=== PATIENT | male | born 1955 | race Caucasian/White ===

== ENCOUNTER 2019-11-11 20:34 | Observation (INO) | payer MEDICARE, SELFPAY ==
[2019-11-11 19:57] VITALS: BMI 24.0
[2019-11-11 20:00] VITALS: PULSE 75
--- NOTE | 2019-11-11 20:07 | HP.PCM_ITS ---
Problem List (1) Syncope and collapse Status: Acute History of Present Illness Date of Admission: 11/11/19 Chief Complaint: syncope The patient is a 64 year old M with history of multiple syncopal episode; depression; chronic back pain and hyperlipidemia presenting with syncope. His recent syncopal episodes started a day before coming to our hospital. He initially presented to [facility] on 11/10/2019. His sodium was 128 at that time. On 11/10/2019 he had about 6 episodes of syncope. His syncope was ruled out any warning. After he came back to himself he felt lightheaded. On 11/11/2019 patient's went to the [place] emergency department again his sodium was 128. Patient reports that at [place] emergency department he was hypotensive. Also patient had elevated d-dimer. CT of the chest was unremarkable. Reportedly patient was sent to our hospital because [facility] did not have a timber hewer and patient wanted to see a timber hewer. Past Medical History Medical History: Medical History (Last Updated 11/11/19 @ 20:[address] Ethan Richards MD) Hyperlipidemia E78.5 Allergies erythromycin base Allergy (Verified 11/11/19 19:54) Itching ether Adverse Reaction (Verified 11/11/19 19:54) Shortness of breath Home Medications: Ambulatory Orders Medication Instructions Recorded Atorvastatin Calcium 20 mg PO QHS 11/11/19 Venlafaxine XR [Effexor Xr] 75 mg PO DAILY 11/11/19 Venlafaxine XR [Effexor Xr] 150 mg PO QHS 11/11/19 traMADol [Ultram (G)] 50 - 100 mg PO Q6H PRN PRN 11/11/19 Surgical History: - - Right hip abscess drainage Smoking Status: Former smoker Alcohol: None - *Family History Maternal History Items: - - Multiple sclerosis Paternal History Items: Stroke Review of Systems Constitutional: Denies: Chills, Fever, Weight Change HEENT: Denies: Head Aches, Sinus Congestion, Sinus Drainage Cardiovascular: Reports: Light Headedness, Syncope. Denies: Chest Pain, Palpitations Respiratory: Denies: Cough, Shortness of breath at rest, Sputum production Gastrointestinal: Denies: Abdominal Pain, Nausea, Vomiting Genitourinary: Denies: Dysuria Musculoskeletal: Denies: Joint Pain, Joint Tenderness Skin: Denies: Rash, Wounds Neurological: Denies: Numbness, Tingling, Focal weakness Psychiatric: Reports: Depression. Denies: Anxiety, Homicidal Ideations, Suicidal Ideations Hematologic/ Lymphatic: Denies: Easy Bruising, Easy Bleeding VTE Information - Inpt Only VTE Present on Admission: No VTE Mechan Device Prophylaxis: None VTE Pharm Prophylaxis ordered?: Yes Patient Problems: Active and Suspected Problems (Last Updated 11/11/19 @ 20:[address] Ethan Richards MD) Syncope and collapse (Acute) - Physical Exam Vitals/I&O's: Weight: 78 kg Body Mass Index (BMI) 24.0 General: Alert, Oriented x3, Cooperative HEENT: Atraumatic, PERRLA, EOMI, Normocephalic Neck: Supple, Trachea Midline Lungs: Clear to auscultation, Normal air movement Cardiovascular: Regular rate, Normal S1, Normal S2, No murmurs Abdomen: Bowel Sounds Present, Soft, Non Tender Extremities: No edema, Capillary Refill Less than 3 Seconds Skin: No rashes, No breakdown Musculoskeletal: No Tenderness to Palpation of Joints or Extremities Neurological: Cranial nerves II-XII grossly intact Psych/Mental Status: Normal Affect, Appropriate Current Medications Sodium Chloride () 250 mls @ 15 mls/hr IV .[id number] PRN PRN Reason: Saline Flush Sodium Chloride () 250 mls @ 15 mls/hr IV .[id number] PRN PRN Reason: Additional IVPB Infusion Sodium Chloride () 10 - 40 ml IV UD PRN PRN Reason: SALINE FLUSH Assessment/Plan All Active Problems (Last Updated 11/11/19 @ 20:[address] Ethan Richards MD) Syncope and collapse (Acute) The patient is a 64 year old M with history of multiple syncopal episode; depression; chronic back pain and hyperlipidemia presenting with syncope. Syncope and collapse Get orthostatic now and every a.m.. EKG from [place] did not show ST or T wave abnormalities. Placed on telemetry. Get echocardiogram. Patient reported that in the past [facility] ordered outpatient Holter monitor for about 3 to 4 days. Consider long-term heart monitoring. If long-term heart monitoring is negative patient may be a candidate for tilt table test. Cardiology consult. Hyponatremia Patient appears euvolemic. Get BMP with osmolality. Check urine electrolytes to calculate FENA. Check urine osmolarity. Check a TSH and uric acid level. A.m. cortisol. Will continue home Effexor. Patient states that he was taking off Effexor for many months and he had so much depression and anxiety such that he could not get off his bed. Depression Effexor continued Chronic back pain Ultram continued DVT prophylaxis Subcutaneous Lovenox Inpatient E&M: [id number] Init Hosp L3
[2019-11-11 20:12] VITALS: BP 123/65; PULSE 73; RESP 18; TEMP 37.1; O2SAT 100
--- NOTE | 2019-11-11 20:57 | ECHOD_ITS ---
Reason For Study: SYNCOPE/NEAR SYNCOPE Procedure This was a 2D Doppler, Color Flow transthoracic echocardiogram. Exam performed portable in patient room. Left Ventricle Normal LV size. Left ventricular systolic function is normal. The estimated ejection fraction is 60 %. No regional wall motion abnormalities noted. Right Ventricle Normal RV size. Normal systolic function. Atria Normal left atrium. Normal right atrium. Mitral Valve Normal mitral valve. Tricuspid Valve Normal tricuspid valve. Aortic Valve Normal aortic valve. Pulmonic Valve Normal pulmonic valve. Great Vessels Normal aortic root. The pulmonary artery is normal size. Normal inferior vena cava. Pericardium/Pleural No pericardial effusion. MMode/2D Measurements & Calculations LVIDd: 4.0 cm IVSd: 0.98 cm LAV(MOD-sp4): 39.4 ml LVIDs: 2.7 cm LVPWd: 0.96 cm RVDd: 3.1 cm FS: 32.4 % LA A4 area: 15.4 cm2 LA dimension(2D): 2.7 cm RA A4 area: 12.5 cm2 Time Measurements MV dec time: 0.18 sec Doppler Measurements & Calculations MV E max niels: 76.9 cm/sec Lat Peak E' Niels: 10.6 cm/sec Med Peak E' Niels: 9.6 cm/sec MV A max niels: 65.4 cm/sec E/E' lat: 7.2 E/E' med: 8.0 MV E/A: 1.2 Ao V2 max: 115.1 cm/sec LV V1 max: 90.3 cm/sec PA V2 max: 89.1 cm/sec Ao max P.3 mmHg LV V1 max P.3 mmHg Interpretation Summary Normal LV size. Left ventricular systolic function is normal. The estimated ejection fraction is 60 %. Structurally normal valves. Ordering Physician: Ethan Richards Referring Physician: OTD Performed By: Naima Barnes, GRETA, RVT
[2019-11-11 21:58] LABS: Osmolality, Serum 270 mOsm/KG (280-301)
[2019-11-11 22:00] VITALS: BP 106/72; BP 124/71; PULSE 78; PULSE 81; PULSE 83
[2019-11-11 22:12] LABS: Anion Gap 6 (5-15); BUN 8 mg/dL (7-18); Calcium,Total 8.2 mg/dL (8.5-10.1); Chloride 98 mmol/L (98-107); EST Glomerular Filtration Rate 102 mL/min (>60); Est Glom Filt Rate - Afr Amer 124 mL/min (>60); Estimated Creatinine Clearance 96.74 ml/min; Glucose 95 mg/dL (74-106); Potassium 3.6 mmol/L (3.5-5.1); Sodium Level 132 mmol/L (136-145); Thyroid Stim Hormone (TSH) 4.13 uIU/mL (0.358-3.74); Uric Acid 3.2 mg/dL (3.5-7.2)
[2019-11-11 22:15] LABS: Urine Sodium 22 mmol/L (Not Establ.)
[2019-11-11 22:24] LABS: Osmolality, Urine 196 mOsm/KG
[2019-11-11] MEDS: 0.9% Normal Saline 1,000 ML 100 ML IV (22:29)
[2019-11-11] MEDS: Venlafaxine XR 150 MG Capsule PO (22:29)
[2019-11-11] MEDS: Atorvastatin Calcium 20 MG Tablet PO (22:30)
[2019-11-11] MEDS: 0.9% Saline Lock 10 ML Syringe IV (22:30)
[2019-11-11 22:35] VITALS: BP 118/68; PULSE 75; RESP 16; TEMP 37.1; O2SAT 95
[2019-11-11] MEDS: traMADol 50 MG Tablet PO (22:39)
[2019-11-11 22:40] VITALS: O2SAT 95
[2019-11-12] VITALS (7 sets, daily range): BP systolic 56–123; BP diastolic 37–75; PULSE 79–102; RESP 14–16; TEMP 36.7–37.1; O2SAT 93–98
--- NOTE | 2019-11-12 03:41 | PCM.PN.BLA ---
Progress Note Nurse reports repeat orthostatic blood pressure in the a.m. of lying 120/62, heart rate 97; sitting 97/65, heart rate of 88; standing 56/37 heart rate 102. Patient felt little dizzy. Patient complaining of back pain from fall. His sodium on presentation at [facility] was 128. Sodium at our hospital is 132. While being careful about replacing sodium too quickly because of extensive orthostatic hypotension will give 500 mL's bolus of normal saline and then continue at maintenance infusion rate of 100 mL's per hour. Check BMP at noon. His symptoms is from orthostatic hypotension. Will discontinue cardiology consult at this time. If patient continues to be orthostatic positive consider ordering PREM hose. PT to teach patient on how to gradually get up from a sitting or lying position. Continue Ultram as needed for back pain. Will add K pad as needed. STROKE Vital Signs/Narrative: Vital Signs Pulse 11/12/19 02:47 91
[2019-11-12 05:47] LABS: Absolute Lymphocyte Count 0.87 X10^3/uL (0.83-4.51); Absolute Neutrophil Count 5.9 X10^3/uL (2.0-7.7); Basophil# 0.03 X10^3/uL; Basophil% 0.4 % (0-1); Eosinophil# 0.18 X10^3/uL; Eosinophils% 2.3 % (0-5); Hematocrit 32.8 % (40-54); Hemoglobin 11.1 g/dL (13.0-16.5); Lymphocyte # 0.87 X10^3/ul (4.0); Mean Corp Hgb Conc 33.8 g/dL (32-36); Mean Corpuscular Hgb 29.4 pg (27.0-32.0); Mean Platelet Vol. 9.6 fl (6.2-12.0); Monocyte# 0.93 X10^3/uL; Monocyte% 11.7 % (0-10); NRBC Flagged by Analyzer 0 % (0-5); Neutrophil # 5.89 X10^3/uL (2.7-7.7); Neutrophil % 74.2 % (47-70); Platelet Count 190 K/mm3 (150-450); RBC Distribution Width CV 13.3 % (11.6-14.6); RBC Distribution Width SD 42.4 fl (35.1-43.9); Red Blood Count 3.77 M/mm3 (4.6-6.2); White Blood Count 7.9 K/mm3 (4.4-11.0)
[2019-11-12 06:20] LABS: Anion Gap 6 (5-15); BUN 6 mg/dL (7-18); BUN/Creat Ratio 9.2 RATIO (10-20); Chloride 100 mmol/L (98-107); Creatinine, Serum 0.65 mg/dL (0.70-1.30); EST Glomerular Filtration Rate 129 mL/min (>60); Est Glom Filt Rate - Afr Amer 157 mL/min (>60); Estimated Creatinine Clearance 77.39 ml/min; Glucose 93 mg/dL (74-106); Potassium 3.8 mmol/L (3.5-5.1); Sodium Level 133 mmol/L (136-145)
[2019-11-12] MEDS: Venlafaxine XR 75 MG Capsule PO (09:32)
[2019-11-12 09:52] LABS: T4 Free Direct 1.12 ng/dL (0.76-1.46)
--- NOTE | 2019-11-12 10:36 | DCINST_ITS ---
- Discharge Diagnoses Current Active Problems: Current Active and Chronic Problems (Last Updated 11/11/19 @ 20:[address] Ethan Richards MD) Orthostatic hypertension (Acute) Syncope and collapse (Acute) You will use the following diet at home:: No restrictions Your food should be the consistency of: Regular Your liquids should be the consistency of: Regular/Thin Discharge Activity: Return to Normal Activity Additional Instructions: use extra care changing positions particularly from lying to sitting, sitting to standing. Prior to ambulating give yourself time to make sure you are stable, and not dizzy or lightheaded. Sit back down if concerned. Use compression socks on your legs daily. Allergies/Adverse Reactions: Allergies erythromycin base Allergy (Verified 11/11/19 19:54) Itching ether Adverse Reaction (Verified 11/11/19 19:54) Shortness of breath Medications to take at Discharge Atorvastatin Calcium 20 mg PO QHS 11/11/19 Venlafaxine XR [Effexor Xr] 75 mg PO DAILY 11/11/19 Venlafaxine XR [Effexor Xr] 150 mg PO QHS 11/11/19 traMADol [Ultram (G)] 50 - 100 mg PO Q6H PRN PRN 11/11/19 Primary Care Physician: ALEKSANDRA MCCONNELL [Other] Please follow up with your Primary Care Physician in: 1 week Test Results: Test results from this visit will be discussed in further detail at your follow- up appointment, if applicable. Proposed Discharge Date: 11/12/19
[2019-11-12] MEDS: 0.9% Normal Saline 1,000 ML 100 ML IV (10:44)
[2019-11-12] MEDS: Enoxaparin 40 MG/0.4 ML Syringe SC (10:45)
--- NOTE | 2019-11-12 10:46 | PHA.DC.MR ---
Pharmacy Service has performed discharge medication reconciliation for this patient. The patient's discharge medication list was reviewed for discrepancies and discrepancies were resolved. Home Medications Atorvastatin Calcium 20 mg PO QHS 11/11/19 Venlafaxine XR [Effexor Xr] 75 mg PO DAILY 11/11/19 Venlafaxine XR [Effexor Xr] 150 mg PO QHS 11/11/19 traMADol [Ultram (G)] 50 - 100 mg PO Q6H PRN PRN 11/11/19
[2019-11-12 12:36] LABS: Anion Gap 3 (5-15); BUN 7 mg/dL (7-18); BUN/Creat Ratio 9.4 RATIO (10-20); Calcium,Total 8.1 mg/dL (8.5-10.1); Chloride 104 mmol/L (98-107); Creatinine, Serum 0.74 mg/dL (0.70-1.30); EST Glomerular Filtration Rate 111 mL/min (>60); Est Glom Filt Rate - Afr Amer 135 mL/min (>60); Estimated Creatinine Clearance 77.39 ml/min; Glucose 98 mg/dL (74-106); Potassium 3.9 mmol/L (3.5-5.1); Sodium Level 136 mmol/L (136-145)
--- NOTE | 2019-11-12 12:57 | DS.PCM_ITS ---
<Nito Priest - Last Filed: 11/12/19 12:57> Discharge Date and Diagnosis - Problem List Patient Problems: Active and Suspected Problems (Last Updated 11/11/19 @ 20:[address] Ethan Richards MD) Orthostatic hypertension (Acute) Syncope and collapse (Acute) Date of Admission: 11/11/19 Date of Discharge: 11/12/19 - Primary Discharge Diagnosis Active and Suspected Problems (Last Updated 11/11/19 @ 20:[address] Ethan Richards MD) Syncope 2/2 Orthostatic hypertension Hyponatremia Depression Chronic back pain Hospital Course and Treatment Imaging Results: Echo pending. Operations: None Procedures: 2-D Echocardiogram Summary of Care Provided: Hospital course: The patient is a 64 year old M with pmhx of depression, hyponatremia, HLD, chronic back pain, who presented to the ER with c/o syncope. He had multiple episodes and prior presentations to the hospital with the same. He would have sudden episodes of passing out while up on his feet. He would sometimes get lightheaded but sometimes it would happen with no warning. He was found to have some hyponatremia at 132, elevated tsh, normal t4, normal cortisol. EKG without cute changes. He was placed in the PCU on tele. He had some sinus tachy on monitor. He was found to have significant orthostatic hypotension. He was administered IV fluids. Hyponatremia resolved. Echocardiogram is pending at this time. He was advised to make sure he is getting enough salt in his diet, to use compression socks daily, and to use care changing positions. He will likely need tilt table testing as an outpatient. I advised him to use caution with ultram as it may affect his blood pressure. He may also have some hyponatremia due to effexor which may need to be considered as an outpatient. He was discharged home in stable condition and should follow up with his PCP in 1 week. This patient was seen by Nito Priest PA-C under the supervision of Doctor Alejandro. [] Patient Problems: Active and Suspected Problems (Last Updated 11/11/19 @ 20:[address] Ethan Richards MD) Orthostatic hypertension (Acute) Syncope and collapse (Acute) - Physical Exam Vitals/I&O's: Vital Signs Temp Pulse Resp BP Pulse Ox 98.0 F 84 14 116/63 97 11/12/19 09:21 11/12/19 09:21 11/12/19 09:21 11/12/19 09:21 11/12/19 09:21 Oxygen Delivery Method Room Air Weight: 171 lb 15.369 oz Body Mass Index (BMI) 24.0 Orthostatic Vital Signs Start: 11/11/19 22:07 Freq: q24h Status: Active Protocol: Activity Type Activity Date Activity User E-Sign Co-Sign Detail Recorded Client Recorded Date Recorded By Document 11/12/19 03:10 AML [id number] 11/12/19 03:41 AML 11/12/19 03:10 Orthostatic Vitals Standing -Blood Pressure (90/60-120/80) 56/37 L -Extremity Use Left Arm -Pulse Rate (60-100) 102 H Sitting -Blood Pressure (90/60-120/80) 97/65 -Extremity Use Left Arm -Pulse Rate (60-100) 97 Lying -Blood Pressure (90/60-120/80) 120/65 -Extremity Use Left Arm -Pulse Rate (60-100) 88 Intake and Output for Last 24 Hours 11/10/19 11/11/19 11/12/19 23:59 23:59 23:59 Intake Total 48.33 / 268.33 1975.67 / 1975.67 Output Total 800 / 800 Balance 48.33 / 268.33 1175.67 / 1175.67 General: Alert, Oriented x3, Cooperative HEENT: Atraumatic, PERRLA, EOMI, Normocephalic Neck: Supple, No JVD, Negative Carotid Bruits Lungs: Clear to auscultation, Normal air movement Cardiovascular: Regular rate, No murmurs Abdomen: Bowel Sounds Present, Soft, Non Tender Extremities: No edema, Capillary Refill Less than 3 Seconds Skin: No rashes, No breakdown Musculoskeletal: No Tenderness to Palpation of Joints or Extremities Neurological: Cranial nerves II-XII grossly intact Psych/Mental Status: Normal Affect, Appropriate Laboratory Results 11/11/19 21:30: Sodium 132 L, Potassium 3.6, Chloride 98, Carbon Dioxide 28.0, Anion Gap 6, BUN 8, Creatinine 0.80, Estim Creat Clear Calc 96.74, Est GFR (MDRD) Af Amer 124, Est GFR (MDRD) Non-Af 102, BUN/Creatinine Ratio 10.0, Glucose 95, Uric Acid 3.2 L, Calcium 8.2 L, TSH 4.13 H 11/11/19 21:30: Serum Osmolality 270 L 11/11/19 21:55: Ur Random Sodium 22 11/11/19 21:55: Urine Osmolality 196 11/11/19 21:55: Urine Creatinine 34.80 11/12/19 05:08: WBC 7.9, RBC 3.77 L, Hgb 11.1 L, Hct 32.8 L, MCV 87.0, MCH 29.4, MCHC 33.8, RDW Std Deviation 42.4, RDW Coeff of Ambrosio 13.3, Plt Count 190, MPV 9.6, Immature Gran % (Auto) 0.400, Neut % (Auto) 74.2 H, Lymph % (Auto) 11.0 L, [place] % (Auto) 11.7 H, Eos % (Auto) 2.3, Baso % (Auto) 0.4, Absolute Neuts (auto) 5.9, Absolute Lymphs (auto) 0.87, Nucleated RBC % 0 11/12/19 05:08: Cortisol 17.70 11/12/19 05:08: Sodium 133 L, Potassium 3.8, Chloride 100, Carbon Dioxide 27.0, Anion Gap 6, BUN 6 L, Creatinine 0.65 L, Estim Creat Clear Calc 77.39, Est GFR (MDRD) Af Amer 157, Est GFR (MDRD) Non-Af 129, BUN/Creatinine Ratio 9.2 L, Glucose 93, Calcium 8.0 L 11/12/19 05:08: Free T4 1.12 11/12/19 12:10: Sodium 136, Potassium 3.9, Chloride 104, Carbon Dioxide 29.0, Anion Gap 3 L, BUN 7, Creatinine 0.74, Estim Creat Clear Calc 77.39, Est GFR (MDRD) Af Amer 135, Est GFR (MDRD) Non-Af 111, BUN/Creatinine Ratio 9.4 L, Glucose 98, Calcium 8.1 L Current Medications Atorvastatin Calcium (Lipitor) 20 mg PO QHS [facility] Last Admin: 11/11/19 22:30 Dose: 20 mg Documented by: Enoxaparin Sodium (Lovenox) 40 mg SC DAILY [facility] Last Admin: 11/12/19 10:45 Dose: 40 mg Documented by: Glucagon () 1 mg IM .X1 PRN PRN Reason: Hypoglycemia Sodium Chloride () 250 mls @ 15 mls/hr IV .[id number] PRN PRN Reason: Saline Flush Sodium Chloride () 250 mls @ 15 mls/hr IV .[id number] PRN PRN Reason: Additional IVPB Infusion Dextrose (Dextrose 10%-Water) 250 mls @ 999 mls/hr IV .Q16M PRN; Protocol PRN Reason: HYPOGLYCEMIA Sodium Chloride () 1,000 mls @ 100 mls/hr IV .Q10H [facility] Stop: 11/12/19 18:09 Last Admin: 11/12/19 10:44 Dose: 100 mls/hr Documented by: Ondansetron HCl (Zofran) 4 mg IV Q8H PRN PRN PRN Reason: NAUSEA/VOMITING Sodium Chloride () 10 - 40 ml IV UD PRN PRN Reason: SALINE FLUSH Last Admin: 11/11/19 22:30 Dose: 10 ml Documented by: Tramadol HCl (Ultram) 50 - 100 mg PO Q6H PRN PRN PRN Reason: Pain 5-10/10 Last Admin: 11/11/19 22:39 Dose: 100 mg Documented by: Venlafaxine HCl (Effexor Xr) 75 mg PO DAILY [facility] Last Admin: 11/12/19 09:32 Dose: 75 mg Documented by: Venlafaxine HCl (Effexor Xr) 150 mg PO QHS [facility] Last Admin: 11/11/19 22:29 Dose: 150 mg Documented by: Discharge Diet: No Restrictions Discharge Activity: Return to Normal Activity Home Medications: Medications to take at Discharge Atorvastatin Calcium 20 mg PO QHS 11/11/19 Venlafaxine XR [Effexor Xr] 75 mg PO DAILY 11/11/19 Venlafaxine XR [Effexor Xr] 150 mg PO QHS 11/11/19 traMADol [Ultram (G)] 50 - 100 mg PO Q6H PRN PRN 11/11/19 Primary Care Physician: ALEKSANDRA MCCONNELL [Other] Please follow up with your Primary Care Physician in: 1 week Disposition: Home Minutes spent on discharge:: 35 Patient Condition:: Stable Medical Necessity - Tobacco Use Smoking Status: Former smoker Meaningful Use Info Meaningful Use Diagnoses (Choose all that apply): None applicable <Kittoe,Dick - Last Filed: 11/12/19 13:34> Discharge Date and Diagnosis - Primary Discharge Diagnosis Active and Suspected Problems (Last Updated 11/11/19 @ 20:[address] Ethan Richards MD) Orthostatic hypertension (Acute) Syncope and collapse (Acute) Hospital Course and Treatment Summary of Care Provided: This patient was seen in conjunction with Nito Priest PA-C . I have independently interviewed and examined the patient and reviewed pertinent historical, laboratory, and other data. Please refer to Nito Priest PA-C note for details of this patient's presentation, findings, and recommendations. I have reviewed Nito Priest PA-C note and concur with documented findings. In brief, patient is a 64-year-old gentleman who presented with recurrent syncopal episode. Patient was found to to be orthostatic with hyponatremia. Admitted to a monitored bed where patient is a current evaluation and management Hospital course: As documented above by Nito Priest PA-C - Physical Exam Vitals/I&O's: Vital Signs Temp Pulse Resp BP Pulse Ox 98.0 F 84 14 116/63 97 11/12/19 09:21 11/12/19 09:21 11/12/19 09:21 11/12/19 09:21 11/12/19 09:21 Oxygen Delivery Method Room Air Weight: 78 kg Body Mass Index (BMI) 24.0 Orthostatic Vital Signs Start: 11/11/19 22:07 Freq: q24h Status: Active Protocol: Activity Type Activity Date Activity User E-Sign Co-Sign Detail Recorded Client Recorded Date Recorded By Document 11/12/19 03:10 AML [id number] 11/12/19 03:41 AML 11/12/19 03:10 Orthostatic Vitals Standing -Blood Pressure (90/60-120/80) 56/37 L -Extremity Use Left Arm -Pulse Rate (60-100) 102 H Sitting -Blood Pressure (90/60-120/80) 97/65 -Extremity Use Left Arm -Pulse Rate (60-100) 97 Lying -Blood Pressure (90/60-120/80) 120/65 -Extremity Use Left Arm -Pulse Rate (60-100) 88 Intake and Output for Last 24 Hours 11/10/19 11/11/19 11/12/19 23:59 23:59 23:59 Intake Total 48.33 / 268.33 1974. / Output Total 800 / 800 Balance 48.33 / 268.33 1175.67 / 1175.67 Laboratory Results 11/11/19 21:30: Sodium 132 L, Potassium 3.6, Chloride 98, Carbon Dioxide 28.0, Anion Gap 6, BUN 8, Creatinine 0.80, Estim Creat Clear Calc 96.74, Est GFR (MDRD) Af Amer 124, Est GFR (MDRD) Non-Af 102, BUN/Creatinine Ratio 10.0, Glucose 95, Uric Acid 3.2 L, Calcium 8.2 L, TSH 4.13 H 11/11/19 21:30: Serum Osmolality 270 L 11/11/19 21:55: Ur Random Sodium 22 11/11/19 21:55: Urine Osmolality 196 11/11/19 21:55: Urine Creatinine 34.80 11/12/19 05:08: WBC 7.9, RBC 3.77 L, Hgb 11.1 L, Hct 32.8 L, MCV 87.0, MCH 29.4, MCHC 33.8, RDW Std Deviation 42.4, RDW Coeff of Ambrosio 13.3, Plt Count 190, MPV 9.6, Immature Gran % (Auto) 0.400, Neut % (Auto) 74.2 H, Lymph % (Auto) 11.0 L, [place] % (Auto) 11.7 H, Eos % (Auto) 2.3, Baso % (Auto) 0.4, Absolute Neuts (auto) 5.9, Absolute Lymphs (auto) 0.87, Nucleated RBC % 0 11/12/19 05:08: Cortisol 17.70 11/12/19 05:08: Sodium 133 L, Potassium 3.8, Chloride 100, Carbon Dioxide 27.0, Anion Gap 6, BUN 6 L, Creatinine 0.65 L, Estim Creat Clear Calc 77.39, Est GFR (MDRD) Af Amer 157, Est GFR (MDRD) Non-Af 129, BUN/Creatinine Ratio 9.2 L, Glucose 93, Calcium 8.0 L 11/12/19 05:08: Free T4 1.12 11/12/19 12:10: Sodium 136, Potassium 3.9, Chloride 104, Carbon Dioxide 29.0, Anion Gap 3 L, BUN 7, Creatinine 0.74, Estim Creat Clear Calc 77.39, Est GFR (MDRD) Af Amer 135, Est GFR (MDRD) Non-Af 111, BUN/Creatinine Ratio 9.4 L, Glucose 98, Calcium 8.1 L Current Medications Atorvastatin Calcium (Lipitor) 20 mg PO QHS [facility] Last Admin: 11/11/19 22:30 Dose: 20 mg Documented by: Enoxaparin Sodium (Lovenox) 40 mg SC DAILY [facility] Last Admin: 11/12/19 10:45 Dose: 40 mg Documented by: Glucagon () 1 mg IM .X1 PRN PRN Reason: Hypoglycemia Sodium Chloride () 250 mls @ 15 mls/hr IV .[id number] PRN PRN Reason: Saline Flush Sodium Chloride () 250 mls @ 15 mls/hr IV .[id number] PRN PRN Reason: Additional IVPB Infusion Dextrose (Dextrose 10%-Water) 250 mls @ 999 mls/hr IV .Q16M PRN; Protocol PRN Reason: HYPOGLYCEMIA Sodium Chloride () 1,000 mls @ 100 mls/hr IV .Q10H [facility] Stop: 11/12/19 18:09 Last Admin: 11/12/19 10:44 Dose: 100 mls/hr Documented by: Ondansetron HCl (Zofran) 4 mg IV Q8H PRN PRN PRN Reason: NAUSEA/VOMITING Sodium Chloride () 10 - 40 ml IV UD PRN PRN Reason: SALINE FLUSH Last Admin: 11/11/19 22:30 Dose: 10 ml Documented by: Tramadol HCl (Ultram) 50 - 100 mg PO Q6H PRN PRN PRN Reason: Pain 5-10/10 Last Admin: 11/11/19 22:39 Dose: 100 mg Documented by: Venlafaxine HCl (Effexor Xr) 75 mg PO DAILY [facility] Last Admin: 11/12/19 09:32 Dose: 75 mg Documented by: Venlafaxine HCl (Effexor Xr) 150 mg PO QHS [facility] Last Admin: 11/11/19 22:29 Dose: 150 mg Documented by: OBSV E&M: [id number] Observation care discharge
[2019-11-12] MEDS: traMADol 50 MG Tablet PO (15:24)
== END 2019-11-12 10:37 | disposition home or self-care (01) ==
PROVIDERS: Hospitalist; Physician Assistant; Admitting Provider Internal Medicine; Visit Provider Internal Medicine
DX: I95.1 Orthostatic hypotension (principal); E87.1 Hypo-osmolality and hyponatremia; E78.5 Hyperlipidemia, unspecified; Z79.899 Other long term (current) drug therapy; G89.29 Other chronic pain; Z87.891 Personal history of nicotine dependence; F32.9 Major depressive disorder, single episode, unspecified
CPT/HCPCS: 36415; 80048; 82533; 82570; 83930; 83935; 84300; 84439; 84443; 84550; 85025; 93306; 96360; 96361; 97161; 97166; 99218; J7030; J7040; A4216; G0378; G0379

== ENCOUNTER → 2019-11-19 12:46 | Outpatient (CLI) | payer MEDICARE, SELFPAY ==
[2019-11-11 19:57] VITALS: BMI 24.0
--- NOTE | 2019-11-19 12:54 | MRI_ITS ---
STUDY: MRI THORACIC SPINE WITHOUT CONTRAST REASON FOR EXAM: Male, 64 years old. fracture after falling into cabinet, pain in mid/lower back TECHNIQUE: Standardized fat and water weighted pulse sequences were obtained in the sagittal and axial planes. COMPARISON: None. FINDINGS: Normal kyphosis of the thoracic spine. There is no substantial scoliosis. T1-2, T2-3, T3-4, T4-5, T5-6, T6-7, T7-8, T8-9, T9-10, T10-11, T11-12: At T8/T9 there is a small central disc protrusion which produces mild spinal stenosis but no cord compression. Acute moderate wedge compression fracture of T12 with 5 mm retropulsion into the spinal canal producing moderate spinal stenosis but no cord compression. Normal visualized thoracic cord. Normal conus medullaris that terminates at the L1.. The soft tissue structures are unremarkable. MRI/Spine Thoracic (Routine) IMPRESSION: Acute moderate wedge compression fracture of T12 with 5 mm retropulsion into the spinal canal producing moderate spinal stenosis but no cord compression. Electronically Signed: Fabrizio Mahan MD at 17:22 EDT Tel , Service support ,
--- NOTE | 2019-11-19 12:54 | MRI_ITS ---
STUDY: MRI CERVICAL SPINE WITHOUT CONTRAST REASON FOR EXAM: Male, 64 years old. stenosis,, syncopal episodes TECHNIQUE: Standardized fat and water weighted pulse sequences were obtained in the sagittal and axial planes. COMPARISON: None FINDINGS: Normal foramen magnum and brainstem-cervical cord junction. Normal craniovertebral junction. There are degenerative changes of the anterior atlantoaxial articulation. Normal odontoid process. Normal cervical lordosis. Normal vertebral bodies and posterior osseous elements. C2-3: Mild broad disc osteophyte complex produces mild spinal stenosis and no neural foraminal stenosis. C3-4: Mild bilateral facet hypertrophy. 2 mm of anterolisthesis of C3 on C4 with a moderate broad disc osteophyte complex produces moderate spinal stenosis with abutment of the central spinal cord and mild bilateral neural foraminal stenosis. C4-5: Mild bilateral facet hypertrophy. 2 mm of anterolisthesis of C4 on C5 with a moderate broad disc osteophyte complex produces moderate spinal stenosis with abutment of the central spinal cord and mild bilateral neural foraminal stenosis. C5-6: Moderate broad disc osteophyte complex asymmetric left produces moderate spinal stenosis with abutment of the central spinal cord and mild left neural foraminal stenosis. C6-7: Moderate broad disc osteophyte complex produces moderate spinal stenosis with abutment of the central spinal cord and mild bilateral neural foraminal stenosis. Associated Modic type I endplate changes. C7-T1: 2 mm of anterolisthesis of C7 on T1 with a mild broad disc osteophyte complex produces mild spinal stenosis and mild bilateral neural foraminal stenosis. Normal cervical cord. Normal visualized soft tissue structures. MRI/Spine Cervical (Routine) IMPRESSION: Moderate degenerative disc disease as described above. Electronically Signed: Fabrizio Mahan MD at 17:17 EDT Tel , Service support ,
--- NOTE | 2019-11-19 14:19 | CT_ITS ---
STUDY: CT CHEST WITH CONTRAST REASON FOR EXAM: Male, 64 years old. NODULE FOLLOW UP RADIATION DOSAGE (If Supplied By Facility): CTDIvol = ( 13.87 ) mGy, DLP = ( 430.61 ) mGycm TECHNIQUE: Transaxial imaging was performed following intravenous administration of IV 100mL Isovue-300. Multiplanar coronal and sagittal images were reformatted. Individualized dose optimization techniques were used for this CT. COMPARISON: None. FINDINGS: There is slight decrease in the inspiratory effort. There is mild bilateral upper lobes scarring with minimal bronchiectasis. There is mild subpleural posterior lower lobe dependent atelectasis with interstitial prominence. Minimal bullous changes noted within the left lower lobe. There is no demonstrated pleural abnormality. Normal heart and pericardium. Normal mediastinum. Normal hilar regions. Normal enhanced pulmonary arteries with no pulmonary embolus. There is atherosclerotic calcification of the aortic arch with tortuosity and elongation of the aortic arch and descending thoracic aorta. No aortic dissection. Diffuse osteopenia with compression fracture of T12. There is associated soft tissue swelling anteriorly therefore suggested to be acute . There is no demonstrated abnormality of the visualized upper abdomen. CT/Chest WITH Contrast IMPRESSION: Bilateral upper lobe scarring with mild interstitial lung disease and mild apical bronchiectasis. No focal infiltrate or pleural effusion. No distinct nodule or mass. Acute fracture of T12. Electronically Signed: Sindy Floyd MD at 2:16 EDT , Service support ,
== END ==
DX: R91.1 Solitary pulmonary nodule (principal); M48.02 Spinal stenosis, cervical region; S22.008A Other fracture of unspecified thoracic vertebra, initial encounter for closed fracture
CPT/HCPCS: 71260; 72141; 72146; Q9967

== ENCOUNTER → 2019-11-21 | Outpatient (CLI) | payer MEDICARE, SELFPAY ==
[2019-11-11 19:57] VITALS: BMI 24.0
--- NOTE | 2019-11-21 10:02 | CDU_ITS ---
Reason For Study: Syncope and collapse Rt. Velocities/BP Lt. Velocities/BP Prox CCA 113.9/20 cm/sec. Prox CCA 99.2/19 cm/sec. Mid CCA 79.4/16.8 cm/sec. Mid CCA 87.1/21.2 cm/sec. Dist CCA 70.6/19 cm/sec. Dist CCA 83.8/14.6 cm/sec. Prox ICA 60.7/16.3 cm/sec. Prox ICA 87.6/18.8 cm/sec. Mid ICA 74/24.8 cm/sec. Mid ICA 53.1/15.7 cm/sec. Dist ICA 92.9/29.6 cm/sec. Dist ICA 80.5/25.6 cm/sec. Rt. ICA/CCA = 1.2. Lt. ICA/CCA = 1.0. Prox ECA 122.9/11.5 cm/sec. Prox ECA 171.8/18.2 cm/sec. Rt. Vert. 62.6/13.5 cm/sec. Lt. Vert. 80.2/24.5 cm/sec. Right Extracranial There is intimal thickening but no significant atherosclerotic plaque noted in the right common carotid artery. There is heterogeneous, irregular atherosclerotic plaque noted in the right internal carotid artery. There is heterogeneous, smooth atherosclerotic plaque noted in the right external carotid artery. Antegrade flow is noted in the right vertebral artery. Left Extracranial There is intimal thickening but no significant atherosclerotic plaque noted in the left common carotid artery. There is heterogeneous, irregular atherosclerotic plaque noted in the left internal carotid artery. There is heterogeneous, irregular atherosclerotic plaque noted in the left external carotid artery. Antegrade flow is noted in the left vertebral artery. Procedure Carotid Duplex [id number]. Exam performed in department. Interpretation Summary Mild (<50%) stenosis right extracranial internal carotid. Mild (<50%) stenosis left extracranial internal carotid. Flow within the vertebral arteries is antegrade bilaterally. Ordering Physician: ALEKSANDRA MCCONNELL Performed By: Winifred Arias RVT
== END | disposition home or self-care (01) ==
LOC: CVS 10:00
DX: R55 Syncope and collapse (principal)
CPT/HCPCS: 93880

== ENCOUNTER → 2019-12-19 | Outpatient (CLI) | payer MEDICARE, SELFPAY ==
[2019-11-11 19:57] VITALS: BMI 24.0
--- NOTE | 2019-12-19 09:18 | BD_ITS ---
STUDY: DUAL ENERGY X-RAY ABSORPTIOMETRY / DXA REASON FOR EXAM: Male, 64 years old. LIZZ OF 2 INCHES -- RECENT T12 COMPRESSION FX -- HX OF SMOKING- QUIT 12 YRS AGO -- CURRENTLY ON GABAPENTIN -- TAKES CALCIUM AND MULTIVITAMIN -- DOES MODERATE AMOUNT OF EXERCISE -- FAMILY HX OF OSTEO- BROTHER -- COMPRESSION FX, AND HX OF RIB FX''S TECHNIQUE: Bone Mineral Density (BMD) measurements of lumbar spine and bilateral hips were obtained. COMPARISON: None. FINDINGS: Lumbar Spine (L1-L4): g/cm2 (0.754) / T-score (-3.7) / Z-score (-3.2) Findings are suggestive of osteoporosis with a high fracture risk. Left Femur Total: g/cm2 (0.72) / T-score (-2.2) / Z-score (-1.6) Left Femoral Neck: g/cm2 (0.766) / T-score (-2.3) / Z-score (-1.2) Right Femur Total: g/cm2 (0.774) / T-score (-2.3) / Z-score (-1.7) Right Femoral Neck: g/cm2 (0.768) / T-score (-2.3) / Z-score (-1.2) BD/Dexa Bone Density Study IMPRESSION: The patient is considered osteoporotic as outlined below according to World Santh[employer] Organization (WHO) criteria with a high fracture risk. Reference Information: The T-score is the number of standard deviations above or below the standard which is normal for young adults at their peak bone mineral density. The World Health Organization (WHO) interprets the T-scores as follows: Above -1 Normal bone density Between -1 and -2.5 Osteopenia Equal to / or below -2.5 Osteoporosis As a practical clinical guideline, osteopenia may be graded as follows: Mild -1 through -1.5 Moderate -1.6 through -2.0 Severe -2.1 through -2.4 The Z-score is the number of standard deviations above or below age-matched controls. A Z-score of less than -1.5 would be considered abnormal. References: 1. NIH Osteoporosis and Related Bone Diseases http://www.osteo.org 2. International Society for Clinical Densitometry http://www.iscd.org 3. National Osteoporosis Foundation http://www.nof.org Electronically Signed: Damian Mitchell, at 10:07 EDT , Service support ,
== END | disposition home or self-care (01) ==
LOC: OPBD 09:10
DX: S22.008A Other fracture of unspecified thoracic vertebra, initial encounter for closed fracture (principal)
CPT/HCPCS: 77080

== ENCOUNTER → 2024-12-14 | Outpatient (CLI) | payer MEDICARE, SELFPAY ==
--- NOTE | 2024-12-14 10:19 | STRESSREP ---
Stress Test Report Date: 12/14/2024 Procedure: Exercise tolerance test/imaging study Indications: Syncope Consent: Per the patient Procedure: The patient exercised on a Rajesh protocol for 9 minutes achieving a peak heart rate of 123 bpm (82% predicted maximal heart rate) with a peak blood pressure 160/74 mmHg and a peak MET capacity of 10.1 METs. The baseline ECG demonstrated sinus rhythm. The peak exercise ECG showed sinus tachycardia with no ischemic changes. There were no cardiac dysrhythmias pretest, during exercise, or recovery. The functional capacity was considered very good for age. There was no complaint of chest discomfort during exercise or recovery. The examination was discontinued secondary to target heart rate being achieved and fatigue. The patient was injected with 13.3 mCi of technetium 99m Cardiolite and subsequently rest SPECT Cardiolite nuclear imaging was obtained in the horizontal long, vertical long, and short axis views. Post-exercise, the patient was injected with 41.4 mCi of technetium 99m Cardiolite and subsequently stress SPECT Cardiolite nuclear imaging was obtained in the horizontal long, vertical long, and short axis views. A gated Cardiolite study at peak stress was obtained. Rest and stress SPECT Cardiolite nuclear imaging status post realignment, normalization, and attenuation correction, demonstrates the appearance of relative uniform tracer uptake and myocardial perfusion appearing within normal limits. There is end systolic thickening and brightening. The gated Cardiolite study demonstrates myocardial thickening and inward wall motion. The reported LVEF is 68%. Impression: 1. Technically adequate exercise tolerance test 2. Peak exercise ECG with no ischemic changes. Excellent exercise tolerance for age. 3. No significant cardiac dysrhythmias noted pretest, during exercise or in recovery. 4. Rest and stress SPECT Cardiolite nuclear imaging demonstrate relative uniform tracer uptake and myocardial perfusion appearing within normal limits. 5. The gated Cardiolite study reports an LVEF of 68%. This note was generated with StudioEXation software. It may contain incorrect words, spelling, and punctuation that were not noted in checking the note before signing.
== END | disposition home or self-care (01) ==
PROVIDERS: PCP Family Medicine; Referring Provider Internal Medicine Cardiovascular Disease; Visit Provider Internal Medicine Cardiovascular Disease
DX: R55 Syncope and collapse (principal); E78.2 Mixed hyperlipidemia; I77.1 Stricture of artery; R06.09 Other forms of dyspnea
CPT/HCPCS: 78452; 93017; A9500; A4216

== ENCOUNTER → 2025-02-05 | Outpatient (CLI) | payer MEDICARE, SELFPAY ==
[2025-02-05 10:22] LABS: Absolute Lymphocyte Count 1.61 X10^3/uL (0.83-4.51); Absolute Neutrophil Count 2.6 X10^3/uL (2.0-7.7); Basophil# 0.07 X10^3/uL; Basophil% 1.2 % (0-1); Eosinophil# 0.74 X10^3/uL; Eosinophils% 12.8 % (0-5); Hemoglobin 12.7 g/dL (13.0-16.5); Lymphocyte # 1.61 X10^3/ul (0.83-4.51); Mean Corp Hgb Conc 34.3 g/dL (32-36); Mean Corpuscular Hgb 30.4 pg (27.0-32.0); Mean Corpuscular Volume 88.5 fL (80-94); Mean Platelet Vol. 9.5 fl (6.2-12.0); Monocyte% 12.2 % (0-10); NRBC Flagged by Analyzer 0 % (0-5); Neutrophil # 2.62 X10^3/uL (2.7-7.7); Neutrophil % 45.5 % (47-70); Platelet Count 218 K/mm3 (150-450); RBC Distribution Width CV 13.6 % (11.6-14.6); RBC Distribution Width SD 44.3 fl (35.1-43.9); Red Blood Count 4.18 M/mm3 (4.6-6.2); White Blood Count 5.8 K/mm3 (4.4-11.0)
[2025-02-05 11:02] LABS: Anion Gap 9 (5-15); BUN 9 mg/dL (4-19); BUN/Creat Ratio 9.9 RATIO (10-20); Calcium,Total 9.1 mg/dL (7.6-11.0); Carbon Dioxide 26.3 mmol/L (21.0-32.0); Chloride 97 mmol/L (98-108); EST Glomerular Filtration Rate 91 (>60); Glucose 95 mg/dL (70-99); Potassium 3.9 mmol/L (3.3-5.1); Sodium Level 133 mmol/L (133-145)
--- NOTE | 2025-02-05 16:59 | TILTTABLE_ITS ---
Staff Staff: Odalis Cobos and Teagan Macias Summary Pre Test Resting HR: 73 Pre Test Resting BP: 119/76 Minimum Test HR: 70 Maximum Test HR: 105 Minimum Test BP: 83/64 Maximum Test BP: 118/83 Reason for Test Termination: Syncope Physician Tilt Table Report Patient's Physicians Primary Care Physician: Bola Mims Indications/Diagnosis: Syncope Procedure Comments: The patient was brought to the noninvasive lab in the postabsorptive nonsedated state. Informed consent was obtained. Initial heart rate was noted to be 73 bpm with a blood pressure 119/76 mmHg. The patient was then placed in the 70 degree head upright tilt position and monitored for a total duration of approximately 20 minutes. Continuous EKG monitoring was performed patient maintained sinus rhythm. The patient was then placed back in the 70 degree head upright tilt position after he had been administered 0.4 mg of nitroglycerin. Initial heart rate was 87 bpm with a blood pressure 106/82 mmHg. The heart rate went up 205 and the blood pressure dropped to 83/64 and then was unable to measure he was pale and was put back in the recumbent position. Summary: Abnormal head upright tilt table test with likely orthostatic hypotens ion noted symptomatic.
[2025-02-05 17:03] VITALS: BP 118/83; BP 119/76; BP 83/64
== END | disposition home or self-care (01) ==
PROVIDERS: PCP Family Medicine; Referring Provider Internal Medicine Cardiovascular Disease; Visit Provider Internal Medicine Cardiovascular Disease
DX: R55 Syncope and collapse (principal); I95.9 Hypotension, unspecified; I10 Essential (primary) hypertension
CPT/HCPCS: 36415; 80048; 85025; 93660; A4216

== ENCOUNTER 2025-03-10 15:52 | Emergency (ER) | payer MEDICARE, SELFPAY ==
[2025-03-10 15:53] VITALS: BP 145/89; PULSE 79; RESP 16; TEMP 35.8; O2SAT 99
--- NOTE | 2025-03-10 16:06 | EX.ED.VIS.UR ---
HPI HPI - URI History of Present Illness Chief Complaint: Cough Informant: patient Onset/Context/Timing Onset: Today Current Severity: Mild Maximum Severity: Mild Associated Symptoms Associated Symptoms: Positive for Hemoptysis Narrative Narrative: 69-year-old male history of asthma and suspected COPD. Says he has had a cough recently. Today had postnasal drip and he coughed up some blood. Denies any chest pain. No shortness of breath. No history of cancer. No history of DVT or PE. No recent travel, surgery or immobilization. Denies any leg pain or swelling. No calf pain. Was seen in urgent care. Came over the emergency department for further evaluation. Prior similar symptoms: No Recent Illness/Hospitalization: No ROS ROS ED ROS Narrative Cough. Hemoptysis Constitutional Constitutional ED: Denies chills or fever(s) Eyes Eyes: Denies blurry vision ENT ENT ED: Denies ear pain Cardiovascular Cardiovascular: Denies chest pain Respiratory/Chest Respiratory/Chest: Reports cough; Denies dyspnea Gastrointestinal Gastrointestinal: Denies abdominal pain, constipation, diarrhea, melena, nausea or vomiting Genitourinary Genitourinary ED: Denies dysuria or hematuria Musculoskeletal Musculoskeletal: Denies arthralgias or back pain Integumentary Denies abscess or Abrasions Neurologic Neurologic: Denies headache(s) Psychiatric Psychiatric: Denies anxiety Endocrine Endocrinology: Denies cold intolerance, heat intolerance, polydipsia, polyphagia or polyuria Hematologic/Lymphatic Hematologic/Lymphatic: Denies easy bleeding, easy bruising or lymphadenopathy Allergic/Immunologic Allergic/Immunologic ED: Denies mouth swelling, tongue swelling or urticaria [facility] Medical History Back fracture Hypotension Asthma Chronic midline low back 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 Hyponatremia Erectile dysfunction Elevated blood sugar Marijuana use Anemia of chronic disease Prostate disorder Chronic pain syndrome Sensorineural hearing loss (SNHL) of left ear Ex-smoker SMOOTH (generalized anxiety disorder) Major depressive disorder with single episode, in remission Mixed hyperlipidemia Arthritis Hyperlipidemia Home Medications ?Medication ?Instructions ?Recorded ?Last Taken ?Type atorvastatin 20 mg tablet 20 mg PO QHS 11/11/19 Unknown History venlafaxine 75 mg capsule,extended 75 mg PO TID 11/13/24 Unknown History release 24 hr baclofen 5 mg tablet 5 mg PO QDAY PRN 11/20/24 Unknown History inhalational spacing device #1 ea 11/20/24 Unknown History (BreatheRite MDI Spacer) loratadine 10 mg capsule (Allergy 10 mg PO QDAY PRN 11/20/24 Unknown History Relief (loratadine)) budesonide-formoterol HFA 160 2 puff inhalation BID 03/01/25 Unknown History mcg-4.5 mcg/actuation aerosol inhaler albuterol sulfate 90 mcg/actuation 2 puff inhalation Q4H PRN PRN 03/10/25 Unknown History aerosol inhaler wheezing doxycycline hyclate 100 mg tablet 100 mg PO BID 03/10/25 Unknown History tadalafil 20 mg tablet 20 mg PO DAILY PRN sexual activity 03/10/25 Unknown History Allergy/AdvReac Type Severity Reaction Status Date / Time amoxicillin (From Augmentin) Allergy Unknown NEEDS Verified 03/10/25 15:56 FOLLOW-UP clavulanic acid (From Allergy Unknown NEEDS Verified 03/10/25 15:56 Augmentin) FOLLOW-UP erythromycin base Allergy Itching Verified 03/10/25 15:56 ether AdvReac Shortness Verified 03/10/25 15:56 of breath Family History Father Hypertension Cancer Brother Cancer Grandmother Cancer Dementia Grandfather CVA (cerebral vascular accident) Mother CVA (cerebral vascular accident) Multiple sclerosis Surgical History S/P tonsillectomy and adenoidectomy History of colonoscopy Social History Smoking Status: Former smoker EXAM Physical Exam Narrative Exam Narrative: 69-year-old male sitting upright in bed. Vital signs are stable afebrile. No distress. Clinically looks well. at bedside. H EENT exam appears normal. Pupils round and reactive to light. Extraocular motions intact. Moist mucous membranes. Neck nontender no JVD no lymphadenopathy. Back nontender. Lungs clear to auscultation bilaterally. No rales rhonchi or wheezing. Equal symmetrical. No distress. Heart regular rhythm rate about 80 no murmur. No murmurs. Chest wall ribs nontender. Abdomen soft and nontender. No peritoneal signs. Moving all 4 extremities. Calves are nontender without edema or cords. Normal range of motion and strength of all extremities. Back nontender. Neurologically is awake alert. No focal motor deficits. Answer questions following commands. Const Vital Signs: 03/10/25 15:53 03/10/25 16:14 Temperature 96.5 F L Temperature Source Temporal Pulse Rate 79 Respiratory Rate 16 Respiratory Effort Normal Non-Labored Respiratory Depth Normal Respiratory Pattern Normal Blood Pressure 145/89 H Blood Pressure Mean 107 Pulse Ox 99 Oxygen Delivery Method Room Air Positive well nourished and well developed; Negative for obese, cachectic or contractures General Appearance ED: well developed and NAD; Negative for cachectic, contractures, cyanotic, diaphoretic or pallor Nutritional Appearance: Negative for cachectic or obese HEENT Reports moist mucous membranes normocephalic Throat: posterior oropharynx normal Eyes PERRL and EOMs intact bilaterally Neck no lymphadenopathy, supple, no meningeal signs and no JVD Resp normal respiratory effort and clear to auscultation bilaterally Effort and Inspection: Negative for retractions Auscultation: Negative for rales, rhonchi, wheezes or diminished lung sounds Cardio S1 normal heart sound, S2 normal heart sound and no murmurs Rate: regular rate Rhythm: regular rhythm GI non-tender, non-distended and no masses Auscultation: normoactive bowel sounds Palpation: soft; Negative for tender, guarding or mass Back/Spine no CVA tenderness and normal ROM General Back: Negative for CVA tenderness Cervical Spine: Negative for cervical spine tenderness Thoracic Spine / Upper Back: Negative for thoracic spinal tenderness Lumbar Spine / Lower Back: Negative for lumbar spinal tenderness Extremity normal to inspection General Extremety ED: Negative for cyanosis or tenderness General Extremity: Negative for cyanosis Neuro oriented x3 and CN's II-XII intact bilaterally Sensorium / Orientation: alert, oriented to person, oriented to place and oriented to time; Negative for orientation impaired Motor Exam: strength 5/5 throughout Psych mental status grossly normal Skin General Skin Exam: Negative for jaundice or pallor Lesions: no lesions Rashes: no rashes MDM MDM MDM Narrative Medical decision making narrative: 69-year-old male cough with hemoptysis. Chest x-ray being obtained. Pneumonia versus other etiologies. He has no risk factors nor history of DVT or PE is got no calf pain or swelling. He is got a very benign normal exam. Repeat exam patient is doing well at 4:35 PM. I went over his chest x-ray with him which shows chronic scarring and COPD but no mass. No pneumonia. No effusion. He has no PE or DVT risk factors. I reexamined his lungs are clear. His naris bilaterally he has dried blood in both naris. I suspect this is drainage down his posterior pharynx and coughed up the blood. There is currently no active bleeding. His posterior pharynx has no bleeding. Or blood. Patient be discharged to home. Ty-Synephrine or Afrin nasal spray for the nosebleed. Follow-up for further evaluation if he continues to have hemoptysis. At this time he does not need an emergent CTA or CT of his chest. He had 1 5 years ago showed chronic changes. History & Record Review Discussion w/independent historian: Patient and Family Additional record(s) reviewed:: Prior inpatient record, Prior outpatient record, Prior ED visit and Prior labs Radiography Chest X-Ray - ED: 2 View, Read by ED Physician, Normal, Heart, Lungs, Mediastinum, Bony Structures, No Acute Disease and Chronic Changes Diagnostic Testing: Chest x-ray, 2 views, AP and lateral, normal cardiac silhouette. Lung martinez showed chronic scarring. He had a prior pneumothorax and chest tube on the left which would account for some of the scarring. But there is no acute process. There is no pneumonia or mass. Discharge Plan Triage Chief Complaint: Cough Other Complaint: Shortness of Breath ED Provider: Brennen Bower Dx/Rx/DC Orders Clinical Impression: URI, acute, Anterior epistaxis, Hemoptysis Instructions: Nosebleed, ED Hemoptysis, ED URI, Viral, No Abx (Adult) Prescriptions: No Action Allergy Relief (loratadine) 10 mg capsule 10 mg PO QDAY PRN baclofen 5 mg tablet 5 mg PO QDAY PRN (DME) BreatheRite MDI Spacer Spacer See Rx Instructions .ROUTE ONCE Qty: 1 Rx Instructions: As directed budesonide-formoterol 160-4.5 mcg/actuation HFA aerosol inhaler 2 puff inhalation BID atorvastatin 20 MG tablet 20 mg PO QHS venlafaxine 75 mg capsule,extended release 24hr 75 mg PO TID albuterol sulfate 90 mcg/actuation HFA aerosol inhaler 2 puff INHALATION Q4H PRN PRN (Reason: wheezing) doxycycline hyclate 100 mg tablet 100 mg PO BID tadalafil 20 mg tablet 20 mg PO DAILY PRN (Reason: sexual activity) Primary Care Provider: Bola Mims Referrals: Bola Mims MD [Primary Care Provider] - As Needed Activity Restrictions/Additional Instructions: You have a mild anterior nosebleed. To stop that use Afrin nasal spray soaked cotton balls on both sides your nose. Leave it in 15 to 20 minutes. Will stop the bleeding. No pneumonia. Chest x-ray shows chronic scarring but nothing else that is new. Follow-up with your doctor if you continue to have further problems. Print Language: Jamaican Disposition Disposition: Home, Self Care
[2025-03-10 16:07] VITALS: BMI 23.8
--- NOTE | 2025-03-10 16:11 | RAD_ITS ---
PROCEDURE: CHEST PA AND LATERAL 03/10/2025 REASON FOR EXAM: COUGH TECHNIQUE: CHEST PA AND LATERAL COMPARISON: CT from 11/19/2019 FINDINGS: Biapical scarring. Bibasilar subsegmental atelectasis. No focal consolidations. No pleural effusion or pneumothorax. Cardiac silhouette is within normal limits. Calcified aortic arch. No acute fractures. Stable T12 vertebral body compression fracture. RAD/Chest PA and Lateral IMPRESSION: No focal consolidations. Stable T12 vertebral body compression fracture. Reading Location: [id number]
--- OUTSIDE RECORDS SUMMARY | 2025-03-10 16:23 | XMS RPT_ITS | CCD ---
Author Organization [facility] Care Team Providers Care Face Cleaner Name Role Phone ANDREA PIZANO Unavailable Unavaila ANDREA Adhikari Unavailable Unavaila CEM Fall Unavailable Unavailable Bola Durand MD Primary Care Provider Bola Durand MD Primary Care Provider Bola Durand MD Primary Care Provider Bola Durand MD Primary Care Provider BOLA DURAND Primary Care Unavailable CARLOZ JESSICA Referring Unavailable Bola Durand MD Primary Care Provider Fabiana DISTRIBUTION TRANSFORMER ASSEMBLER.Linda VAZQUEZ Unavailable Ruby Seaman PA-C Unavailable Bola Durand MD Primary Care Provider BOLA DURAND Primary Care Unavailabl e JAMESON GILL Admitting Unavailable JAMESON GILL Attending Unavailable OZZY STEELE Consulting Unava ilable Fabiana DISTRIBUTION TRANSFORMER ASSEMBLER.Linda VAZQUEZ Unavailable Ruby Seaman PA-C Unavailable Fabiana DISTRIBUTION TRANSFORMER ASSEMBLER.Linda VAZQUEZ Unavailable Ruby Seaman PA-C Unavailable Dr. Shaji Li MD Attending Provider Dr. Bola Durand MD Primary Care Provider Dr. Bola Durand MD Referring Provider Dr. Chris Li MDd Referring Provider Guillermo MAGALLON, Dr. Girard Other Provider Alessandro MAGALLON, Dr. Rocha Attending Provider Ang CIGAR BINDERPatyC, Jailene Attending Provider Jailene Fry NP Attending Unavailable Kizzy, Bola Referring Unavailable Kizzy, Bola Primary Care Unavailable Ang NAPIER, Jailene Attending Unavailable Kizzy, Bola Primary Care Unavailable Guillermo, Shaji Attending Unavailable Guillermo, Shaji Referring Unavailable Kizzy, Bola Primary Care Unavailable Guillermo, Shaji Consulting Unavailable Aj Francois Attending Unavailable Guillermo, Shaji Referring Unavailable Kizzy, Bola Primary Care Unavailable Guillermo, Shaji Consulting Unavailable Guillermo, Shaji Attending Unavailable Kizzy, Bola Referring Unavailable Kizzy, Bola Primary Care Unavailable GuillermoChrisd Attending Unavailable Guillermo, Shaji Referring Unavailable Kizzy, Bola Primary Care Unavailable GuillermoChrisd Attending Unavailable Guillermo, Shaji Referring Unavailable Kizzy, Bola Primary Care Unavailable SEAMAN, RUBY Referring Unavailable KIZZY, BOLA A Primary Care Unavailable VIJAYA ESPAÑA Attending Unavailable SEAMAN, RUBY Referring Unavailable KIZZY, BOLA A Primary Care Unavailable SEAMAN, RUBY Referring Unavailable KIZZY, BOLA A Primary Care Unavailable GULSHAN PALMER Attending Unavailable SEAMAN, RUBY Referring Unavailable KIZZY, BOLA A Primary Care Unavailable CHRIS DE LEON Attending Unavailable KIZZY, BOLA A Referring Unavailable KIZZY, BOLA A Primary Care Unavailable CHRIS DE LEON Attending Unavailable KIZZY, BOLA A Referring Unavailable KIZZY, BOLA A Primary Care Unavailable CHRIS DE LEON Attending Unavailable KIZZY, BOLA A Referring Unavailable KIZZY, BOLA A Primary Care Unavailable CHRIS DE LEON Attending Unavailable KIZZY, BOLA A Referring Unavailable KIZZY, BOLA A Primary Care Unavailable DIALLO ABREU Attending Unavailable KIZZY, BOLA A Primary Care Unavailable VIJAYA ESPAÑA Referring Unavailable KIZZY, BOLA A Primary Care Unavailable SEAMAN, RUBY Attending Unavailable KIZZY, BOLA A Primary Care Unavailable SEAMAN, RUBY Referring Unavailable KIZZY, BOLA A Primary Care Unavailable LISA, RUBY Attending Unavailable KIZZY, BOLA A Primary Care Unavailable KIZZY, BOLA A Primary Care Unavailable KIZZY, BOLA A Primary Care Unavailable BOLA DURAND Attending Unavailable BOLA DURAND Primary Care Unavailable BOLA DURAND Referring Unavailable BOLA DURAND Primary Care Unavailable RUBY SEAMAN Attending Unavailable BOLA DURAND Primary Care Unavailable Allergies Allergy Classification Reported Allergen(s) Allergy Type Date of Onset Reaction(s) Facility (20 sources) Erythromycin; Translations: [ERYTHROMYCIN] Drug Allergy 0 Itching, Hives [facility] Work Phone: (20 sources) Ether; Translations: [ETHER] Drug Allergy 0 Shortness of Breath, Unknown [facility] Work Phone: (18 sources) Azithromycin; Translations: [AZITHROMYCIN] Drug Allergy 5 Itching [facility] (2 sources) Amoxicillin Drug Allergy 5 NEEDS FOLLOW-UP [facility] (2 sources) Clavulanate Drug Allergy 5 NEEDS FOLLOW-UP [facility] (1 source) Amoxicillin Drug Allergy 5 [facility] (1 source) Clavulanate Drug Allergy 5 [facility] (1 source) Erythromycin Drug Allergy 5 [facility] (1 source) ether Drug allergy (disorder) 5 [facility] Medications Current Medications Medication Drug Class(es) Dates Sig (Normalized) Sig (Original) acetaminophen 325 mg oral tablet (1 source) Start: 10-11-2024 take 1 tablet by mouth every four hours as needed 650 mg, oral, Every 4 hours PRN, pain mild (1-3), first line, Starting on [place] 10/11/24 at 2144, If ordered PRN for pain, nurse is permitted to administer this medication for higher pain scores based on patient preference? Yes [id number] 200 actuat albuterol 0.09 mg/actuat metered dose inhaler (20 sources) beta2-Adrenergic Agonist Start: 01-24-2025 End: 02-23-2025 take 2 puff(s) by inhalation every four hours as needed for wheezing albuterol HFA (PROVENTIL HFA, VENTOLIN HFA) 90 mcg/actuation inhaler Indications: Wheezing , Asthmatic bronchitis without complication, unspecified asthma severity, unspecified whether persistent (HCC) Inhale 2 puffs as instructed every 4 hours as needed for wheezing/shortness of breath. 8 g 1 01/24/2025 Active Start: 10-03-2024 End: 12-28-2024 take 2 puff(s) by inhalation every four hours as needed for wheezing albuterol HFA (PROVENTIL HFA, VENTOLIN HFA) 90 mcg/actuation inhaler Indications: Wheezing , Asthmatic bronchitis without complication, unspecified asthma severity, unspecified whether persistent (HCC) Inhale 2 puffs as instructed every 4 hours as needed for wheezing/shortness of breath. 8 g 11/28/2024 12/28/2024 Active take 2 puff(s) by in halation every four hours for wheezing albuterol 90 mcg/actuation aerosol powdr breath activated inhaler Inhale 2 puffs every 4 hours if needed for wheezing or shortness of breath. Active albuterol 0.833 mg/ml / ipratropium bromide 0.167 mg/ml inhalation solution (1 source) Anticholinergic, beta2-Adrenergic Agonist Start: 10-12-2024 take 3 mL by inhalation every six hours as needed 3 mL, nebulization, Every 6 hours PRN, wheezing, Starting on Tue10/12/24 at 0901 Albuterol-Budeson hellen 90-80 mcg/actuation HFA aerosol inhaler (2 sources) Start: 11-13-2024 Albuterol-Budeson hellen 90-80 mcg/actuation HFA aerosol inhaler Active 2 NMA INHALATION ONCE November 13, 2024 12:00am as a single dose; may repeat up to 6 doses per day (12 inhalations) atorvastatin 20 mg oral tablet (20 sources) HMG-CoA Reductase Inhibitor Start: 11-11-2019 End: 01-23-2025 take 1 tablet by mouth once daily atorvastatin (LIPITOR) 20 mg tablet Take 1 tablet by mouth once daily. 90 tablet 1 01/24/2025 Active Comment on above: Take 1 tablet by nela once daily. baclofen 5 mg oral tablet (9 sources) gamma-Aminobutyric Acid-ergic Agonist Start: 11-12-2024 End: 12-12-2024 take 1 tablet by mouth once daily as needed Baclofen 5 mg tablet Active 5 mg PO daily as needed November 20, 2024 12:00am benzonatate 100 mg oral capsule (3 sources) Non-narcotic Antitussive Start: 10-07-2024 End: 10-14-2024 take 1 capsule by mouth every eight hours as needed Start: 10-07-2024 End: 10-14-2024 take 1 capsule by mouth three times daily as needed for cough benzonatate (TESSALON PERLE) 100 mg capsule Indications: Bronchopneumonia Take 1 capsule by mouth three times a day as needed for cough for up to 7 days. 21 capsule 10/07/2024 10/14/2024 Active Budesonide-Formoterol (10 sources) Corticosteroid, beta2-Adrenergic Agonist Start: 03-01-2025 Budesonide-Formoterol 160-4.5 mcg/actuation HFA aerosol inhaler Active 2 NMA INHALATION TWICE A DAY March 01, 2025 12:00am Start: 12-13-2024 take 2 puff(s) by in halation twice daily budesonide-formoterol (SYMBICORT) 160-4.5 mcg/actuation inhaler Inhale 2 puffs as instructed two times a day. 10.2 g 1 12/13/2024 Active docosahexaenoic acid/epa (FISH OIL ORAL) (1 source) docosahexaenoic acid/epa (FISH OIL ORAL) Take by mouth once daily in the morning. Active doxycycline hyclate 100 mg oral tablet (3 sources) Tetracycline- class Drug Start: take 100 mg by mouth every twelve hours at mealtime 100 mg, oral, Every 12 hours scheduled, First dose on Tue10/11/24 at 2100, Administer with meals to decrease GI upset; take with at least 8 ounces (large glass) of water, do not lie down for 30 minutes after., Suspected Indication (Select all that apply): Pneumonia, Type of Therapy: Empiric, Indications: Pneumonia Start: 10-07-2024 End: 10-17-2024 take 1 tablet by mouth twice daily doxycycline (Vibra-Tabs) 100 mg tablet Take 1 tablet (100 mg) by mouth twice a day. 10/07/2024 10/17/2024 Active 0.4 ml enoxaparin sodium 100 mg/ml prefilled syringe (1 source) Low Molecular Weight Heparin Start: 10-11-2024 inject 40 mg by subcutaneous injection once daily 40 mg, subcutaneous, Daily, First dose on [facility] 10/11/24 at 1600 glucosamine/chondr bassett A sod (OSTEO BI-FLEX ORAL) (1 source) take 1 capsule by mouth once daily in the morning glucosamine/chondr bassett A sod (OSTEO BI-FLEX ORAL) Take 1 capsule by mouth once daily in the morning. Active ibuprofen 200 mg oral tablet (1 source) Nonsteroidal Anti-inflammatory Drug take 2 tablets by mouth every six hours as needed ibuprofen 200 mg tablet Take 2 tablets (400 mg) by mouth every 6 hours if needed for mild pain (1 - 3). Active Inhalational Spacing Device (1 source) Start: 10-03-2024 End: 10-03-2024 Inhalational Spacing Device 1 Device one time only for 1 dose. 1 Each 10/03/2024 10/03/2024 Active Inhalational Spacing Device (Breatherite Mdi Spacer) spacer (2 sources) Start: 11-20-2024 Inhalational Spacing Device (Breatherite Mdi Spacer) spacer Active NMA .ROUTE ONCE 1 November 20, 2024 12:00am As directed loratadine 10 mg oral tablet (20 sources) Start: 11-13-2024 End: 11-20-2024 take 1 capsule by mouth once daily as needed Loratadine (Allergy Relief (Loratadine)) 10 mg capsule Active 10 mg PO daily as needed November 20, 2024 11:23am loratadine 10 mg cap Take 10 mg by mouth as needed. Active Comment on above: Take 10 mg by mouth as needed. multivitamin tablet (1 source) take 1 tablet by mouth once daily in the morning multivitamin tablet Take 1 tablet by mouth once daily in the morning. Active perflutren lipid microspheres (Definity) injection 0.5-10 mL of dilution (1 source) Start: perflutren protein A microsphere (Optison) injection 0.5 mL (1 source) Start: predniSONE 10 mg oral tablet (4 sources) Start: 5 End: take 4 tablets by mouth once daily, then take 3 tablets by mouth once daily, then take 2 tablets by mouth once daily, then take 1 tablet by mouth once daily predniSONE (DELTASONE) 10 mg tablet Indications: Wheezing , Asthmatic bronchitis without complication, unspecified asthma severity, unspecified whether persistent (HCC) Take 4 tablets by mouth once daily for 2 days, THEN 3 tablets once daily for 2 days, THEN 2 tablets once daily for 2 days, THEN 1 tablet once daily for 2 days. 20 tablet 11/28/2024 12/06/2024 Active Start: 10-07-2024 End: 10-12-2024 take 20 mg by mouth twice daily 20 mg, oral, 2 times d aily, First dose on Tue10/11/24 at 2100 1000 ml sodium chloride 9 mg/ml injection (2 sources) Start: 10-11-2024 End: 10-12-2024 take 100 mL intravenously every hour 100 mL/hr, intravenous, Continuous, Starting on Tue10/11/24 at 1600, For 1 day sulfur hexafluoride microsphr (Lumason) injection 24.28 mg (1 source) Start: 10-11-2024 tadalafil 10 mg oral tablet (20 sources) Phosphodiesterase 5 Inhibitor Start: 03-01-2025 take 10 mg by mouth once daily tadalafil Active 10 mg PO DAILY March 01, 2025 11:30am Start: 03-01-2025 End: 03-01-2025 tadalafil Discontinued PO DA EDDIE March 01, 2025 12:00am March 01, 2025 11:30am Start: 02-24-2022 End: 01-24-2025 take 1 tablet by mouth once daily as needed Tadalafil (CIALIS) 20 mg tablet Take 1 tablet by mouth once daily. As needed 30 tablet 2 01/24/2025 Active take 0.5 tablet by m outh once daily in the evening tadalafil 20 mg tablet Take 0.5 tablets (10 mg) by mouth once daily in the evening. Active Comment on above: [facility]. As needed 24 hr venlafaxine 75 mg extended release oral capsule (20 sources) Serotonin and Norepinephrine Reuptake Inhibitor Start: 10-12-19 take 1 capsule by mouth once daily 75 mg, oral, Daily, First dose on Tue10/12/24 at 0900, Capsule may be swallowed whole, or may be opened and its contents sprinkled on applesauce if consumed immediately without chewing. Do not crush or chew. Start: 10-11-2024 take 1 capsule by mo uth once daily 150 mg, oral, Nightly, First dose on [facility] 10/11/24 at 2100, Capsule may be swallowed whole, or may be opened and its contents sprinkled on applesauce if consumed immediately without chewing. Do not crush or chew. Start: 02-01-2022 End: 04-30-2024 take 1 capsule by mouth three times daily Venlafaxine 75 mg capsule,extended release 24hr Active 75 mg PO THREE TIMES A DAY November 13, 2024 3:17pm Start: 11-11-2019 End: 11-13-2024 take 1 capsule by mouth once daily Venlafaxine 75 MG capsule Discontinued 75 mg PO DAILY November 11, 2019 12:00am November 13, 2024 3:17pm Start: 11-11-2019 End: 11-13-2024 take 2 capsules by mouth at bedtime Venlafaxine 75 MG capsule Discontinued 150 mg PO AT BEDTIME November 11, 2019 12:00am November 13, 2024 3:17pm depression take 1 capsule by mo uth twice daily, then take 2 capsules by mouth once daily in the morning venlafaxine XR (Effexor-XR) 75 mg 24 hr capsule Take by mouth 2 times a day. 1 capsule qAM and 2 capsules qPM Active Comment on above: Take 1 capsule by ga ut three times daily. Completed/Discontinued Medications Medication Drug Class(es) Dates Sig (Normalized) Sig (Original) aspirin 81 mg delayed release oral tablet (2 sources) Platelet Aggregation Inhibitor, Nonsteroidal Anti-inflammatory Drug Start: 11-20-2024 End: 03-01-2025 take 1 tablet by mouth once daily Aspirin (Adult Aspirin Regimen) 81 mg tablet,delayed release (DR/EC) Discontinued 81 mg PO daily 90 November 20, 2024 12:00am March 01, 2025 11:24am azithromycin (Zithromax) 500 mg in dextrose 5% IV 250 mL (1 source) Start: 10-11-2024 End: 10-11-2024 500 mg, intravenous, at 250 mL/hr, Administer over 60 Minutes, Once, On [facility] 10/11/24 at 0900, For 1 dose, Mini-Bag Plus/ADD-[place] bag, Suspected Indication (Select all that apply): Pneumonia, Type of Therapy: Empiric, Indications: Pneumonia cefTRIAXone 2000 mg injection (1 source) Cephalosporin Antibacterial Start: 10-11-2024 End: 10-11-2024 2 g, intravenous, at 100 mL/hr, Administer over 30 Minutes, Once, On [place] 10/11/24 at 0900, For 1 dose, premix bag, Suspected Indication (Select all that apply): Pneumonia, Type of Therapy: Empiric, Indications: Pneumonia doxycycline (Vibramycin) 100 mg in sodium chloride 0.9% 100 mL IV (1 source) Start: 10-11-2024 End: 10-11-2024 100 mg, intravenous, at 100 mL/hr, Administer over 60 Minutes, Once, On [place] 10/11/24 at 1015, For 1 dose, Mini-Bag Plus/ADD-[place] bag, Suspected Indication (Select all that apply): Pneumonia, Type of Therapy: Empiric, Indications: Pneumonia iohexol (OMNIPaque) 350 mg iodine/mL solution 70 mL (1 source) Start: 10-11-2024 End: 10-11-2024 70 mL, intravenous, Once in imaging, Starting on [place] 10/11/24 at 0804, For 1 dose levoFLOXacin 500 mg oral tablet (4 sources) Quinolone Antimicrobial Start: 10-12-2023 End: 10-11-2024 take 1 tablet by mouth once daily levoFLOXacin (Levaquin) 500 mg tablet TAKE 1 TABLET BY MOUTH ONCE DAILY FOR 4 DAYS 10/17/2023 10/11/2024 Discontinued (Entered in Error) Comment on above: Take 1 tablet by nela once daily for 10 days. Take 1 tablet by nela once daily for 4 days. polyethylene glycol 3350 248322 mg / potassium chloride 2970 mg / sodium bicarbonate 6740 mg / sodium chloride 5860 mg / sodium sulfate 20782 mg powder for oral solution (1 source) Osmotic Laxative Start: 04-30-2022 End: 04-30-2022 peg 3350-Electrolytes (GOLYTELY) 236-22.74-6.74 -5.86 gram suspension Indications: Change in bowel habit Take 4,000 mL by mouth one time only for 1 dose. Refer to printed prep instructions from your provider. 4000 mL 0 04/30/2022 04/30/2022 Comment on above: Take 4,000 mL by nela th one time only for 1 dose. Refer to printed prep instructions from your provider. traMADol hydrochloride 50 mg oral tablet (2 sources) Opioid Agonist Start: 11-11-2019 End: 11-13-2024 take 50-100 mg by mouth every six hours as needed for pain Tramadol 50 MG tablet Discontinued 50 - 100 mg PO EVERY 6 HOURS NEEDED as needed for Pain Or Fever November 11, 2019 12:00am November 13, 2024 3:17pm vitamin B12 (1 source) Vitamin B12 End: 10-12-2024 take 1 tablet by mouth once daily Problems Active Problems Problem Classification Problem Date Documented Da te Episodic/Chronic Allergic reactions (11 sources) Environmental allergy; Translations: [Other allergy status, other than to drugs and biological substances] Onset: 12-13-2024 12-13-2024 Episodic Anxiety disorders (20 sources) Generalized anxiety disorder; Translations: [Generalized anxiety disorder] Onset: 01-21-2021 01-21-2021 Chronic Asthma (8 sources) Asthmatic bronchitis; Translations: [Unspecified asthma, uncomplicated] Onset: 02-18-2025 11-28-2024 Chronic Cardiac dysrhythmias (2 sources) Persistent atrial fibrillation; Translations: [Other persistent atrial fibrillation] 11-13-2024 Chronic Deficiency and other anemia (20 sources) Anemia of chronic disease; Translations: [Anemia in other chronic diseases classified elsewhere] Onset: 01-22-2021 Chronic Deficiency and other anemia (1 source) Anemia in other chronic diseases classified elsewhere; Translations: [Anemia of chronic disease] Onset: 01-22-2021 Chronic Disorders of lipid metabolism (20 sources) Mixed hyperlipidemia; Translations: [Mixed hyperlipidemia] Onset: 01-21-2021 Chronic Essential hypertension (3 sources) Elevated blood pressure; Translations: [Essential (primary) hypertension] Onset: 02-28-2025 11-12-2019 Chronic Immunizations and screening for infectious disease (20 sources) Patient encounter status; Translations: [Encounter for immunization] Onset: 01-21-2021 Episodic Inflammatory conditions of male genital organs (2 sources) Orchitis and epididymitis; Translations: [Epididymo-orchitis] 10-12-2023 Episodic Influenza (1 source) Influenza-like illness; Translations: [Influenza due to unidentified influenza virus with other respiratory manifestations] 10-03-2024 Episodic Malaise and fatigue (2 sources) Fatigue; Translations: [Other fatigue] Episodic Mood disorders (20 sources) Major depression, single episode; Translations: [Major depressive disorder, single episode, in full remission] Onset: 01-21-2021 01-21-2021 Chronic Osteoarthritis (20 sources) Arthritis; Translations: [Unspecified osteoarthritis, unspecified site] Onset: 01-21-2021 01-21-2021 Chronic Other and unspecified benign neoplasm (1 source) Hyperplastic polyp of intestine; Translations: [Polyp of colon] Episodic Other circulatory disease (5 sources) Subclavian artery stenosis; Translations: [Stricture of artery] 11-20-2024 Chronic Other circulatory disease (5 sources) Disorder of carotid artery; Translations: [Disorder of arteries and arterioles, unspecified] 11-20-2024 Chronic Other circulatory disease (1 source) Stricture of artery; Translations: [Stricture of artery] Onset: 01-17-2025 Chronic Other circulatory disease (2 sources) Orthostatic hypotension; Translations: [Orthostatic hypotension] Onset: 10-11-2024 10-11-2024 Episodic Other circulatory disease (3 sources) Other specified symptoms and signs involving the circulatory and respiratory systems; Translations: [Other symptoms involving cardiovascular system] Onset: 10-11-2024 10-12-2024 Episodic Other circulatory disease (4 sources) Low blood pressure; Translations: [Hypotension, unspecified] 10-18-2024 Episodic Other circulatory disease (1 source) Orthostatic hypotension; Translations: [Orthostatic hypotension] Onset: 10-11-2024 Episodic Other connective tissue disease (1 source) Myofascial pain syndrome of lumbar spine; Translations: [Myalgia, other site] 11-12-2024 Episodic Other ear and sense organ disorders (20 sources) Sensorineural hearing loss in left ear; Translations: [Unspecified sensorineural hearing loss] Onset: 01-21-2021 01-21-2021 Chronic Other ear and sense organ disorders (1 source) Impacted cerumen in right ear; Translations: [Impacted cerumen, right ear] 04-27-2023 Episodic Other fractures (4 sources) Compression fracture of lumbar spine; Translations: [Wedge compression fracture of fourth lumbar vertebra, initial encounter for closed fracture] 10-23-2024 Episodic Other gastrointestinal disorders (2 sources) Alteration in bowel elimination; Translations: [Change in bowel habit] Episodic Other lower respiratory disease (3 sources) Wheezing; Translations: [Wheezing] 10-03-2024 Episodic Other lower respiratory disease (1 source) Other forms of dyspnea; Translations: [Other forms of dyspnea] Onset: 01-17-2025 Episodic Other lower respiratory disease (1 source) Chronic cough; Translations: [Chronic cough] Onset: 12-13-2024 Episodic Other lower respiratory disease (1 source) Shortness of breath; Translations: [SOB (shortness of breath)] Onset: 12-13-2024 Episodic Other male genital disorders (20 sources) Male erectile dysfunction, unspecified; Translations: [Impotence of organic origin] Onset: 02-24-2022 Chronic Other male genital disorders (1 source) Swelling of testicle; Translations: [Other specified disorders of the male genital organs] 10-12-2023 Episodic Other nervous system disorders (20 sources) Chronic pain syndrome; Translations: [Chronic pain syndrome] Onset: 01-21-2021 03-09-2021 Chronic Other nervous system disorders (1 source) Other chronic pain; Translations: [Chronic midline low back 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] Onset: 05-03-2024 Chronic Other upper respiratory infections (2 sources) Chronic sinusitis; Translations: [Chronic sinusitis, unspecified] 10-24-2024 Chronic Residual codes; unclassified (1 source) History of syncope; Translations: [Personal history of other specified conditions] 11-28-2024 Episodic Unclassified (1 source) Unknown / UNK(Unknown) Onset: 10-23-2017 Unclassified (1 source) Other persistent atrial fibrillation; Translations: [Other persistent atrial fibrillation] Onset: 11-20-2024 Unclassified (1 source) Chronic midline low back 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; Translations: [Chronic midline low back 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] Onset: 05-03-2024 Viral infection (1 source) Disease caused by 2019-nCoV; Translations: [COVID-19] 10-03-2023 Episodic Past or Other Problems Problem Classification Problem Date Documented Da te Episodic/Chronic Administrative/social admission (1 source) Other specified counseling; Translations: [Advanced directives, counseling/discussi on] Onset: 05-03-2024 Episodic Coma; stupor; and brain damage (2 sources) Loss of consciousness; Translations: [Unspecified coma] Onset: 10-31-2024 10-31-2024 Episodic Diabetes mellitus without complication (20 sources) Hyperglycemia; Translations: [Hyperglycemia, unspecified] Onset: 02-24-2022 Episodic E Codes: Fall (3 sources) Fall; Translations: [Unspecified fall, initial encounter] Onset: 10-18-2024 10-18-2024 Episodic E Codes: Fall (1 source) Fall 10-18-2024 Fluid and electrolyte disorders (20 sources) Hyponatremia; Translations: [Hypo-osmolality and hyponatremia] Onset: 04-22-2022 Episodic Other aftercare (1 source) Other middle or intermediate school principal (current) drug therapy; Translations: [Medication management] Onset: 05-03-2024 Episodic Other circulatory disease (2 sources) Hypotension, unspecified; Translations: [Hypotension, unspecified] Onset: 10-18-2024 Episodic Other fractures (1 source) Wedge compression fracture of fourth lumbar vertebra, initial encounter for closed fracture; Translations: [Compression fracture of L4 vertebra, initial encounter ([facility])] Onset: 10-31-2024 Episodic Other male genital disorders (20 sources) Disorder of prostate; Translations: [Disorder of prostate, unspecified] Onset: 01-21-2021 Episodic Other male genital disorders (1 source) Disorder of prostate, unspecified; Translations: [Prostate disorder] Onset: 01-21-2021 Episodic Pneumonia (except that caused by tuberculosis or sexually transmitted disease) (8 sources) Bronchopneumonia; Translations: [Bronchopneumonia, unspecified organism] Onset: 10-11-2024 10-07-2024 Episodic Screening and history of mental health and substance abuse codes (20 sources) Ex-smoker; Translations: [Personal history of nicotine dependence] Onset: 01-21-2021 01-21-2021 Episodic Spondylosis; intervertebral disc disorders; other back problems (20 sources) Chronic low back pain; Translations: [Chronic midline low back 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] Onset: 05-03-2024 05-03-2024 Episodic Substance-related disorders (20 sources) Marijuana user; Translations: [Cannabis use, unspecified, uncomplicated] Onset: 03-09-2021 2 Episodic Syncope (20 sources) Syncope; Translations: [Syncope and collapse] Onset: 10-11-2024 Resolved: 10-12-2024 10-11-2024 Episodic Unclassified (1 source) LT SHOLDER PAIN/INJURY Onset: 10-23-2017 Results Test Name Value Interpretation Reference Range Facility Cardiology Visit Reporton Cardiology Visit Report [facility] [address] [place] [address] OFFICE VISIT Date of Service: 03/01/25 MR#: [id number] Acct: [id number] Name: MICHAEL BELTRAN Rep #: [id number] : 1955 Provider: WILLIE rudolph Age/Sex: 69/M [place] [facility] [place] Signed HPI HPI History of Present Illness Details: This is a 69-year-old male who presents to the office today for cardiovascular follow-up visit. He has a past medical history significant for COPD and dyslipidemia and was seen previously for syncopal episodes. According to the patient, he has had multiple syncopal episodes over the last many years. His recent such episode was last month. According to the patient, these usually occur when he is standing up. Denies any warning symptoms. Per him, he usually wakes up as soon as he hits the ground. However there was 1 episode where according to the patient, he remained passed out for hours. According to him, his said that he was answering questions but the patient does not remember anything about that. Denies any seizure activity. No bladder or bowel incontinence. No tongue bite. Denies any palpitations. No chest pains either at rest or with exertion. He does however get some shortness of breath with exertion. Patient's MRI had at an outside facility was reported as normal. Carotid Doppler showed less than 50% bilateral disease. 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 No steal reported. Antegrade flow in the vertebral arteries. Patient denies any claudication symptoms of the left upper extremity. Echocardiogram showed normal LV systolic function. He previously had a 30-day event monitoring in 2019 for his syncopal episodes. That failed to show any major arrhythmias. Recent event monitoring showed couple of brief atrial runs. The longest 1 was 9 beat long. His tilt table study demonstrated orthostatic hypotension. From a cardiac standpoint, the patient is doing well. He denies any palpitations, chest pain, pressure or heaviness. He does acknowledge SOB with his asthma. He denies Orthopnea, and PND. He does not have bleeding issues; no blood in urine, stool, or nosebleeds. He denies any decrease in energy level, myalgias, or claudication. He does not have edema, or sudden weight gain. He does acknowledge occasional lightheadedness after working hard. He denies dizziness, syncopal or near syncopal episodes, and headaches. 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 Accompanied by: Is patient in pain?: No Allergies amoxicillin (From Augmentin) Allergy (Unknown, Verified 03/01/25 16:55) NEEDS FOLLOW-UP clavulanic acid (From Augmentin) Allergy (Unknown, Verified 03/01/25 16:55) NEEDS FOLLOW-UP erythromycin base Allergy (Verified 03/01/25 16:55) Itching ether Adverse Reaction (Verified 03/01/25 16:55) Shortness of breath Medications ???Medication ???Instructions ???Recorded ???Confirmed ???Type atorvastatin 20 mg tablet 20 mg PO QHS 11/11/19 03/01/25 His tory albuterol 90 mcg-budesonide 80 2 inh inhalation ONCE 11/13/2407/16 History mcg/actuation HFA aerosol inhaler venlafaxine 75 mg capsule,extended 75 mg PO TID 11/13/24 03/01/25 H istory release 24 hr baclofen 5 mg tablet 5 mg PO QDAY PRN 11/20/24 03/01/25 History inhalational spacing device #1 ea 11/20/24 03/01/25 History (BreatheRite MDI Spacer) loratadine 10 mg capsule (Allergy 10 mg PO QDAY PRN 11/20/24 History Relief (loratadine)) budesonide-formoterol HFA 160 2 puff inhalation BID 03/01/2507/16 History mcg-4.5 mcg/actuation aerosol inhaler tadalafil 10 mg PO DAILY 03/01/25 03/01/25 H istory Have you fallen in the past year?: Yes (caused by dizziness-feb(sick at time)) PFSH Medical History Back fracture Hypotension Asthma Chronic midline low back 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 Hyponatremia Erectile dysfunction Elevated blood sugar Marijuana use Anemia of chronic disease Prostate disorder Chronic pain syndrome Sensorineural hearing loss (SNHL) of left ear Ex-smoker JUSTO (generalized anxiety disorder) Major depressive disorder with single episode, in remission Mixed hyperlipidemia Arthritis Hyperlipidemia Surgical History S/P tonsillectomy and adenoidectomy History of colonoscopy Family History Father Hypertension Cancer Brot (more content not included)... [facility] [facility] ([facility] ) ----- BOMICHAEL GERBER ([id number]) 1955 M Date Time Provider Department 02/18/25 10:00 AM RUBY SEAMAN FAMPWS During your visit today, we recorded the following information about you: Temperature Pulse Respiration Blood pressure 97.5 degrees 74/minute 16/minute 108/68 Weight 73 kg Ruby Seaman PA-C 02/18/2025 10:41 AM Signed Chief Complaint Patient presents with: Follow Up: Inhaler use HPI Michael Beltran is a 69 year old male who presents here today for Above Complaints.. Asthma: - Noted improvement in symptoms since starting Symbicort and allergy shots. - Decreased use of albuterol inhaler. Syncope: - Recent tilt table test in mid-January at [facility], authorized by cardiology - Describes the test as weird, with a significant response to nitroglycerin administration. - No follow-up with cardiology since the test; next appointment scheduled for the . - Recent stress test reported as well-performed, unable to reach target heart rate. - Experiences occasional paresthesia in hands, believed to be positional. - Avoids hot showers due to discomfort. Past medical history, appointments, medications, allergies reviewed. Previous Medical History PAST MEDICAL HISTORY Diagnosis Date Anemia of chronic disease 01/22/2021 Hg (11.5-12.8) since 2018 Arthritis 01/21/2021 Upper spine. 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, in remission 01/21/2021 Marijuana use 03/09/[address] Jean's office note 02/26/21 Medicare annual wellness visit, subsequent 01/21/2021 Medicare part B: Last done: 01/21/2021 Mixed hyperlipidemia 01/21/2021 Sensorineural hearing loss (SNHL) of left ear 01/21/2021 Previous Surgical History PAST SURGICAL HISTORY Procedure Laterality Date COLONOSCOPY 2013 repeat 10 years COLONOSCOPY 05/28/2022 COLONOSCOPY SCREENING 2004 PAST SURGICAL HISTORY OF 1976 pneumo thorax PAST SURGICAL HISTORY OF 1985 cyst on right side of buttock TONSILLECTOMY AND ADENOIDECTOMY TONSILLECTOMY HX Family History FAMILY HISTORY Problem Relation Age of Onset Multiple Sclerosis Mother Stroke Mother Cancer Father lymphoma Hypertension Father Prostate Cancer Brother Dementia Maternal Grandmother Breast Cancer Paternal Grandmother Stroke Paternal Grandfather Colon Cancer No Family History Ovarian cancer No Family History Diabetes No Family History Hyperlipidemia No Family History Coronary Artery Disease No Family History Kidney Disease No Family History Seizures No Family History Thyroid No Family History Patient Allergies ALLERGIES Allergen Reactions Zythromax [Azithrom* Itching Erythromycin Itching Ether Shortness of Breath Current Medications Current Outpatient Medications on File Prior to Visit Medication Sig albuterol HFA (PROVENTIL HFA, VENTOLIN HFA) 90 mcg/actuation inhaler Inhale 2 puffs as instructed every 4 hours as needed for wheezing/shortness of breath. atorvastatin (LIPITOR) 20 mg tablet Take 1 tablet by mouth once daily. Tadalafil (CIALIS) 20 mg tablet Take 1 tablet by mouth once daily. As needed budesonide-formoterol (SYMBICORT) 160-4.5 mcg/actuation inhaler Inhale 2 puffs as instructed two times a day. venlafaxine ER (EFFEXOR XR) 75 mg 24 hr capsule Take 1 capsule by mouth three times a day. loratadine 10 mg cap Take 10 mg by mouth as needed. No current facility-administered medications on file prior to visit. Social History Social History Tobacco Use Smoking status: Former Smokeless tobacco: Never Vaping Use Vaping status: Never Used Substance Use Topics Alcohol use: Never Drug use: Not Currently Review of Symptoms REVIEW OF SYSTEMS SEE HPI EXAM: BP 108/68 (BP Site: Left Arm, BP Position: Sitting, BP Cuff Size: Regular Adult) Pulse 74 Temp 36.4 ?C (97.5 ?F) Resp 16 Wt 73 kg (161 lb) SpO2 98% BMI 23.74 kg/m? General Appearance: Well appearing, alert, in no acute distress, well-hydrated, well nourished.. Health Maintenance List Advance Directive Discussion due on 08/22/2024 Medicare Advantage Annual Wellness Visit due on 08/22/2024 RSV Vaccine(1 - Risk 60-74 years 1-dose series) due on 05/03/2025 Diabetes Screening due on 10/11/2027 Lipid Screening due on 05/03/2029 Colorectal Cancer Screening due on 05/28/2032 DTaP,Tdap,Td Vaccine(2 - Td or Tdap) due on 08/18/2032 Abdominal Aortic Aneurysm Screening Completed Influenza Vaccine Completed Shingrix Vaccine Completed Covid-19 Vaccine Completed Pneumococcal Vaccine: 50+ Completed Hepatitis C Screening Discontinued Data reviewed PFT 12/17/24 Cough (more content not included)... Normal [facility] Absolute lymphocyte countOrd ered By: Shaji Li on 02-05-2025 Lymphocytes Auto (Unsp spec) [#/Vol] 1.61 10*3/uL 0.83-4.51 [facility] Absolute neutrophil countOrd ered By: Shaji Li on 02-05-2025 Neutrophils (Bld) [#/Vol] 2.6 10*3/uL 2.0-7.7 [facility] Anion gap in Serum or Plasma Ordered By: Shaji Li on 02-05-2025 Anion gap [Moles/Vol] 9 mmol/L 5-15 [facility] Automated lymphocyte count a s percentage of total leukocytesOrdered By: Shaji Li on 02-05-2025 Lymphocytes/100 WBC Auto (Unsp spec) 28.0 % 19-41 [facility] BUN/creatinine ratioOrdered By: Shajimera Li on 02-05-2025 Urea nitrogen/Creatinine [Mass ratio] 9.9 mg/mg Low - [facility] Basic Metabolic Profile (BMP )on 02-05-2025 BUN/CRE 9.9 RATIO Low - [facility] Comment on above: Order Comment: For T ilt Table Performed By: #### L 100.0100, L500.2500 #### [facility] [address] [place], [address] Calcium [Mass/Vol] 9.1 mg/dL Normal 7.6-11.0 [facility] Comment on above: Order Comment: For T ilt Table Performed By: #### L 100.0100, L500.2500 #### [facility] [address] [place], [address] Chloride [Moles/Vol] 97 mmol/L Low 98-108 [facility] Comment on above: Order Comment: For T ilt Table Performed By: #### L 100.0100, L500.2500 #### [facility] [address] [place], [address] CO2 [Moles/Vol] 26.3 mmol/L Normal 21.0-32.0 [facility] Comment on above: Order Comment: For T ilt Table Performed By: #### L 100.0100, L500.2500 #### [facility] [address] [place], [address] Creatinine [Mass/Vol] 0.90 mg/dL Normal 0.70-1.20 [facility] Comment on above: Order Comment: For T ilt Table Performed By: #### L 100.0100, L500.2500 #### [facility] [address] [place], [address] GAP 9 Normal 5-15 [facility] Comment on above: Order Comment: For T ilt Table Performed By: #### L 100.0100, L500.2500 #### [facility] [address] [place], [address] GFR/1.73 sq M.predicted among non-blacks MDRD (S/P/Bld) [Vol rate/Area] 91 mL/min/{1.73_m2} Normal >60 [facility] Comment on above: Order Comment: For T ilt Table Result Comment: mL/m in/1.73m2 CKD-EPI Creatinine Equation (2020) Performed By: #### L 100.0100, L500.2500 #### [facility] [address] [place], [address] Glucose [Mass/Vol] 95 mg/dL Normal 70-99 [facility] Comment on above: Order Comment: For T ilt Table Performed By: #### L 100.0100, L500.2500 #### [facility] [address] [place], [address] Potassium [Moles/Vol] 3.9 mmol/L Normal 3.3-5.1 [facility] Comment on above: Order Comment: For T ilt Table Performed By: #### L 100.0100, L500.2500 #### [facility] [address] [place], [address] Sodium [Moles/Vol] 133 mmol/L Normal 133-145 [facility] Comment on above: Order Comment: For T ilt Table Performed By: #### L 100.0100, L500.2500 #### [facility] [address] [place], [address] Urea nitrogen [Mass/Vol] 9 mg/dL Normal 4-19 [facility] Comment on above: Order Comment: For T ilt Table Performed By: #### L 100.0100, L500.2500 #### [facility] [address] [place], [address] Basophil percentageOrdered B y: Shaji Li on 02-05-2025 Basophils/100 WBC (Bld) 1.2 % High 0-1 [facility] CBC W/Diff, Automatedon 01-20 Absolute Lymph 1.61 X10 3/uL Normal 0.83-4.51 [facility] Comment on above: Order Comment: Comme nts: For Tilt Table Performed By: #### L 100.0100, L500.2500 #### [facility] [address] [place], [address] Absolute Neut 2.6 X10 3/uL Normal 2.0-7.7 [facility] Comment on above: Order Comment: Comme nts: For Tilt Table Performed By: #### L 100.0100, L500.2500 #### [facility] [address] [place], [address] Basophils/100 WBC (Bld) 1.2 % High 0-1 [facility] Comment on above: Order Comment: Comme nts: For Tilt Table Performed By: #### L 100.0100, L500.2500 #### [facility] [address] [place], [address] Eosinophils/100 WBC (Bld) 12.8 % High 0-5 [facility] Comment on above: Order Comment: Comme nts: For Tilt Table Performed By: #### L 100.0100, L500.2500 #### [facility] [address] [place], [address] Erythrocyte distribution width (RBC) [Ratio] 13.6 % Normal 11.6-14.6 [facility] Comment on above: Order Comment: Comme nts: For Tilt Table Performed By: #### L 100.0100, L500.2500 #### [facility] [address] [place], [address] Hematocrit (Bld) [Volume fraction] 37.0 % Low 40-54 [facility] Comment on above: Order Comment: Comme nts: For Tilt Table Performed By: #### L 100.0100, L500.2500 #### [facility] [address] [place], [address] Hemoglobin (Bld) [Mass/Vol] 12.7 g/dL Low 13.0-16.5 [facility] Comment on above: Order Comment: Comme nts: For Tilt Table Performed By: #### L 100.0100, L500.2500 #### [facility] [address] [place], [address] IG% 0.300 Normal 0.0-0.9 [facility] Comment on above: Order Comment: Comme nts: For Tilt Table Result Comment: IG% - Immature Granulocytes (promyelocytes, myelocytes and metamyelocytes) > 1% indicates that a LEFT SHIFT is Present. Performed By: #### L 100.0100, L500.2500 #### [facility] [address] [place], [address] Lymphocytes/100 WBC (Bld) 28.0 % Normal 19-41 [facility] Comment on above: Order Comment: Comme nts: For Tilt Table Performed By: #### L 100.0100, L500.2500 #### [facility] [address] [place], [address] MCH (RBC) [Entitic mass] 30.4 pg Normal 27.0-32.0 [facility] Comment on above: Order Comment: Comme nts: For Tilt Table Performed By: #### L 100.0100, L500.2500 #### [facility] [address] [place], [address] MCHC (RBC) [Mass/Vol] 34.3 g/dL Normal 32-36 [facility] Comment on above: Order Comment: Comme nts: For Tilt Table Performed By: #### L 100.0100, L500.2500 #### [facility] [address] [place], [address] MCV (RBC) [Entitic vol] 88.5 fL Normal 80-94 [facility] Comment on above: Order Comment: Comme nts: For Tilt Table Performed By: #### L 100.0100, L500.2500 #### [facility] [address] [place], [address] Monocytes/100 WBC (Bld) 12.2 % High 0-10 [facility] Comment on above: Order Comment: Comme nts: For Tilt Table Performed By: #### L 100.0100, L500.2500 #### [facility] [address] [place], [address] Neutrophils/100 WBC (Bld) 45.5 % Low 47-70 [facility] Comment on above: Order Comment: Comme nts: For Tilt Table Performed By: #### L 100.0100, L500.2500 #### [facility] [address] [place], [address] Nucleated RBC (Bld) [#/Vol] 0 10*3/uL Normal 0-5 [facility] Comment on above: Order Comment: Comme nts: For Tilt Table Performed By: #### L 100.0100, L500.2500 #### [facility] [address] [place], [address] Platelet mean volume (Bld) [Entitic vol] 9.5 fL Normal 6.2-12.0 [facility] Comment on above: Order Comment: Comme nts: For Tilt Table Performed By: #### L 100.0100, L500.2500 #### [facility] [address] [place], [address] Platelets (Bld) [#/Vol] 218 10*3/uL Normal 150-450 [facility] Comment on above: Order Comment: Comme nts: For Tilt Table Performed By: #### L 100.0100, L500.2500 #### [facility] [address] [place], [address] RBC (Bld) [#/Vol] 4.18 10*6/uL Low 4.6-6.2 [facility] Comment on above: Order Comment: Comme nts: For Tilt Table Performed By: #### L 100.0100, L500.2500 #### [facility] [address] [place], [address] RDW SD 44.3 fl High 35.1-43.9 [facility] Comment on above: Order Comment: Comme nts: For Tilt Table Performed By: #### L 100.0100, L500.2500 #### [facility] [address] [place], [address] WBC (Bld) [#/Vol] 5.8 10*3/uL Normal 4.4-11.0 [facility] Comment on above: Order Comment: Comme nts: For Tilt Table Performed By: #### L 100.0100, L500.2500 #### [facility] [address] [place], [address] Carbon dioxide, total [Moles /volume] in Central venous bloodOrdered By: Shaji Li on 02-05-2025 CO2 [Moles/Vol] 26.3 mmol/L 21.0-32.0 [facility] Chloride assayOrdered By: Simone Li on 02-05-2025 Chloride [Moles/Vol] 97 mmol/L Low 98-108 [facility] Eosinophil percentageOrdered By: Shaji Li on 02-05-2025 Eosinophils/100 WBC (Bld) 12.8 % High 0-5 [facility] Erythrocyte distribution wid th ratioOrdered By: Shaji Li on 02-05-2025 Erythrocyte distribution width (RBC) [Ratio] 13.6 % 11.6-14.6 [facility] Erythrocyte distribution wid th standard deviationOrdered By: Shaji Li on 02-05-2025 Erythrocyte distribution width (RBC) [Ratio] 44.3 fl High 35.1-43.9 [facility] Glomerular filtration rate ( GFR) estimation/1.73 sq m using serum, plasma, or whole bOrdered By: Shaji Li on 02-05-2025 GFR/1.73 sq M.predicted among non-blacks MDRD (S/P/Bld) [Vol rate/Area] 91 mL/min/{1.73_m2} >60 [facility] Comment on above: mL/min/1.73m2 CKD-EP I Creatinine Equation (2020) Hematocrit Auto (Bld) [Volum e fraction]Ordered By: Shaji Li on 02-05-2025 Hematocrit (Bld) [Volume fraction] 37.0 % Low 40-54 [facility] Hemoglobin measurementOrdere d By: Shaji Li on 02-05-2025 Hemoglobin (Bld) [Mass/Vol] 12.7 g/dL Low 13.0-16.5 [facility] Immature granulocytes/100 WB C Auto (Bld)Ordered By: Shaji Li 02-05-2025 Immature granulocytes/100 WBC (Bld) 0.300 % 0.0-0.9 [facility] Comment on above: IG% - Immature Granu locytes (promyelocytes, myelocytes and metamyelocytes) > 1% indicates that a LEFT SHIFT is Present. MCV (mean corpuscular volume ) determinationOrdered By: Shaji Li on 02-05-2025 MCV (RBC) [Entitic vol] 88.5 fL 80-94 [facility] Mean corpuscular hemoglobin (MCH) determinationOrdered By: Shaji Li 02-05-2025 MCH (RBC) [Entitic mass] 30.4 pg 27.0-32.0 [facility] Mean corpuscular hemoglobin concentration (MCHC) determinationOrdered By: Shaji Li on 02-05-2025 MCHC (RBC) [Mass/Vol] 34.3 g/dL 32-36 [facility] Mean platelet volume determi nationOrdered By: Shaji Li on 02-05-2025 Platelet mean volume (Bld) [Entitic vol] 9.5 fL 6.2-12.0 [facility] Monocyte percentageOrdered B y: Shaji Li on 02-05-2025 Monocytes/100 WBC (Bld) 12.2 % High 0-10 [facility] Neutrophil percentageOrdered By: Shaji Li on 02-05-2025 Neutrophils/100 WBC (Bld) 45.5 % Low 47-70 [facility] Nucleated red blood cell per centageOrdered By: Shaji Li on 02-05-2025 Nucleated RBC/100 WBC (Bld) [Ratio] 0 % 0-5 [facility] Platelet countOrdered By: Simone Li on 02-05-2025 Platelets (Bld) [#/Vol] 218 10*3/uL 150-450 [facility] Potassium measurement (mass/ volume)Ordered By: Shaji Li on 02-05-2025 Potassium (Unsp spec) [Mass/Vol] 3.9 mmol/L 3.3-5.1 [facility] RBC Auto (Bld) [#/Vol]Ordere d By: Shaji Li on 02-05-2025 RBC (Bld) [#/Vol] 4.18 10*6/uL Low 4.6-6.2 [facility] Serum creatinine measurement (mass/volume)Ordered By: Shaji Li on 02-05-2025 Creatinine [Mass/Vol] 0.90 mg/dL 0.70-1.20 [facility] Serum glucose measurement (m ass/volume)Ordered By: Shaji Li on 02-05-2025 Glucose [Mass/Vol] 95 mg/dL 70-99 [facility] Serum or plasma calcium avila urement (mass/volume)Ordered By: Shaji Li on 02-05-2025 Calcium [Mass/Vol] 9.1 mg/dL 7.6-11.0 [facility] Serum or plasma urea nitroge n measurement (mass/volume)Ordered By: Shaji Li on 02-05-2025 Urea nitrogen [Mass/Vol] 9 mg/dL 4-19 [facility] Sodium levelOrdered By: Neil Li on 02-05-2025 Sodium [Moles/Vol] 133 mmol/L 133-145 [facility] Tilt Tableon 02-05-2025 Tilt Table [facility] [facility] [address] [place] [address] 02/05/25 1659 MR#: [id number] Acct: [id number] Name: MICHAEL BELTRAN Rep #: [id number] : 1955 69 From: Aj Francois MD Attending Dr: Dr. Shaji Li MD Status: REG CLI Ordering Dr: Shaji Li MD Date: 02/05/25 Location: [facility] Sex: M C Admitted: Staff Staff: Odalis Cobos and Teagan Macias Summary Pre Test Resting HR: 73 Pre Test Resting BP: 119/76 Minimum Test HR: 70 Maximum Test HR: 105 Minimum Test BP: 83/64 Maximum Test BP: 118/83 Reason for Test Termination: Syncope Physician Tilt Table Report Patient's Physicians Primary Care Physician: Bola Durand Indications/Diagnosis: Syncope Procedure Comments: The patient was brought to the noninvasive lab in the postabsorptive nonsedated state. Informed consent was obtained. Initial heart rate was noted to be 73 bpm with a blood pressure 119/76 mmHg. The patient was then placed in the 70 degree head upright tilt position and monitored for a total duration of approximately 20 minutes. Continuous EKG monitoring was performed patient maintained sinus rhythm. The patient was then placed back in the 70 degree head upright tilt position after he had been administered 0.4 mg of nitroglycerin. Initial heart rate was 87 bpm with a blood pressure 106/82 mmHg. The heart rate went up 205 and the blood pressure dropped to 83/64 and then was unable to measure he was pale and was put back in the recumbent position. Summary: Abnormal head upright tilt table test with likely orthostatic hypotension noted symptomatic. 02/05/25 1703 Date Aj Francois MD CC: Dr. Shaji Li MD; Dr. 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 No contraindications or sensitivities were noted. Meds taken: Albuterol 1.5 hours before testing. PRE-BRONCHODILATOR: The two largest FVCs were repeatable. The two largest FEV1s were repeatable. POST-BRONCHODILATOR: The two largest FVCs were not repeatable. The two largest FEV1s were] repeatable. Cough in 1st second despite repeated efforts; Patiet with cough throughout testing session. Best test reported despite difficult testing session. IMPRESSION: Spirometry reveals a reduced FEV1/FVC with normal FEV1 and FVC values. This could reflect a normal presentation or could indicate mild obstruction. Clinical correlation recommended. Negative bronchodilator response. Electronically Signed On 12-18-2024 12:36:21 EDT by Jackie Underwood MD ID: [id number] Name: MICHAEL BELTRAN Race: White Ht: 69.06 in Wt: 162.00 lbs Age: 69 Gender: Male : 1955 Dx: Chronic cough_, Shortness of breath Smoking Hx: Non-smoker Doctor: RUBY SEAMAN Test Date: 12/17/2024 Site: Tech: Tawana Perales PRE-BRONCH POST-BRONCH Avila LLN Pred ULN %Pred ZScore Avila %Pred %Chg ZScore SPIROMETRY FVC 4.57 2.87 3.86 4.87 118 1.15 4.78 123 5 1.49 FEV1 2.47 2.12 2.91 3.66 84 -0.94 2.59 88 3 -0.70 FEV1/FVC 0.54 0.63 0.77 0.87 70 -2.52 0.54 70 0 -2.52 FEFMax 7.22 5.72 7.97 10.22 90 -0.55 6.71 84 -7 -0.92 FEF50 0.84 1.71 3.83 5.95 21 -2.32 1.29 33 53 -1.97 FIF50 2.45 1.54 -37 FEF50/FIF50 0.34 90-100 0.83 144 FIVC 1.47 1.79 21 NBR73-08 0.97 0.98 2.31 4.20 41 -1.67 1.21 52 24 -1.31 ExpiredTime 11.60 13.27 14 TimeToFEFMax 0.07 0.08 13 YANY 0.10 0.10 0 VolExtrap% 2 2 -5 Comments: Medications and Allergies were reviewed for possible drug interactions per policy. No contraindications or sensitivities were noted. Meds taken: Albuterol 1.5 hours before testing. PRE-BRONCHODILATOR: The two largest FVCs were repeatable. The two largest FEV1s were repeatable. POST-BRONCHODILATOR: The two largest FVCs were not repeatable. The two largest FEV1s were] repeatable. Cough in 1st second despite repeated efforts; Patiet with cough throughout testing session. Best test reported despite difficult testing session. FVC_PRE (L) : 4.57 L FVC_POST (L) : 4.78 L FVC_PRED (L) : 3.86 L FVC_LLN (L) : 2.87 L FVC_ULN (L) : 4.87 L FEV1_PRE (L) : 2.47 L FEV1_POST (L) : 2.59 L FEV1_PRED (L) : 2.91 L FEV1_LLN (L) : 2.12 L FEV1_ULN (L) : 3.66 L FEV1/FVC_PRE (%) : 54 % FEV1/FVC_POST (%) : 54 % FEV1/FVC_PRED (%) : 77 % FEV1/FVC_LLN (%) : 63 % QJF86_AIX (L/S) : 3.66 L/S IPI31_MDRA (L/S) : 3.95 L/S DVB86_QVT (L/S) : 0.30 L/S TEP37_GOXF (L/S) : 0.68 L/S JBC91_MYCV (L/S) : 0.61 L/S WCR10_RMV (L/S) : 0.22 L/S HJO73_RWA (L/S) : 1.61 L/S MJA98-06%_PRE (L/S) : 0.97 L/S HZX95-56%_POST (L/S) : 1.21 L/S WFO71-50%_PRED (L/S) : 2.31 L/S CRM86-15%_LLN (L/S) : 0.98 L/S PEF_PRE (L/S) : 7.22 L/S PEF_POST (L/S) : 6.71 L/S PEFMAX_LLN (L/S) : 5.72 L/S PEFMAX_ULN (L/S) : 10.22 L/S FET_PRE (S) : 11.60 S FET_POST (S) : 13.27 S [facility] Stress Reporton 12-14-2024 Stress Report [facility] [address] [place] [id number] MR#: [id number] Acct: [id number] Name: MICHAEL BELTRAN Rep #: [id number] : 1955 69 From: Shaji Li MD Primary Care: Dr. Bola Durand MD Status: [facility] Referring Dr: Shaji Li MD Sex: M C Stress Test Report Date: 12/14/2024 Procedure: Exercise tolerance test/imaging study Indications: Syncope Consent: Per the patient Procedure: The patient exercised on a Rajesh protocol for 9 minutes achieving a peak heart rate of 123 bpm (82% predicted maximal heart rate) with a peak blood pressure 160/74 mmHg and a peak MET capacity of 10.1 METs. The baseline ECG demonstrated sinus rhythm. The peak exercise ECG showed sinus tachycardia with no ischemic changes. There were no cardiac dysrhythmias pretest, during exercise, or recovery. The functional capacity was considered very good for age. There was no complaint of chest discomfort during exercise or recovery. The examination was discontinued secondary to target heart rate being achieved and fatigue. The patient was injected with 13.3 mCi of technetium 99m Cardiolite and subsequently rest SPECT Cardiolite nuclear imaging was obtained in the horizontal long, vertical long, and short axis views. Post-exercise, the patient was injected with 41.4 mCi of technetium 99m Cardiolite and subsequently stress SPECT Cardiolite nuclear imaging was obtained in the horizontal long, vertical long, and short axis views. A gated Cardiolite study at peak stress was obtained. Rest and stress SPECT Cardiolite nuclear imaging status post realignment, normalization, and attenuation correction, demonstrates the appearance of relative uniform tracer uptake and myocardial perfusion appearing within normal limits. There is end systolic thickening and brightening. The gated Cardiolite study demonstrates myocardial thickening and inward wall motion. The reported LVEF is 68%. Impression: 1. Technically adequate exercise tolerance test 2. Peak exercise ECG with no ischemic changes. Excellent exercise tolerance for age. 3. No significant cardiac dysrhythmias noted pretest, during exercise or in recovery. 4. Rest and stress SPECT Cardiolite nuclear imaging demonstrate relative uniform tracer uptake and myocardial perfusion appearing within normal limits. 5. The gated Cardiolite study reports an LVEF of 68%. This note was generated with [employer]ation software. It may contain incorrect words, spelling, and punctuation that were not noted in checking the note before signing. 12/14/24 1022 Date Shaji Li MD CC: Dr. Shaji Li MD; Dr. Bola Durand MD Date Dictated: 12/14/24 1019 Date Transcribed: 12/14/24 1019 Environmental Laboratory Technician: SIMONE Signed [facility] CNOVon 12-13-2024 CNOV Office Visit (FAMPWS ) ----- MICHAEL BELTRAN ([id number]) 1955 M Date Time Provider Department 12/13/24 12:20 PM [facility] During your visit today, we recorded the following information about you: Temperature Pulse Respiration Blood pressure 97.2 degrees 82/minute 18/minute 118/66 Weight 73.9 kg Ruby Seaman PA-C 12/13/2024 1:13 PM Signed Chief Complaint Patient presents with: Cough: Returned after finishing prednisone HPI Michael Beltran is a 69 year old male who presents here today for Above Complaints.. Cough and Dyspnea: - Persistent cough and dyspnea following completion of prednisone course prescribed by Dr. Blair on 11/28. - Symptoms initially improved with prednisone but recurred a few days after completion. - Cough described as incessant, with occasional expectoration of dark sputum. - Dyspnea is intermittent, not consistently worse at night or with activity. - Increased use of albuterol inhaler with partial relief. - Recent chest X-ray on 11/05 showed old scarring, similar to previous findings. - Scheduled for a stress test tomorrow; previously postponed due to asthma. - ENT evaluation by Dr. Ching in early November diagnosed environmental allergies, including house dust, grasses, and cat saliva. - Awaiting allergy shots; no current antihistamine use. - Former smoker, quit in October 2007. Past medical history, appointments, medications, allergies reviewed. Previous Medical History PAST MEDICAL HISTORY Diagnosis Date Anemia of chronic disease 01/22/2021 Hg (11.5-12.8) since 2018 Arthritis 01/21/2021 Upper spine. 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, in remission 01/21/2021 Marijuana use 03/09/[address] Jean's office note 02/26/21 Medicare annual wellness visit, subsequent 01/21/2021 Medicare part B: Last done: 01/21/2021 Mixed hyperlipidemia 01/21/2021 Sensorineural hearing loss (SNHL) of left ear 01/21/2021 Previous Surgical History PAST SURGICAL HISTORY Procedure Laterality Date COLONOSCOPY 2012 repeat 10 years COLONOSCOPY 05/28/2022 COLONOSCOPY SCREENING 2004 PAST SURGICAL HISTORY OF 1976 pneumo thorax PAST SURGICAL HISTORY OF 1985 cyst on right side of buttock TONSILLECTOMY AND ADENOIDECTOMY TONSILLECTOMY HX Family History FAMILY HISTORY Problem Relation Age of Onset Multiple Sclerosis Mother Stroke Mother Cancer Father lymphoma Hypertension Father Prostate Cancer Brother Dementia Maternal Grandmother Breast Cancer Paternal Grandmother Stroke Paternal Grandfather Colon Cancer No Family History Ovarian cancer No Family History Diabetes No Family History Hyperlipidemia No Family History Coronary Artery Disease No Family History Kidney Disease No Family History Seizures No Family History Thyroid No Family History Patient Allergies ALLERGIES Allergen Reactions Zythromax [Azithrom* Itching Erythromycin Itching Ether Shortness of Breath Current Medications Current Outpatient Medications on File Prior to Visit Medication Sig albuterol HFA (PROVENTIL HFA, VENTOLIN HFA) 90 mcg/actuation inhaler Inhale 2 puffs as instructed every 4 hours as needed for wheezing/shortness of breath. atorvastatin (LIPITOR) 20 mg tablet Take 1 tablet by mouth once daily. Tadalafil (CIALIS) 20 mg tablet Take 1 tablet by mouth once daily. As needed venlafaxine ER (EFFEXOR XR) 75 mg 24 hr capsule Take 1 capsule by mouth three times a day. loratadine 10 mg cap Take 10 mg by mouth as needed. No current facility-administered medications on file prior to visit. Social History Social History Tobacco Use Smoking status: Former Smokeless tobacco: Never Vaping Use Vaping status: Never Used Substance Use Topics Alcohol use: Never Drug use: Not Currently Review of Symptoms REVIEW OF SYSTEMS SEE HPI EXAM: BP 118/66 (BP Site: Left Arm, BP Position: Sitting, BP Cuff Size: Regular Adult) Pulse 82 Temp 36.2 ?C (97.2 ?F) Resp 18 Wt 73.9 kg (163 lb) SpO2 97% BMI 23.73 kg/m? General Appearance: Well appearing, alert, in no acute distress, well-hydrated, well nourished.. Lungs: Lungs clear to auscultation. No wheezing, rhonchi, rales.. Heart: RRR without murmur, gallop, or rubs. No ectopy. Extremities: No deformities, edema, skin discoloration, clubbing or cyanosis. Good capillary refill. . Health Maintenance List Advance Directive Discussion due on 08/22/2024 Covid-19 Vaccine( season) due on 11/28/2024 RSV Vaccine(1 - Risk 60-74 years 1-dose series) due on 05/03/2025 Diabetes Screening due on 10/11/2027 Lipid Screening due on 05/03/2029 Col (more content not included)... Normal [facility] CNOVon 11-28-2024 CNOV Office Visit (INTMWS ) ----- MICHAEL BELTRAN ([id number]) 1955 M Date Time Provider Department 11/28/24 3:20 PM DIALLO ABREU INTMWS During your visit today, we recorded the following information about you: Temperature Pulse Respiration Blood pressure 99.1 degrees 88/minute 20/minute 110/66 Weight 74.3 kg Diallo Abreu MD 11/28/2024 4:02 PM Signed This note was created using NoteWriter. Subjective Michael Beltran is a 69 year old male here with his . PCP Bola Durand MD Patient presents with: Cough The patient consented to the use of [employer] software for draft documentation of the visit consistent with [facility]?s Notice of Privacy Practices. Mayur is a 69-year-old male, with a history of childhood asthma, presenting with dyspnea and cough. Mayur reports a recurrence of dyspnea and a deep, rattling cough following a bout of bronchial pneumonia in September. He was treated with antibiotics and a 5-day course of prednisone at that time, and was prescribed an inhaler, which he has been using since. Approximately 2 weeks after being declared free of pneumonia, he began experiencing a heavy sensation in his chest, dyspnea, and a deep, rattling cough, particularly when lying down at night. The cough is not always productive, and he finds it very hard to breathe, even with the use of his inhaler. He describes the difficulty in breathing as similar to his childhood asthma, though he has not had asthma in recent years. He also reports intermittent wheezing. Mayur notes that his dyspnea is worse at night, often waking him up and making it difficult to sleep. Last night, he was unable to sleep until around 0400 due to dyspnea. He finds some relief when sitting up. He experiences dyspnea even while sitting and reports a sensation of chest tightness, though not cardiac in nature. He denies fever, chills, sweats, weight changes, leg or ankle swelling, or gastrointestinal symptoms beyond his normal baseline. Mayur has a history of smoking, having quit in 2007 after many years. He also has a history of a pneumothorax on the left side in the 1970s. He is scheduled for a stress test on Tuesday to investigate episodes of syncope, which he attributes to drops in blood pressure occurring every 5-10 years. He mentions that he had a syncope episode in September. Review of Systems Constitutional: (-) fever, (-) chills, (-) sweats, (-) weight gain Ears/Nose/Mouth/Throat: (-) ear pain, (-) sore throat, (-) congestion Cardiovascular: (-) chest pain, (+) chest tightness Respiratory: (+) shortness of breath, (+) cough, (+) wheezing Gastrointestinal: (-) nausea, (-) vomiting Psychiatric: (+) sleep disturbance ACTIVE PROBLEM LIST Arthritis Mixed Hyperlipidemia Major Depressive Disorder With Single Episode, in Remission Justo (Generalized Anxiety Disorder) Ex-Smoker Medicare Annual Wellness Visit, Subsequent Sensorineural Hearing Loss (Snhl) of Left Ear Chronic Pain Syndrome Prostate Disorder Advanced Directives, Counseling/Discussion Anemia of Chronic Disease Marijuana Use Elevated Blood Sugar Erectile Dysfunction Hyponatremia Chronic Midline Low Back Pain Without Sciatica Medication Management Social History Tobacco Use Smoking status: Former Smokeless tobacco: Never Vaping Use Vaping status: Never Used Substance Use Topics Alcohol use: Never Drug use: Not Currently Current Outpatient Medications Medication Sig atorvastatin (LIPITOR) 20 mg tablet Take 1 tablet by mouth once daily. baclofen 5 mg tablet Take 1 tablet by mouth once daily as needed. albuterol HFA (PROVENTIL HFA, VENTOLIN HFA) 90 mcg/actuation inhaler Inhale 2 Puffs as instructed every 4 hours as needed for wheezing/shortness of breath. Tadalafil (CIALIS) 20 mg tablet Take 1 tablet by mouth once daily. As needed venlafaxine ER (EFFEXOR XR) 75 mg 24 hr capsule Take 1 capsule by mouth three times a day. loratadine 10 mg cap Take 10 mg by mouth as needed. No current facility-administered medications for this visit. Objective BP 110/66 (BP Site: Left Arm, BP Position: Sitting, BP Cuff Size: Large Adult) Pulse 88 Temp 37.3 ?C (99.1 ?F) (Temporal) Resp 20 Wt 74.3 kg (163 lb 12.8 oz) BMI 23.84 kg/m? Physical Exam Constitutional: General: He is not in acute distress. Appearance: He is not ill-appearing or diaphoretic. HENT: Nose: No congestion or rhinorrhea. Mouth/Throat: Mouth: Mucous membranes are moist. Pharynx: Oropharynx is clear. Neck: Vascular: No JVD. Cardiovascular: Rate and Rhythm: Normal rate and regular rhythm. Pulses: Normal pulses. Heart sounds: No murmur heard. No gallop. Pulmonary: Effort: No respiratory distress. Breath sounds: Wheezing and rhonchi present. Abdominal: General: There is no distension. Tenderness: There is no abdominal tendern (more content not included)... [facility] Telephone (FAMPWS) ----- MICHAEL BELTRAN ([id number]) 1955 M Date Time Provider Department 11/28/24 BOLA DURAND FAMPWS During your visit today, we recorded the following information about you: Rhiannon Thompson RN 11/28/2024 2:08 PM Signed Patient calling with nonproductive cough > 1 week. Has coughing spasms at times. States he feels he has mild air restriction during inspiration and would like an assessment. Reports he has a history of bronchopneumonia this past September. Reports history of asthma as well. Denies chest pain, severe SOB, fever, lightheadedness or dizziness, wheezing or headache. Appt scheduled for available provider this afternoon, Dr. Abreu at 3:20 pm. Rhiannon Thompson RN Allergies As of Date: 11/28/2024 Noted Allergy Reaction ZYTHROMAX (AZITHROMYCIN) 11/12/2024 9 - Itching ERYTHROMYCIN 11/10/2019 9 - Itching ETHER 11/10/2019 12 - Shortness of Breath Date Reviewed: 11/12/2024 Reviewed by: Yogi Ramon MA - Fully Assessed Reason for Visit: Patient Update [1234] Prescriptions as of 11/28/2024 - atorvastatin (LIPITOR) 20 mg tablet Take 1 tablet by mouth once daily. - baclofen 5 mg tablet Take 1 tablet by mouth once daily as needed. - albuterol HFA (PROVENTIL HFA, VENTOLIN HFA) 90 mcg/actuation inhaler Inhale 2 Puffs as instructed every 4 hours as needed for wheezing/shortness of breath. - Tadalafil (CIALIS) 20 mg tablet Take 1 tablet by mouth once daily. As needed - venlafaxine ER (EFFEXOR XR) 75 mg 24 hr capsule Take 1 capsule by mouth three times a day. - loratadine 10 mg cap Take 10 mg by mouth as needed. Problem List As Of Date 11/28/2024 Noted Resolved Arthritis [M19.90] 01/21/2021 Mixed hyperlipidemia [E78.2] 01/21/2021 Major depressive disorder with single episode, *01/21/2021 JUSTO (generalized anxiety disorder) [F41.1] 01/21/2021 Ex-smoker [Z87.891] 01/21/2021 Medicare annual wellness visit, subsequent [Z00*01/21/2021 Sensorineural hearing loss (SNHL) of left ear [*01/21/2021 Chronic pain syndrome [G89.4] 01/21/2021 Prostate disorder [N42.9] 01/21/2021 Advanced directives, counseling/discussion [Z71*01/21/2021 Anemia of chronic disease [D63.8] 01/22/2021 Marijuana use [F12.90] 03/09/2021 Elevated blood sugar [R73.9] 02/24/2022 Erectile dysfunction [N52.9] 02/24/2022 Hyponatremia [E87.1] 04/22/2022 Chronic midline low back 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 *05/03/2024 Medication management [Z79.899] 05/03/2024 Encounter Status:Closed by RHIANNON THOMPSON on 11/28/24 Normal [facility] Cardiology Visit Reporton Cardiology Visit Report [facility] [address] [place] [address] OFFICE VISIT Date of Service: 11/20/24 MR#: [id number] Acct: [id number] Name: MICHAEL BELTRAN Rep #: [id number] : 1955 Provider: Dr. Shaji Li MD Age/Sex: 69/M Location: [facility] Status: Signed HPI HPI History of Present Illness Details: This gentleman with past medical history significant for COPD and dyslipidemia is here for his complaints of syncopal episodes. According to the patient, he has had multiple syncopal episodes over the last many years. His recent such episode was last month. According to the patient, these usually occur when he is standing up. Denies any warning symptoms. Per him, he usually wakes up as soon as he hits the ground. However there was 1 episode where according to the patient, he remained passed out for hours. According to him, his said that he was answering questions but the patient does not remember anything about that. Denies any seizure activity. No bladder or bowel incontinence. No tongue bite. Denies any palpitations. No chest pains either at rest or with exertion. He does however get some shortness of breath with exertion. Patient's MRI had at an outside facility was reported as normal. Carotid Doppler showed less than 50% bilateral disease. 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 No steal reported. Antegrade flow in the vertebral arteries. Patient denies any claudication symptoms of the left upper extremity. Echocardiogram showed normal LV systolic function. He previously had a 30-day event monitoring in 2019 for his syncopal episodes. That failed to show any major arrhythmias. Recent event monitoring showed couple of brief atrial runs. The longest 1 was 9 beat long. Patient denies orthopnea or PND. No ankle edema. Denies illicit substance abuse. Denies EtOH abuse. 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 Accompanied by: Self Is patient in pain?: No Allergies amoxicillin (From Augmentin) Allergy (Unknown, Verified 11/20/24 11:23) NEEDS FOLLOW-UP clavulanic acid (From Augmentin) Allergy (Unknown, Verified 11/20/24 11:23) NEEDS FOLLOW-UP erythromycin base Allergy (Verified 11/20/24 11:23) Itching ether Adverse Reaction (Verified 11/20/24 11:23) Shortness of breath Medications ???Medication ???Instructions ???Recorded ???Confirmed ???Type atorvastatin 20 mg tablet 20 mg PO QHS 11/11/19 11/20/24 His tory albuterol 90 mcg-budesonide 80 2 inh inhalation ONCE 11/13/2409/15 History mcg/actuation HFA aerosol inhaler venlafaxine 75 mg capsule,extended 75 mg PO TID 11/13/24 11/20/24 H istory release 24 hr baclofen 5 mg tablet 5 mg PO QDAY PRN 11/20/24 11/20/24 History inhalational spacing device #1 ea 11/20/24 11/20/24 History (BreatheRite MDI Spacer) loratadine 10 mg capsule (Allergy 10 mg PO QDAY PRN 11/20/24 History Relief (loratadine)) Ejection fraction %: 65 Have you fallen in the past year?: Yes (September; fracture to L-4) [facility] Medical History Anemia of chronic disease Arthritis Asthma Chronic midline low back 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 Chronic pain syndrome Elevated blood sugar Erectile dysfunction Ex-smoker JUSTO (generalized anxiety disorder) Hyperlipidemia Hyponatremia Hypotension Major depressive disorder with single episode, in remission Marijuana use Mixed hyperlipidemia Prostate disorder Sensorineural hearing loss (SNHL) of left ear Surgical History History of colonoscopy S/P tonsillectomy and adenoidectomy Family History Father Hypertension Cancer Brother Cancer Grandmother Cancer Dementia Grandfather CVA (cerebral vascular accident) Mother CVA (cerebral vascular accident) Multiple sclerosis Social History Smoking Status: Former smoker ROS Const Const: Positive for fatigue; Negative for weakness, headache(s), weight gain or weight loss ENT ENT: Positive for dizziness and balance problems; Negative for headache(s) or Nosebleed/epistaxis Cardio Chest Pain: No Palpitations: No Edema: None Muscle aches with walking: None Resp Respiratory: Positive for SOB with activity (attributed to recent URI per pt); Negative for SOB at rest or SOB orthopnea SOB lying down GI GI: Negative nausea, vomiting or (more content not included)... Normal [facility] 11-13-2024 [facility] Telephone (DENNISE) ----- MICHAEL BELTRAN ([id number]) 1955 M Date Time Provider Department 11/13/24 GULSHAN PALMER During your visit today, we recorded the following information about you: Yogi Ramon MA 11/13/2024 9:02 AM Signed Back brace order form has been emailed to Niall with [facility]. Allergies As of Date: 11/13/2024 Noted Allergy Reaction ZYTHROMAX (AZITHROMYCIN) 11/12/2024 9 - Itching ERYTHROMYCIN 11/10/2019 9 - Itching ETHER 11/10/2019 12 - Shortness of Breath Date Reviewed: 11/12/2024 Reviewed by: Yogi Ramon MA - Fully Assessed Reason for Visit: Orders [681] Cmt: Back brace Prescriptions as of 11/13/2024 - baclofen 5 mg tablet Take 1 tablet by mouth once daily as needed. - albuterol HFA (PROVENTIL HFA, VENTOLIN HFA) 90 mcg/actuation inhaler Inhale 2 Puffs as instructed every 4 hours as needed for wheezing/shortness of breath. - Tadalafil (CIALIS) 20 mg tablet Take 1 tablet by mouth once daily. As needed - venlafaxine ER (EFFEXOR XR) 75 mg 24 hr capsule Take 1 capsule by mouth three times a day. - atorvastatin (LIPITOR) 20 mg tablet Take 1 tablet by mouth once daily. - loratadine 10 mg cap Take 10 mg by mouth as needed. Problem List As Of Date 11/13/2024 Noted Resolved Arthritis [M19.90] 01/21/2021 Mixed hyperlipidemia [E78.2] 01/21/2021 Major depressive disorder with single episode, *01/21/2021 JUSTO (generalized anxiety disorder) [F41.1] 01/21/2021 Ex-smoker [Z87.891] 01/21/2021 Medicare annual wellness visit, subsequent [Z00*01/21/2021 Sensorineural hearing loss (SNHL) of left ear [*01/21/2021 Chronic pain syndrome [G89.4] 01/21/2021 Prostate disorder [N42.9] 01/21/2021 Advanced directives, counseling/discussion [Z71*01/21/2021 Anemia of chronic disease [D63.8] 01/22/2021 Marijuana use [F12.90] 03/09/2021 Elevated blood sugar [R73.9] 02/24/2022 Erectile dysfunction [N52.9] 02/24/2022 Hyponatremia [E87.1] 04/22/2022 Chronic midline low back 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 *05/03/2024 Medication management [Z79.899] 05/03/2024 Encounter Status:Closed by YOGI RAMON on 11/13/24 [facility] CNOVon 11-12-2024 CNOV Office Visit (PNMDNA ) ----- MICHAEL BELTRAN ([id number]) 1955 M Date Time Provider Department 11/12/24 3:00 PM GULSHAN PALMER PNMDNA During your visit today, we recorded the following information about you: Pulse Weight 84/minute 73.9 kg Gulshan Palmer MD 11/12/2024 3:35 PM Signed [facility] Date: November 12, 2024 - 2:58 PM Michael Beltran is seen in consultation requested by Ruby Seaman for an opinion regarding back pain. My final recommendations will be communicated back to the requesting physician by way of shared medical record or via US mail. Chief Complaint: low back pain SUBJECTIVE: Michael Beltran, is a 69 year old male who presents with lower back pain. The pain started 2 months ago, after fallen in the bathroom after blacking out. The pain onset was acute. The patient states that the current pain is persistent and stable. His pain is located in the bilateral and middle lumbar region and does not radiate.. // The pain is described as aching, dull, tenderness. The pain intensity is rated 2. The pain is exacerbated by lying down and relieved by medication. Symptoms interfere with sleeping and daily activities. 100% pain in spine vs 0% (radiating) pain in the extremity. Litigation: No. Worker's Compensation: No. Prior pain treatment has included: Medication(s): Ibuprofen/Tylenol (Dual Action) with minimal relief. Physical therapy: 05/29/24-07/25/24 at [facility] [place] with relief. ALLERGIES Allergen Reactions Zythromax [Azithrom* Itching Erythromycin Itching Ether Shortness of Breath Current Medications: Pain medications reviewed and reconciled in the medication list: Yes. Current Outpatient Medications Medication Sig baclofen 5 mg tablet Take 1 tablet by mouth once daily as needed. albuterol HFA (PROVENTIL HFA, VENTOLIN HFA) 90 mcg/actuation inhaler Inhale 2 Puffs as instructed every 4 hours as needed for wheezing/shortness of breath. Tadalafil (CIALIS) 20 mg tablet Take 1 tablet by mouth once daily. As needed venlafaxine ER (EFFEXOR XR) 75 mg 24 hr capsule Take 1 capsule by mouth three times a day. atorvastatin (LIPITOR) 20 mg tablet Take 1 tablet by mouth once daily. loratadine 10 mg cap Take 10 mg by mouth as needed. No current facility-administered medications for this visit. PAST MEDICAL HISTORY Diagnosis Date Anemia of chronic disease 01/22/2021 Hg (11.5-12.8) since 2018 Arthritis 01/21/2021 Upper spine. 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, in remission (HCC) 01/21/2021 Marijuana use 03/09/[address] Jean's office note 02/26/21 Medicare annual wellness visit, subsequent 01/21/2021 Medicare part B: Last done: 01/21/2021 Mixed hyperlipidemia 01/21/2021 Sensorineural hearing loss (SNHL) of left ear 01/21/2021 PAST SURGICAL HISTORY Procedure Laterality Date COLONOSCOPY 2013 repeat 10 years COLONOSCOPY 05/28/2022 COLONOSCOPY SCREENING 2004 PAST SURGICAL HISTORY OF 1976 pneumo thorax PAST SURGICAL HISTORY OF 1985 cyst on right side of buttock TONSILLECTOMY AND ADENOIDECTOMY TONSILLECTOMY HX FAMILY HISTORY Problem Relation Age of Onset Multiple Sclerosis Mother Stroke Mother Cancer Father lymphoma Hypertension Father Prostate Cancer Brother Dementia Maternal Grandmother Breast Cancer Paternal Grandmother Stroke Paternal Grandfather Colon Cancer No Family History Ovarian cancer No Family History Diabetes No Family History Hyperlipidemia No Family History Coronary Artery Disease No Family History Kidney Disease No Family History Seizures No Family History Thyroid No Family History Social History: Alcohol Use: Never Tobacco Use: Quit Drug Use: Not Currently Employer And Job Title: None on file Years Of Education Completed: Not specified Marital Status: REVIEW OF SYSTEMS: Constitutional: (-) Fever (-) Night Sweats (-) Weight Gain (-) Weight Loss (+) Fatigue Cardiovascular: (-) Chest Pain (-) Palpitations (-) Lightheadedness (-) Swelling of Ankles (-) Hx Heart Surgery Respiratory: (-) Shortness of Breath (-) Cough (-) Wheezing (+) Snoring Gastrointestinal: (-) Incontinence (-) Abdominal Pain (-) Diarrhea (-) Constipation (-) Nausea/Vomiting (-) Heart Burn Endocrine: (-) Thyroid Disorder (-) Diabetes Hematologic: (-) Prolonged Bleeding (+) Easy Bruising Genitourinary: (-) Incontinence (+) Frequency (-) Urinary Urgency Skin: (-) Rashes (-) Itching (-) Other Lesions Neurologic: (-) Headache (-) Double Vision (-) Confusion (-) Paralysis (+) Vertigo (+) Syncope Psychiatric: (+) Depression (more content not included)... Normal [facility] XR CHEST 2V FRONTAL/LATon XR CHEST 2V FRONTAL/LAT * * *Final Report* * * DATE OF EXAM: Nov 05 2024 11:05AM WOX [id number] - XR CHEST 2V FRONTAL/LAT / PROCEDURE REASON: Bacterial pneumonia * * * * Physician Interpretation * * * * EXAMINATION: CHEST RADIOGRAPH (2 VIEW FRONTAL and LATERAL) CLINICAL HISTORY: Bacterial pneumonia MQ: [id number] EXAM DATE/TIME: 11/05/2024 11:05 AM COMPARISON: 11/10/2019 RESULT: Lines, tubes, and devices: None. Lungs and pleura: No consolidation. No lung mass. No pleural effusion. No pneumothorax. Apical pleural scarring and mild apical interstitial scarring. Cardiomediastinal silhouette: Normal cardiomediastinal silhouette. Right hilar calcified lymph nodes. Bones and soft tissues: Unremarkable. IMPRESSION: No acute radiographic abnormality. Evidence of old-granulomatous disease and mild scarring in the lung apices similar to previous Environmental Laboratory Technician: GERSON Transcribe Date/Time: Nov 07 2024 5:10P Dictated by : RUFINO VALDOVINOS MD This examination was interpreted and the report reviewed and electronically signed by: RUFINO VALDOVINOS MD on Nov 07 2024 5:10PM EST [id number] Normal [facility] CNOVon 10-31-2024 CNOV Office Visit (NEMOWS ) ----- MICHAEL BELTRAN ([id number]) 1955 M Date Time Provider Department 10/31/24 12:30 PM VIJAYA ESPAÑA During your visit today, we recorded the following information about you: Weight 74.7 kg Vijaya España PA-C 10/31/2024 1:35 PM Signed [facility] for General Neurology Name: Michael Beltran Age: [age] year old Gender: male Primary Care Provider: Bola Durand MD Consult requested for syncope by Ruby Seaman. Recommendations will be communicated via shared medical record or US mail. Chief Complaint:New Patient (Syncope episodes,) 10/31/2024 - General Neurology, Vijaya España PA-C ASSESSMENT ASSESSMENT/PLAN: 1. Loss of consciousness (HCC) - ICD9: 780.09, ICD10: R40.20 (primary diagnosis) 2. Syncope, unspecified syncope type - ICD9: 780.2, ICD10: R55 Patient denies multiple episodes of syncope in the last 15 years. Most recently was about 3 weeks ago when he was sick with pneumonia. States he went up to use the restroom and was found on the bathroom floor by his . estimates that he was out for 30 minutes, no seizure-like activity. Was admitted and found to also be dehydrated, orthostatics were positive per patient report in the hospital. Orthostatics in the office today were negative. Reports that this is about the fifth flareup of syncope has had in his life over the last 15 years, typically they occur when he is either ill or poorly hydrated or if he had a bowel movement. No diagnoses regarding this before. Has been admitted to the hospital with normal workup in the past. Notes there was only 1 time where it had not occurred when he was standing up and that was shortly after he contracted COVID in 2019. In that 1 day he had a total of 8 episodes of syncope. MRI of the brain obtained recently in the hospital was negative for any acute abnormality. Notes he does not get much of a warning before the episodes but notes that she can tell what is going to happen because he has a very blank stare. She is able to get to him and usually lowered him to the ground when it happens. However, patient denying any warning. No tongue biting or tonic-clonic activity, no incontinence but notes he is very fatigued for hours after he wakes up from 1 of these episodes. No recent EEG, does not believe he is ever had 1. Due to multiple episodes of loss of conscious we will order EEG to ensure no epileptiform changes however my suspicion for seizure is very low at this time. High suspicion for vasovagal syncope or dehydration. Orthostatics again were negative in the office today but reported to be positive in the hospital by patient. Encouraged him to continue with follow-up with cardiology and increase hydration. No signs of neuropathy on exam. Will have him follow-up as needed. Of note, notes that his memory has not completely returned to normal since being home. Is scheduled for repeat chest x-ray due to pneumonia for next Tuesday. Notes that periods he will have episodes of confusion but then returns to baseline. No loss of consciousness since has been home, no other episodes of altered mental status. Will continue to monitor, recent B12 was negative with no significant signs of atrophy on MRI of the brain per report. Discussed should this persist or get worse to reach out and schedule follow-up. Encouraged conservative therapy in the meantime. 3. Compression fracture of L4 vertebra, initial encounter ([facility]) - ICD9: 805.4, ICD10: S32.040A Patient was found to have a lumbar compression fracture thought to be secondary to his most recent fall in September. Has appointment with spine scheduled, does have some decrease sensory exam findings on the right lower extremity. Denies any significant weakness, falls bowel or bladder incontinence. Encouraged follow-up with spine as planned in a few days. Patient agreeable to treatment plan of care at this time, all questions were answered. Patient to follow-up as needed. Vijaya Queener, PA-C Encounter Diagnosis ICD-10-CM 1. Syncope, unspecified syncope type R55 No follow-ups on file. Chart, labs,and relevant images reviewed. HPI: PT seen at on 10/11/24 for fall/syncope. With unwitnessed fall in restroom. heard him and called 911. Pt. Is very poor historian, unsure of baseline. Hx of B12 deficiency, MRI emeka normal. T12 abnormality on CT, chronic? Given event monitor and cards FU. Was found to have pneumonia as well. This is a 69 year old male presenting with concerns of syncope. Notes this is not necessarily a new issue but is very infrequent. Estimates that has had 5 total episodes of syncope in his life starting around 2010. This was when he was in the bathroom, had a bowel movement and was found on the ground by his . In 2019 shortly after lina COVID he was sitt (more content not included)... Normal [facility] CNOVon 10-18-2024 [facility] ----- MICHAEL BELTRAN ([id number]) 1955 M Date Time Provider Department 10/18/24 9:00 AM [facility]BY SEAMAN [facility] During your visit today, we recorded the following information about you: Temperature Pulse Respiration Blood pressure 97.3 degrees 67/minute 16/minute 96/86 Weight 75.3 kg Ruby Seaman PA-C 10/18/2024 1:05 PM Addendum Chief Complaint Patient presents with: Hospital F/U HPI Michael Beltran is a 69 year old male who presents here today for recheck. Patient is scheduled for follow up on his pneumonia dx by ER, however patient actually was in hospital due to syncopal episode. Patient reports he admitted to on 10/11/2024. Discharged on 10/12/24. Hospital discharge summary unavailable at time of visit. Per patient and , they were told he should follow up with neurology due to his syncopal episodes. He also had low bp while in ER. He has a holter monitor on currently. Will turn it in tomorrow. Looks like hospital did a Echo and carotid US as well. Patient states he has had syncopal episodes the past. Sometimes will have lightheadedness with standing. But not always. More so recently. States his recent syncopal episode happened after he stood up from going to the bathroom. This has happened in the past. Reports he had another workup at [facility] in 2019 for this same thing. Never saw board worker outside of hospital setting for further workup on his symptoms. Has had back pain since his syncope fall. More left sided. No n/t in leg. No radiating pain. Past medical history, appointments, medications, allergies reviewed. Previous Medical History PAST MEDICAL HISTORY Diagnosis Date Anemia of chronic disease 01/22/2021 Hg (11.5-12.8) since 2018 Arthritis 01/21/2021 Upper spine. 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, in remission (HCC) 01/21/2021 Marijuana use 03/09/[address] Jean's office note 02/26/21 Medicare annual wellness visit, subsequent 01/21/2021 Medicare part B: Last done: 01/21/2021 Mixed hyperlipidemia 01/21/2021 Sensorineural hearing loss (SNHL) of left ear 01/21/2021 Previous Surgical History PAST SURGICAL HISTORY Procedure Laterality Date COLONOSCOPY 2013 repeat 10 years COLONOSCOPY 05/28/2022 COLONOSCOPY SCREENING 2004 PAST SURGICAL HISTORY OF 1976 pneumo thorax PAST SURGICAL HISTORY OF 1985 cyst on right side of buttock TONSILLECTOMY AND ADENOIDECTOMY TONSILLECTOMY HX Family History FAMILY HISTORY Problem Relation Age of Onset Multiple Sclerosis Mother Stroke Mother Cancer Father lymphoma Hypertension Father Prostate Cancer Brother Dementia Maternal Grandmother Breast Cancer Paternal Grandmother Stroke Paternal Grandfather Colon Cancer No Family History Ovarian cancer No Family History Diabetes No Family History Hyperlipidemia No Family History Coronary Artery Disease No Family History Kidney Disease No Family History Seizures No Family History Thyroid No Family History Patient Allergies ALLERGIES Allergen Reactions Erythromycin Itching Ether Shortness of Breath Current Medications Current Outpatient Medications on File Prior to Visit Medication Sig albuterol HFA (PROVENTIL HFA, VENTOLIN HFA) 90 mcg/actuation inhaler Inhale 2 Puffs as instructed every 4 hours as needed for wheezing/shortness of breath. Tadalafil (CIALIS) 20 mg tablet Take 1 tablet by mouth once daily. As needed venlafaxine ER (EFFEXOR XR) 75 mg 24 hr capsule Take 1 capsule by mouth three times a day. atorvastatin (LIPITOR) 20 mg tablet Take 1 tablet by mouth once daily. loratadine 10 mg cap Take 10 mg by mouth as needed. No current facility-administered medications on file prior to visit. Social History Social History Tobacco Use Smoking status: Former Smokeless tobacco: Never Vaping Use Vaping status: Never Used Substance Use Topics Alcohol use: Never Drug use: Not Currently Review of Symptoms REVIEW OF SYSTEMS See hpi EXAM: BP 96/86 (BP Site: Left Arm, BP Position: Sitting, BP Cuff Size: Regular Adult) Pulse 67 Temp 36.3 ?C (97.3 ?F) Resp 16 Wt 75.3 kg (166 lb) SpO2 100% BMI 24.16 kg/m? General Appearance: Well appearing, alert, in no acute distress, well-hydrated, well nourished.. Neck: Supple, no adenopathy; thyroid symmetric, normal size, no bruits. Lungs: Lungs clear to auscultation. No wheezing, rhonchi, rales.. Heart: RRR without murmur, gallop, or rubs. No ectopy. Musculoskeletal: +pain to palp of left lower back. Non pain to palp of spine. NVI. Peripheral Pulses: Normal. Health Maintenance List Advance Directive Discuss (more content not included)... Normal [facility]ine 10-18-2024 CNPN Telephone (FAMPWS) ----- MICHAEL BELTRAN ([id number]) 1955 M Date Time Provider Department 10/18/24 RUBY SEAMAN During your visit today, we recorded the following information about you: Ruby Seaman PA-C 10/18/2024 1:08 PM Signed Let patient and know that I reviewed hospital course. We will get repeat CXR in 3 weeks. Order placed. Keep appointment with neuro and cardio. He had positive orthostatics in the hospital and if he continues to have low bp there are medications that cardiology will sometime use to prevent bp from getting too low. The brain showed some white matter changes. So we will just have neuro double check that no further testing is needed. They also suggested ent due to evidence of sinus inflammation. If he has chronic sinus trouble, I would agree with having him see ent. If not, we can hold off on this. Looking at his chart, cardiology wasn't scheduled. I'm assuming they are booking out. If willing to travel, can try to get in with [facility]. [facility] is local option. His ct of spine showed the T12 fracture. Does he know when this occurred? I feel like mentioned this in passing during today's visit but sounded like it happened a while ago? We could consider MRI spine and epic specialist consult if having continued back pain. Thanks. KULWINDER Rodarte Sherill A, LPN 10/18/2024 1:14 PM Signed Left message for pt to contact office. SHARI Lewis Rayanne, PA-C 10/23/2024 2:17 PM Signed See previous note. Then also relay to him that his lumbar xray is showing significant arthritis and another compression fracture of L4. I am placing consult to spine medicine. Ruby Seaman PA-C. Rosio Champagne LPN 10/23/2024 3:16 PM Signed Spoke with pt and reviewed all results and instructions from Ruby. Pt and pt's verbalize understanding. Pt is going to call back to schedule appointment with epic specialist d/t they were getting ready to eat so he will call back in the morning. Pt advises that his fracture of T12 occurred on 11/10/1999 and was caused by a fainting episode. Pt advises that his back pain was constant for 3 yrs and is now just a mild annoyance but he does feel it. Not sure if you still want MRI done since referral to epic specialist. Pt would like to see [facility]. Pt aware info will be sent to them and they will contact him for appointment. Pt was also given their phone number. Pt advises that he has been having sinus issues lately and would like to see [facility]. Advised him office would fax referral to them and their office would contact him to schedule. Also gave him their phone number just in case. Will fax referral to [facility] in the am tomorrow. SHARI Lewis Sherill A, LPN 10/24/2024 7:01 AM Signed Please see pt's response below. Referral, demographics, ov note, copy of insurance card has been faxed to [facility] per pt's request. SHARI Lewis Rayanne, PA-C 10/24/2024 9:44 AM Signed Noted. Consult to ENT placed. Mahendra Peter LPN 10/24/2024 9:57 AM Signed Referral faxed to [facility]. Mahendra Peter LPN Allergies As of Date: 10/18/2024 Noted Allergy Reaction ERYTHROMYCIN 11/10/2019 9 - Itching ETHER 11/10/2019 12 - Shortness of Breath Date Reviewed: 10/18/2024 Reviewed by: Rosio Champagne LPN - Fully Assessed Reason for Visit: Patient Update [1234] Primary Visit Diagnosis:Bacterial pneumonia [J15.9] Other Visit Diagnoses:Chronic midline low back 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 [M54.50, G89.29] Compression fracture of L4 vertebra, initial encounter ([facility]) [S32.040A] Chronic sinusitis, unspecified location [J32.9] Order(s):XR CHEST 2V FRONTAL/LAT [2149660] Order #: [id number] FUTURE CONSULT TO SPINE [facility] [[id number]] Order #: [id number]: 1 FUTURE CONSULT TO ENT [9008] Order #: [id number]: 1 FUTURE Prescriptions as of 10/24/2024 - albuterol HFA (PROVENTIL HFA, VENTOLIN HFA) 90 mcg/actuation inhaler Inhale 2 Puffs as instructed every 4 hours as needed for wheezing/shortness of breath. - Tadalafil (CIALIS) 20 mg tablet Take 1 tablet by mouth once daily. As needed - venlafaxine ER (EFFEXOR XR) 75 mg 24 hr capsule Take 1 capsule by mouth three times a day. - atorvastatin (LIPITOR) 20 mg tablet Take 1 tablet by mouth once daily. - loratadine 10 mg cap Take 10 mg by mouth as needed. Problem List As Of Date 10/18/2024 Noted Resolved Arthritis [M19.90] 01/21/2021 Mixed hyperlipidemia [E78.2] 01/21/2021 Major depressive disorder with single episode, *01/21/2021 JUSTO (generalized anxiety disorder) [F41.1] 01/21/2021 Ex-smoker [Z87.891] 01/21/2021 Medicare annual wellness visit, subsequent [Z00*01/21/2021 Sensorineural hearing loss (SNHL) of left ear [*01/21/2021 Chronic pain (more content not included)... Normal [facility] XR LUMBAR 3V AP/LAT/L5-S1on 10-18-2024 XR LUMBAR 3V AP/LAT/L5-S1 * * *Final Report* * * DATE OF EXAM: Oct 18 2024 10:04AM WOX [id number] - XR LUMBAR 3V AP/LAT/L5-S1 / PROCEDURE REASON: Fall, initial encounter * * * * Physician Interpretation * * * * EXAMINATION: XR LUMBAR 3V AP/LAT/L5-S1 PATIENT/TECHNOLOGIST PROVIDED HISTORY: fell a week ago pain all across the lower lumbar CLINICAL INFORMATION: 69 years old Male with Fall, initial encounter TECHNIQUE: XR LUMBAR 3V AP/LAT/L5-S1 Laterality: NOT APPLICABLE Number of different views (projections): 3 COMPARISON: CT chest 11/11/2019 RESULT: Lumbar spine: Counting reference: Lumbosacral junction. For the purposes of this report, mid L4 is considered the level of the iliac crest and there are 5 lumbar-type vertebrae. Anatomic Variants: None. Post-op assessment: N/A Alignment: Grade 2 anterolisthesis of L5 on S1 likely secondary to L5 pars defects. Vertebral bodies: Severe chronic T12 compression deformity with progressed height loss compared to CT 11/11/2019. Age indeterminate L4 superior endplate compression deformity with mild vertebral body height loss. Osteopenia/osteoporosis. Spine articulations: Moderate-severe disc space narrowing L5-S1 with endplate degenerative changes. Facet degenerative changes lower lumbar spine. Other: Sacroiliac joints and hip joint spaces appear maintained. Arterial atherosclerotic calcifications. IMPRESSION: Severe chronic T12 compression deformity with progressed height loss compared to CT 11/11/2019. Age indeterminate L4 superior endplate compression deformity with mild vertebral body height loss. Grade 2 anterolisthesis of L5 on S1 likely secondary to L5 pars defects and lower lumbar degenerative changes. Environmental Laboratory Technician: GERSON Transcribe Date/Time: Oct 23 2024 11:49A Dictated by : ARABELLA FORRESTER DO This examination was interpreted and the report reviewed and electronically signed by: ARABELLA FORRESTER DO on Oct 23 2024 11:58AM EST [id number] Normal [facility] Cobalamin (Vitamin B12) [Mas s/Vol]on 10-12-2024 Interpretation and review of laboratory results Abnormal [facility] ECG 12-LEADon 10-12-2024 ECG 12-LEAD Ventricular Rate 71 Atrial Rate 71 P-R Interval 160 QRS Duration 98 Q-T Interval 370 QTC Calculation(Bazett) 402 P [place] 56 R [place] 27 T [place] 55 QRS Count 12 Q Onset 222 P Onset 142 P Offset 206 T Offset 407 QTC Fredericia 391 Diagnosis Normal sinus rhythm Normal ECG When compared with ECG of 11-OCT-2024 05:19, (unconfirmed) ST no longer elevated in Lateral leads Confirmed by Abdulkadir Ramirez ([id number]) on 10/13/2024 4:43:01 PM Normal [facility] Folateon 10-12-2024 Folate [Mass/Vol] 14.9 ng/mL 5.0 - PINF ng/mL [facility] Folate [Mass/Vol]on 10-12-19 Interpretation and review of laboratory results Normal [facility] Low <3.4 Borderline 3.4-5.0 Normal >5.0 Patients receiving more than 5 mg/day of biotin may have interference in test results. A sample should be taken no sooner than eight hours after previous dose. Contact the testing laboratory for additional information. [facility] MR Brain WO contraston 10-12 No evidence of acute infarct, intracranial mass effect or midline shift. Mild diffuse cerebral volume loss with mild nonspecific white matter changes, likely reflecting sequela of chronic small vessel ischemic change. Diffuse maxillary and ethmoidal sinus inflammatory changes with proteinaceous secretions and mucosal thickening. Correlate for acute versus chronic sinusitis. Signed by: Comfort Gabriel 10/12/2024 9:08 AM Dictation workstation: [id number] [facility] Interpreted By: Comfort Prakash, STUDY: MR BRAIN WO IV CONTRAST; 10/11/2024 8:55 pm INDICATION: Signs/Symptoms:AMS. COMPARISON: CT head from 10/11/2024 ACCESSION NUMBER(S): [id number] ORDERING CLINICIAN: JAMESON GILL TECHNIQUE: Axial T2, FLAIR, DWI, gradient echo T2 and T1 weighted images of brain were acquired. Post contrast T1 weighted images were acquired after administration of gadolinium based intravenous contrast. FINDINGS: CSF Spaces: The ventricles, sulci and basal cisterns are diffusely prominent indicating diffuse cerebral volume loss. There is no extra-axial fluid collection. Parenchyma: There is no diffusion restriction abnormality to suggest acute infarct. There are scattered areas of hyperintense FLAIR signal in bilateral periventricular and subcortical white matter, as well as in central niko likely reflecting sequela of small vessel ischemic disease. There is no mass effect or midline shift. Paranasal Sinuses and Mastoids: Near-complete opacification of bilateral maxillary sinuses with proteinaceous content and moderate mucosal thickening. Opacification of several ethmoidal air cells with mucosal thickening and secretions. Partial opacification of right frontal sinus. Bilateral mastoids are clear. There is a small amount of effusion within bilateral occipital atlantal facets, left greater than right suggestive of degenerative changes. MMODAL Comfort Gabriel MD - 10/12/2024 Interpreted By: Comfort Gabriel, STUDY: MR BRAIN WO IV CONTRAST; 10/11/2024 8:55 pm INDICATION: Signs/Symptoms:AMS. COMPARISON: CT head from 10/11/2024 ACCESSION NUMBER(S): [id number] ORDERING CLINICIAN: JAMESON GILL TECHNIQUE: Axial T2, FLAIR, DWI, gradient echo T2 and T1 weighted images of brain were acquired. Post contrast T1 weighted images were acquired after administration of gadolinium based intravenous contrast. FINDINGS: CSF Spaces: The ventricles, sulci and basal cisterns are diffusely prominent indicating diffuse cerebral volume loss. There is no extra-axial fluid collection. Parenchyma: There is no diffusion restriction abnormality to suggest acute infarct. There are scattered areas of hyperintense FLAIR signal in bilateral periventricular and subcortical white matter, as well as in central niko likely reflecting sequela of small vessel ischemic disease. There is no mass effect or midline shift. Paranasal Sinuses and Mastoids: Near-complete opacification of bilateral maxillary sinuses with proteinaceous content and moderate mucosal thickening. Opacification of several ethmoidal air cells with mucosal thickening and secretions. Partial opacification of right frontal sinus. Bilateral mastoids are clear. There is a small amount of effusion within bilateral occipital atlantal facets, left greater than right suggestive of degenerative changes. IMPRESSION: No evidence of acute infarct, intracranial mass effect or midline shift. Mild diffuse cerebral volume loss with mild nonspecific white matter changes, likely reflecting sequela of chronic small vessel ischemic change. Diffuse maxillary and ethmoidal sinus inflammatory changes with proteinaceous secretions and mucosal thickening. Correlate for acute versus chronic sinusitis. Signed by: Comfort Gabriel 10/12/2024 9:08 AM Dictation workstation: [id number] [facility] Work Phone: MR Brain WO contrastOrdered By: Comfort Gabriel on 10-12-2024 [facility] Work Phone: Tropinin I.cardiac panel Hig h sensitivity methodon 10-12-2024 Interpretation and review of laboratory results Normal [facility] Less than 99th perce ntile of normal range cutoff- Female and children under 18 years old <14 ng/L; Male <21 ng/L: Negative Repeat testing should be performed if clinically indicated. Female and children under 18 years old 14-50 ng/L; Male 21-50 ng/L: Consistent with possible cardiac damage and possible increased clinical risk. Serial measurements may help to assess extent of myocardial damage. >50 ng/L: Consistent with cardiac damage, increased clinical risk and myocardial infarction. Serial measurements may help assess extent of myocardial damage. NOTE: Children less than 1 year old may have higher baseline troponin levels and results should be interpreted in conjunction with the overall clinical context. NOTE: Troponin I testing is performed using a different testing methodology at [facility] than at other [facility]. Direct result comparisons should only be made within the same method. [facility] Troponin I, High Sensitivity on 10-12-2024 Tropinin I.cardiac panel High sensitivity method 3 ng/L 0 - 20 ng/L [facility] Troponin I.cardiac panelon 0 10-12-2024 Tropinin I.cardiac panel High sensitivity method 3 ng/L Normal 0-20 [facility] Comment on above: Order Comment: Less than 99th percentile of normal range cutoff- Female and children under 18 years old <14 ng/L; Male <21 ng/L: Negative Repeat testing should be performed if clinically indicated. Female and children under 18 years old 14-50 ng/L; Male 21-50 ng/L: Consistent with possible cardiac damage and possible increased clinical risk. Serial measurements may help to assess extent of myocardial damage. >50 ng/L: Consistent with cardiac damage, increased clinical risk and myocardial infarction. Serial measurements may help assess extent of myocardial damage. NOTE: Children less than 1 year old may have higher baseline troponin levels and results should be interpreted in conjunction with the overall clinical context. NOTE: Troponin I testing is performed using a different testing methodology at [facility] than at other [facility]. Direct result comparisons should only be made within the same method. Performed By: #### 8 [id number] #### MARTINEZ SUNITHA ([id number]) [facility] ([facility]) [address] [place] [address] US CAROTID ARTERY DUPLE X BILATERALon 10-12-2024 [facility] US [place] [address] [phone], Vascular Lab Report [facility] US CAROTID ARTERY DUPLEX BILATERAL Patient Name: MAYUR Conklin Physician: [id number] Amber Tipton MD Study Date: 10/12/2024 Ordering Provider: [id number] JAMESON GILL MRN/PID: [id number] Fellow: Technologist: Stephanie Briseno RVT/AB Date of /Age: 7 1955 Technologist 2: years Gender: M Admission Status: Inpatient Location [facility] Performed: Diagnosis/ICD: Other specified symptoms and signs involving the circulatory and respiratory systems-R09.89 CPT Codes: 74855 Cerebrovascular Carotid Duplex scan complete CONCLUSIONS: Right Carotid: Findings are consistent with less than 50% stenosis of the right proximal internal carotid artery. Right external carotid artery appears patent with no evidence of stenosis. The right vertebral artery is patent with antegrade flow. No evidence of hemodynamically significant stenosis in the right subclavian artery. Left Carotid: Findings are consistent with less than 50% stenosis of the left proximal internal carotid artery. There are elevated velocities in the left ECA that are suggestive of disease. The left vertebral artery is patent with antegrade flow. There are elevated velocities in the left subclavian artery that are suggestive of disease. There is a >50% stenosis noted in the left subclavian artery. Imaging & Doppler Findings: Right Plaque Morph: The proximal right internal carotid artery demonstrates heterogenous plaque. The proximal right external carotid artery demonstrates heterogenous plaque. The distal right common carotid artery demonstrates homogenous plaque. The right carotid bulb demonstrates calcified and heterogenous plaque. Left Plaque Morph: The proximal left internal carotid artery demonstrates calcified plaque. The proximal left external carotid artery demonstrates calcified plaque. The mid left common carotid artery demonstrates heterogenous plaque. The distal left common carotid artery demonstrates heterogenous plaque. The left carotid bulb demonstrates heterogenous and calcified plaque. Right Left PSV EDV PSV EDV 101 cm/s CCA P 145 cm/s 74 cm/s CCA D 70 cm/s 135 cm/s 29 cm/s ICA P 65 cm/s 17 cm/s 98 cm/s 25 cm/s ICA D 81 cm/s 21 cm/s 128 cm/s ECA 215 cm/s 70 cm/s 11 cm/s Vertebral 52 cm/s 16 cm/s 154 cm/s Subclavian 200 cm/s Right Left ICA/CCA Ratio 1.8 0.9 [id number] Amber Tipton MD Final [facility] Vitamin B12on 10-12-2024 Cobalamin (Vitamin B12) [Mass/Vol] pg/mL High 211 - 911 pg/mL [facility] Ammoniaon 10-11-2024 Ammonia (P) [Moles/Vol] 13 umol/L Low 16 - 53 umol/L [facility] Ammonia (P) [Moles/Vol] 13 umol/L Low 16-53 [facility] Comment on above: Performed By: #### 4 8065-7 #### MARTINEZ SUNITHA ([id number]) [facility] ([facility]) [address] [place] [address] Ammonia (P) [Moles/Vol]on Interpretation and review of laboratory results Abnormal [facility] CBC W Auto Differential pane l (Bld)on 10-11-2024 Basophils (Bld) [#/Vol] 0.05 10*3/uL [facility] Basophils/100 WBC (Bld) 0.5 % 0.0 - 2.0 % [facility] Eosinophils (Bld) [#/Vol] 0.12 10*3/uL [facility] Eosinophils/100 WBC (Bld) 1.3 % 0.0 - 6.0 % [facility] Erythrocyte distribution width (RBC) [Ratio] 13.5 % 11.5 - 14.5 % [facility] Hematocrit (Bld) [Volume fraction] 36.4 % Low 41.0 - 52.0 % [facility] Hemoglobin (Bld) [Mass/Vol] 12.2 g/dL Low 13.5 - 17.5 g/dL [facility] Immature granulocytes (Bld) [#/Vol] 0.1 10*3/uL [facility] Immature granulocytes/100 WBC (Bld) 1.1 % High 0.0 - 0.9 % [facility] Comment on above: Immature Granulocyte Count (IG) includes promyelocytes, myelocytes and metamyelocytes but does not include bands. Percent differential counts (%) should be interpreted in the context of the absolute cell counts (cells/UL). Interpretation and review of laboratory results Abnormal [facility] Lymphocytes (Bld) [#/Vol] 2.74 10*3/uL [facility] Lymphocytes/100 WBC (Bld) 29.9 % 13.0 - 44.0 % [facility] MCH (RBC) [Entitic mass] 29.9 pg 26.0 - 34.0 pg [facility] MCHC (RBC) [Mass/Vol] 33.5 g/dL 32.0 - 36.0 g/dL [facility] MCV (RBC) [Entitic vol] 89 fL 80 - 100 fL [facility] Monocytes (Bld) [#/Vol] 1.12 10*3/uL High [facility] Monocytes/100 WBC (Bld) 12.2 % 2.0 - 10.0 % [facility] Neutrophils (Bld) [#/Vol] 5.03 10*3/uL [facility] Comment on above: Percent differential counts (%) should be interpreted in the context of the absolute cell counts (cells/uL). Neutrophils/100 WBC (Bld) 55 % 40.0 - 80.0 % [facility] Nucleated RBC/100 WBC (Bld) [Ratio] 0 % [facility] Platelets (Bld) [#/Vol] 241 10*3/uL [facility] RBC (Bld) [#/Vol] 4.08 10*6/uL Low [facility] WBC (Bld) [#/Vol] 9.2 10*3/uL [facility] Basophils (Bld) [#/Vol] 0.05 x10*3/uL Normal 0.00-0.10 [facility] Comment on above: Performed By: #### 5 7021-8 #### JUAN HELTON ([id number]) [facility] ([facility]) [address] [place] [address] Basophils/100 WBC (Bld) 0.5 % Normal 0.0-2.0 [facility] Comment on above: Performed By: #### 5 7021-8 #### JUAN HELTON ([id number]) [facility] ([facility]) [address] [place] [address] Eosinophils (Bld) [#/Vol] 0.12 x10*3/uL Normal 0.00-0.40 [facility] Comment on above: Performed By: #### 5 7021-8 #### JUAN HELTON ([id number]) [facility] ([facility]) [address] [place] [address] Eosinophils/100 WBC (Bld) 1.3 % Normal 0.0-6.0 [facility] Comment on above: Performed By: #### 5 7021-8 #### JAUN HELTON ([id number]) [facility] ([facility]) [address] [place] [address] Erythrocyte distribution width (RBC) [Ratio] 13.5 % Normal 11.5-14.5 [facility] Comment on above: Performed By: #### 5 7021-8 #### JUAN HELTON ([id number]) [facility] ([facility]) [address] [place] [place] [address] Hematocrit (Bld) [Volume fraction] 36.4 % Low 41.0-52.0 [facility] Comment on above: Performed By: #### 5 7021-8 #### JUAN HELTON ([id number]) [facility] ([facility]) [address] [place] [address]35[address] Hemoglobin (Bld) [Mass/Vol] 12.2 g/dL Low 13.5-17.5 [facility] Comment on above: Performed By: #### 5 7021-8 #### JUAN HELTON ([id number]) [facility] ([facility]) [address] [place] [address]88[address] Immature granulocytes (Bld) [#/Vol] 0.10 x10*3/uL Normal 0.00-0.50 [facility] Comment on above: Performed By: #### 5 7021-8 #### JUAN HELTON ([id number]) [facility] ([facility]) [address] [place] [address] Immature granulocytes/100 WBC (Bld) 1.1 % High 0.0-0.9 [facility] Comment on above: Result Comment: Sally ture Granulocyte Count (IG) includes promyelocytes, myelocytes and metamyelocytes but does not include bands. Percent differential counts (%) should be interpreted in the context of the absolute cell counts (cells/UL). Performed By: #### 5 7021-8 #### JUAN HELTON ([id number]) [facility] ([facility]) [address] [place] [address] Lymphocytes (Bld) [#/Vol] 2.74 x10*3/uL Normal 0.80-3.00 [facility] Comment on above: Performed By: #### 5 7021-8 #### JUAN HELTON ([id number]) [facility] ([facility]) [address] [place] [address]798 Lymphocytes/100 WBC (Bld) 29.9 % Normal 13.0-44.0 [facility] Comment on above: Performed By: #### 5 7021-8 #### JUAN HELTON ([id number]) [facility] ([facility]) [address] [place] [address] 83683 MCH (RBC) [Entitic mass] 29.9 pg Normal 26.0-34.0 [facility] Comment on above: Performed By: #### 5 7021-8 #### JUAN HELTON ([id number]) [facility] ([facility]) [address] [place] [address]806 MCHC (RBC) [Mass/Vol] 33.5 g/dL Normal 32.0-36.0 [facility] Comment on above: Performed By: #### 5 7021-8 #### JUAN HELTON ([id number]) [facility] ([facility]) [address] [place] [address]80 MCV (RBC) [Entitic vol] 89 fL Normal 80-100 [facility] Comment on above: Performed By: #### 5 7021-8 #### JUAN HELTON ([id number]) [facility] ([facility]) [address] [place] [address]000 Monocytes (Bld) [#/Vol] 1.12 x10*3/uL High 0.05-0.80 [facility] Comment on above: Performed By: #### 5 7021-8 #### JUAN HELTON ([id number]) [facility] ([facility]) [facility] [place] [address] Monocytes/100 WBC (Bld) 12.2 % Normal 2.0-10.0 [facility] Comment on above: Performed By: #### 5 7021-8 #### JUAN HELTON ([id number]) [facility] ([facility]) [address] [place] [address]256 Neutrophils (Bld) [#/Vol] 5.03 x10*3/uL Normal 1.60-5.50 [facility] Comment on above: Result Comment: Perc ent differential counts (%) should be interpreted in the context of the absolute cell counts (cells/uL). Performed By: #### 5 7021-8 #### JUAN HELTON ([id number]) [facility] ([facility]) [address] [place] [address] 10611 Neutrophils/100 WBC (Bld) 55.0 % Normal 40.0-80.0 [facility] Comment on above: Performed By: #### 5 7021-8 #### JUAN HELTON ([id number]) [facility] ([facility]) [address] [place] [address]28 Nucleated RBC/100 WBC (Bld) [Ratio] 0.0 /100 WBCs Normal 0.0-0.0 [facility] Comment on above: Performed By: #### 5 7021-8 #### JUAN HELTON ([id number]) [facility] ([facility]) [address] [place] [address] Platelets (Bld) [#/Vol] 241 x10*3/uL Normal 150-450 [facility] Comment on above: Performed By: #### 5 7021-8 #### JUAN HELTON ([id number]) [facility] ([facility]) [address] [place] [address] 63471 RBC (Bld) [#/Vol] 4.08 x10*6/uL Low 4.50-5.90 [facility] Comment on above: Performed By: #### 5 7021-8 #### JUAN HELTON ([id number]) [facility] ([facility]) [address] [place] [address] WBC (Bld) [#/Vol] 9.2 x10*3/uL Normal 4.4-11.3 [facility] Comment on above: Performed By: #### 5 7021-8 #### MARTINEZ KOTATAWANA ([id number]) [facility] ([facility]) [address] [place] [address] CK [Catalytic activity/Vol]o n 10-11-2024 Interpretation and review of laboratory results Normal [facility] CT ANGIO CHEST FOR PULMONARY EMBOLISMon 10-11-2024 CT ANGIO CHEST FOR PULMONARY EMBOLISM Interpreted By: Gracie Tomlin, STUDY: CT ANGIO CHEST FOR PULMONARY EMBOLISM; 10/11/2024 8:02 am INDICATION: Signs/Symptoms:PE. COMPARISON: None. ACCESSION NUMBER(S): [id number] ORDERING CLINICIAN: CÉSAR ANNA TECHNIQUE: CT of the chest was performed. Sagittal and coronal reconstructions were generated. 70 ML Omnipaque 350 intravenous contrast given for the examination. Multiplanar reconstructions of the pulmonary vessels were created on an independent workstation and provided for review. FINDINGS: CHEST WALL AND LOWER NECK: Slightly heterogenous thyroid. No significant axillary adenopathy. MEDIASTINUM AND ARISTEO: No significant mediastinal or hilar adenopathy. Coarse presumed carmen calcifications in the right hilum. Probable small hiatal hernia. HEART AND VESSELS: No pulmonary artery filling defect to suggest PE. The heart is normal in size. No significant pericardial effusion. Multifocal atherosclerotic calcifications including the coronary arteries. LUNGS, PLEURA, LARGE AIRWAYS: Partially calcified biapical pleural-parenchymal presumed scarring. Subcentimeter cystic structure in the left lower quadrant. Bibasilar dependent and reticular opacities. Bibasilar bronchial wall thickening. No significant pleural effusion. The central airways are patent. UPPER ABDOMEN: Calcified hepato splenic granulomas. Mild relatively symmetric perinephric fat stranding in the included areas. BONES: T12 compression fracture with slight dispersion and retropulsion more fully evaluated on same day thoracic spine CT IMPRESSION: No evidence of PE. Bibasilar infiltrates or atelectasis with bronchial wall thickening. Bronchopneumonia not excluded. Clinical correlation recommended. Sequela of remote granulomatous infection. Small hiatal hernia. Indeterminate age T12 compression fracture. MACRO: None. Signed by: Gracie Tomlin 10/11/2024 8:27 AM Dictation workstation: [id number] [facility] CT CERVICAL SPINE WO IV CONT RASTon 10-11-2024 CT CERVICAL SPINE WO IV CONTRAST Interpreted By: Stanton Kerns, STUDY: CT HEAD WO IV CONTRAST; CT CERVICAL SPINE WO IV CONTRAST; ; 10/11/2024 6:05 am INDICATION: Signs/Symptoms:fall. COMPARISON: None. ACCESSION NUMBER(S): [id number]; [id number] ORDERING CLINICIAN: CÉSAR ANNA TECHNIQUE: Noncontrast CT exams of the head and cervical spine with multiplanar reformations. FINDINGS: BRAIN PARENCHYMA: Moderate volume loss. There is periventricular and subcortical white matter hypoattenuation, most in keeping with chronic microvascular ischemic change. Senior-white matter interfaces are preserved. No mass, mass effect or midline shift. HEMORRHAGE: No acute intracranial hemorrhage. VENTRICLES and EXTRA-AXIAL SPACES: Normal size. EXTRACRANIAL SOFT TISSUES: Within normal limits. PARANASAL SINUSES/MASTOIDS: Ossification of the left maxillary sinus. Air-fluid level in the right maxillary sinus. Moderate mucosal thickening in the ethmoid air cells, right frontal sinus and sphenoid sinuses. Mastoids are clear. CALVARIUM: No depressed skull fracture. No destructive osseous lesion. OTHER FINDINGS: None. CERVICAL SPINE: ALIGNMENT: Grade 1 degenerative anterolisthesis at C3-C4 at C4-C5. Alignment is otherwise maintained. VERTEBRAE: No acute fracture. Vertebral stature is maintained. Severe discogenic degeneration lower cervical levels. Moderate hypertrophic facet osteoarthropathy. SPINAL CANAL: No critical spinal canal stenosis. PREVERTEBRAL SOFT TISSUES: No prevertebral soft tissue swelling. LUNG APICES: Interstitial thickening in the apical lungs suggests acute pulmonary interstitial edema/CHF. OTHER FINDINGS: None. IMPRESSION: No evidence of acute intracranial abnormality No acute cervical spine fracture or malalignment. Interstitial thickening in the apical lungs suggests acute pulmonary interstitial edema/CHF. MACRO: None Signed by: Stanton Kerns 10/11/2024 6:44 AM Dictation workstation: [id number] [facility] CT Chest W contrast IV and C T angiogram Pulmonary arteries for pulmonary embolus W contrast Joselyn 10-11-2024 No evidence of PE. Bibasilar infiltrates or atelectasis with bronchial wall thickening. Bronchopneumonia not excluded. Clinical correlation recommended. Sequela of remote granulomatous infection. Small hiatal hernia. Indeterminate age T12 compression fracture. MACRO: None. Signed by: Gracie Tomlin 10/11/2024 8:27 AM Dictation workstation: [id number] MMODAL Interpreted By: Gracie Estrada, STUDY: CT ANGIO CHEST FOR PULMONARY EMBOLISM; 10/11/2024 8:02 am INDICATION: Signs/Symptoms:PE. COMPARISON: None. ACCESSION NUMBER(S): [id number] ORDERING CLINICIAN: CÉSAR ANNA TECHNIQUE: CT of the chest was performed. Sagittal and coronal reconstructions were generated. 70 ML Omnipaque 350 intravenous contrast given for the examination. Multiplanar reconstructions of the pulmonary vessels were created on an independent workstation and provided for review. FINDINGS: CHEST WALL AND LOWER NECK: Slightly heterogenous thyroid. No significant axillary adenopathy. MEDIASTINUM AND ARISTEO: No significant mediastinal or hilar adenopathy. Coarse presumed carmen calcifications in the right hilum. Probable small hiatal hernia. HEART AND VESSELS: No pulmonary artery filling defect to suggest PE. The heart is normal in size. No significant pericardial effusion. Multifocal atherosclerotic calcifications including the coronary arteries. LUNGS, PLEURA, LARGE AIRWAYS: Partially calcified biapical pleural-parenchymal presumed scarring. Subcentimeter cystic structure in the left lower quadrant. Bibasilar dependent and reticular opacities. Bibasilar bronchial wall thickening. No significant pleural effusion. The central airways are patent. UPPER ABDOMEN: Calcified hepato splenic granulomas. Mild relatively symmetric perinephric fat stranding in the included areas. BONES: T12 compression fracture with slight dispersion and retropulsion more fully evaluated on same day thoracic spine CT MMODAL Gracie Tomlin MD - 10/11/2024 Interpreted By: Gracie Tomlin, STUDY: CT ANGIO CHEST FOR PULMONARY EMBOLISM; 10/11/2024 8:02 am INDICATION: Signs/Symptoms:PE. COMPARISON: None. ACCESSION NUMBER(S): [id number] ORDERING CLINICIAN: CÉSAR ANNA TECHNIQUE: CT of the chest was performed. Sagittal and coronal reconstructions were generated. 70 ML Omnipaque 350 intravenous contrast given for the examination. Multiplanar reconstructions of the pulmonary vessels were created on an independent workstation and provided for review. FINDINGS: CHEST WALL AND LOWER NECK: Slightly heterogenous thyroid. No significant axillary adenopathy. MEDIASTINUM AND ARISTEO: No significant mediastinal or hilar adenopathy. Coarse presumed carmen calcifications in the right hilum. Probable small hiatal hernia. HEART AND VESSELS: No pulmonary artery filling defect to suggest PE. The heart is normal in size. No significant pericardial effusion. Multifocal atherosclerotic calcifications including the coronary arteries. LUNGS, PLEURA, LARGE AIRWAYS: Partially calcified biapical pleural-parenchymal presumed scarring. Subcentimeter cystic structure in the left lower quadrant. Bibasilar dependent and reticular opacities. Bibasilar bronchial wall thickening. No significant pleural effusion. The central airways are patent. UPPER ABDOMEN: Calcified hepato splenic granulomas. Mild relatively symmetric perinephric fat stranding in the included areas. BONES: T12 compression fracture with slight dispersion and retropulsion more fully evaluated on same day thoracic spine CT IMPRESSION: No evidence of PE. Bibasilar infiltrates or atelectasis with bronchial wall thickening. Bronchopneumonia not excluded. Clinical correlation recommended. Sequela of remote granulomatous infection. Small hiatal hernia. Indeterminate age T12 compression fracture. MACRO: None. Signed by: Gracie Tomlin 10/11/2024 8:27 AM Dictation workstation: [id number] [facility] Work Phone: [facility] Work Phone: Radiology Study observation (narrative) [facility] Work Phone: CT HEAD WO IV CONTRASTon CT HEAD WO IV CONTRAST Interpreted By: Stanton Orta, STUDY: CT HEAD WO IV CONTRAST; CT CERVICAL SPINE WO IV CONTRAST; ; 10/11/2024 6:05 am INDICATION: Signs/Symptoms:fall. COMPARISON: None. ACCESSION NUMBER(S): [id number]; [id number] ORDERING CLINICIAN: CÉSAR ANNA TECHNIQUE: Noncontrast CT exams of the head and cervical spine with multiplanar reformations. FINDINGS: BRAIN PARENCHYMA: Moderate volume loss. There is periventricular and subcortical white matter hypoattenuation, most in keeping with chronic microvascular ischemic change. Senior-white matter interfaces are preserved. No mass, mass effect or midline shift. HEMORRHAGE: No acute intracranial hemorrhage. VENTRICLES and EXTRA-AXIAL SPACES: Normal size. EXTRACRANIAL SOFT TISSUES: Within normal limits. PARANASAL SINUSES/MASTOIDS: Ossification of the left maxillary sinus. Air-fluid level in the right maxillary sinus. Moderate mucosal thickening in the ethmoid air cells, right frontal sinus and sphenoid sinuses. Mastoids are clear. CALVARIUM: No depressed skull fracture. No destructive osseous lesion. OTHER FINDINGS: None. CERVICAL SPINE: ALIGNMENT: Grade 1 degenerative anterolisthesis at C3-C4 at C4-C5. Alignment is otherwise maintained. VERTEBRAE: No acute fracture. Vertebral stature is maintained. Severe discogenic degeneration lower cervical levels. Moderate hypertrophic facet osteoarthropathy. SPINAL CANAL: No critical spinal canal stenosis. PREVERTEBRAL SOFT TISSUES: No prevertebral soft tissue swelling. LUNG APICES: Interstitial thickening in the apical lungs suggests acute pulmonary interstitial edema/CHF. OTHER FINDINGS: None. IMPRESSION: No evidence of acute intracranial abnormality No acute cervical spine fracture or malalignment. Interstitial thickening in the apical lungs suggests acute pulmonary interstitial edema/CHF. MACRO: None Signed by: Stanton Kerns 10/11/2024 6:44 AM Dictation workstation: [id number] [facility] CT THORACIC SPINE WO IV CONT Roni 10-11-2024 CT THORACIC SPINE WO IV CONTRAST Interpreted By: Gracie Tomlin, STUDY: CT THORACIC SPINE WO IV CONTRAST; 10/11/2024 6:07 am INDICATION: Signs/Symptoms:fall. COMPARISON: None. ACCESSION NUMBER(S): [id number] ORDERING CLINICIAN: CÉASR ANNA TECHNIQUE: Axial CT images of the thoracic spine are obtained. Axial, coronal and sagittal reconstructions are submitted for review. FINDINGS: Alignment: No significant spondylolisthesis. Mild kyphosis. Vertebrae/Intervertebral Discs: Diffuse osteopenia. Moderate to severe central T12 compression deformity with slight dispersion including 4 mm of retropulsion. Remaining thoracic vertebral heights are preserved. Multilevel intervertebral disc space narrowing and endplate spurring. Paraspinous Soft Tissues: Partially calcified pulmonary biapical presumed scarring. Coarse presumed carmen calcifications in the right hilum. Multifocal atherosclerotic calcifications. IMPRESSION: Moderate to severe indeterminate age T12 compression deformity with slight retropulsion. Consider further evaluation with MRI as clinically warranted. Paraspinal/soft tissue findings as above. MACRO: None Signed by: Gracie Tomlin 10/11/2024 8:22 AM Dictation workstation: [id number] [facility] CT Thoracic spine WO contras ton 10-11-2024 Moderate to severe indeterminate age T12 compression deformity with slight retropulsion. Consider further evaluation with MRI as clinically warranted. Paraspinal/soft tissue findings as above. MACRO: None Signed by: Gracie Tomlin 10/11/2024 8:22 AM Dictation workstation: [id number] MMODAL Interpreted By: Gracie Estrada, STUDY: CT THORACIC SPINE WO IV CONTRAST; 10/11/2024 6:07 am INDICATION: Signs/Symptoms:fall. COMPARISON: None. ACCESSION NUMBER(S): [id number] ORDERING CLINICIAN: CÉSAR ANNA TECHNIQUE: Axial CT images of the thoracic spine are obtained. Axial, coronal and sagittal reconstructions are submitted for review. FINDINGS: Alignment: No significant spondylolisthesis. Mild kyphosis. Vertebrae/Intervertebral Discs: Diffuse osteopenia. Moderate to severe central T12 compression deformity with slight dispersion including 4 mm of retropulsion. Remaining thoracic vertebral heights are preserved. Multilevel intervertebral disc space narrowing and endplate spurring. Paraspinous Soft Tissues: Partially calcified pulmonary biapical presumed scarring. Coarse presumed carmen calcifications in the right hilum. Multifocal atherosclerotic calcifications. MMODAL Gracie Tomlin MD - 10/11/2024 Interpreted By: Gracie Tomlin, STUDY: CT THORACIC SPINE WO IV CONTRAST; 10/11/2024 6:07 am INDICATION: Signs/Symptoms:fall. COMPARISON: None. ACCESSION NUMBER(S): [id number] ORDERING CLINICIAN: CÉSAR ANNA TECHNIQUE: Axial CT images of the thoracic spine are obtained. Axial, coronal and sagittal reconstructions are submitted for review. FINDINGS: Alignment: No significant spondylolisthesis. Mild kyphosis. Vertebrae/Intervertebral Discs: Diffuse osteopenia. Moderate to severe central T12 compression deformity with slight dispersion including 4 mm of retropulsion. Remaining thoracic vertebral heights are preserved. Multilevel intervertebral disc space narrowing and endplate spurring. Paraspinous Soft Tissues: Partially calcified pulmonary biapical presumed scarring. Coarse presumed carmen calcifications in the right hilum. Multifocal atherosclerotic calcifications. IMPRESSION: Moderate to severe indeterminate age T12 compression deformity with slight retropulsion. Consider further evaluation with MRI as clinically warranted. Paraspinal/soft tissue findings as above. MACRO: None Signed by: Gracie Tomlin 10/11/2024 8:22 AM Dictation workstation: [id number] [facility] Work Phone: Radiology Study observation (narrative) [facility] Work Phone: CT Thoracic spine WO contras tOrdered By: Gracie Tomlin on 10-11-2024 [facility] Work Phone: Cobalaminson 10-11-2024 Cobalamin (Vitamin B12) [Mass/Vol] pg/mL High 211-911 [facility] Comment on above: Performed By: #### 8 9577-1 #### MARTINEZ SUNITHA ([id number]) [facility] ([facility]) [address] [place] [address] Comprehensive metabolic 2000 panelon 10-11-2024 Albumin BCP dye [Mass/Vol] 3.6 g/dL 3.4 - 5.0 g/dL [facility] ALP [Catalytic activity/Vol] 56 U/L 33 - 136 U/L [facility] ALT With P-5'-P [Catalytic activity/Vol] 25 U/L 10 - 52 U/L [facility] Comment on above: Patients treated wit h Sulfasalazine may generate falsely decreased results for ALT. Anion gap [Moles/Vol] 11 mmol/L [facility] AST With P-5'-P [Catalytic activity/Vol] 25 U/L 9 - 39 U/L [facility] Bilirubin [Mass/Vol] 0.3 mg/dL 0.0 - 1 .2 mg/dL [facility] Calcium [Mass/Vol] 8 mg/dL Low 8.6 - 10. 3 mg/dL [facility] Chloride [Moles/Vol] 95 mmol/L Low 98 - 10 7 mmol/L [facility] CO2 [Moles/Vol] 26 mmol/L 21 - 32 mmol/L [facility] Creatinine [Mass/Vol] 0.99 mg/dL 0.50 - 1.30 mg/dL [facility] GFR/1.73 sq M.predicted among non-blacks MDRD (S/P/Bld) [Vol rate/Area] 81 mL/min/{1.73_m2} - PINF [facility] Comment on above: Calculations of natalia mated GFR are performed using the 2020 CKD-EPI Study Refit equation without the race variable for the IDMS-Traceable creatinine methods. https://jasn.asnjournals.org/content/early//ASN.43656 66157 Glucose [Mass/Vol] 92 mg/dL 74 - 99 mg/dL [facility] Interpretation and review of laboratory results Abnormal [facility] Potassium [Moles/Vol] 3.5 mmol/L 3.5 - 5.3 mmol/L [facility] Protein [Mass/Vol] 5.9 g/dL Low 6.4 - 8.2 g/dL [facility] Sodium [Moles/Vol] 128 mmol/L Low 136 - 145 mmol/L [facility] Comment on above: Confirmed by repeat analysis Urea nitrogen [Mass/Vol] 17 mg/dL 6 - 23 mg/dL [facility] Albumin BCP dye [Mass/Vol] 3.6 g/dL Normal 3.4-5.0 [facility] Comment on above: Performed By: #### 2 4323-8 #### JUAN HELTON ([id number]) [facility] ([facility]) [facility] [place] [address] ALP [Catalytic activity/Vol] 56 U/L Normal 33-136 [facility] Comment on above: Performed By: #### 2 4323-8 #### JUAN HELTON ([id number]) [facility] ([facility]) [facility] [place] [address] ALT With P-5'-P [Catalytic activity/Vol] 25 U/L Normal 10-52 [facility] Comment on above: Result Comment: Alie ents treated with Sulfasalazine may generate falsely decreased results for ALT. Performed By: #### 2 4323-8 #### JUAN HELTON ([id number]) [facility] ([facility]) [address] [place] [address] Anion gap [Moles/Vol] 11 mmol/L Normal [facility] Comment on above: Performed By: #### 2 4323-8 #### JUAN HELTON ([id number]) [facility] ([facility]) [address] [place] [address] AST With P-5'-P [Catalytic activity/Vol] 25 U/L Normal 9-39 [facility] Comment on above: Performed By: #### 2 432-8 #### JUAN HELTON ([id number]) [facility] ([facility]) [address] [place] [address] Bilirubin [Mass/Vol] 0.3 mg/dL Normal 0.0-1.2 [facility] Comment on above: Performed By: #### 2 432-8 #### JUAN HELTON ([id number]) [facility] ([facility]) [address] [place] [address] Calcium [Mass/Vol] 8.0 mg/dL Low 8.6-10.3 [facility] Comment on above: Performed By: #### 2 4323-8 #### JUAN HELTON ([id number]) [facility] ([facility]) [address] [place] [address] Chloride [Moles/Vol] 95 mmol/L Low 98-107 [facility] Comment on above: Performed By: #### 2 4323-8 #### JUAN HELTON ([id number]) [facility] ([facility]) [address] [place] [address] CO2 [Moles/Vol] 26 mmol/L Normal 21-32 [facility] Comment on above: Performed By: #### 2 4323-8 #### JUAN HELTON ([id number]) [facility] ([facility]) [address] [place] [address] Creatinine [Mass/Vol] 0.99 mg/dL Normal 0.50-1.30 [facility] Comment on above: Performed By: #### 2 4323-8 #### JUAN HELTON ([id number]) [facility] ([facility]) [address] [place] [address] Glomerular filtration rate/1.73 sq M.predicted 81 mL/min/1.73m*2 Normal >60 [facility] Comment on above: Result Comment: Calc ulations of estimated GFR are performed using the 2020 CKD-EPI Study Refit equation without the race variable for the IDMS-Traceable creatinine methods. https://jasn.asnjournals.org/content/early/ASN.14288 46696 Performed By: #### 2 4323-8 #### JUAN HELTON ([id number]) [facility] ([facility]) [address] [place] [address] Glucose [Mass/Vol] 92 mg/dL Normal 74-99 [facility] Comment on above: Performed By: #### 2 4323-8 #### JUAN HELTON ([id number]) [facility] ([facility]) [address] [place] [address] Potassium [Moles/Vol] 3.5 mmol/L Normal 3.5-5.3 [facility] Comment on above: Performed By: #### 2 4323-8 #### JUAN HELTON ([id number]) [facility] ([facility]) [address] [place] [address] Protein [Mass/Vol] 5.9 g/dL Low 6.4-8.2 [facility] Comment on above: Performed By: #### 2 4323-8 #### JUAN HELTON ([id number]) [facility] ([facility]) [address] [place] [address] Sodium [Moles/Vol] 128 mmol/L Low 136-145 [facility] Comment on above: Result Comment: Conf irmed by repeat analysis Performed By: #### 2 4323-8 #### JUAN HELTON ([id number]) [facility] ([facility]) [address] [place] [address] Urea nitrogen [Mass/Vol] 17 mg/dL Normal 6-23 [facility] Comment on above: Performed By: #### 2 4323-8 #### JUAN HELTON ([id number]) [facility] ([facility]) [address] [place] [address] Creatine Kinaseon 10-11-2024 CK [Catalytic activity/Vol] 120 U/L 0 - 325 U/L [facility] Creatine kinaseon 10-11-2024 CK [Catalytic activity/Vol] 120 U/L Normal 0-325 [facility] Comment on above: Performed By: #### 4 8065-7 #### JUAN HELTON ([id number]) [facility] ([facility]) [facility] [place] [address] D-Dimer, VTE Exclusionon Fibrin D-dimer FEU (PPP) [Mass/Vol] 2473 High NINF [facility] DRUG SCREEN,URINEon 10-11-19 25 Amphetamines Screen Ql (U) Negative Normal Presumptive Negative [facility] Comment on above: Order Comment: Drug screen results are presumptive and should not be used to assess compliance with prescribed medication. Contact the performing [facility] laboratory to add-on definitive confirmatory testing if clinically indicated. Toxicology screening results are reported qualitatively. The concentration must ???be greater than or equal to the cutoff to be reported as positive. The concentration at which the screening test can detect an individual drug or metabolite varies. The absence of expected drug(s) and/or drug metabolite(s) may indicate non-compliance, inappropriate timing of specimen collection relative to drug administration, poor drug absorption, diluted/adulterated urine, or limitations of testing. For medical purposes only; not valid for forensic use. Interpretive questions should be directed to the laboratory medical directors. Result Comment: CUTO FF LEVEL: 500 NG/ML Cross-reactivity has been reported with high concentrations of the following drugs: buproprion, chloroquine, chlorpromazine, ephedrine, mephentermine, fenfluramine, phentermine, phenylpropanolamine, pseudoephedrine, and propranolol. Performed By: #### D RUG3 #### JUAN HELTON ([id number]) [facility] ([facility]) [facility] [place] [address] Barbiturates Screen Ql (U) Negative Normal Presumptive Negative [facility] Comment on above: Order Comment: Drug screen results are presumptive and should not be used to assess compliance with prescribed medication. Contact the performing [facility] laboratory to add-on definitive confirmatory testing if clinically indicated. Toxicology screening results are reported qualitatively. The concentration must ???be greater than or equal to the cutoff to be reported as positive. The concentration at which the screening test can detect an individual drug or metabolite varies. The absence of expected drug(s) and/or drug metabolite(s) may indicate non-compliance, inappropriate timing of specimen collection relative to drug administration, poor drug absorption, diluted/adulterated urine, or limitations of testing. For medical purposes only; not valid for forensic use. Interpretive questions should be directed to the laboratory medical directors. Result Comment: CUTO FF LEVEL: 200 NG/ML Performed By: #### D RUG3 #### MARTINEZ SUNITHA ([id number]) [facility] ([facility]) [address] [place] [place] [address] Benzodiazepines Ql (U) Negative Normal Presu mptive Negative [facility] Comment on above: Order Comment: Drug screen results are presumptive and should not be used to assess compliance with prescribed medication. Contact the performing [facility] laboratory to add-on definitive confirmatory testing if clinically indicated. Toxicology screening results are reported qualitatively. The concentration must ???be greater than or equal to the cutoff to be reported as positive. The concentration at which the screening test can detect an individual drug or metabolite varies. The absence of expected drug(s) and/or drug metabolite(s) may indicate non-compliance, inappropriate timing of specimen collection relative to drug administration, poor drug absorption, diluted/adulterated urine, or limitations of testing. For medical purposes only; not valid for forensic use. Interpretive questions should be directed to the laboratory medical directors. Result Comment: CUTO FF LEVEL: 200 NG/ML Performed By: #### D RUG3 #### MARTINEZ SUNITHA ([id number]) [facility] ([facility]) [facility] [place] [address] Benzoylecgonine Screen Ql (U) Negative Normal Presumptive Negative [facility] Comment on above: Order Comment: Drug screen results are presumptive and should not be used to assess compliance with prescribed medication. Contact the performing [facility] laboratory to add-on definitive confirmatory testing if clinically indicated. Toxicology screening results are reported qualitatively. The concentration must ???be greater than or equal to the cutoff to be reported as positive. The concentration at which the screening test can detect an individual drug or metabolite varies. The absence of expected drug(s) and/or drug metabolite(s) may indicate non-compliance, inappropriate timing of specimen collection relative to drug administration, poor drug absorption, diluted/adulterated urine, or limitations of testing. For medical purposes only; not valid for forensic use. Interpretive questions should be directed to the laboratory medical directors. Result Comment: CUTO FF LEVEL: 150 NG/ML Performed By: #### D RUG3 #### JUAN HELTON ([id number]) [facility] ([facility]) [address] [place] [place] [address] Cannabinoids Screen Ql (U) Positive Abnormal Presumptive Negative [facility] Comment on above: Order Comment: Drug screen results are presumptive and should not be used to assess compliance with prescribed medication. Contact the performing [facility] laboratory to add-on definitive confirmatory testing if clinically indicated. Toxicology screening results are reported qualitatively. The concentration must ???be greater than or equal to the cutoff to be reported as positive. The concentration at which the screening test can detect an individual drug or metabolite varies. The absence of expected drug(s) and/or drug metabolite(s) may indicate non-compliance, inappropriate timing of specimen collection relative to drug administration, poor drug absorption, diluted/adulterated urine, or limitations of testing. For medical purposes only; not valid for forensic use. Interpretive questions should be directed to the laboratory medical directors. Result Comment: CUTO FF LEVEL: 50 NG/ML Performed By: #### D RUG3 #### MARTINEZ SUNITHA ([id number]) [facility] ([facility]) [address] [place] [address] fentaNYL+Norfentanyl Screen Ql (U) Negative Normal Presumptive Negative [facility] Comment on above: Order Comment: Drug screen results are presumptive and should not be used to assess compliance with prescribed medication. Contact the performing [facility] laboratory to add-on definitive confirmatory testing if clinically indicated. Toxicology screening results are reported qualitatively. The concentration must ???be greater than or equal to the cutoff to be reported as positive. The concentration at which the screening test can detect an individual drug or metabolite varies. The absence of expected drug(s) and/or drug metabolite(s) may indicate non-compliance, inappropriate timing of specimen collection relative to drug administration, poor drug absorption, diluted/adulterated urine, or limitations of testing. For medical purposes only; not valid for forensic use. Interpretive questions should be directed to the laboratory medical directors. Result Comment: CUTO FF LEVEL: 5 NG/ML Performed By: #### D RUG3 #### JUAN HELTON ([id number]) [facility] ([facility]) [facility] [place] [address] Methadone Screen Ql (U) Negative Normal Presumptive Negative [facility] Comment on above: Order Comment: Drug screen results are presumptive and should not be used to assess compliance with prescribed medication. Contact the performing [facility] laboratory to add-on definitive confirmatory testing if clinically indicated. Toxicology screening results are reported qualitatively. The concentration must ???be greater than or equal to the cutoff to be reported as positive. The concentration at which the screening test can detect an individual drug or metabolite varies. The absence of expected drug(s) and/or drug metabolite(s) may indicate non-compliance, inappropriate timing of specimen collection relative to drug administration, poor drug absorption, diluted/adulterated urine, or limitations of testing. For medical purposes only; not valid for forensic use. Interpretive questions should be directed to the laboratory medical directors. Result Comment: CUTO FF LEVEL: 150 NG/ML The metabolite J-xidoq-jukrlbqnjlfigx (LAAM) is not detected by this method in concentrations that would be found in the urine of patients on LAAM therapy. Performed By: #### D RUG3 #### JUAN HELTON ([id number]) [facility] ([facility]) [facility] [place] [address] Opiates Screen Ql (U) Negative Normal Presum ptive Negative [facility] Comment on above: Order Comment: Drug screen results are presumptive and should not be used to assess compliance with prescribed medication. Contact the performing [facility] laboratory to add-on definitive confirmatory testing if clinically indicated. Toxicology screening results are reported qualitatively. The concentration must ???be greater than or equal to the cutoff to be reported as positive. The concentration at which the screening test can detect an individual drug or metabolite varies. The absence of expected drug(s) and/or drug metabolite(s) may indicate non-compliance, inappropriate timing of specimen collection relative to drug administration, poor drug absorption, diluted/adulterated urine, or limitations of testing. For medical purposes only; not valid for forensic use. Interpretive questions should be directed to the laboratory medical directors. Result Comment: CUTO FF LEVEL: 300 NG/ML The opiate screen does not detect fentanyl, meperidine, or tramadol. Oxycodone is not consistently detected (refer to Oxycodone Screen, Urine result). Performed By: #### D RUG3 #### JUAN HELTON ([id number]) [facility] ([facility]) [address] [place] [address] oxyCODONE+oxyMORphone Screen Ql (U) Negative Normal Presumptive Negative [facility] Comment on above: Order Comment: Drug screen results are presumptive and should not be used to assess compliance with prescribed medication. Contact the performing [facility] laboratory to add-on definitive confirmatory testing if clinically indicated. Toxicology screening results are reported qualitatively. The concentration must ???be greater than or equal to the cutoff to be reported as positive. The concentration at which the screening test can detect an individual drug or metabolite varies. The absence of expected drug(s) and/or drug metabolite(s) may indicate non-compliance, inappropriate timing of specimen collection relative to drug administration, poor drug absorption, diluted/adulterated urine, or limitations of testing. For medical purposes only; not valid for forensic use. Interpretive questions should be directed to the laboratory medical directors. Result Comment: CUTO FF LEVEL: 100 NG/ML This test will accurately detect both oxycodone and oxymorphone. Performed By: #### D RUG3 #### JUAN HELTON ([id number]) [facility] ([facility]) [address] [place], [place] [id number] Phencyclidine Ql (U) Negative Normal Presump tive Negative [facility] Comment on above: Order Comment: Drug screen results are presumptive and should not be used to assess compliance with prescribed medication. Contact the performing [facility] laboratory to add-on definitive confirmatory testing if clinically indicated. Toxicology screening results are reported qualitatively. The concentration must ???be greater than or equal to the cutoff to be reported as positive. The concentration at which the screening test can detect an individual drug or metabolite varies. The absence of expected drug(s) and/or drug metabolite(s) may indicate non-compliance, inappropriate timing of specimen collection relative to drug administration, poor drug absorption, diluted/adulterated urine, or limitations of testing. For medical purposes only; not valid for forensic use. Interpretive questions should be directed to the laboratory medical directors. Result Comment: CUTO FF LEVEL: 25 NG/ML Cross-reactivity has been reported with dextromethorphan. Performed By: #### D RUG3 #### MARTINEZ SUNITHA ([id number]) [facility] ([facility]) [address] [id number] Drug Screen, Urineon 025 Amphetamines Screen Ql (U) Negative Presumptive Negative [facility] Comment on above: CUTOFF LEVEL: 500 NG /ML Cross-reactivity has been reported with high concentrations of the following drugs: buproprion, chloroquine, chlorpromazine, ephedrine, mephentermine, fenfluramine, phentermine, phenylpropanolamine, pseudoephedrine, and propranolol. Barbiturates Screen Ql (U) Negative Presumptive Negative [facility] Comment on above: CUTOFF LEVEL: 200 NG /ML Benzodiazepines Ql (U) Negative Presu mptive Negative [facility] Comment on above: CUTOFF LEVEL: 200 NG /ML Benzoylecgonine Screen Ql (U) Negative Presumptive Negative [facility] Comment on above: CUTOFF LEVEL: 150 NG /ML Cannabinoids Screen Ql (U) Positive Abnormal Presumptive Negative [facility] Comment on above: CUTOFF LEVEL: 50 NG/ ML fentaNYL+Norfentanyl Screen Ql (U) Negative Presumptive Negative [facility] Comment on above: CUTOFF LEVEL: 5 NG/M L Interpretation and review of laboratory results Abnormal [facility] Methadone Screen Ql (U) Negative Presumptive Negative [facility] Comment on above: CUTOFF LEVEL: 150 NG /ML The metabolite Y-nbqre-ihqxfsmioqbxxd (LAAM) is not detected by this method in concentrations that would be found in the urine of patients on LAAM therapy. Opiates Screen Ql (U) Negative Presum ptive Negative [facility] Comment on above: CUTOFF LEVEL: 300 NG /ML The opiate screen does not detect fentanyl, meperidine, or tramadol. Oxycodone is not consistently detected (refer to Oxycodone Screen, Urine result). oxyCODONE+oxyMORphone Screen Ql (U) Negative Presumptive Negative [facility] Comment on above: CUTOFF LEVEL: 100 NG /ML This test will accurately detect both oxycodone and oxymorphone. Phencyclidine Ql (U) Negative Presump tive Negative [facility] Comment on above: CUTOFF LEVEL: 25 NG/ ML Cross-reactivity has been reported with dextromethorphan. Drug screen results are presumptive and should not be used to assess compliance with prescribed medication. Contact the performing [facility] laboratory to add-on definitive confirmatory testing if clinically indicated. Toxicology screening results are reported qualitatively. The concentration must be greater than or equal to the cutoff to be reported as positive. The concentration at which the screening test can detect an individual drug or metabolite varies. The absence of expected drug(s) and/or drug metabolite(s) may indicate non-compliance, inappropriate timing of specimen collection relative to drug administration, poor drug absorption, diluted/adulterated urine, or limitations of testing. For medical purposes only; not valid for forensic use. Interpretive questions should be directed to the laboratory medical directors. [facility] ECG 12-LEADon 10-11-2024 ECG 12-LEAD Ventricular Rate 61 Atrial Rate 61 P-R Interval 164 QRS Duration 98 Q-T Interval 430 QTC Calculation(Bazett) 432 P [place] 73 R [place] 31 T [place] 41 QRS Count 10 Q Onset 221 P Onset 139 P Offset 202 T Offset 436 QTC Fredericia 432 Diagnosis Normal sinus rhythm Normal ECG When compared with ECG of 11-OCT-2024 04:16, (unconfirmed) ST elevation now present in Lateral leads See ED provider note for full interpretation and clinical correlation Confirmed by Dave Sylvester ([id number]) on 10/14/2024 8:59:47 AM Normal [facility] Extra Urine Senior Tubeon 09-23 Extra Tube Hold for add-ons. [facility] Comment on above: Auto resulted. [facility] FLUAV and FLUBV RNA MARIA VICTORIA+prob e Nom (Unsp spec)on 10-11-2024 FLUAV RNA MARIA VICTORIA+probe Ql (Resp) Not detected Not Detected [facility] FLUBV RNA MARIA VICTORIA+probe Ql (Resp) Not detected Not Detected [facility] This assay is an in vitro diagnostic multiplex nucleic acid amplification test for the detection and discrimination of Influenza A & B from nasopharyngeal specimens, and has been validated for use at [facility]. Negative results do not preclude Influenza A/B infections, and should not be used as the sole basis for diagnosis, treatment, or other management decisions. If Influenza A/B and RSV PCR results are negative, testing for Parainfluenza virus, Adenovirus and Metapneumovirus is routinely performed for [facility] pediatric oncology and intensive care inpatients, and is available on other patients by placing an add-on request. [facility] FLUAV RNA MARIA VICTORIA+probe Ql (Resp) Not detected Normal Not Detected [facility] Comment on above: Order Comment: The V TE Exclusion D-Dimer assay is reported in ng/mL Fibrinogen Equivalent Units (FEU). Per needle board repairer's instructions for use, a value of less than 500 ng/mL (FEU) may help to exclude DVT or PE in outpatients when the assay is used with a clinical pretest probability assessment.(AEMR must utilize and document eCalc 'Wells Score Deep Vein Thrombosis Risk' for DVT exclusion only. Emergency Department should utilize Guidelines for Emergency Department Use of the VTE Exclusion D-Dimer and Clinical Pretest probability assessment model for DVT or PE exclusion.) Performed By: #### 4 8065-7 #### MARTINEZ SUNITHA ([id number]) [facility] ([facility]) [address] [place] [address] FLUBV RNA MARIA VICTORIA+probe Ql (Resp) Not detected Normal Not Detected [facility] Comment on above: Order Comment: The V TE Exclusion D-Dimer assay is reported in ng/mL Fibrinogen Equivalent Units (FEU). Per needle board repairer's instructions for use, a value of less than 500 ng/mL (FEU) may help to exclude DVT or PE in outpatients when the assay is used with a clinical pretest probability assessment.(AEMR must utilize and document eCalc 'Wells Score Deep Vein Thrombosis Risk' for DVT exclusion only. Emergency Department should utilize Guidelines for Emergency Department Use of the VTE Exclusion D-Dimer and Clinical Pretest probability assessment model for DVT or PE exclusion.) Performed By: #### 4 8065-7 #### JUAN HELTON ([id number]) [facility] ([facility]) [facility] [place] [address] Fibrin D-dimer FEUon 025 Fibrin D-dimer FEU (PPP) [Mass/Vol] 2473 ng/mL FEU High <=500 [facility] Comment on above: Order Comment: The V TE Exclusion D-Dimer assay is reported in ng/mL Fibrinogen Equivalent Units (FEU). Per needle board repairer's instructions for use, a value of less than 500 ng/mL (FEU) may help to exclude DVT or PE in outpatients when the assay is used with a clinical pretest probability assessment.(AEMR must utilize and document eCalc 'Wells Score Deep Vein Thrombosis Risk' for DVT exclusion only. Emergency Department should utilize Guidelines for Emergency Department Use of the VTE Exclusion D-Dimer and Clinical Pretest probability assessment model for DVT or PE exclusion.) Performed By: #### 4 8065-7 #### JUAN HELTON ([id number]) [facility] ([facility]) [address] [place] [id number] Fibrin D-dimer FEU (PPP) [Ma ss/Vol]on 10-11-2024 Interpretation and review of laboratory results Abnormal [facility] The VTE Exclusion D- Dimer assay is reported in ng/mL Fibrinogen Equivalent Units (FEU). Per needle board repairer's instructions for use, a value of less than 500 ng/mL (FEU) may help to exclude DVT or PE in outpatients when the assay is used with a clinical pretest probability assessment.(AEMR must utilize and document eCalc 'Wells Score Deep Vein Thrombosis Risk' for DVT exclusion only. Emergency Department should utilize Guidelines for Emergency Department Use of the VTE Exclusion D-Dimer and Clinical Pretest probability assessment model for DVT or PE exclusion.) [facility] Folateon 10-11-2024 Folate [Mass/Vol] 14.9 ng/mL Normal >5.0 [facility] Comment on above: Order Comment: Less than 99th percentile of normal range cutoff- Female and children under 18 years old <14 ng/L; Male <21 ng/L: Negative Repeat testing should be performed if clinically indicated. Female and children under 18 years old 14-50 ng/L; Male 21-50 ng/L: Consistent with possible cardiac damage and possible increased clinical risk. Serial measurements may help to assess extent of myocardial damage. >50 ng/L: Consistent with cardiac damage, increased clinical risk and myocardial infarction. Serial measurements may help assess extent of myocardial damage. NOTE: Children less than 1 year old may have higher baseline troponin levels and results should be interpreted in conjunction with the overall clinical context. NOTE: Troponin I testing is performed using a different testing methodology at [facility] than at other [facility]. Direct result comparisons should only be made within the same method. Performed By: #### 8 9577-1 #### MARTINEZ SUNITHA ([id number]) [facility] ([facility]) [facility] [place] [address] MR BRAIN WO IV CONTRASTon MR BRAIN WO IV CONTRAST Interpreted By: Comfort Gabriel, STUDY: MR BRAIN WO IV CONTRAST; 10/11/2024 8:55 pm INDICATION: Signs/Symptoms:AMS. COMPARISON: CT head from 10/11/2024 ACCESSION NUMBER(S): [id number] ORDERING CLINICIAN: JAMESON GILL TECHNIQUE: Axial T2, FLAIR, DWI, gradient echo T2 and T1 weighted images of brain were acquired. Post contrast T1 weighted images were acquired after administration of gadolinium based intravenous contrast. FINDINGS: CSF Spaces: The ventricles, sulci and basal cisterns are diffusely prominent indicating diffuse cerebral volume loss. There is no extra-axial fluid collection. Parenchyma: There is no diffusion restriction abnormality to suggest acute infarct. There are scattered areas of hyperintense FLAIR signal in bilateral periventricular and subcortical white matter, as well as in central niko likely reflecting sequela of small vessel ischemic disease. There is no mass effect or midline shift. Paranasal Sinuses and Mastoids: Near-complete opacification of bilateral maxillary sinuses with proteinaceous content and moderate mucosal thickening. Opacification of several ethmoidal air cells with mucosal thickening and secretions. Partial opacification of right frontal sinus. Bilateral mastoids are clear. There is a small amount of effusion within bilateral occipital atlantal facets, left greater than right suggestive of degenerative changes. IMPRESSION: No evidence of acute infarct, intracranial mass effect or midline shift. Mild diffuse cerebral volume loss with mild nonspecific white matter changes, likely reflecting sequela of chronic small vessel ischemic change. Diffuse maxillary and ethmoidal sinus inflammatory changes with proteinaceous secretions and mucosal thickening. Correlate for acute versus chronic sinusitis. Signed by: Comfort Gabriel 10/12/2024 9:08 AM Dictation workstation: [id number] Normal [facility] MR Brain WO contraston 10-11 Radiology Study observation (narrative) [facility] Work Phone: Magnesiumon 10-11-2024 Magnesium [Mass/Vol] 1.63 mg/dL 1.60 - 2.40 mg/dL [facility] Magnesium [Mass/Vol] 1.63 mg/dL Normal 1.60-2.40 [facility] Comment on above: Performed By: #### 1 9123-9 #### MARTINEZ SUNITHA ([id number]) [facility] ([facility]) [address] [place] [address] Magnesium [Mass/Vol]on 10-11 Interpretation and review of laboratory results Normal [facility] Natriuretic peptide B [Mass/ Vol]on 10-11-2024 Interpretation and review of laboratory results Normal [facility] Natriuretic peptide B (Bld) [Mass/Vol] 83 pg/mL 0 - 99 pg/mL [facility] <100 pg/mL - Heart failure unlikely 100-299 pg/mL - Intermediate probability of acute heart failure exacerbation. Correlate with clinical context and patient history. >=300 pg/mL - Heart Failure likely. Correlate with clinical context and patient history. BNP testing is performed using different testing methodology at [facility] than at other [facility]. Direct result comparisons should only be made within the same method. [facility] Natriuretic peptide B (Bld) [Mass/Vol] 83 pg/mL Normal 0-99 [facility] Comment on above: Order Comment: The V TE Exclusion D-Dimer assay is reported in ng/mL Fibrinogen Equivalent Units (FEU). Per needle board repairer's instructions for use, a value of less than 500 ng/mL (FEU) may help to exclude DVT or PE in outpatients when the assay is used with a clinical pretest probability assessment.(AEMR must utilize and document eCalc 'Wells Score Deep Vein Thrombosis Risk' for DVT exclusion only. Emergency Department should utilize [facility] Guidelines for Emergency Department Use of the VTE Exclusion D-Dimer and Clinical Pretest probability assessment model for DVT or PE exclusion.) Performed By: #### 4 8065-7 #### MARTINEZ SUNITHA ([id number]) [facility] ([facility]) [address] [id number] No Panel Informationon 10-11 Interpretation and review of laboratory results Normal [facility] Interpretation and review of laboratory results Normal [facility] No evidence of acute intracranial abnormality No acute cervical spine fracture or malalignment. Interstitial thickening in the apical lungs suggests acute pulmonary interstitial edema/CHF. MACRO: None Signed by: Stanton Kerns 10/11/2024 6:44 AM Dictation workstation: [id number] Interpreted By: Stanton Vasquez, STUDY: CT HEAD WO IV CONTRAST; CT CERVICAL SPINE WO IV CONTRAST; ; 10/11/2024 6:05 am INDICATION: Signs/Symptoms:fall. COMPARISON: None. ACCESSION NUMBER(S): [id number]; [id number] ORDERING CLINICIAN: CÉSAR ANNA TECHNIQUE: Noncontrast CT exams of the head and cervical spine with multiplanar reformations. FINDINGS: BRAIN PARENCHYMA: Moderate volume loss. There is periventricular and subcortical white matter hypoattenuation, most in keeping with chronic microvascular ischemic change. Senior-white matter interfaces are preserved. No mass, mass effect or midline shift. HEMORRHAGE: No acute intracranial hemorrhage. VENTRICLES and EXTRA-AXIAL SPACES: Normal size. EXTRACRANIAL SOFT TISSUES: Within normal limits. PARANASAL SINUSES/MASTOIDS: Ossification of the left maxillary sinus. Air-fluid level in the right maxillary sinus. Moderate mucosal thickening in the ethmoid air cells, right frontal sinus and sphenoid sinuses. Mastoids are clear. CALVARIUM: No depressed skull fracture. No destructive osseous lesion. OTHER FINDINGS: None. CERVICAL SPINE: ALIGNMENT: Grade 1 degenerative anterolisthesis at C3-C4 at C4-C5. Alignment is otherwise maintained. VERTEBRAE: No acute fracture. Vertebral stature is maintained. Severe discogenic degeneration lower cervical levels. Moderate hypertrophic facet osteoarthropathy. SPINAL CANAL: No critical spinal canal stenosis. PREVERTEBRAL SOFT TISSUES: No prevertebral soft tissue swelling. LUNG APICES: Interstitial thickening in the apical lungs suggests acute pulmonary interstitial edema/CHF. OTHER FINDINGS: None. [facility] MMODAL Stanton Kerns MD - 10/11/2024 Interpreted By: Stanton Kerns, STUDY: CT HEAD WO IV CONTRAST; CT CERVICAL SPINE WO IV CONTRAST; ; 10/11/2024 6:05 am INDICATION: Signs/Symptoms:fall. COMPARISON: None. ACCESSION NUMBER(S): [id number]; [id number] ORDERING CLINICIAN: CÉSAR ANNA TECHNIQUE: Noncontrast CT exams of the head and cervical spine with multiplanar reformations. FINDINGS: BRAIN PARENCHYMA: Moderate volume loss. There is periventricular and subcortical white matter hypoattenuation, most in keeping with chronic microvascular ischemic change. Senior-white matter interfaces are preserved. No mass, mass effect or midline shift. HEMORRHAGE: No acute intracranial hemorrhage. VENTRICLES and EXTRA-AXIAL SPACES: Normal size. EXTRACRANIAL SOFT TISSUES: Within normal limits. PARANASAL SINUSES/MASTOIDS: Ossification of the left maxillary sinus. Air-fluid level in the right maxillary sinus. Moderate mucosal thickening in the ethmoid air cells, right frontal sinus and sphenoid sinuses. Mastoids are clear. CALVARIUM: No depressed skull fracture. No destructive osseous lesion. OTHER FINDINGS: None. CERVICAL SPINE: ALIGNMENT: Grade 1 degenerative anterolisthesis at C3-C4 at C4-C5. Alignment is otherwise maintained. VERTEBRAE: No acute fracture. Vertebral stature is maintained. Severe discogenic degeneration lower cervical levels. Moderate hypertrophic facet osteoarthropathy. SPINAL CANAL: No critical spinal canal stenosis. PREVERTEBRAL SOFT TISSUES: No prevertebral soft tissue swelling. LUNG APICES: Interstitial thickening in the apical lungs suggests acute pulmonary interstitial edema/CHF. OTHER FINDINGS: None. IMPRESSION: No evidence of acute intracranial abnormality No acute cervical spine fracture or malalignment. Interstitial thickening in the apical lungs suggests acute pulmonary interstitial edema/CHF. MACRO: None Signed by: Stanton Kerns 10/11/2024 6:44 AM Dictation workstation: [id number] [facility] Work Phone: [facility] Work Phone: [facility] Radiology Study observation (narrative) [facility] Work Phone: SARS coronavirus 2 RNAon SARS-CoV-2 (COVID-19) RNA MARIA VICTORIA+probe Ql (Resp) Not detected Normal Not Detected [facility] Comment on above: Order Comment: The V TE Exclusion D-Dimer assay is reported in ng/mL Fibrinogen Equivalent Units (FEU). Per needle board repairer's instructions for use, a value of less than 500 ng/mL (FEU) may help to exclude DVT or PE in outpatients when the assay is used with a clinical pretest probability assessment.(AEMR must utilize and document eCalc 'Wells Score Deep Vein Thrombosis Risk' for DVT exclusion only. Emergency Department should utilize Guidelines for Emergency Department Use of the VTE Exclusion D-Dimer and Clinical Pretest probability assessment model for DVT or PE exclusion.) Performed By: #### 4 8065-7 #### MARTINEZ SUNITHA ([id number]) [facility] ([facility]) [address] [place] [address] SARS-CoV-2 (COVID-19) RNA NA A+probe Ql (Resp)on 10-11-2024 This assay is an FDA-cleared, in vitro diagnostic nucleic acid amplification test for the qualitative detection and differentiation of SARS CoV-2 from nasopharyngeal specimens collected from individuals with signs and symptoms of respiratory tract infections, and has been validated for use at [facility]. Negative results do not preclude COVID-19 infections and should not be used as the sole basis for diagnosis, treatment, or other management decisions. Testing for SARS CoV-2 is recommended only for patients who meet current clinical and/or epidemiological criteria defined by federal, state, or local public health directives. [facility] Sars-CoV-2 PCRon 10-11-2024 SARS-CoV-2 (COVID-19) RNA MARIA VICTORIA+probe Ql (Resp) Not detected Not Detected [facility] TRANSTHORACIC ECHO (TTE) STARK ITEDon 10-11-2024 TRANSTHORACIC ECHO (TTE) [place] [address] [phone], TRANSTHORACIC ECHOCARDIOGRAM REPORT Patient Name: MAYUR Conklin Physician: [id number] Marquita Ly MD Study Date: 10/11/2024 Ordering Provider: [id number] JAMESON GILL MRN/PID: [id number] Fellow: Nurse: Date of /Age: 7 1955 / 69 years Stick Welder: Jose L Saab RDCS Gender Assigned at M Additional Staff: : Height: 175.26 cm Admit Date: Weight: 77.11 kg Admission Status: Inpatient - Routine BSA / BMI: 1.93 m2 / 25.10 Department Location: [address] kg/m2 Blood Pressure: 82 /55 mmHg Study Type: TRANSTHORACIC ECHO (TTE) LIMITED Diagnosis/ICD: Syncope and collapse-R55 CPT Codes: Echo Limited-44849 Study Detail: The following Echo studies were performed: 2D, M-Mode, Doppler and color flow. Agitated saline used as a contrast agent for intraseptal flow evaluation. PHYSICIAN INTERPRETATION: Left Ventricle: Left ventricular ejection fraction is normal, by visual estimate at 65%. There are no regional wall motion abnormalities. The left ventricular cavity size is normal. There is normal septal and mildly increased posterior left ventricular wall thickness. There is left ventricular concentric remodeling. Left ventricular diastolic filling was not assessed. Left Atrium: The left atrial size is normal. Right Ventricle: The right ventricle was not assessed. There is normal right ventricular global systolic function. Right Atrium: The right atrial size is normal. Aortic Valve: The aortic valve was not assessed. The aortic valve dimensionless index is 0.96. Aortic valve regurgitation was not assessed. The peak instantaneous gradient of the aortic valve is 10 mmHg. The mean gradient of the aortic valve is 6 mmHg. Mitral Valve: The mitral valve is normal in structure. There is no evidence of mitral valve regurgitation. Tricuspid Valve: The tricuspid valve is structurally normal. No evidence of tricuspid regurgitation. Pulmonic Valve: The pulmonic valve was not assessed. The pulmonic valve regurgitation was not assessed. Pericardium: No pericardial effusion noted. Aorta: The aortic root was not assessed. CONCLUSIONS: 1. Left ventricular ejection fraction is normal, by visual estimate at 65%. 2. There is normal right ventricular global systolic function. QUANTITATIVE DATA SUMMARY: 2D MEASUREMENTS: Normal Ranges: Ao Root d: 3.80 cm (2.0-3.7cm) LAs: 2.60 cm (2.7-4.0cm) IVSd: 1.02 cm (0.6-1.1cm) LVPWd: 1.06 cm (0.6-1.1cm) LVIDd: 4.32 cm (3.9-5.9cm) LVIDs: 2.49 cm LV Mass Index: 78.7 g/m2 LVEDV Index: 50.73 ml/m2 LV % FS 42.4 % LEFT ATRIUM: Normal Ranges: LA Vol A4C: 20.5 ml (22+/-6mL/m2) LA Vol A2C: 19.2 ml LA Vol BP: 21.1 ml LA Vol Index A4C: 10.6ml/m2 LA Vol Index A2C: 10.0 ml/m2 LA Vol Index BP: 11.0 ml/m2 LA Area A4C: 11.1 cm2 LA Area A2C: 10.1 cm2 LA Major [place] A4C: 5.1 cm LA Major [place] A2C: 4.5 cm LA Volume Index: 10.6 ml/m2 LA Vol A4C: 20.5 ml LA Vol A2C: 19.5 ml LA Vol Index BSA: 10.4 ml/m2 LV SYSTOLIC FUNCTION: Normal Ranges: EF-A4C View: 75 % (>=55%) EF-A2C View: 68 % EF-Biplane: 70 % EF-Visual: 65 % LV EF Reported: 65 % LV DIASTOLIC FUNCTION: Normal Ranges: MV Peak E: 0.97 m/s (0.7-1.2 m/s) MV Peak A: 0.57 m/s (0.42-0.7 m/s) E/A Ratio: 1.70 (1.0-2.2) MITRAL VALVE: Normal Ranges: MV DT: 246 msec (150-240msec) AORTIC VALVE: Normal Ranges: AoV Vmax: 1.61 m/s (<=1.7m/s) AoV Peak P.4 mmHg (<20mmHg) AoV Mean P.0 mmHg (1.7-11.5mmHg) LVOT Max Isma: 1.55 m/s (<=1.1m/s) AoV VTI: 33.80 cm (18-25cm) LVOT VTI: 32.50 cm LVOT Diameter: 1.80 cm (1.8-2.4cm) AoV Area, VTI: 2.45 cm2 (2.5-5.5cm2) AoV Area,Vmax: 2.45 cm2 (2.5-4.5cm2) AoV Dimensionless Index: 0.96 RIGHT VENTRICLE: RV Basal 3.48 cm RV Mid 2.74 cm RV Major 8.6 cm [id number] Marquita Ly MD Electronically signed on 10/11/2024 at 7:45:28 PM Final Normal [facility] TSHon 10-11-2024 TSH Qn 2.98 m[IU]/L [facility] TSH Qnon 10-11-2024 TSH testing is perfo rmed using different testing methodology at [facility] than at other [facility]. Direct result comparisons should only be made within the same method. [facility] Thyrotropinon 10-11-2024 TSH Qn 2.98 m[IU]/L Normal 0.44-3.98 [facility] Comment on above: Order Comment: The V TE Exclusion D-Dimer assay is reported in ng/mL Fibrinogen Equivalent Units (FEU). Per needle board repairer's instructions for use, a value of less than 500 ng/mL (FEU) may help to exclude DVT or PE in outpatients when the assay is used with a clinical pretest probability assessment.(AEMR must utilize and document eCalc 'Wells Score Deep Vein Thrombosis Risk' for DVT exclusion only. Emergency Department should utilize Guidelines for Emergency Department Use of the VTE Exclusion D-Dimer and Clinical Pretest probability assessment model for DVT or PE exclusion.) Performed By: #### 4 8065-7 #### MARTINEZ SUNITHA ([id number]) [facility] ([facility]) [address] [place] [address] Tropinin I.cardiac panel Hig h sensitivity methodon 10-11-2024 Less than 99th perce ntile of normal range cutoff- Female and children under 18 years old <14 ng/L; Male <21 ng/L: Negative Repeat testing should be performed if clinically indicated. Female and children under 18 years old 14-50 ng/L; Male 21-50 ng/L: Consistent with possible cardiac damage and possible increased clinical risk. Serial measurements may help to assess extent of myocardial damage. >50 ng/L: Consistent with cardiac damage, increased clinical risk and myocardial infarction. Serial measurements may help assess extent of myocardial damage. NOTE: Children less than 1 year old may have higher baseline troponin levels and results should be interpreted in conjunction with the overall clinical context. NOTE: Troponin I testing is performed using a different testing methodology at [facility] than at other [facility]. Direct result comparisons should only be made within the same method. [facility] Interpretation and review of laboratory results Normal [facility] Less than 99th perce ntile of normal range cutoff- Female and children under 18 years old <14 ng/L; Male <21 ng/L: Negative Repeat testing should be performed if clinically indicated. Female and children under 18 years old 14-50 ng/L; Male 21-50 ng/L: Consistent with possible cardiac damage and possible increased clinical risk. Serial measurements may help to assess extent of myocardial damage. >50 ng/L: Consistent with cardiac damage, increased clinical risk and myocardial infarction. Serial measurements may help assess extent of myocardial damage. NOTE: Children less than 1 year old may have higher baseline troponin levels and results should be interpreted in conjunction with the overall clinical context. NOTE: Troponin I testing is performed using a different testing methodology at [facility] than at other [facility]. Direct result comparisons should only be made within the same method. [facility] Interpretation and review of laboratory results Normal [facility] Less than 99th perce ntile of normal range cutoff- Female and children under 18 years old <14 ng/L; Male <21 ng/L: Negative Repeat testing should be performed if clinically indicated. Female and children under 18 years old 14-50 ng/L; Male 21-50 ng/L: Consistent with possible cardiac damage and possible increased clinical risk. Serial measurements may help to assess extent of myocardial damage. >50 ng/L: Consistent with cardiac damage, increased clinical risk and myocardial infarction. Serial measurements may help assess extent of myocardial damage. NOTE: Children less than 1 year old may have higher baseline troponin levels and results should be interpreted in conjunction with the overall clinical context. NOTE: Troponin I testing is performed using a different testing methodology at [facility] than at other [facility]. Direct result comparisons should only be made within the same method. [facility] Troponin I, High Sensitivity on 10-11-2024 Tropinin I.cardiac panel High sensitivity method 3 ng/L 0 - 20 ng/L [facility] Troponin I, High Sensitivity , Initialon 02-20-2025 Tropinin I.cardiac panel High sensitivity method 4 ng/L 0 - 20 ng/L [facility] Troponin I.cardiac panelon 0 10-11-2024 Tropinin I.cardiac panel High sensitivity method 3 ng/L Normal 0-20 [facility] Comment on above: Order Comment: The V TE Exclusion D-Dimer assay is reported in ng/mL Fibrinogen Equivalent Units (FEU). Per needle board repairer's instructions for use, a value of less than 500 ng/mL (FEU) may help to exclude DVT or PE in outpatients when the assay is used with a clinical pretest probability assessment.(AEMR must utilize and document eCalc 'Wells Score Deep Vein Thrombosis Risk' for DVT exclusion only. Emergency Department should utilize Guidelines for Emergency Department Use of the VTE Exclusion D-Dimer and Clinical Pretest probability assessment model for DVT or PE exclusion.) Performed By: #### 4 8065-7 #### MARTINEZ SUNITHA ([id number]) [facility] ([facility]) [address] [place] [address] Tropinin I.cardiac panel High sensitivity method 3 ng/L Normal 0-20 [facility] Comment on above: Order Comment: The V TE Exclusion D-Dimer assay is reported in ng/mL Fibrinogen Equivalent Units (FEU). Per needle board repairer's instructions for use, a value of less than 500 ng/mL (FEU) may help to exclude DVT or PE in outpatients when the assay is used with a clinical pretest probability assessment.(AEMR must utilize and document eCalc 'Wells Score Deep Vein Thrombosis Risk' for DVT exclusion only. Emergency Department should utilize Guidelines for Emergency Department Use of the VTE Exclusion D-Dimer and Clinical Pretest probability assessment model for DVT or PE exclusion.) Performed By: #### 4 8065-7 #### JUAN HELTON ([id number]) [facility] ([facility]) [address] [place], [place] [id number] Tropinin I.cardiac panel High sensitivity method 4 ng/L Normal 0-20 [facility] Comment on above: Order Comment: Less than 99th percentile of normal range cutoff- Female and children under 18 years old <14 ng/L; Male <21 ng/L: Negative Repeat testing should be performed if clinically indicated. Female and children under 18 years old 14-50 ng/L; Male 21-50 ng/L: Consistent with possible cardiac damage and possible increased clinical risk. Serial measurements may help to assess extent of myocardial damage. >50 ng/L: Consistent with cardiac damage, increased clinical risk and myocardial infarction. Serial measurements may help assess extent of myocardial damage. NOTE: Children less than 1 year old may have higher baseline troponin levels and results should be interpreted in conjunction with the overall clinical context. NOTE: Troponin I testing is performed using a different testing methodology at [facility] than at other [facility]. Direct result comparisons should only be made within the same method. Performed By: #### 8 9577-1 #### MARTINEZ SUNITHA ([id number]) [facility] ([facility]) [address] [place] [address] Troponin, High Sensitivity, 1 Houron 10-11-2024 Tropinin I.cardiac panel High sensitivity method 3 ng/L 0 - 20 ng/L [facility] US Heart TransthoracicOrdere d By: Marquita Ly on 10-11-2024 Aortic Valve Area by Continuity of Peak Velocity 2.45 cm2 [facility] Work Phone: Aortic Valve Area by Continuity of VTI 2.45 cm2 [facility] Work Phone: AV mn grad 6 mmHg [facility] Work Phone: AV pk grad 10 mmHg [facility] Work Phone: AV pk isma 1.61 m/s [facility] Work Phone: LA vol index A/L 11 ml/m2 [facility] Work Phone: LV A4C EF 74.8 [facility] Work Phone: LV Biplane EF 70 % [facility] Work Phone: LV EF 65 % [facility] Work Phone: LVIDd 4.32 cm [facility] Work Phone: LVOT diam 1.8 cm [facility] Work Phone: MV E/A ratio 1.7 [facility] Work Phone: [facility] Work Phone: US Heart Transthoracicon [place] [phone], TRANSTHORACIC ECHOCARDIOGRAM REPORT Patient Name: MAYUR Conklin Physician: [id number] Marquita Ly MD Study Date: 10/11/2024 Ordering Provider: [id number] JAMESON GILL MRN/PID: [id number] Fellow: Nurse: Date of /Age: 7 1955 / 69 years Stick Welder: Jose L Saab RDCS Gender Assigned at Additional Staff: : Height: 175.26 cm Admit Date: Weight: 77.11 kg Admission Status: Inpatient - Routine BSA / BMI: 1.93 m2 / 25.10 Department Location: [address] kg/m2 Blood Pressure: 82 /55 mmHg Study Type: TRANSTHORACIC ECHO (TTE) LIMITED Diagnosis/ICD: Syncope and collapse-R55 CPT Codes: Echo Limited-87679 Study Detail: The following Echo studies were performed: 2D, M-Mode, Doppler and color flow. Agitated saline used as a contrast agent for intraseptal flow evaluation. PHYSICIAN INTERPRETATION: Left Ventricle: Left ventricular ejection fraction is normal, by visual estimate at 65%. There are no regional wall motion abnormalities. The left ventricular cavity size is normal. There is normal septal and mildly increased posterior left ventricular wall thickness. There is left ventricular concentric remodeling. Left ventricular diastolic filling was not assessed. Left Atrium: The left atrial size is normal. Right Ventricle: The right ventricle was not assessed. There is normal right ventricular global systolic function. Right Atrium: The right atrial size is normal. Aortic Valve: The aortic valve was not assessed. The aortic valve dimensionless index is 0.96. Aortic valve regurgitation was not assessed. The peak instantaneous gradient of the aortic valve is 10 mmHg. The mean gradient of the aortic valve is 6 mmHg. Mitral Valve: The mitral valve is normal in structure. There is no evidence of mitral valve regurgitation. Tricuspid Valve: The tricuspid valve is structurally normal. No evidence of tricuspid regurgitation. Pulmonic Valve: The pulmonic valve was not assessed. The pulmonic valve regurgitation was not assessed. Pericardium: No pericardial effusion noted. Aorta: The aortic root was not assessed. CONCLUSIONS: 1. Left ventricular ejection fraction is normal, by visual estimate at 65%. 2. There is normal right ventricular global systolic function. QUANTITATIVE DATA SUMMARY: 2D MEASUREMENTS: Normal Ranges: Ao Root d: 3.80 cm (2.0-3.7cm) LAs: 2.60 cm (2.7-4.0cm) IVSd: 1.02 cm (0.6-1.1cm) LVPWd: 1.06 cm (0.6-1.1cm) LVIDd: 4.32 cm (3.9-5.9cm) LVIDs: 2.49 cm LV Mass Index: 78.7 g/m2 LVEDV Index: 50.73 ml/m2 LV % FS 42.4 % LEFT ATRIUM: Normal Ranges: LA Vol A4C: 20.5 ml (22+/-6mL/m2) LA Vol A2C: 19.2 ml LA Vol BP: 21.1 ml LA Vol Index A4C: 10.6ml/m2 LA Vol Index A2C: 10.0 ml/m2 LA Vol Index BP: 11.0 ml/m2 LA Area A4C: 11.1 cm2 LA Area A2C: 10.1 cm2 LA Major [place] A4C: 5.1 cm LA Major [place] A2C: 4.5 cm LA Volume Index: 10.6 ml/m2 LA Vol A4C: 20.5 ml LA Vol A2C: 19.5 ml LA Vol Index BSA: 10.4 ml/m2 LV SYSTOLIC FUNCTION: Normal Ranges: EF-A4C View: 75 % (>=55%) EF-A2C View: 68 % EF-Biplane: 70 % EF-Visual: 65 % LV EF Reported: 65 % LV DIASTOLIC FUNCTION: Normal Ranges: MV Peak E: 0.97 m/s (0.7-1.2 m/s) MV Peak A: 0.57 m/s (0.42-0.7 m/s) E/A Ratio: 1.70 (1.0-2.2) MITRAL VALVE: Normal Ranges: MV DT: 246 msec (150-240msec) AORTIC VALVE: Normal Ranges: AoV Vmax: 1.61 m/s (<=1.7m/s) AoV Peak P.4 mmHg (<20mmHg) AoV Mean P.0 mmHg (1.7-11.5mmHg) LVOT Max Isma: 1.55 m/s (<=1.1m/s) AoV VTI: 33.80 cm (18-25cm) LVOT VTI: 32.50 cm LVOT Diameter: 1.80 cm (1.8-2.4cm) AoV Area, VTI: 2.45 cm2 (2.5-5.5cm2) AoV Area,Vmax: 2.45 cm2 (2.5-4.5cm2) AoV Dimensionless Index: 0.96 RIGHT VENTRICLE: RV Basal 3.48 cm RV Mid 2.74 cm RV Major 8.6 cm [id number] Marquita Ly MD Electronically signed on 10/11/2024 at 7:45:28 PM Final Marquita Bernaeb MD - 10/11/2024 [place] [address] [phone], TRANSTHORACIC ECHOCARDIOGRAM REPORT Patient Name: MAYUR Conklin Physician: [id number] Marquita Ly MD Study Date: 10/11/2024 Ordering Provider: [id number] GILL MRN/PID: [id number] Fellow: Nurse: Date of /Age: 7 1955 / 69 years Stick Welder: Jose L Saab [facility] Gender Assigned at M Additional Staff: : Height: 175.26 cm Admit Date: Weight: 77.11 kg Admission Status: Inpatient - Routine BSA / BMI: 1.93 m2 / 25.10 Department Location: [address] kg/m2 Blood Pressure: 82 /55 mmHg Study Type: TRANSTHORACIC ECHO (TTE) LIMITED Diagnosis/ICD: Syncope and collapse-R55 CPT Codes: Echo Limited-86234 Study Detail: The following Echo studies were performed: 2D, M-Mode, Doppler and color flow. Agitated saline used as a contrast agent for intraseptal flow evaluation. PHYSICIAN INTERPRETATION: Left Ventricle: Left ventricular ejection fraction is normal, by visual estimate at 65%. There are no regional wall motion abnormalities. The left ventricular cavity size is normal. There is normal septal and mildly increased posterior left ventricular wall thickness. There is left ventricular concentric remodeling. Left ventricular diastolic filling was not assessed. Left Atrium: The left atrial size is normal. Right Ventricle: The right ventricle was not assessed. There is normal right ventricular global systolic function. Right Atrium: The right atrial size is normal. Aortic Valve: The aortic valve was not assessed. The aortic valve dimensionless index is 0.96. Aortic valve regurgitation was not assessed. The peak instantaneous gradient of the aortic valve is 10 mmHg. The mean gradient of the aortic valve is 6 mmHg. Mitral Valve: The mitral valve is normal in structure. There is no evidence of mitral valve regurgitation. Tricuspid Valve: The tricuspid valve is structurally normal. No evidence of tricuspid regurgitation. Pulmonic Valve: The pulmonic valve was not assessed. The pulmonic valve regurgitation was not assessed. Pericardium: No pericardial effusion noted. Aorta: The aortic root was not assessed. CONCLUSIONS: 1. Left ventricular ejection fraction is normal, by visual estimate at 65%. 2. There is normal right ventricular global systolic function. QUANTITATIVE DATA SUMMARY: 2D MEASUREMENTS: Normal Ranges: Ao Root d: 3.80 cm (2.0-3.7cm) LAs: 2.60 cm (2.7-4.0cm) IVSd: 1.02 cm (0.6-1.1cm) LVPWd: 1.06 cm (0.6-1.1cm) LVIDd: 4.32 cm (3.9-5.9cm) LVIDs: 2.49 cm LV Mass Index: 78.7 g/m2 LVEDV Index: 50.73 ml/m2 LV % FS 42.4 % LEFT ATRIUM: Normal Ranges: LA Vol A4C: 20.5 ml (22+/-6mL/m2) LA Vol A2C: 19.2 ml LA Vol BP: 21.1 ml LA Vol Index A4C: 10.6ml/m2 LA Vol Index A2C: 10.0 ml/m2 LA Vol Index BP: 11.0 ml/m2 LA Area A4C: 11.1 cm2 LA Area A2C: 10.1 cm2 LA Major [place] A4C: 5.1 cm LA Major [place] A2C: 4.5 cm LA Volume Index: 10.6 ml/m2 LA Vol A4C: 20.5 ml LA Vol A2C: 19.5 ml LA Vol Index BSA: 10.4 ml/m2 LV SYSTOLIC FUNCTION: Normal Ranges: EF-A4C View: 75 % (>=55%) EF-A2C View: 68 % EF-Biplane: 70 % EF-Visual: 65 % LV EF Reported: 65 % LV DIASTOLIC FUNCTION: Normal Ranges: MV Peak E: 0.97 m/s (0.7-1.2 m/s) MV Peak A: 0.57 m/s (0.42-0.7 m/s) E/A Ratio: 1.70 (1.0-2.2) MITRAL VALVE: Normal Ranges: MV DT: 246 msec (150-240msec) AORTIC VALVE: Normal Ranges: AoV Vmax: 1.61 m/s (<=1.7m/s) AoV Peak P.4 mmHg (<20mmHg) AoV Mean P.0 mmHg (1.7-11.5mmHg) LVOT Max Isma: 1.55 m/s (<=1.1m/s) AoV VTI: 33.80 cm (18-25cm) LVOT VTI: 32.50 cm LVOT Diameter: 1.80 cm (1.8-2.4cm) AoV Area, VTI: 2.45 cm2 (2.5-5.5cm2) AoV Area,Vmax: 2.45 cm2 (2.5-4.5cm2) AoV Dimensionless Index: 0.96 RIGHT VENTRICLE: RV Basal 3.48 cm RV Mid 2.74 cm RV Major 8.6 cm [id number] Marquita Ly MD Electronically signed on 10/11/2024 at 7:45:28 PM Final [facility] Work Phone: Urinalysis complete W Reflex Culture panel (U)on 10-11-2024 Appearance (U) Clear Clear [facility] Bilirubin (U) [Mass/Vol] Negative NEGATIVE mg/dL [facility] Color (U) Light-Yellow Light-Yellow , Yellow, Dark-Yellow [facility] Glucose Auto test strip (U) [Mass/Vol] Normal Normal mg/dL [facility] Interpretation and review of laboratory results Normal [facility] Ketones (U) [Mass/Vol] Negative NEGAT MISAEL mg/dL [facility] Leukocyte esterase Auto test strip Ql (U) Negative NEGATIVE [facility] Nitrite Auto test strip Ql (U) Negative NEGATIVE [facility] pH (U) 7 [pH] 5.0, 5.5, 6.0, 6.5, 7.0, 7.5, 8.0 [facility] Protein (U) [Mass/Vol] Negative NEGAT MISAEL, 10 (TRACE), 20 (TRACE) mg/dL [facility] RBC (U) [#/Vol] Negative NEGATIVE mg/dL [facility] Specific gravity (U) [Rel density] 1.017 1.005 - 1.035 [facility] Urobilinogen (U) [Mass/Vol] Normal Normal mg/dL [facility] Appearance (U) Clear Normal Clear [facility] Comment on above: Performed By: #### 5 8077-9 #### JUAN HELTON ([id number]) [facility] ([facility]) [address] [place] [address] Bilirubin (U) [Mass/Vol] Negative Normal NEGATIVE [facility] [facility] Comment on above: Performed By: #### 5 8077-9 #### JUAN HELTON ([id number]) [facility] ([facility]) [address] [place], [place] [id number] Color (U) Light-Yellow Normal Light-Yellow , Yellow, Dark-Yellow [facility] Comment on above: Performed By: #### 5 8077-9 #### JUAN HELTON ([id number]) [facility] ([facility]) [address] [place] [address] 28838 Glucose Auto test strip (U) [Mass/Vol] Normal Normal Normal [facility] Comment on above: Performed By: #### 5 8077-9 #### JUAN HELTON ([id number]) [facility] ([facility]) [address] [place] [address] 37680 Ketones (U) [Mass/Vol] Negative Normal NEGATIVE [facility] on above: Performed By: #### 5 8077-9 #### JUAN HELTON ([id number]) [facility] ([facility]) [address] [place] [address] 06854 Leukocyte esterase Auto test strip Ql (U) Negative Normal NEGATIVE [facility] Comment on above: Performed By: #### 5 8077-9 #### JUAN HELTON ([id number]) [facility] ([facility]) [address] [place] [address] 48471 Nitrite Auto test strip Ql (U) Negative Normal NEGATIVE [facility] Comment on above: Performed By: #### 5 8077-9 #### JUAN HELTON ([id number]) [facility] ([facility]) [address] [place] [address] 89532 pH (U) 7.0 [pH] Normal 5.0, 5.5, 6.0, 6.5, 7.0, 7.5, 8.0 [facility] Comment on above: Performed By: #### 5 8077-9 #### JUAN HELTON ([id number]) [facility] ([facility]) [address] [place] [address] 70967 Protein (U) [Mass/Vol] Negative Normal NEGAT MISAEL, 10 (TRACE), 20 (TRACE) [facility] Comment on above: Performed By: #### 5 8077-9 #### JUAN HELTON ([id number]) [facility] ([facility]) [address] [place] [address] 70724 RBC (U) [#/Vol] Negative Normal NEGATIVE [facility] Comment on above: Performed By: #### 5 8077-9 #### JUAN HELTON ([id number]) [facility] ([facility]) [address] [place] [address] 94919 Specific gravity (U) [Rel density] 1.017 Normal 1.005-1.035 [facility] Comment on above: Performed By: #### 5 8077-9 #### JUAN HELTON ([id number]) [facility] ([facility]) [address] [place] [address] 99484 Urobilinogen (U) [Mass/Vol] Normal Normal Normal [facility] Comment on above: Performed By: #### 5 8077-9 #### MARTINEZ SUNITHA ([id number]) [facility] ([facility]) [address] [id number] XR CHEST 1 VIEWon 10-11-2024 XR CHEST 1 VIEW Interpreted By: Stanton Vasquez, STUDY: XR CHEST 1 VIEW; 10/11/2024 5:38 am INDICATION: Signs/Symptoms:fall. COMPARISON: None. ACCESSION NUMBER(S): [id number] ORDERING CLINICIAN: CÉSAR ANNA FINDINGS: AP radiograph of the chest was provided. CARDIOMEDIASTINAL SILHOUETTE: Cardiomediastinal silhouette is normal in size and configuration. LUNGS: Pulmonary vascular congestion with interstitial prominence and peribronchial cuffing with Jazlyn B-lines suggests acute pulmonary interstitial edema/CHF. No focal consolidation or sizable pleural effusion. No pneumothorax. ABDOMEN: No remarkable upper abdominal findings. BONES: No acute osseous changes. IMPRESSION: 1. Pulmonary vascular congestion with interstitial prominence and peribronchial cuffing with Jazlyn B-lines suggests acute pulmonary interstitial edema/CHF. No focal consolidation or sizable pleural effusion. No pneumothorax. MACRO: None Signed by: Stanton Kerns 10/11/2024 6:39 AM Dictation workstation: [id number] Normal [facility] XR Chest Single viewon 10-11 1. Pulmonary vascula r congestion with interstitial prominence and peribronchial cuffing with Jazlyn B-lines suggests acute pulmonary interstitial edema/CHF. No focal consolidation or sizable pleural effusion. No pneumothorax. MACRO: None Signed by: Stanton Kerns 10/11/2024 6:39 AM Dictation workstation: [id number] [email or web address] Interpreted By: Stanton Vasquez, STUDY: XR CHEST 1 VIEW; 10/11/2024 5:38 am INDICATION: Signs/Symptoms:fall. COMPARISON: None. ACCESSION NUMBER(S): [id number] ORDERING CLINICIAN: CÉSAR ANNA FINDINGS: AP radiograph of the chest was provided. CARDIOMEDIASTINAL SILHOUETTE: Cardiomediastinal silhouette is normal in size and configuration. LUNGS: Pulmonary vascular congestion with interstitial prominence and peribronchial cuffing with Jazlyn B-lines suggests acute pulmonary interstitial edema/CHF. No focal consolidation or sizable pleural effusion. No pneumothorax. ABDOMEN: No remarkable upper abdominal findings. BONES: No acute osseous changes. [facility] MMODAL Stanton Kerns MD - 10/11/2024 Interpreted By: Stanton Kerns, STUDY: XR CHEST 1 VIEW; 10/11/2024 5:38 am INDICATION: Signs/Symptoms:fall. COMPARISON: None. ACCESSION NUMBER(S): [id number] ORDERING CLINICIAN: CÉSAR ANNA FINDINGS: AP radiograph of the chest was provided. CARDIOMEDIASTINAL SILHOUETTE: Cardiomediastinal silhouette is normal in size and configuration. LUNGS: Pulmonary vascular congestion with interstitial prominence and peribronchial cuffing with Jazlyn B-lines suggests acute pulmonary interstitial edema/CHF. No focal consolidation or sizable pleural effusion. No pneumothorax. ABDOMEN: No remarkable upper abdominal findings. BONES: No acute osseous changes. IMPRESSION: 1. Pulmonary vascular congestion with interstitial prominence and peribronchial cuffing with Jazlyn B-lines suggests acute pulmonary interstitial edema/CHF. No focal consolidation or sizable pleural effusion. No pneumothorax. MACRO: None Signed by: Stanton Kerns 10/11/2024 6:39 AM Dictation workstation: [id number] [facility] Work Phone: Radiology Study observation (narrative) [facility] Work Phone: XR Chest Single viewOrdered By: Stanton Kerns on 10-11-2024 [facility] Work Phone: CNOVon 10-07-2024 CNOV Office Visit (WSTR ) ----- MICHAEL BELTRAN ([id number]) 1955 M Date Time Provider Department 10/07/24 11:30 AM [facility] During your visit today, we recorded the following information about you: Temperature Pulse Respiration Blood pressure 99.3 degrees 102/minute 18/minute 124/72 Weight 74.6 kg César Cordoba PA-C 10/07/2024 11:58 AM Signed This note was created using [employer]. Subjective Michael Beltran is a 69 year old male. Patient is a 69-year-old male who complains of worsening loose, productive cough that he has been experiencing for the past 1 week. Patient also reports ongoing fever. Patient was seen and evaluated at this facility on 03 October 2024 at which time he was diagnosed with a viral illness. Influenza test on that date was negative. Patient reports mild congestion and denies sinus pressure, ear pain or sore throat. Patient does have a history of asthma and states that he does have a current albuterol MDI that he is using as directed. Patient states that his cough is becoming increasingly coarse and productive over the past 2 days and he has noted an increasing wheezing cough. Patient's states that his pulse oximeter saturation at home was noted to be 90 to 91% on room air. Patient has no history of COPD and does not smoke. Review of Systems Respiratory: Positive for cough, shortness of breath and wheezing. All other systems reviewed and are negative. Objective BP 124/72 Pulse 102 Temp 37.4 ?C (99.3 ?F) Resp 18 Wt 74.6 kg (164 lb 7.4 oz) SpO2 94% BMI 23.94 kg/m? Physical Exam Vitals and nursing note reviewed. Constitutional: Appearance: Normal appearance. He is normal weight. HENT: Head: Normocephalic and atraumatic. Right Ear: Tympanic membrane, ear canal and external ear normal. Left Ear: Tympanic membrane, ear canal and external ear normal. Nose: Nose normal. Mouth/Throat: Mouth: Mucous membranes are moist. Pharynx: Oropharynx is clear. Eyes: Extraocular Movements: Extraocular movements intact. Conjunctiva/sclera: Conjunctivae normal. Pupils: Pupils are equal, round, and reactive to light. Cardiovascular: Rate and Rhythm: Normal rate and regular rhythm. Pulses: Normal pulses. Heart sounds: Normal heart sounds. Pulmonary: Effort: Pulmonary effort is normal. Breath sounds: Wheezing and rhonchi present. Comments: Respiratory effort is relaxed and pulse oximeter saturation is 94% on room air. Patient is conversing in complete sentences. Musculoskeletal: Cervical back: Normal range of motion and neck supple. Skin: General: Skin is warm and dry. Capillary Refill: Capillary refill takes less than 2 seconds. Neurological: General: No focal deficit present. Mental Status: He is alert and oriented to person, place, and time. Psychiatric: Mood and Affect: Mood normal. Behavior: Behavior normal. Thought Content: Thought content normal. Judgment: Judgment normal. Assessment and Plan Physical exam findings as noted above. Patient was provided with prescriptions for doxycycline 100 mg, prednisone 20 mg and Tessalon 100 mg. Patient was very clearly instructed to report to an emergency department if he notes any worsening symptoms or if his pulse oximeter saturation is noted to be less than 91%. Patient and his verbalize good understanding of the above instructions. CLINICAL IMPRESSION: Bronchopneumonia ASSESSMENT/PLAN: 1. Bronchopneumonia - ICD9: 485, ICD10: J18.0 - BENZONATATE 100 MG CAPSULE - PREDNISONE 20 MG TABLET - DOXYCYCLINE HYCLATE 100 MG TABLET César Cordoba PA-C Allergies As of Date: 10/07/2024 Noted Allergy Reaction ERYTHROMYCIN 11/10/2019 9 - Itching ETHER 11/10/2019 12 - Shortness of Breath Date Reviewed: 10/07/2024 Reviewed by: Carlie Johnson MA - Fully Assessed Reason for Visit: Nasal Congestion [235] Cmt: drainage, cough, fever x 6 days Primary Visit Diagnosis:Bronchopneumoni a [J18.0] Order(s):benzonatate (TESSALON PERLE) 100 mg capsuleTake 1 capsule by mouth three times a day as needed for cough for up to 7 days.Disp: 21 capsuleRfl: 0 predniSONE (DELTASONE) 20 mg tabletTake 1 tablet by mouth two times a day for 5 days.Disp: 10 tabletRfl: 0 doxycycline (VIBRA-TABS) 100 mg tabletTake 1 tablet by mouth two times a day for 10 days.Disp: 20 tabletRfl: 0 Prescriptions as of 10/07/2024 - benzonatate (TESSALON PERLE) 100 mg capsule Take 1 capsule by mouth three times a day as needed for cough for up to 7 days. - predniSONE (DELTASONE) 20 mg tablet Take 1 tablet by mouth two times a day for 5 days. - doxycycline (VIBRA-TABS) 100 mg tablet Take 1 tablet by mouth two times a day for 10 days. - albuterol HFA (PROVENTIL HFA, VENTOLIN HFA) 90 mcg/actuation inhaler Inhale 2 Puffs as instructed every 4 hours as needed for wheezing/shortness of breath. - Tadalafil (CIALIS) 20 (more content not included)... Normal [facility] CNOVon 10-03-2024 CNOV Office Visit (UCWSTR ) ----- MICHAEL BELTRAN ([id number]) 1955 M Date Time Provider Department 10/03/24 6:45 PM ALLAN STAPLES [facility] During your visit today, we recorded the following information about you: Temperature Pulse Respiration Blood pressure 99.3 degrees 93/minute 18/minute 118/77 Weight 76.5 kg Allan Staples MD 10/03/2024 7:34 PM Signed Patient presents with: Cough: Fever, chest congestion, SOB x last night HPI: Feeling sick since last night. He was exposed to a sick grandchild this weekend. Positive symptoms: Cough, Shortness of breath, Wheezing, Fever, Nasal Congestion, Rhinorrhea, Body Aches, Malaise, Fatigue, Headache, Negative symptoms: Sore throat, Vomiting, Diarrhea, OTC: cough medicine PHx of pneumonia. Noticed geese and an [place] on the [place] he lives [place] and wonders about bird flu. MEDICATIONS: Current Outpatient Medications Medication Sig Tadalafil (CIALIS) 20 mg tablet Take 1 tablet by mouth once daily. As needed venlafaxine ER (EFFEXOR XR) 75 mg 24 hr capsule Take 1 capsule by mouth three times a day. atorvastatin (LIPITOR) 20 mg tablet Take 1 tablet by mouth once daily. loratadine 10 mg cap Take 10 mg by mouth as needed. No current facility-administered medications for this visit. ALLERGIES: ALLERGIES Allergen Reactions Erythromycin Itching Ether Shortness of Breath VITALS: BP 118/77 Pulse 93 Temp 37.4 ?C (99.3 ?F) Resp 18 Wt 76.5 kg (168 lb 10.4 oz) SpO2 96% BMI 24.55 kg/m? PHYSICAL EXAM: GEN: mildly ill appearing HEENT: PERRL, EOMI, conjunctiva clear Ears: canals clear. TMs without erythema, bulge, or effusion Sinuses: non-tender frontal sinus, non-tender maxillary sinuses Throat: moist mucous membranes, no erythema, no exudate Neck: supple, no thyromegaly, no lymphadenopathy HEART: regular rate, regular rhythm, no murmurs LUNGS: clear to auscultation, no wheezes or crackles, no increased WOB; wheezy cough ASSESSMENT/PLAN: 1. Influenza-like illness - ICD9: 487.1, ICD10: J11.1 (primary diagnosis) 2. Wheezing - ICD9: 786.07, ICD10: R06.2 - INFLUENZA AANDB MOLECULAR (POC) - negative - suspect viral URI, differential includes COVID-19. He declines further viral testing. - Discussed supportive care treatment with rest, cold medicine, and analgesia. - Red flags to seek further treatment include chest pain, shortness of breath, and lethargy; in the ER if severe. - ALBUTEROL SULFATE HFA 90 MCG/ACTUATION AEROSOL INHALER - has used remotely and feels it might help currently. Allan Staples MD Allergies As of Date: 10/03/2024 Noted Allergy Reaction ERYTHROMYCIN 11/10/2019 9 - Itching ETHER 11/10/2019 12 - Shortness of Breath Date Reviewed: 10/03/2024 Reviewed by: Rhianna Gallardo MA - Fully Assessed Reason for Visit: Cough [28] Cmt: Fever, chest congestion, SOB x last night Primary Visit Diagnosis:Influenza-like illness [J11.1] Other Visit Diagnosis:Wheezing [R06.2] Order(s):INFLUENZA AANDB MOLECULAR (POC) [4766375] Order #: [id number]. #:[id number] 07-LAB albuterol HFA (PROVENTIL HFA, VENTOLIN HFA) 90 mcg/actuation inhalerInhale 2 Puffs as instructed every 4 hours as needed for wheezing/shortness of breath.Disp: 8 gRfl: 0 [] Inhalational Spacing Device1 Device one time only for 1 dose.Disp: 1 EachRfl: 0 Prescriptions as of 10/04/2024 - albuterol HFA (PROVENTIL HFA, VENTOLIN HFA) 90 mcg/actuation inhaler Inhale 2 Puffs as instructed every 4 hours as needed for wheezing/shortness of breath. - Tadalafil (CIALIS) 20 mg tablet Take 1 tablet by mouth once daily. As needed - venlafaxine ER (EFFEXOR XR) 75 mg 24 hr capsule Take 1 capsule by mouth three times a day. - atorvastatin (LIPITOR) 20 mg tablet Take 1 tablet by mouth once daily. - loratadine 10 mg cap Take 10 mg by mouth as needed. Problem List As Of Date 10/03/2024 Noted Resolved Arthritis [M19.90] 01/21/2021 Mixed hyperlipidemia [E78.2] 01/21/2021 Major depressive disorder with single episode, *01/21/2021 JUSTO (generalized anxiety disorder) [F41.1] 01/21/2021 Ex-smoker [Z87.891] 01/21/2021 Medicare annual wellness visit, subsequent [Z00*01/21/2021 Sensorineural hearing loss (SNHL) of left ear [*01/21/2021 Chronic pain syndrome [G89.4] 01/21/2021 Prostate disorder [N42.9] 01/21/2021 Advanced directives, counseling/discussion [Z71*01/21/2021 Anemia of chronic disease [D63.8] 01/22/2021 Marijuana use [F12.90] 03/09/2021 Elevated blood sugar [R73.9] 02/24/2022 Erectile dysfunction [N52.9] 02/24/2022 Hyponatremia [E87.1] 04/22/2022 Chronic midline low back 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 *05/03/2024 Medication management [Z79.899] 05/03/2024 Prescriptions ordered this encounter Disp Refills Start End ALBUTEROL SULFATE HFA 90 MCG/ACTUATI* 8 g 0 10/03/2024 11/02/2024 Cmt: Generic or brand: dispense inhaler preferred (more content not included)... [facility] INFLUENZA A&B MOLECULAR (POC )on 10-03-2024 Flu A (POCT) Negative Negative [facility] Flu B (POCT) Negative Negative [facility] Procedural Control Valid [facility] Location: [place], [address] [facility], [place], [place], [id number] [place] [address] POINT OF CARE [facility] CNTHERAPYon 07-25-2024 CNTHERAPY OT/PT/Speech Visit ( PTWS) ----- MICHAEL BELTRAN ([id number]) 1955 M Date Time Provider Department 07/25/24 10:30 AM CHRIS DE LEON PTAUGUSTA Date Time Provider Department Center 07/25/2024 10:30 AM [id number], SEAN [facility] Reason for Visit: Physical Therapy [503] Primary Visit Diagnosis:Chronic midline low back 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 [M54.50, G89.29] Allergies As of Date: 07/25/2024 Noted Allergy Reaction ERYTHROMYCIN 11/10/2019 9 - Itching ETHER 11/10/2019 12 - Shortness of Breath Date Reviewed: 05/03/2024 Reviewed by: Bola Durand MD - Fully Assessed Prescriptions as of 07/25/2024 - venlafaxine ER (EFFEXOR XR) 75 mg 24 hr capsule Take 1 capsule by mouth three times a day. - atorvastatin (LIPITOR) 20 mg tablet Take 1 tablet by mouth once daily. - Tadalafil (CIALIS) 20 mg tablet Take 1 tablet by mouth once daily. As needed - loratadine 10 mg cap Take 10 mg by mouth as needed. Outside Residential Sales Professional: Therapy (PT/OT/Speech/Resp) ID: [id number] 07/25/2024 10:43 AM Author: CHRIS DE LEON Signed by CHRIS DE LEON PT on 07/25/2024 at 10:43 AM Document text: Program_ID:[id number] Access Code: [email or web address] URL: [email or web address] Date: 07-25-2024 Prepared By: Chris De Leon Program Notes Exercises - Cat Cow - 1 x daily - 7 x weekly - 3 sets - 10 reps - Squatting Anti-Rotation Press - 1 x daily - 7 x weekly - 3 sets - 10 reps - Supine Transversus Abdominis Bracing - Hands on Stomach - 1 x daily - 7 x weekly - 3 sets - 10 reps - Supine Bug with Leg Extension - 1 x daily - 7 x weekly - 3 sets - 10 reps - Hooklying Single Leg Bent Knee Fallouts with Resistance - 1 x daily - 7 x weekly - 3 sets - 10 reps Patient Education - Lifting Techniques [facility] THERAPY NTon 07-25-2024 THERAPY NT HNO ID: [id number] Author: CHRIS DE LEON PT Service: ? Author Type: Physical Therapist Type: Therapy (PT/OT/Speech/Resp) Filed: 07/25/2024 10:43 Note Text: Program_ID:[id number] Access Code: [email or web address] URL: [email or web address] Date: 07-25-2024 Prepared By: Chris De Leon Program Notes Exercises - Cat Cow - 1 x daily - 7 x weekly - 3 sets - 10 reps - Squatting Anti-Rotation Press - 1 x daily - 7 x weekly - 3 sets - 10 reps - Supine Transversus Abdominis Bracing - Hands on Stomach - 1 x daily - 7 x weekly - 3 sets - 10 reps - Supine Bug with Leg Extension - 1 x daily - 7 x weekly - 3 sets - 10 reps - Hooklying Single Leg Bent Knee Fallouts with Resistance - 1 x daily - 7 x weekly - 3 sets - 10 reps Patient Education - Lifting Techniques [facility] CNTHERAPYon 06-14-2024 CNTHERAPY OT/PT/Speech Visit ( PTWS) ----- LINDYCLEMENTINEMAYUR GERBERORY ([id number]) 1955 M Date Time Provider Department 06/14/24 11:30 AM CHRIS DE LEON PTWS Date Time Provider Department [place] 06/14/2024 11:30 AM [id number], SEAN PTWS [facility] Reason for Visit: Physical Therapy [503] Primary Visit Diagnosis:Chronic midline low back 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 [M54.50, G89.29] Allergies As of Date: 06/14/2024 Noted Allergy Reaction ERYTHROMYCIN 11/10/2019 9 - Itching ETHER 11/10/2019 12 - Shortness of Breath Date Reviewed: 05/03/2024 Reviewed by: Bola Durand MD - Fully Assessed Prescriptions as of 06/15/2024 - venlafaxine ER (EFFEXOR XR) 75 mg 24 hr capsule Take 1 capsule by mouth three times a day. - atorvastatin (LIPITOR) 20 mg tablet Take 1 tablet by mouth once daily. - Tadalafil (CIALIS) 20 mg tablet Take 1 tablet by mouth once daily. As needed - loratadine 10 mg cap Take 10 mg by mouth as needed. Outside Residential Sales Professional: Addendum Therapy (PT/OT/Speech/Resp) ID: [id number] 06/14/2024 12:06 PM Author: CHRIS DE LEON Signed by CHRIS DE LEON PT on 06/14/2024 at 12:07 PM * * * This document replaces document [id number] * * * Document text: Program_ID:[id number] Access Code: [email or web address] URL: [email or web address]/ Date: 06-14-2024 Prepared By: Chris De Leon Program Notes Exercises - Cat Cow - 1 x daily - 7 x weekly - 3 sets - 10 reps - Squatting Anti-Rotation Press - 1 x daily - 7 x weekly - 3 sets - 10 reps - Supine Transversus Abdominis Bracing - Hands on Stomach - 1 x daily - 7 x weekly - 3 sets - 10 reps - Supine Bug with Leg Extension - 1 x daily - 7 x weekly - 3 sets - 10 reps - Hooklying Single Leg Bent Knee Fallouts with Resistance - 1 x daily - 7 x weekly - 3 sets - 10 reps Patient Education - Lifting Techniques [facility] THERAPY NTon 06-14-2024 THERAPY NT HNO ID: [id number] Author: CHRIS DE LEON PT Service: ? Author Type: Physical Therapist Type: Therapy (PT/OT/Speech/Resp) Filed: 06/14/2024 12:07 Note Text: Program_ID:[id number] Access Code: [email or web address] URL: [email or web address] Date: 06-14-2024 Prepared By: Chris De Leon Program Notes Exercises - Cat Cow - 1 x daily - 7 x weekly - 3 sets - 10 reps - Squatting Anti-Rotation Press - 1 x daily - 7 x weekly - 3 sets - 10 reps - Supine Transversus Abdominis Bracing - Hands on Stomach - 1 x daily - 7 x weekly - 3 sets - 10 reps - Supine Bug with Leg Extension - 1 x daily - 7 x weekly - 3 sets - 10 reps - Hooklying Single Leg Bent Knee Fallouts with Resistance - 1 x daily - 7 x weekly - 3 sets - 10 reps Patient Education - Lifting Techniques [facility] CNTHERAPYon 06-08-2024 CNTHERAPY OT/PT/Speech Visit ( PTWS) ----- LINDYCLEMENTINEMAYUR GERBERORY ([id number]) 1955 M Date Time Provider Department 06/08/24 2:30 PM CHRIS DE LEON PTWS Date Time Provider Department Center 06/08/2024 2:30 PM [id number], SEAN PTWS [facility] Reason for Visit: Physical Therapy [503] Primary Visit Diagnosis:Chronic midline low back 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 [M54.50, G89.29] Allergies As of Date: 06/08/2024 Noted Allergy Reaction ERYTHROMYCIN 11/10/2019 9 - Itching ETHER 11/10/2019 12 - Shortness of Breath Date Reviewed: 05/03/2024 Reviewed by: Bola Durand MD - Fully Assessed Prescriptions as of 06/08/2024 - venlafaxine ER (EFFEXOR XR) 75 mg 24 hr capsule Take 1 capsule by mouth three times a day. - atorvastatin (LIPITOR) 20 mg tablet Take 1 tablet by mouth once daily. - Tadalafil (CIALIS) 20 mg tablet Take 1 tablet by mouth once daily. As needed - loratadine 10 mg cap Take 10 mg by mouth as needed. Outside Residential Sales Professional: Addendum Therapy (PT/OT/Speech/Resp) ID: [id number] 06/08/2024 2:59 PM Author: CHRIS DE LEON Signed by CHRIS DE LEON PT on 06/08/2024 at 2:59 PM * * * This document replaces document [id number] * * * Document text: Program_ID:[id number] Access Code: [email or web address] URL: [email or web address] Date: 06-08-2024 Prepared By: Chris De Leon Program Notes Exercises - Cat Cow - 1 x daily - 7 x weekly - 3 sets - 10 reps - Squatting Anti-Rotation Press - 1 x daily - 7 x weekly - 3 sets - 10 reps - Supine Transversus Abdominis Bracing - Hands on Stomach - 1 x daily - 7 x weekly - 3 sets - 10 reps - Supine March with Alternating Leg Lifts - 1 x daily - 7 x weekly - 3 sets - 10 reps - Bent Knee Fallouts with Alternating Legs - 1 x daily - 7 x weekly - 3 sets - 10 reps Patient Education - Lifting Techniques [facility] THERAPY NTon 06-08-2024 THERAPY NT HNO ID: [id number] Author: CHRIS DE LEON PT Service: ? Author Type: Physical Therapist Type: Therapy (PT/OT/Speech/Resp) Filed: 06/08/2024 14:59 Note Text: Program_ID:[id number] Access Code: [email or web address] URL: [email or web address] Date: 06-08-2024 Prepared By: Chris De Leon Program Notes Exercises - Cat Cow - 1 x daily - 7 x weekly - 3 sets - 10 reps - Squatting Anti-Rotation Press - 1 x daily - 7 x weekly - 3 sets - 10 reps - Supine Transversus Abdominis Bracing - Hands on Stomach - 1 x daily - 7 x weekly - 3 sets - 10 reps - Supine March with Alternating Leg Lifts - 1 x daily - 7 x weekly - 3 sets - 10 reps - Bent Knee Fallouts with Alternating Legs - 1 x daily - 7 x weekly - 3 sets - 10 reps Patient Education - Lifting Techniques [facility] [id number] 05-29-2024 [id number] HNO ID: [id number] Author: CHRIS DE LEON PT Service: ? Author Type: Physical Therapist Type: [id number] Filed: 05/29/2024 15:47 Note Text: [facility] Rehabilitation [facility] Sports Therapy Physical Therapy Plan of Care Certification Patient Name: Michael Beltran : 1955 [facility] #: [id number] Date: 05/29/2024 To: Bola Durand MD From Therapist: Chris De Leon PT RE: Patient Certification/ Recertification Your review, approval and electronic signature are required in order to comply with Payor: FORMERLY [facility] [employer] / Plan: [employer] MEDICARE ADVANTAGE HMO / Product Type: HMO / regulations. The identified Physical Therapy PLAN OF CARE for the patient is as follows: M54.50, G89.29 Chronic midline low back 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 (primary encounter diagnosis) PLAN OF CARE: Assessment: Michael Beltran presents with chief complaint of chronic back pain that interferes with bending, heavy exertion, lifting, physical activities, recreational activities . The patient presents with impairments in ADL's, overall function, range of motion, strength, symptom management, and tissue tenderness. PROMIS? (Patient-Reported Outcomes Measurement Information System) scores were reviewed and identified as within normal limits. Prognosis for therapy is Good due to: current objective clinical presentation, good overall health status, acuteness of condition, positive past response to therapy, within-session changes, good support system/ coping skills . The patient will benefit from skilled therapy services to meet the goals established for this plan of care as noted below. Classification Pain Mechanism Classification: Nociceptive Low Back Pain Classification: Movement Control Goals for Episode of Care: established 05/29/24 Independent in home exercises. Patient will decrease pain rating by 2 points to meet minimal clinical important difference for numeric pain rating scale. Restore pain-free lumbar ROM to WNL to allow for decreased pain and improved functional mobility Maintain proper sitting posture throughout session Patient will increase strength of trunk/core to 5/5 to allow for improve ability to complete ADLs. Time Frame for Goals and Treatment : 07/29/24 Planned Interventions, Frequency, and Duration: Current Frequency: 1x/week Duration: 8 weeks Total Number of Visits Planned: 8 Planned Treatment Interventions: Therapeutic exercise (49812), Neuromuscular re-education (26096), Manual therapy (95261), Therapeutic activities (51458), Self-alf management (88018), Patient/Family/Caregiver Education, Body Mechanics Training PLAN FOR NEXT VISIT: Neutral spine strengthening, manual to thoracic paraspinals. May be a needling candidate Patient demonstrates good understanding of plan of care and treatment. The above goals and plan of care were discussed and agreed upon by patient/family. For further details regarding this patient refer to the Physical Therapy electronically documented visit dated 05/29/2024. Provider Attestation I have reviewed the treatment plan for Michael Beltran, [facility]# [id number] for the period of 05/29/24 -- 08/29/24, established on 05/29/2024. Signature certifies the need for therapy services. [facility] CNTHERAPYon 05-29-2024 CNTHERAPY OT/PT/Speech Visit ( PTWS) ----- MICHAEL BELTRAN ([id number]) 1955 M Date Time Provider Department 05/29/24 11:30 AM CHRIS DE LEON PTWS Date Time Provider Department Center 05/29/2024 11:30 AM [id number], SEAN PTWS Vania Hernandez Reason for Visit: PT Eval [747] Primary Visit Diagnosis:Chronic midline low back 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 [M54.50, G89.29] Allergies As of Date: 05/29/2024 Noted Allergy Reaction ERYTHROMYCIN 11/10/2019 9 - Itching ETHER 11/10/2019 12 - Shortness of Breath Date Reviewed: 05/03/2024 Reviewed by: Bola Durand MD - Fully Assessed Prescriptions as of 05/29/2024 - venlafaxine ER (EFFEXOR XR) 75 mg 24 hr capsule Take 1 capsule by mouth three times a day. - atorvastatin (LIPITOR) 20 mg tablet Take 1 tablet by mouth once daily. - Tadalafil (CIALIS) 20 mg tablet Take 1 tablet by mouth once daily. As needed - loratadine 10 mg cap Take 10 mg by mouth as needed. Outside Residential Sales Professional: Therapy (PT/OT/Speech/Resp) ID: [id number] 05/29/2024 12:16 PM Author: CHRIS DE LEON Signed by CHRIS DE LEON PT on 05/29/2024 at 12:16 PM Document text: Program_ID:[id number] Access Code: [email or web address] URL: [email or web address] Date: 05-29-2024 Prepared By: Chris De Leon Program Notes Exercises - Cat Cow - 1 x daily - 7 x weekly - 3 sets - 10 reps - Supine Transversus Abdominis Bracing - Hands on Stomach - 1 x daily - 7 x weekly - 3 sets - 10 reps - Squatting Anti-Rotation Press - 1 x daily - 7 x weekly - 3 sets - 10 reps Normal [facility] THERAPY NTon 05-29-2024 THERAPY NT HNO ID: [id number] Author: CHRIS DE LEON PT Service: ? Author Type: Physical Therapist Type: Therapy (PT/OT/Speech/Resp) Filed: 05/29/2024 12:16 Note Text: Program_ID:[id number] Access Code: [email or web address] URL: [email or web address] Date: 05-29-2024 Prepared By: Chris De Leon Program Notes Exercises - Cat Cow - 1 x daily - 7 x weekly - 3 sets - 10 reps - Supine Transversus Abdominis Bracing - Hands on Stomach - 1 x daily - 7 x weekly - 3 sets - 10 reps - Squatting Anti-Rotation Press - 1 x daily - 7 x weekly - 3 sets - 10 reps Normal [facility] CNPNon 05-06-2024 CNPN Telephone (FAMPWS) ----- MICHAEL [id number]) 1955 M Date Time Provider Department 05/06/24 BOLA DURAND During your visit today, we recorded the following information about you: Bola Durand MD 05/06/2024 12:24 PM Signed Let patient know his chronic anemia is stable. His sodium is stable. The rest of his labs were all ok. Mignon [place] MA 05/07/2024 10:09 AM Signed Left message for patient to contact office. TRACEE Weber Stephanie, RN 05/07/2024 10:11 AM Signed Patient notified of results and provider's instructions. Patient verbalizes understanding. Radhika Neff RN Allergies As of Date: 05/06/2024 Noted Allergy Reaction ERYTHROMYCIN 11/10/2019 9 - Itching ETHER 11/10/2019 12 - Shortness of Breath Date Reviewed: 05/03/2024 Reviewed by: Bola Durand MD - Fully Assessed Reason for Visit: Results [95] Prescriptions as of 05/07/2024 - venlafaxine ER (EFFEXOR XR) 75 mg 24 hr capsule Take 1 capsule by mouth three times a day. - atorvastatin (LIPITOR) 20 mg tablet Take 1 tablet by mouth once daily. - Tadalafil (CIALIS) 20 mg tablet Take 1 tablet by mouth once daily. As needed - loratadine 10 mg cap Take 10 mg by mouth as needed. Problem List As Of Date 05/06/2024 Noted Resolved Arthritis [M19.90] 01/21/2021 Mixed hyperlipidemia [E78.2] 01/21/2021 Major depressive disorder with single episode, *01/21/2021 JUSTO (generalized anxiety disorder) [F41.1] 01/21/2021 Ex-smoker [Z87.891] 01/21/2021 Medicare annual wellness visit, subsequent [Z00*01/21/2021 Sensorineural hearing loss (SNHL) of left ear [*01/21/2021 Chronic pain syndrome [G89.4] 01/21/2021 Prostate disorder [N42.9] 01/21/2021 Advanced directives, counseling/discussion [Z71*01/21/2021 Anemia of chronic disease [D63.8] 01/22/2021 Marijuana use [F12.90] 03/09/2021 Elevated blood sugar [R73.9] 02/24/2022 Erectile dysfunction [N52.9] 02/24/2022 Hyponatremia [E87.1] 04/22/2022 Chronic midline low back 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 *05/03/2024 Medication management [Z79.899] 05/03/2024 Encounter Status:Closed by RADHIKA NEFF on 05/07/24 Normal [facility] CBC W Auto Differential pane l (Bld)on 05-03-2024 Basophils (Bld) [#/Vol] 0.07 10*3/uL [facility] Basophils/100 WBC (Bld) 1.2 % [facility] Differential cell count method Nom (Bld) Auto [facility] Eosinophils (Bld) [#/Vol] 0.61 10*3/uL High [facility] Eosinophils/100 WBC (Bld) 10.3 % [facility] Erythrocyte distribution width (RBC) [Ratio] 13.8 % 11.5 - 15.0 % [facility] Hematocrit (Bld) [Volume fraction] 36.3 % Low 39.0 - 51.0 % [facility] Hemoglobin (Bld) [Mass/Vol] 12.3 g/dL Low 13.0 - 17.0 g/dL [facility] Immature granulocytes (Bld) [#/Vol] [facility] Immature granulocytes/100 WBC (Bld) 0.3 % [facility] Interpretation and review of laboratory results Abnormal [facility] Lymphocytes (Bld) [#/Vol] 1.78 10*3/uL [facility] Lymphocytes/100 WBC (Bld) 30.0 % [facility] MCH (RBC) [Entitic mass] 30.9 pg 26.0 - 34.0 pg [facility] MCHC (RBC) [Mass/Vol] 33.9 g/dL 30.5 - 36.0 g/dL [facility] MCV (RBC) [Entitic vol] 91.2 fL 80.0 - 100.0 fL [facility] Monocytes (Bld) [#/Vol] 0.74 10*3/uL [facility] Monocytes/100 WBC (Bld) 12.5 % [facility] Neutrophils (Bld) [#/Vol] 2.71 10*3/uL [facility] Neutrophils/100 WBC (Bld) 45.7 % [facility] Nucleated RBC (Bld) [#/Vol] NINF [facility] Nucleated RBC/100 WBC (Bld) [Ratio] 0.0 % /100 WBC [facility] Platelet mean volume (Bld) [Entitic vol] 10.4 fL 9.0 - 12.7 fL [facility] Platelets (Bld) [#/Vol] 229 10*3/uL [facility] RBC (Bld) [#/Vol] 3.98 10*6/uL Low 4.20 - 6.0 0 m/uL [facility] WBC (Bld) [#/Vol] 5.93 10*3/uL [facility] Basophils (Bld) [#/Vol] 0.07 10*3/uL Normal <0.11 [facility] Comment on above: Order Comment: Speci men Type: BLOOD SPECIMENOrdering Facility: [facility] Address: [address] [place] [address] Performed By: #### 5 7021-8 ####[facility] LABIA [id number] [place] [address] [place] Basophils/100 WBC (Bld) 1.2 % [facility] Comment on above: Order Comment: Speci men Type: BLOOD SPECIMENOrdering Facility: [facility] Address: [address] [place] [address] Performed By: #### 5 7021-8 ####[facility] LABCLIA [id number] [place] [address] [place] Differential cell count method Nom (Bld) Auto [facility] Comment on above: Order Comment: Speci men Type: BLOOD SPECIMENOrdering Facility: [facility] Address: [address] [place] [address] Performed By: #### 5 7021-8 ####[facility] LABCLIA [id number] [place] [address] [place] Eosinophils (Bld) [#/Vol] 0.61 10*3/uL High <0.46 [facility] Comment on above: Order Comment: Speci men Type: BLOOD SPECIMENOrdering Facility: [facility] Address: [address] [place] [address] Performed By: #### 5 7021-8 ####[facility] LABCLIA [id number] [place] [address] [place] Eosinophils/100 WBC (Bld) 10.3 % [facility] Comment on above: Order Comment: Speci men Type: BLOOD SPECIMENOrdering Facility: [facility] Address: [address] [place] [address] Performed By: #### 5 7021-8 ####[facility] LABIA [id number] [place] [address] [place] Erythrocyte distribution width (RBC) [Ratio] 13.8 % Normal 11.5-15.0 [facility] Comment on above: Order Comment: Speci men Type: BLOOD SPECIMENOrdering Facility: [facility] Address: [address] [place] [address] Performed By: #### 5 7021-8 ####[facility] LABCLIA [id number] [place] [address] [place] Hematocrit (Bld) [Volume fraction] 36.3 % Low 39.0-51.0 [facility] Comment on above: Order Comment: Speci men Type: BLOOD SPECIMENOrdering Facility: [facility] Address: [address] [place] [address] Performed By: #### 5 7021-8 ####[facility] LABIA [id number] [place] [address] [place] Hemoglobin (Bld) [Mass/Vol] 12.3 g/dL Low 13.0-17.0 [facility] Comment on above: Order Comment: Speci men Type: BLOOD SPECIMENOrdering Facility: [facility] Address: [address] [place] [address] Performed By: #### 5 7021-8 ####[facility] LABCLIA [id number] [place] [address] [place] Immature granulocytes (Bld) [#/Vol] 10*3/uL Normal <0.10 [facility] Comment on above: Order Comment: Speci men Type: BLOOD SPECIMENOrdering Facility: [facility] Address: [address] [place] [address] Performed By: #### 5 7021-8 ####[facility] LABCLIA [id number] [place] [address] [place] Immature granulocytes/100 WBC (Bld) 0.3 % Normal [facility] Comment on above: Order Comment: Speci men Type: BLOOD SPECIMENOrdering Facility: [facility] Address: [address] [place] [address] Performed By: #### 5 7021-8 ####[facility] LABCLIA [id number] [place] [address] [place] Lymphocytes (Bld) [#/Vol] 1.78 10*3/uL Normal 1.00-4.00 [facility] Comment on above: Order Comment: Speci men Type: BLOOD SPECIMENOrdering Facility: [facility] Address: [address] [place] [address] Performed By: #### 5 7021-8 ####[facility] LABCLIA [id number] [place] [address] [place] Lymphocytes/100 WBC (Bld) 30.0 % Normal [facility] Comment on above: Order Comment: Speci men Type: BLOOD SPECIMENOrdering Facility: [facility] Address: [address] [place] [address] Performed By: #### 5 7021-8 ####[facility] LABCLIA [id number] [place] [address] [place] MCH (RBC) [Entitic mass] 30.9 pg Normal 26.0-34.0 [facility] Comment on above: Order Comment: Speci men Type: BLOOD SPECIMENOrdering Facility: [facility] Address: [address] [place] [address] Performed By: #### 5 7021-8 ####[facility] LABCLIA [id number] [place] [address] [place] MCHC (RBC) [Mass/Vol] 33.9 g/dL Normal 30.5-36.0 [facility] Comment on above: Order Comment: Speci men Type: BLOOD SPECIMENOrdering Facility: [facility] Address: [address] [place] [address] Performed By: #### 5 7021-8 ####[facility] LABCLIA [id number] [place] [address] [place] MCV (RBC) [Entitic vol] 91.2 fL Normal 80.0-100.0 [facility] Comment on above: Order Comment: Speci men Type: BLOOD SPECIMENOrdering Facility: [facility] Address: [address] [place] [address] Performed By: #### 5 7021-8 ####[facility] LABIA [id number] [place] [address] [place] Monocytes (Bld) [#/Vol] 0.74 10*3/uL Normal <0.87 [facility] Comment on above: Order Comment: Speci men Type: BLOOD SPECIMENOrdering Facility: [facility] Address: [address] [place] [address] Performed By: #### 5 7021-8 ####[facility] LABCLIA [id number] [address] [place] Monocytes/100 WBC (Bld) 12.5 % Normal [facility] Comment on above: Order Comment: Speci men Type: BLOOD SPECIMENOrdering Facility: [facility] Address: [address] [place] [address] Performed By: #### 5 7021-8 ####[facility] LABCLIA [id number] [place] [address] [place] Neutrophils (Bld) [#/Vol] 2.71 10*3/uL Normal 1.45-7.50 [facility] Comment on above: Order Comment: Speci men Type: BLOOD SPECIMENOrdering Facility: [facility] Address: [address] [place] [address] Performed By: #### 5 7021-8 ####[facility] LABCLIA [id number] [place] [address] [place] Neutrophils/100 WBC (Bld) 45.7 % Normal [facility] Comment on above: Order Comment: Speci men Type: BLOOD SPECIMENOrdering Facility: [facility] Address: [address] [place] [address] Performed By: #### 5 7021-8 ####[facility] LABCLIA [id number] [place] [address] [place] Nucleated RBC (Bld) [#/Vol] 10*3/uL Normal <0.01 [facility] Comment on above: Order Comment: Speci men Type: BLOOD SPECIMENOrdering Facility: [facility] Address: [address] [place] [address] Performed By: #### 5 7021-8 ####[facility] LABCLIA [id number] [place] [address] [place] Nucleated RBC/100 WBC (Bld) [Ratio] 0.0 /100 WBC Normal [facility] Comment on above: Order Comment: Speci men Type: BLOOD SPECIMENOrdering Facility: [facility] Address: [address] [place] [address] Performed By: #### 5 7021-8 ####[facility] LABCLIA [id number] [place] [address] [place] Platelet mean volume (Bld) [Entitic vol] 10.4 fL Normal 9.0-12.7 [facility] Comment on above: Order Comment: Speci men Type: BLOOD SPECIMENOrdering Facility: [facility] Address: [address] [place] [address] Performed By: #### 5 7021-8 ####[facility] LABIA [id number] [place] [address] [place] Platelets (Bld) [#/Vol] 229 10*3/uL Normal 150-400 [facility] Comment on above: Order Comment: Speci men Type: BLOOD SPECIMENOrdering Facility: [facility] Address: [address] [place] [address] Performed By: #### 5 7021-8 ####[facility] LABIA [id number] [place] [address] [place] RBC (Bld) [#/Vol] 3.98 10*6/uL Low 4.20-6.00 [facility] Comment on above: Order Comment: Speci men Type: BLOOD SPECIMENOrdering Facility: [facility] Address: [address] [place] [address] Performed By: #### 5 7021-8 ####[facility] LABIA [id number] [place] [address] [place] WBC (Bld) [#/Vol] 5.93 10*3/uL Normal 3.70-11.00 [facility] Comment on above: Order Comment: Speci men Type: BLOOD SPECIMENOrdering Facility: [facility] Address: [address] [place] [address] Performed By: #### 5 7021-8 ####[facility] LABIA [id number] [place] [address] [place] CNOVon 05-03-2024 [facility] MICHAEL BELTRAN ([id number]) 1955 M Date Time Provider Department 05/03/24 11:40 AM BOLA DURAND During your visit today, we recorded the following information about you: Pulse Blood pressure Weight Height 71/minute 138/75 74.4 kg 1.765 m Bola Durand MD 05/03/2024 1:46 PM Signed Michael Beltran is a 69 year old male here for a Medicare wellness visit. Medicare Health Risk Assessment General Health Excellent Exercise: Minutes/Day 50 min Exercise: Days/Week 7 days Alcohol: Daily Use Never Alcohol: Drinks/Day Patient does not drink Alcohol: 6 or more drinks Never Feel off balance No Concerns: Teeth/Dentures No Concerns: Sexual function No Troubled by feelings None of the above Frequency: Eating healthy diet More than half the days ADLs requiring help None of the above Safety precautions in home/vehicle Yes Smoke, vape, chews tobacco No Difficulty hearing Yes Difficulty seeing No Current Providers Specialists: I have reviewed specialist-related care of the patient in the medical record. Current care team: Patient Care Team: Bola Durand MD as PCP - General (Family Medicine) Medical/Family history review Reviewed and updated problem list, medical/surgical/family/s ocial history, medications, and allergies. Opioid use review Opioid Medications (last 90 days) No data to display Anxiety/Depression screening PHQ-9 Score: 3 (Minimal Depression) JUSTO-7 Score: 1 (Minimal Anxiety) Recommendation: no further intervention at this time Cognitive screening Mini Cog Score: 5 Cognitive screening reviewed and No further action needed (score 3-5). Functional Observation Was the patient's Timed Up AND Go test unsteady or ? 12 seconds? No Advance Care Planning Patient did not wish or was not able to name a surrogate decision maker or provide an advance care plan Measurements BP 138/75 Pulse 71 Ht 176.5 cm (5' 9.5) Wt 74.4 kg (164 lb) BMI 23.87 kg/m? Vision Screening: Follows with optometry/ophthalmology Assessment/Plan Medicare annual wellness visit, subsequent (Z00.00) - Counseled on healthy diet and regular exercise - Fall avoidance information provided - Personalized prevention plan provided See Below Chief Complaint Patient presents with: Medicare Wellness Exam HPI Michael Beltran is a 69 year old male who presents here today for Chronic Medical Conditions. and Medicare Annual Visit. Patient with hx of Elevated blood glucose, hyperlipidemia, chronic pain, Lumbar DDD, Depression/anxiety, anemia, and those as below. Patient has been doing well other then his low back has been bothering him a bit and would like to get some PHYSICAL THERAPY. No other new issues or concerns. Past medical history, appointments, medications, allergies reviewed. Previous Medical History PAST MEDICAL HISTORY 01/22/2021: Anemia of chronic disease Comment: Hg (11.5-12.8) since 2018 01/21/2021: Arthritis Comment: Upper spine. No date: Asthma 02/24/2022: Elevated blood sugar 02/24/2022: Erectile dysfunction 01/21/2021: Ex-smoker Comment: Started at age 14 up to 1.5 PPD and quit at age 52 01/21/2021: JUSTO (generalized anxiety disorder) 04/22/2022: Hyponatremia Comment: chronic 01/21/2021: Major depressive disorder with single episode, in remission (HCC) 03/09/2021: Marijuana use Comment: Per Dr Jean's office note 02/26/21 01/21/2021: Medicare annual wellness visit, subsequent Comment: Medicare part B: Last done: 01/21/2021 01/21/2021: Mixed hyperlipidemia 01/21/2021: Sensorineural hearing loss (SNHL) of left ear Previous Surgical History PAST SURGICAL HISTORY 2013: COLONOSCOPY Comment: repeat 10 years 05/28/2022: COLONOSCOPY 2004: COLONOSCOPY SCREENING 1976: PAST SURGICAL HISTORY OF Comment: pneumo thorax 1985: PAST SURGICAL HISTORY OF Comment: cyst on right side of buttock 1958: TONSILLECTOMY AND ADENOIDECTOMY No date: TONSILLECTOMY HX Family History FAMILY HISTORY Problem Relation Age of Onset Multiple Sclerosis Mother Stroke Mother Cancer Father lymphoma Hypertension Father Prostate Cancer Brother Dementia Maternal Grandmother Breast Cancer Paternal Grandmother Stroke Paternal Grandfather Colon Cancer No Family History Ovarian cancer No Family History Diabetes No Family History Hyperlipidemia No Family History Coronary Artery Disease No Family History Kidney Disease No Family History Seizures No Family History Thyroid No Family History Patient Allergies ALLERGIES Allergen Reactions Erythromycin Itching Ether Shortness of Breath Current Medications Current Outpatient Medications on File Prior to Visit Medication Sig venlafaxine ER (EFFEXOR XR) 75 mg 24 hr capsule Take 1 capsule by mouth three times a day. atorvastatin (LIPITOR) 20 mg tablet Take 1 tablet by (more content not included)... Normal [facility] Comprehensive metabolic 2000 panelon 05-03-2024 Albumin [Mass/Vol] 4.4 g/dL Normal 3.9-4.9 [facility] Comment on above: Order Comment: Speci men Type: BLOOD SPECIMENOrdering Facility: [facility] Address: [address] [place] [address] Performed By: #### 3 016-3, 49825-4, LIPNF ####[facility] LABCLIA [id number] [place] [address] [place] ALP [Catalytic activity/Vol] 83 U/L Normal 38-113 [facility] Comment on above: Order Comment: Speci men Type: BLOOD SPECIMENOrdering Facility: [facility] Address: [address] [place] [address] Performed By: #### 3 016-3, 69220-1, LIPNF ####[facility] LABCLIA [id number] [place] [address] [place] ALT [Catalytic activity/Vol] 15 U/L Normal 10-54 [facility] Comment on above: Order Comment: Speci men Type: BLOOD SPECIMENOrdering Facility: [facility] Address: [address] [place] [address] Performed By: #### 3 016-3, 78237-7, LIPNF ####[facility] LABCLIA [id number] [place] [address] [place] Anion gap [Moles/Vol] 9 mmol/L Normal 8-15 [facility] Comment on above: Order Comment: Speci men Type: BLOOD SPECIMENOrdering Facility: [facility] Address: [address] [place] [address] Performed By: #### 3 016-3, 59649-5, LIPNF ####[facility] LABCLIA [id number] [place] [address] [place] AST [Catalytic activity/Vol] 25 U/L Normal 14-40 [facility] Comment on above: Order Comment: Speci men Type: BLOOD SPECIMENOrdering Facility: [facility] Address: [address] [place] [address] Performed By: #### 3 016-3, 97413-7, LIPNF ####[facility] LABIA [id number] [place] [address] [place] Bilirubin [Mass/Vol] 0.3 mg/dL Normal 0.2-1.3 [facility] Comment on above: Order Comment: Speci men Type: BLOOD SPECIMENOrdering Facility: [facility] Address: [address] [place] [address] Performed By: #### 3 016-3, 01889-0, LIPNF ####[facility] LABCLIA [id number] [place] [address] [place] Calcium [Mass/Vol] 9.3 mg/dL Normal 8.5-10.2 [facility] Comment on above: Order Comment: Speci men Type: BLOOD SPECIMENOrdering Facility: [facility] Address: [address] [place] [address] Performed By: #### 3 016-3, 16294-9, LIPNF ####[facility] LABIA [id number] [place] [id number] [place] Chloride [Moles/Vol] 95 mmol/L Low 98-107 [facility] Comment on above: Order Comment: Speci men Type: BLOOD SPECIMENOrdering Facility: [facility] Address: [address] [place] [address] Performed By: #### 3 016-3, 85229-1, LIPNF ####[facility] LABCLIA [id number] [place] [address] [place] CO2 [Moles/Vol] 28 mmol/L Normal 22-30 [facility] Comment on above: Order Comment: Speci men Type: BLOOD SPECIMENOrdering Facility: [facility] Address: [address] [place] [address] Performed By: #### 3 016-3, 34987-6, LIPNF ####[facility] LABCLIA [id number] [address] [place] [facility] Creatinine [Mass/Vol] 0.80 mg/dL Normal 0.73-1.22 [facility] Comment on above: Order Comment: Speci men Type: BLOOD SPECIMENOrdering Facility: [facility] Address: [address] [place] [address] Performed By: #### 3 016-3, 90112-7, LIPNF ####[facility] LABIA [id number] [address] Creatinine and Glomerular filtration rate.predicted panel (S/P/Bld) 95 mL/min/1.73m??? Normal >=60 [facility] Comment on above: Order Comment: Speci men Type: BLOOD SPECIMENOrdering Facility: [facility] Address: [address] [place] [address] Result Comment: Natalia mated Glomerular Filtration Rate (eGFR) is calculated using the 2020 CKD-EPI creatinine equation. This equation utilizes serum creatinine, sex, and age as parameters. The creatinine assay has traceable calibration to isotope dilution-mass spectrometry. Refer to KDIGO guidelines for clinical interpretation. In patients with unstable renal function, e.g. those with acute kidney injury, the eGFR may not accurately reflect actual GFR. Performed By: #### 3 016-3, 01282-9, LIPNF ####[facility] LABCLIA [id number] [id number] [address] [place] Glucose [Mass/Vol] 75 mg/dL Normal 74-99 [facility] Comment on above: Order Comment: Speci men Type: BLOOD SPECIMENOrdering Facility: [facility] Address: [address] [place] [address] Result Comment: The [place] Diabetes Association (ADA) provides guidance for cutoff values for fasting glucose and random glucose. The ADA defines fasting as no caloric intake for at least 8 hours. Fasting plasma glucose results between 100 to 125 mg/dL indicate increased risk for diabetes (prediabetes). Fasting plasma glucose results greater than or equal to 126 mg/dL meet the criteria for diagnosis of diabetes. In the absence of unequivocal hyperglycemia, results should be confirmed by repeat testing. In a patient with classic symptoms of hyperglycemia or hyperglycemic crisis, random plasma glucose results greater than or equal to 200 mg/dL meet the criteria for diagnosis of diabetes. Reference: Standards of Medical Care in Diabetes 2016, [place] Diabetes Association. Diabetes Care. 2016.39(Suppl 1). Performed By: #### 3 016-3, 58701-6, LIPNF ####[facility] LABCLIA [id number] [place] [address] [place] Potassium [Moles/Vol] 4.6 mmol/L Normal 3.7-5.1 [facility] Comment on above: Order Comment: Speci men Type: BLOOD SPECIMENOrdering Facility: [facility] Address: [address] [place] [address] Performed By: #### 3 016-3, 23368-7, LIPNF ####[facility] LABCLIA [id number] [place] [address] [place] Protein [Mass/Vol] 6.8 g/dL Normal 6.3-8.0 [facility] Comment on above: Order Comment: Speci men Type: BLOOD SPECIMENOrdering Facility: [facility] Address: [address] [place] [address] Performed By: #### 3 016-3, 70857-5, LIPNF ####[facility] LABCLIA [id number] [place] [address] [place] Sodium [Moles/Vol] 132 mmol/L Low 136-144 [facility] Comment on above: Order Comment: Speci men Type: BLOOD SPECIMENOrdering Facility: [facility] Address: [address] [place] [address] Performed By: #### 3 016-3, 46160-0, LIPNF ####[facility] LABIA [id number] [place] [address] [place] Urea nitrogen [Mass/Vol] 8 mg/dL Low 9-24 [facility] Comment on above: Order Comment: Speci men Type: BLOOD SPECIMENOrdering Facility: [facility] Address: [address] [place] [address] Performed By: #### 3 016-3, 87492-5, LIPNF ####[facility] [id number] [place] [address] [place] HbA1c (Bld)on 05-03-2024 Average glucose Estimated from glycated hemoglobin (Bld) [Mass/Vol] 105 mg/dL Normal [facility] Comment on above: Order Comment: Collinsi men Type: BLOOD SPECIMENOrdering Facility: [facility] Address: [address] [place] [address] Result Comment: eAG: (Estimated average glucose) is a calculated value from HgbA1c and is employee relations representative of the average blood glucose level in the last 2-3 month period. Performed By: #### 5 5454-3 ####[facility] LABIA [id number] [place] [address] [place] HbA1c (Bld) [Mass fraction] 5.3 % Normal 4.3-5.6 [facility] Comment on above: Order Comment: Collinsi men Type: BLOOD SPECIMENOrdering Facility: [facility] Address: [address] [place] [address] Result Comment: Amer [place] Diabetes Association guidelines indicate that patients with HgbA1c in the range 5.7-6.4% are at increased risk for development of diabetes, and intervention by lifestyle modification may be beneficial. HgbA1c greater or equal to 6.5% is considered diagnostic of diabetes. Performed By: #### 5 5454-3 ####[facility] LABCLIA [id number] [place] [address] [place] LIPID PANEL, NONFASTINGon Cholesterol [Mass/Vol] 170 mg/dL Normal <200 [facility] Comment on above: Order Comment: Speci men Type: BLOOD SPECIMENOrdering Facility: [facility] Address: [address] [place] [address] Result Comment: <200 mg/dL, Desirable 200-239 mg/dL, Borderline high >239 mg/dL, High Performed By: #### 3 016-3, 32854-8, LIPNF ####[facility] LABIA [id number] [address] [place] HDL CHOLESTEROL, NF 72 mg/dL Normal >39 [facility] Comment on above: Order Comment: Lamine zapata Type: BLOOD SPECIMENOrdering Facility: [facility] Address: [address] [place] [address] Result Comment: 40-5 9 mg/dL, Acceptable >59 mg/dL, High: Negative risk factor for coronary heart disease <40 mg/dL, Low: Positive risk factor for coronary heart disease Performed By: #### 3 016-3, 41771-3, LIPNF ####[facility] LABIA [id number] [address] [place] LDL CHOLESTEROL, NF 83 mg/dL Normal <100 [facility] Comment on above: Order Comment: Collinsi men Type: BLOOD SPECIMENOrdering Facility: [facility] Address: [address] [place] [address] Result Comment: <100 mg/dL, Optimal 100-129 mg/dL, Near optimal/above optimal 130-159 mg/dL, Borderline high 160-189 mg/dL, High >189 mg/dL, Very high Secondary prevention optimal LDL Cholesterol levels are recommended to be < 70 mg/dL Performed By: #### 3 016-3, 96668-9, LIPNF ####[facility] LABCLIA [id number] [place] [address] [place] LDL/HDL RATIO, NF 1.15 mg/dL Normal <2.54 [facility] Comment on above: Order Comment: Speci men Type: BLOOD SPECIMENOrdering Facility: [facility] Address: [address] [place] [address] Result Comment: Refe rence: 1. National Cholesterol Education Program ATP III Guideline At-A-Glance Quick Desk Reference: National Heart, Lung, and Blood [place]. National Institutes of Health. 2001: NIH Publication No. 01-3305. 2. An International Atherosclerosis Society position paper: global recommendations for the management of dyslipidemia: executive summary, Atherosclerosis. 2014: 232(2):410-413. Performed By: #### 3 016-3, 71736-0, LIPNF ####[facility] LABCLIA [id number] [place] [address] [place] NON HDL CHOL, NF 98 mg/dL Normal <130 [facility] Comment on above: Order Comment: Speci men Type: BLOOD SPECIMENOrdering Facility: [facility] Address: [address] [place] [address] Result Comment: <130 mg/dL, Optimal 130-159 mg/dL, Near optimal/above optimal 160-189 mg/dL, Borderline high 190-219 mg/dL, High >219 mg/dL, Very high Secondary prevention optimal non HDL Cholesterol levels are recommended to be <100 mg/dL Performed By: #### 3 016-3, 50230-8, LIPNF ####[facility] LABCLIA [id number] [place] [address] [place] T CHOL/HDL RATIO NF 2.36 mg/dL Normal <5.10 [facility] Comment on above: Order Comment: Speci men Type: BLOOD SPECIMENOrdering Facility: [facility] Address: [address] [place] [address] Performed By: #### 3 016-3, 89325-3, LIPNF ####[facility] LABCLIA [id number] [place] [address] [place] TRIGLYCERIDES, NF 76 mg/dL Normal <150 [facility] Comment on above: Order Comment: Speci men Type: BLOOD SPECIMENOrdering Facility: [facility] Address: [address] [place] [address] Result Comment: <150 mg/dL, Normal 150-199 mg/dL, Borderline high 200-499 mg/dL, High >499 mg/dL, Very high Performed By: #### 3 016-3, 74936-6, LIPNF ####[facility] LABIA [id number] [place] [address] [place] VLDL CHOLESTEROL, NF 15 mg/dL Normal <30 [facility] Comment on above: Order Comment: Speci men Type: BLOOD SPECIMENOrdering Facility: [facility] Address: [address] [place] [address] Performed By: #### 3 016-3, 65120-8, LIPNF ####[facility] [id number] [place] [address] [place] PSA SerPl-mCncon 05-03-2024 Prostate specific Ag [Mass/Vol] 0.22 ng/mL Normal <2.60 [facility] Comment on above: Order Comment: Speci men Type: BLOOD SPECIMENOrdering Facility: [facility] Address: [address] [place] [address] Result Comment: Tota l PSA test methodology used is the Electrochemiluminescence Immunoassay by [employer]. Total PSA values by differing methodologies cannot be interchanged. Performed By: #### 2 857-1 ####[facility] LABIA [id number] [place] [address] [place] TSH SerPl-aCncon 05-03-2024 TSH Qn 3.860 m[IU]/L Normal 0.270-4.200 [facility] Comment on above: Order Comment: Speci men Type: BLOOD SPECIMENOrdering Facility: [facility] Address: [address] [place] [address] [place] [address] Performed By: #### 3 016-3, 56908-4, LIPNF ####[facility] LABCLIA [id number] [facility] [id number] [address] [place] Urinalysis complete panel (U )on 05-03-2024 Bacteria LM.HPF (Urine sed) [#/Area] Negative Negative /HPF [facility] Bilirubin Ql (U) Negative Negative [facility] Clarity (Unsp spec) Clear Clear [facility] Color (U) Yellow Yellow [facility] Epithelial cells LM.HPF (Urine sed) [#/Area] None Seen /HPF [facility] Glucose Test strip (U) [Mass/Vol] Negative Negative [facility] Hemoglobin Ql (U) Negative Negative [facility] Hyaline casts (Urine sed) [#/Area] 0 /[LPF] 0 /LPF [facility] Ketones Ql (U) Negative Negative [facility] Leukocyte esterase Test strip Ql (U) Negative Negative [facility] Nitrite Ql (U) Negative Negative [facility] pH (U) 7.0 [pH] NINF - 8.5 [facility] Protein (U) [Mass/Vol] Negative Negative [facility] RBC LM.HPF (Urine sed) [#/Area] 0-2 /HPF 0-2 /HPF [facility] Specific gravity (U) [Rel density] 1.010 1.005 - 1.030 [facility] Urobilinogen Ql (U) 0.2 EU/dL 0.2-1.0 EU/dL [facility] WBC LM.HPF (Urine sed) [#/Area] 0-5 /HPF 0-5 /HPF [facility] This test was bibi bell and its performance characteristics determined by [facility]'s Saad Steinberg [facility] Pathology and Laboratory Medicine [place] (RT-PLMI). It has not been cleared or approved by the FDA. RT-PLWA is regulated under CLIA as qualified to perform high-complexity testing. This test is used for clinical purposes. It should not be regarded as investigational or for research. [facility] Bacteria LM.HPF (Urine sed) [#/Area] Negative Normal Negative [facility] Comment on above: Order Comment: Speci men Type: URINE SPECIMENOrdering Facility: [facility] Address: [address] [place] [address] Performed By: #### 2 4356-8 ####[facility] LABCLIA [id number] [place] [address] [place] Bilirubin Ql (U) Negative Normal Negative [facility] Comment on above: Order Comment: Speci men Type: URINE SPECIMENOrdering Facility: [facility] Address: [address] [place] [address] Performed By: #### 2 4356-8 ####[facility] LABCLIA [id number] [place] [address] [place] Clarity (Unsp spec) Clear Normal Clear [facility] Comment on above: Order Comment: Speci men Type: URINE SPECIMENOrdering Facility: [facility] Address: [address] [place] [address] Performed By: #### 2 4356-8 ####[facility] LABCLIA [id number] [place] [address] [place] Color (U) Yellow Normal Yellow [facility] Comment on above: Order Comment: Speci men Type: URINE SPECIMENOrdering Facility: [facility] Address: [address] [place] [address] Performed By: #### 2 4356-8 ####[facility] LABCLIA [id number] [place] [address] [place] Epithelial cells LM.HPF (Urine sed) [#/Area] None Seen Normal [facility] Comment on above: Order Comment: Speci men Type: URINE SPECIMENOrdering Facility: [facility] Address: [address] [place] [address] Performed By: #### 2 4356-8 ####[facility] LABCLIA [id number] [place] [address] [place] Glucose Test strip (U) [Mass/Vol] Negative Normal Negative [facility] Comment on above: Order Comment: Speci men Type: URINE SPECIMENOrdering Facility: [facility] Address: [address] [place] [address] Performed By: #### 2 4356-8 ####[facility] LABCLIA [id number] [place] [address] [place] Hemoglobin Ql (U) Negative Normal Negative [facility] Comment on above: Order Comment: Speci men Type: URINE SPECIMENOrdering Facility: [facility] Address: [address] [place] [address] Performed By: #### 2 4356-8 ####[facility] LABCLIA [id number] [place] [address] [place] Hyaline casts (Urine sed) [#/Area] 0 /[LPF] Normal 0 /LPF [facility] Comment on above: Order Comment: Speci men Type: URINE SPECIMENOrdering Facility: [facility] Address: [address] [place] [address] Performed By: #### 2 4356-8 ####[facility] LABCLIA [id number] [place] [address] [place] Ketones Ql (U) Negative Normal Negative [facility] Comment on above: Order Comment: Speci men Type: URINE SPECIMENOrdering Facility: [facility] Address: [address] [place] [address] Performed By: #### 2 4356-8 ####[facility] LABCLIA [id number] [place] [address] [place] Leukocyte esterase Test strip Ql (U) Negative Normal Negative [facility] Comment on above: Order Comment: Speci men Type: URINE SPECIMENOrdering Facility: [facility] Address: [address] [place] [address] Performed By: #### 2 4356-8 ####[facility] LABCLIA [id number] [place] [address] [place] Nitrite Ql (U) Negative Normal Negative [facility] Comment on above: Order Comment: Speci men Type: URINE SPECIMENOrdering Facility: [facility] Address: [address] [place] [address] Performed By: #### 2 4356-8 ####[facility] LABCLIA [id number] [place] [address] [place] pH (U) 7.0 [pH] Normal <8.5 [facility] Comment on above: Order Comment: Speci men Type: URINE SPECIMENOrdering Facility: [facility] Address: [address] [place] [address] Performed By: #### 2 4356-8 ####[facility] LABCLIA [id number] [place] [address] [place] Protein (U) [Mass/Vol] Negative Normal Negative [facility] Comment on above: Order Comment: Speci men Type: URINE SPECIMENOrdering Facility: [facility] Address: [address] [place] [address] Performed By: #### 2 4356-8 ####[facility] LABIA [id number] [place] [address] [place] RBC LM.HPF (Urine sed) [#/Area] 0-2 /HPF Normal 0-2 /HPF [facility] Comment on above: Order Comment: Speci men Type: URINE SPECIMENOrdering Facility: [facility] Address: [address] [place] [address] Performed By: #### 2 4356-8 ####[facility] LABIA [id number] [place] [address] [place] Specific gravity (U) [Rel density] 1.010 Normal 1.005-1.030 [facility] Comment on above: Order Comment: Speci men Type: URINE SPECIMENOrdering Facility: [facility] Address: [address] [place] [address] Performed By: #### 2 4356-8 ####[facility] LABIA [id number] [place] [address] [place] Urobilinogen Ql (U) 0.2 EU/dL Normal 0.2-1.0 EU/dL [facility] Comment on above: Order Comment: Speci men Type: URINE SPECIMENOrdering Facility: [facility] Address: [address] [place] [address] Performed By: #### 2 4356-8 ####[facility] [id number] [place] [address] [place] WBC LM.HPF (Urine sed) [#/Area] 0-5 /HPF Normal 0-5 /HPF [facility] Comment on above: Order Comment: Speci men Type: URINE SPECIMENOrdering Facility: [facility] Address: [address] [place] [address] Performed By: #### 2 4356-8 ####[facility] [id number] [place] [address] [place] US SCROTUM AND CONTENTSon US SCROTUM AND CONTENTS * * *Final Report* * * DATE OF EXAM: Oct 12 2023 5:32PM LDU 1063 - US SCROTUM AND CONTENTS / PROCEDURE REASON: Testicular swelling, right * * * * Physician Interpretation * * * * EXAMINATION: SCROTAL ULTRASOUND WITH DOPPLER IMAGING CLINICAL HISTORY: Right testicular pain TECHNIQUE: Sonography of the scrotal contents with color flow and spectral Doppler imaging of the testicular vasculature was performed. Images were obtained and stored in a permanent archive. M: US_2 COMPARISON: None RESULT: RIGHT SCROTUM: Right testis: 5.3 x 3 x 2.8 cm. Mildly congestive/striated appearance compared to the left. No mass or calcification. Normal intratesticular arterial and venous flow with normal spectral waveforms. Epididymis: Mildly enlarged relative to its left counterpart. Hyperemic relative to its left counterpart Hydrocele: Small simple-appearing Varicocele: absent LEFT SCROTUM: Left testis: 4.3 x 3 x 2.6 cm. Homogeneous with no calcifications or mass. Normal intratesticular arterial and venous flow with normal spectral waveforms. Epididymis: Normal. Vascular flow on Color Doppler is symmetric to the contralateral side. Hydrocele: none Varicocele: present IMPRESSION: 1. Findings consistent with right epididymoorchitis and small simple reactive hydrocele; congestive appearance of the testicle and hyperemic mildly enlarged epididymis 2. 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: [employer] Transcribe Date/Time: Oct 12 2023 6:29P Dictated by : JEFFRY RAMIREZ MD This examination was interpreted and the report reviewed and electronically signed by: JEFFRY RAMIREZ MD on Oct 12 2023 6:36PM EST [id number] Normal [facility] US.doppler Testicular vessel son 10-12-2023 [facility] Comprehensive metabolic 2000 panelon 04-28-2023 Albumin [Mass/Vol] 4.4 g/dL 3.9 - 4.9 g/dL [facility] ALP [Catalytic activity/Vol] 74 U/L 38 - 113 U/L [facility] ALT [Catalytic activity/Vol] 16 U/L 10 - 54 U/L [facility] Anion gap [Moles/Vol] 10 mmol/L 9 - 18 mmol/L [facility] AST [Catalytic activity/Vol] 25 U/L 14 - 40 U/L [facility] Bilirubin [Mass/Vol] 0.4 mg/dL 0.2 - 1 .3 mg/dL [facility] Calcium [Mass/Vol] 9.4 mg/dL 8.5 - 10. 2 mg/dL [facility] Chloride [Moles/Vol] 99 mmol/L 97 - 10 5 mmol/L [facility] CO2 [Moles/Vol] 26 mmol/L 22 - 30 mmol/L [facility] Creatinine [Mass/Vol] 0.88 mg/dL 0.73 - 1.22 mg/dL [facility] Estimated Glomerular Filtration Rate 93 mL/min/1.73m >=60 mL/min/1.73m [facility] Glucose [Mass/Vol] 69 mg/dL Low 74 - 99 mg/dL [facility] Potassium [Moles/Vol] 4.5 mmol/L 3.7 - 5.1 mmol/L [facility] Protein [Mass/Vol] 6.6 g/dL 6.3 - 8.0 g/dL [facility] Sodium [Moles/Vol] 135 mmol/L Low 136 - 144 mmol/L [facility] Urea nitrogen [Mass/Vol] 7 mg/dL Low 9 - 24 mg/dL [facility] LIPID PANEL, NONFASTINGon Cholesterol [Mass/Vol] 174 mg/dL <200 mg/dL [facility] HDL Cholesterol, Nonfasting 67 mg/dL >39 mg/dL [facility] LDL Cholesterol, Nonfasting 92 mg/dL <100 mg/dL [facility] LDL/HDL Ratio, Nonfasting 1.37 mg/dL <2.54 mg/dL [facility] Non HDL Cholesterol, Nonfasting 107 mg/dL <130 mg/dL [facility] Total Chol/HDL Ratio, Nonfasting 2.60 mg/dL <5.10 mg/dL [facility] Triglycerides, Nonfasting 76 mg/dL <150 mg/dL [facility] VLDL Cholesterol, Nonfasting 15 mg/dL <30 mg/dL [facility] PSA/PROSTSPECAG DIAGon 04-28 Prostate specific Ag [Mass/Vol] 0.25 ng/mL <2.60 ng/mL [facility] TSH BLDon 04-28-2023 TSH Qn 2.520 m[IU]/L 0.270 - 4.200 mIU/L [facility] Urinalysis complete panel (U )on 04-28-2023 Bilirubin Ql (U) Negative Negative [facility] Clarity (Unsp spec) Clear Clear [facility] Color (U) Yellow Yellow [facility] Glucose Test strip (U) [Mass/Vol] Negative Trace, Negative [facility] Hemoglobin Ql (U) Negative Negative, Trace [facility] Ketones Ql (U) Negative Trace, Negative [facility] Leukocyte esterase Test strip Ql (U) Negative Negative, 25 Brenden/uL [facility] Nitrite Ql (U) Negative Negative [facility] pH (U) 7.0 [pH] 5.0 - 8.0 [facility] Protein (U) [Mass/Vol] Negative Trace , Negative [facility] RBC LM.HPF (Urine sed) [#/Area] 0-3 /HPF 0-3 /HPF [facility] Specific gravity (U) [Rel density] 1.010 1.005 - 1.030 [facility] Urobilinogen Ql (U) Negative Negative [facility] WBC LM.HPF (Urine sed) [#/Area] 0-5 /HPF 0-5 /HPF [facility] CBC W Auto Differential pane l (Bld)on 04-27-2023 Basophils (Bld) [#/Vol] 0.06 10*3/uL <0.11 k/uL [facility] Basophils/100 WBC (Bld) 1.0 % [facility] Differential cell count method Nom (Bld) Auto [facility] Eosinophils (Bld) [#/Vol] 0.76 10*3/uL High <0.46 k/uL [facility] Eosinophils/100 WBC (Bld) 13.0 % [facility] Erythrocyte distribution width (RBC) [Ratio] 13.8 % 11.5 - 15.0 % [facility] Hematocrit (Bld) [Volume fraction] 37.0 % Low 39.0 - 51.0 % [facility] Hemoglobin (Bld) [Mass/Vol] 12.6 g/dL Low 13.0 - 17.0 g/dL [facility] Immature granulocytes (Bld) [#/Vol] <0.10 k/uL [facility] Immature granulocytes/100 WBC (Bld) 0.2 % [facility] Lymphocytes (Bld) [#/Vol] 1.59 10*3/uL 1.00 - 4.00 k/uL [facility] Lymphocytes/100 WBC (Bld) 27.1 % [facility] MCH (RBC) [Entitic mass] 30.5 pg 26.0 - 34.0 pg [facility] MCHC (RBC) [Mass/Vol] 34.1 g/dL 30.5 - 36.0 g/dL [facility] MCV (RBC) [Entitic vol] 89.6 fL 80.0 - 100.0 fL [facility] Monocytes (Bld) [#/Vol] 0.74 10*3/uL <0.87 k/uL [facility] Monocytes/100 WBC (Bld) 12.6 % [facility] Neutrophils (Bld) [#/Vol] 2.70 10*3/uL 1.45 - 7.50 k/uL [facility] Neutrophils/100 WBC (Bld) 46.1 % [facility] Nucleated RBC (Bld) [#/Vol] <0.01 k/uL [facility] Nucleated RBC/100 WBC (Bld) [Ratio] 0.0 /100 WBC [facility] Platelet mean volume (Bld) [Entitic vol] 10.6 fL 9.0 - 12.7 fL [facility] Platelets (Bld) [#/Vol] 235 10*3/uL 150 - 400 k/uL [facility] RBC (Bld) [#/Vol] 4.13 10*6/uL Low 4.20 - 6.0 0 m/uL [facility] WBC (Bld) [#/Vol] 5.86 10*3/uL 3.70 - 11. 00 k/uL [facility] HbA1c (Bld)on 04-27-2023 Average glucose Estimated from glycated hemoglobin (Bld) [Mass/Vol] 108 mg/dL [facility] HbA1c (Bld) [Mass fraction] 5.4 % 4.3 - 5.6 % [facility] CBC W Auto Differential pane l (Bld)on 02-25-2022 Abs Immature Gran <0.03 <0.10 k/uL [facility] Basophils (Bld) [#/Vol] 0.08 10*3/uL <0.11 k/uL [facility] Basophils/100 WBC (Bld) 1.1 % [facility] Differential cell count method Nom (Bld) Auto [facility] Eosinophils (Bld) [#/Vol] 0.73 10*3/uL High <0.46 k/uL [facility] Eosinophils/100 WBC (Bld) 10.3 % [facility] Erythrocyte distribution width (RBC) [Ratio] 13.2 % 11.5 - 15.0 % [facility] Hematocrit (Bld) [Volume fraction] 40.3 % 39.0 - 51.0 % [facility] Hemoglobin (Bld) [Mass/Vol] 13.0 g/dL 13.0 - 17.0 g/dL [facility] Immature Gran % 0.3 % [facility] Lymphocytes (Bld) [#/Vol] 2.37 10*3/uL 1.00 - 4.00 k/uL [facility] Lymphocytes/100 WBC (Bld) 33.5 % [facility] MCH (RBC) [Entitic mass] 29.5 pg 26.0 - 34.0 pg [facility] MCHC (RBC) [Mass/Vol] 32.3 g/dL 30.5 - 36.0 g/dL [facility] MCV (RBC) [Entitic vol] 91.4 fL 80.0 - 100.0 fL [facility] Monocytes (Bld) [#/Vol] 0.80 10*3/uL <0.87 k/uL [facility] Monocytes/100 WBC (Bld) 11.3 % [facility] Neutrophils (Bld) [#/Vol] 3.08 10*3/uL 1.45 - 7.50 k/uL [facility] Neutrophils/100 WBC (Bld) 43.5 % [facility] Nucleated RBC (Bld) [#/Vol] 10*3/uL <0.01 k/uL [facility] Nucleated RBC/100 WBC (Bld) [Ratio] 0.0 /100 WBC [facility] Platelet mean volume (Bld) [Entitic vol] 10.7 fL 9.0 - 12.7 fL [facility] Platelets (Bld) [#/Vol] 241 10*3/uL 150 - 400 k/uL [facility] RBC (Bld) [#/Vol] 4.41 10*6/uL 4.20 - 6.0 0 m/uL [facility] WBC (Bld) [#/Vol] 7.08 10*3/uL 3.70 - 11. 00 k/uL [facility] HbA1c (Bld)on 02-25-2022 Average glucose Estimated from glycated hemoglobin (Bld) [Mass/Vol] 108 mg/dL [facility] HbA1c (Bld) [Mass fraction] 5.4 % 4.3 - 5.6 % [facility] EMERGENCY DEPARTMENT REPORTo n 12-14-2017 EMERGENCY DEPARTMENT REPORT [place], [place] [address] INFORMATION MANAGEMENTEMERGENCY DEPARTMENT REPORTPatient: COLLINS BELTRAN JOE L A M.D.[id number]/ [id number] MStatus: DEP ER EDDate of Service: 12/08/17CHIEF COMPLAINTWeak all over.HISTORY OF PRESENT ILLNESSThe patient is a 62-year-old male brought in today with constipation. He said he has nothad a bowel movement for a couple of days, went to try to have a bowel movement today andwas straining on the toilet and suddenly felt weak all over. He presents now for furtherevaluation. No other complaints at this time. He has not had any rectal bleeding. He hashad a history of prostate enlargement and wonders whether this may now be contributing. Hehas not been urinating as much as usual either and his is concerned about this. Noother complaints.REVIEW OF SYSTEMSOtherwise negative.PAST MEDICAL HISTORYProstate enlargement.MEDICATIONSAs listed.ALLERGIESAmoxicill in and ether.FAMILY HISTORYNoncontributory.SO CIAL HISTORYNoncontributory.PH YSICAL EXAMINATIONGeneral: A well-nourished, well-developed male who is awake, alert, and currently not inany acute distress. Vital signs: As charted. HEENT: Atraumatic and normocephalic.Oropharynx is moist. Neck is supple. No adenopathy or thyromegaly, no JVD. Cardiovascular:Regular rate and rhythm. No murmurs, rubs, or gallops. Lungs are clear to auscultationbilaterally. The abdomen is soft, nontender, and nondistended. Bowel sounds are positive.On my rectal examination, he has a large amount of fecal impaction and feces partlyprotruding from the rectum that is guaiac negative.EMERGENCY DEPARTMENT COURSEKUB was obtained and did show a large amount of constipation. CBC and basic metabolicpanels are unremarkable. He was disimpacted and given a Fleet's enema and had largeresults and was feeling better.CLINICAL DIAGNOSISFecal impaction.DISPOSITION/BENNETT NHe is going to be discharged home. I feel that his episode of weakness following strainingwas probably vagal. He is to return if he has problems of any kind but is feeling 100%better at this point. He can follow with Dr. Mcconnell as needed and return if problems of anykind. 12/16/17 1611 CEM SAAVEDRA M.D.cc: CEM YODER M.D.; ALEKSANDRA MCCONNELL M.D. << Signature on File>> Reported By: CEM YODER M.D. Signed By: CEM YODER M.D.Tests performed at:[address] [phone] Normal [facility] ABDOMEN (KUB)1 VIEWon 2017 ABDOMEN (KUB)[address] [address]Mprr: Brii BELTRAN: CEM YODER M.D.: [birth year] Age: 62 Sex: MAcct: [id number] Loc: EDExam Date: 12/08/17 Status: DEP ERRadiology No.: [id number] Number: [id number] # [id number] RAD / ABDOMEN (KUB)1 VIEWABDOMEN: Supine APCLINICAL INDICATION: Constipation, abdominal pressure.COMPARISON STUDY: none.The intestinal gas pattern is nonobstructive. There is moderate to largeamount of stool in the colon and rectum. Moderate vascular calcifications. Novisible radiopaque calculi. 3 air and fluid levels cannot be evaluated on thisstudy..No acute skeletal findings.IMPRESSION:No acute abnormality. Moderate fecal loading of the colon and rectum.Professional interpretation provided by [facility]29.Thank you for this referral.< >Reported By: CECY SLADE M.D.Signed In NovaPro By: CECY SLADE M.D. << Signature on File>> Reported By: CECY SLADE M.D. Signed By: CECY SLADE M.D.Tests performed at:[address] [phone] Normal [facility] BMPon 12-08-2017 Anion gap 20.1 mmol/L Normal 15-22 [facility] Comment on above: Performed By: #### L 100.0010 ####ML - UH [id number] [place] [address] Calcium 9.3 mg/dL Normal 8.8-10.2 [facility] Comment on above: Performed By: #### L 100.0010 ####ML - FVDWNCVPBU[address] [place] [address] Chloride 91 mmol/L Low 98-107 [facility] Comment on above: Performed By: #### L 100.0010 ####ML - [id number] [place] [address] CO2 25 mmol/L Normal 22-29 [facility] Comment on above: Performed By: #### L 100.0010 ####ML - SMVZQBMAQL688 [place] [address] Creatinine 0.77 mg/dL Normal 0.70-1.20 [facility] Comment on above: Performed By: #### L 100.0010 ####ML - [id number] [place] [address] eGFR (non-black) > 60 ml/min/1.73m2 Normal [facility] Comment on above: Result Comment: eGFR >= 60 Indicates normal kidney function. * eGFR IS AN ESTIMATE * (AFR LAQUITA = ) (non-AFR AM = NON-) MDRD calculation used in the eGFR should not be used to dose medications. For further limitations of the eGFR please refer to the Physician Website or the National Kidney Disease Education Program website (www.nkdep.nih.gov). Performed By: #### L 100.0010 ####ML - [id number] [place] [address] Glucose mass conc 110 mg/dL Normal 82-115 [facility] Comment on above: Performed By: #### L 100.0010 ####ML - [id number] [place] [address] Potassium molar conc 4.1 mmol/L Normal 3.5-5.0 [facility] Comment on above: Performed By: #### L 100.0010 ####[address] [address] Sodium 132 mmol/L Low 135-145 [facility] Comment on above: Performed By: #### L 100.0010 ####[address] [address] Urea nitrogen 11 mg/dL Normal 8-23 [facility] Comment on above: Performed By: #### L 100.0010 ####[address] [address] CBCon 12-08-2017 Basophils Auto #/vol (Bld) 0.00 x10(3) Normal 0.00-0.10 [facility] Comment on above: Performed By: #### L 200.0010 ####[address] [address] Basophils/100 WBC Auto (Bld) 0.2 % Normal 0.0-1.0 [facility] Comment on above: Performed By: #### L 200.0010 ####[address] [address] Eosinophils 0.10 x10(3) Normal 0.00-0.54 [facility] Comment on above: Performed By: #### L 200.0010 ####[address] [address] Eosinophils/100 leukocytes 0.8 % Normal 0.5-4.9 [facility] Comment on above: Performed By: #### L 200.0010 ####[address] [address] Erythrocyte distribution width Auto Ratio (RBC) 14.0 % Normal 12.7-15.3 [facility] Comment on above: Performed By: #### L 200.0010 ####[address] [address] Erythrocytes (RBC) 4.21 x10(6) Low 4.80-5.50 [facility] Comment on above: Performed By: #### L 200.0010 ####[address] [address] Hematocrit (HCT) 37.3 % Low 42.0-51.0 [facility] Comment on above: Performed By: #### L 200.0010 ####ML - LTONZGPGDH[address] [place] [address] Hemoglobin mass conc (Bld) 12.5 g/dL Low 14.0-17.2 [facility] Comment on above: Performed By: #### L 200.0010 ####ML - XZJGMUSXCH[address] [place] [address] Lymphocytes 0.80 x10(3) Low 1.00-3.50 [facility] Comment on above: Performed By: #### L 200.0010 ####ML - AUSUBGXJAO[address] [place] [address] Lymphocytes/100 leukocytes 5.9 % Low 16.0-48.0 [facility] Comment on above: Performed By: #### L 200.0010 ####ML [facility] [address] [place] [address] MCH 29.7 pg Normal 28.8-32.2 [facility] Comment on above: Performed By: #### L 200.0010 ####ML - DDSVISASDC[address] [place] [address] MCHC mass conc (RBC) 33.5 g/dL Normal 33.0-36.0 [facility] Comment on above: Performed By: #### L 200.0010 ####ML - ZIPQLWDIOM[address] [place] [address] MCV 88.8 fL Normal 80.0-94.0 [facility] Comment on above: Performed By: #### L 200.0010 ####ML - NGBADBWSCH[address] [place] [address] Monocytes 1.00 x10(3) High 0.30-0.80 [facility] Comment on above: Performed By: #### L 200.0010 ####ML - ZZYOAXBAJO[address] [place] [address] Monocytes/100 leukocytes 7.9 % Normal 4.3-11.2 [facility] Comment on above: Performed By: #### L 200.0010 ####ML - [id number] [place] [address] Neutrophils 11.10 x10(3) High 1.40-6.50 [facility] Comment on above: Performed By: #### L 200.0010 ####ML - [facility] [place] [address] Neutrophils/100 WBC Auto (Bld) 85.2 % High 45.0-73.0 [facility] Comment on above: Performed By: #### L 200.0010 ####ML - [facility] [place] [address] Platelet mean volume (PMV) 8.1 fL Normal 7.4-9.2 [facility] Comment on above: Performed By: #### L 200.0010 ####ML - [facility] [place] [address] Platelets 217 X10(3) Normal 150-450 [facility] Comment on above: Performed By: #### L 200.0010 ####ML - NWGRFTBKGT[address] [place] [address] WBC (Leukocytes) 13.0 x10(3) High 4.5-10.0 [facility] Comment on above: Performed By: #### L 200.0010 ####ML - [facility] [place] [address] FCSHOULDER MIN 2 VIEWon FCSHOULDER MIN [address] [address]Rgjh: Brii BELTRAN: ANDREA PIZANO C.N.P.: [birth year] Age: 62 Sex: MAcct: [id number] Loc: Ex Date: 10/23/17 Status: REG POVRadiology No.: [id number] Number: [id number] # [id number] [facility] / FCSHOULDER MIN 2 VIEW LT4 view evaluation of the left shoulderClinical statement: Fall with injury 2 days agoComparison study: No prior examsFindings:The glenohumeral joint is normally aligned. There is no high-gradeacromioclavicul ar separation. The distal clavicle is migrated superiorly by 18mm relative to the acromion. Coracoclavicular distance is at the 16 mm. Nodefinite fracture seen. Visualized left ribs are intact. Bilateral apicalpleural thickening visualized.Impression:Hig h-grade acromioclavicular separationProfessional interpretation provided by [facility] [address].Thank you for this referral.< >Reported By: LISETTE OROSCO M.D.Signed In NovaPro By: LISETTE OROSCO M.D.ADDENDUMA typographic error is present within the findings section of the report. Asnoted in the impression, the second sentence of the findings section shouldcorrectly read as follows:There is a high grade left acromioclavicular separation.Professional interpretation provided by [facility] [address].Thank you for this referral.Addendum Dictated By: LISTETE OROSCO M.D.Addendum Signed In NovaPro By: LISETTE OROSCO M.D.Addendum Transcribed By: 10/23/17 1326 [facility] << Signature on File>> Reported By: LISETTE OROSCO M.D. Signed By: LISETTE OROSCO M.D.Tests performed at:[address] [phone] Normal [facility] Vital Signs Date Time Vital Sign Value Performing Clinician Facility 03-01-2025 11:040 Body height 176.[address] Bola Durand MD Work Phone: [facility] 03-01-2025 11:040 Body mass index (BMI) [Ratio] 23.3 kg/m2 Dr. Bola Durand MD Work Phone: [facility] 03-01-2025 11:23040 Body weight 72.[address] Bola Durand MD Work Phone: [facility] 03-01-2025 11:23-0400 Diastolic blood pressure 73 mm[Hg] Dr. Bola Durand MD Work Phone: [facility] 03-01-2025 11:23-0400 Heart rate 82 /min Dr. Bola Durand MD Work Phone: [facility] 03-01-2025 11:23-0400 Respiratory rate 16 /min Dr. Bola Durand MD Work Phone: [facility] 03-01-2025 11:23-0400 Systolic blood pressure 115 mm[Hg] Dr. Bola Durand MD Work Phone: [facility] 02-18-2025 09:59-0400 Body mass index (BMI) [Ratio] 23.74 kg/m2 Ruby Seaman PA-C Work Phone: [facility] 02-18-2025 09:59-0400 Body temperature 97.5 [degF] Ruby Seaman PA-C Work Phone: [facility] 02-18-2025 09:59-0400 Body weight 73.03 kg Ruby Seaman PA-C Work Phone: [facility] 02-18-2025 09:59-0400 Diastolic blood pressure 68 mm[Hg] Ruby Seaman PA-C Work Phone: [facility] 02-18-2025 09:59-0400 Heart rate 74 /min Ruby Seaman PA-C Work Phone: [facility] 02-18-2025 09:59-0400 Respiratory rate 16 /min Ruby Seaman PA-C Work Phone: [facility] 02-18-2025 09:59-0400 SaO2% (BldA) [Mass fraction] 98 % Ruby Seamna PA-C Work Phone: [facility] 02-18-2025 09:59-0400 Systolic blood pressure 108 mm[Hg] Ruby Seaman PA-C Work Phone: [facility] 11-28-2024 15:27-0400 Body mass index (BMI) [Ratio] 23.84 kg/m2 Diallo Abreu MD Work Phone: [facility] 11-28-2024 15:27-0400 Body temperature 99.1 [degF] Diallo Abreu MD Work Phone: [facility] 11-28-2024 15:27-0400 Body weight 74.3 kg Diallo Abreu MD Work Phone: [facility] 11-28-2024 15:27-0400 Diastolic blood pressure 66 mm[Hg] Diallo Abreu MD Work Phone: [facility] 11-28-2024 15:27-0400 Heart rate 88 /min Diallo Abreu MD Work Phone: [facility] 11-28-2024 15:27-0400 Respiratory rate 20 /min Diallo Abreu MD Work Phone: [facility] 11-28-2024 15:27-0400 Systolic blood pressure 110 mm[Hg] Diallo Abreu MD Work Phone: [facility] 11-20-2024 08:41-0400 Body height 176.[address] Bola Durand MD Work Phone: [facility] 11-20-2024 08:41-0400 Body mass index (BMI) [Ratio] 23.8 kg/m2 Dr. Bola Durand MD Work Phone: [facility] 11-20-2024 08:41-0400 Body weight 74.[address] Bola Durand MD Work Phone: [facility] 11-20-2024 08:41-0400 Diastolic blood pressure 69 mm[Hg] Dr. Bola Durand MD Work Phone: [facility] 11-20-2024 08:41-0400 Heart rate 82 /min Dr. Bola Durand MD Work Phone: [facility] 11-20-2024 08:41-0400 Respiratory rate 16 /min Dr. Bola Durand MD Work Phone: [facility] 11-20-2024 08:41-0400 Systolic blood pressure 117 mm[Hg] Dr. Bola Durand MD Work Phone: [facility] 11-12-2024 15:01-0400 Body mass index (BMI) [Ratio] 23.71 kg/m2 Gulshan Palmer MD Work Phone: [facility] 11-12-2024 15:01-0400 Body weight 73.9 kg Gulshan Palmer MD Work Phone: [facility] 11-12-2024 15:01-0400 Heart rate 84 /min Gulshan Palmer MD Work Phone: [facility] 11-12-2024 15:01-0400 SaO2% (BldA) [Mass fraction] 96 % Gulshan Palmer MD Work Phone: [facility] 10-31-2024 12:23-0400 Body mass index (BMI) [Ratio] 23.96 kg/m2 Vijaya España PA-C Work Phone: [facility] 10-31-2024 12:23-0400 Body weight 74.66 kg Vijaya España PA-C Work Phone: [facility] 10-31-2024 12:23-0400 SaO2% (BldA) [Mass fraction] 99 % Vijaya España PA-C Work Phone: [facility] 10-18-2024 09:10-0500 Body mass index (BMI) [Ratio] 24.16 kg/m2 Ruby Seaman PA-C Work Phone: [facility] 10-18-2024 09:10-0500 Body temperature 97.3 [degF] Ruby Seaman PA-C Work Phone: [facility] 10-18-2024 09:10-0500 Body weight 75.3 kg Ruby Seaman PA-C Work Phone: [facility] 10-18-2024 09:10-0500 Diastolic blood pressure 86 mm[Hg] Ruby Seaman PA-C Work Phone: [facility] 10-18-2024 09:10-0500 Heart rate 67 /min Ruby Seaman PA-C Work Phone: [facility] 10-18-2024 09:10-0500 Respiratory rate 16 /min Ruby Seaman PA-C Work Phone: [facility] 10-18-2024 09:10-0500 SaO2% (BldA) [Mass fraction] 100 % Ruby Seaman PA-C Work Phone: [facility] 10-18-2024 09:10-0500 Systolic blood pressure 96 mm[Hg] Ruby Seaman PA-C Work Phone: [facility] 10-12-2024 15:29-0500 Body temperature 97.3 [degF] César Anna DO Work Phone: [facility] [facility] 10-12-2024 15:29-0500 Diastolic blood pressure 82 mm[Hg] César Anna DO Work Phone: [facility] 10-12-2024 15:29-0500 Heart rate 79 /min César Anna DO Work Phone: [facility] 10-12-2024 15:29-0500 Respiratory rate 18 /min Écsar Anna DO Work Phone: [facility] 10-12-2024 15:29-0500 SaO2% (BldA) [Mass fraction] 97 % César Anna DO Work Phone: [facility] 10-12-2024 15:29-0500 Systolic blood pressure 152 mm[Hg] César Anna DO Work Phone: [facility] 10-11-2024 13:43-0500 Body height 175.3 cm César Anna DO Work Phone: [facility] 10-11-2024 13:26-0500 Body mass index (BMI) [Ratio] 25.2 kg/m2 César Anna DO Work Phone: [facility] 10-11-2024 13:26-0500 Body weight 77.4 kg César Anna DO Work Phone: [facility] 10-07-2024 11:38-0500 Body mass index (BMI) [Ratio] 23.94 kg/m2 César Clutter PA-C Work Phone: [facility] 10-07-2024 11:38-0500 Body temperature 99.3 [degF] César Clutter PA-C Work Phone: [facility] 10-07-2024 11:38-0500 Body weight 74.6 kg César Clutter PA-C Work Phone: [facility] 10-07-2024 11:38-0500 Diastolic blood pressure 72 mm[Hg] César Clutter PA-C Work Phone: [facility] 10-07-2024 11:38-0500 Heart rate 102 /min César Clutter PA-C Work Phone: [facility] 10-07-2024 11:38-0500 Respiratory rate 18 /min César Clutter PA-C Work Phone: [facility] 10-07-2024 11:38-0500 SaO2% (BldA) [Mass fraction] 94 % César Clutter PA-C Work Phone: [facility] 10-07-2024 11:38-0500 Systolic blood pressure 124 mm[Hg] César Clutter PA-C Work Phone: [facility] 10-03-2024 18:52-0500 Body mass index (BMI) [Ratio] 24.55 kg/m2 Allan Staples MD Work Phone: [facility] 10-03-2024 18:52-0500 Body temperature 99.3 [degF] Allan Staples MD Work Phone: [facility] 10-03-2024 18:52-0500 Body weight 76.5 kg Allan Staples MD Work Phone: [facility] 10-03-2024 18:52-0500 Diastolic blood pressure 77 mm[Hg] Allan Staples MD Work Phone: [facility] 10-03-2024 18:52-0500 Heart rate 93 /min Allan Staples MD Work Phone: [facility] 10-03-2024 18:52-0500 Respiratory rate 18 /min Allan Staples MD Work Phone: [facility] 10-03-2024 18:52-0500 SaO2% (BldA) [Mass fraction] 96 % Allan Staples MD Work Phone: [facility] 10-03-2024 18:52-0500 Systolic blood pressure 118 mm[Hg] Allan Staples MD Work Phone: [facility] 05-03-2024 11:56-0400 Body height 176.5 cm Bola Durand MD Work Phone: [facility] 05-03-2024 11:56-0400 Body mass index (BMI) [Ratio] 23.87 kg/m2 Bola Durand MD Work Phone: [facility] 05-03-2024 11:56-0400 Body weight 74.39 kg Bola Durand MD Work Phone: [facility] 05-03-2024 11:56-0400 Diastolic blood pressure 75 mm[Hg] Bola Durand MD Work Phone: [facility] 05-03-2024 11:56-0400 Heart rate 71 /min Bola Durand MD Work Phone: [facility] 05-03-2024 11:56-0400 Systolic blood pressure 138 mm[Hg] Bola Durand MD Work Phone: [facility] 10-15-2023 10:40-0500 Body weight 73.03 kg Bola Durand MD Work Phone: [facility] 10-15-2023 10:40-0500 Diastolic blood pressure 80 mm[Hg] Bola Durand MD Work Phone: [facility] 10-15-2023 10:40-0500 Heart rate 68 /min Bola Durand MD Work Phone: [facility] 10-15-2023 10:40-0500 Respiratory rate 16 /min Bola Durand MD Work Phone: [facility] 10-15-2023 10:40-0500 Systolic blood pressure 126 mm[Hg] Bola Durand MD Work Phone: [facility] 10-12-2023 15:04-0500 Body temperature 98.29 [degF] Carloz Jaskaran DISTRIBUTION TRANSFORMER ASSEMBLER.DESK SERGEANT Work Phone: [facility] 10-12-2023 15:04-0500 Body weight 75.21 kg Carloz Jessica DISTRIBUTION TRANSFORMER ASSEMBLER.DESK SERGEANT Work Phone: [facility] 10-12-2023 15:04-0500 Diastolic blood pressure 78 mm[Hg] Carloz Jessica DISTRIBUTION TRANSFORMER ASSEMBLER.DESK SERGEANT Work Phone: [facility] 10-12-2023 15:04-0500 Heart rate 81 /min Carloz Jessica DISTRIBUTION TRANSFORMER ASSEMBLER.DESK SERGEANT Work Phone: [facility] 10-12-2023 15:04-0500 Respiratory rate 16 /min Carloz Jessica DISTRIBUTION TRANSFORMER ASSEMBLER.DESK SERGEANT Work Phone: [facility] 10-12-2023 15:04-0500 SaO2% (BldA) [Mass fraction] 99 % Carloz Jessica DISTRIBUTION TRANSFORMER ASSEMBLER.DESK SERGEANT Work Phone: [facility] 10-12-2023 15:04-0500 Systolic blood pressure 142 mm[Hg] Carloz Jessica DISTRIBUTION TRANSFORMER ASSEMBLER.DESK SERGEANT Work Phone: [facility] 04-27-2023 10:15-0400 Body height 176.5 cm Bola Durand MD Work Phone: [facility] 04-27-2023 10:15-0400 Body weight 73.48 kg Bola Durand MD Work Phone: [facility] 04-27-2023 10:15-0400 Diastolic blood pressure 64 mm[Hg] Bola Durand MD Work Phone: [facility] 04-27-2023 10:15-0400 Heart rate 84 /min Bola Durand MD Work Phone: [facility] 04-27-2023 10:15-0400 Respiratory rate 16 /min Bola Durand MD Work Phone: [facility] 04-27-2023 10:15-0400 Systolic blood pressure 104 mm[Hg] Bola Durand MD Work Phone: [facility] 06-25-2022 13:10-0400 Body temperature 97.9 [degF] Odalis Creighton PA-C Work Phone: [facility] 06-25-2022 13:10-0400 Body weight 78.47 kg Odalis Creighton PA-C Work Phone: [facility] 06-25-2022 13:10-0400 Diastolic blood pressure 66 mm[Hg] Odalis Creighton PA-C Work Phone: [facility] 06-25-2022 13:10-0400 Heart rate 83 /min Odalis Creighton PA-C Work Phone: [facility] 06-25-2022 13:10-0400 SaO2% (BldA) [Mass fraction] 98 % Odalis Rubi PA-C Work Phone: [facility] 06-25-2022 13:10-0400 Systolic blood pressure 128 mm[Hg] Odalis Creighton PA-C Work Phone: [facility] 04-30-2022 15:25-0400 Body height 177.8 cm Shey Roman MD Work Phone: [facility] 04-30-2022 15:25-0400 Body temperature 98.1 [degF] Shey Roman MD Work Phone: [facility] 04-30-2022 15:25-0400 Body weight 76.66 kg Shey Roman MD Work Phone: [facility] 04-30-2022 15:25-0400 Diastolic blood pressure 74 mm[Hg] Shey Roman MD Work Phone: [facility] 04-30-2022 15:25-0400 Heart rate 97 /min Shey Roman MD Work Phone: [facility] 04-30-2022 15:25-0400 SaO2% (BldA) [Mass fraction] 99 % Shey Roman MD Work Phone: [facility] 04-30-2022 15:25-0400 Systolic blood pressure 112 mm[Hg] Shey Roman MD Work Phone: [facility] 04-22-2022 12:01-0400 Body height 175.5 cm Ruby Seaman PA-C Work Phone: [facility] 04-22-2022 12:01-0400 Body temperature 97.81 [degF] Ruby Seaman PA-C Work Phone: [facility] 04-22-2022 12:01-0400 Body weight 77.11 kg Ruby Seaman PA-C Work Phone: [facility] 04-22-2022 12:01-0400 Diastolic blood pressure 78 mm[Hg] Ruby Seaman PA-C Work Phone: [facility] 04-22-2022 12:01-0400 Heart rate 72 /min Ruby Seaman PA-C Work Phone: [facility] 04-22-2022 12:01-0400 Respiratory rate 16 /min Ruby Seaman PA-C Work Phone: [facility] 04-22-2022 12:01-0400 Systolic blood pressure 104 mm[Hg] Ruby Seaman PA-C Work Phone: [facility] 02-24-2022 14:53-0400 Body height 174 cm Bola Durand MD Work Phone: [facility] 02-24-2022 14:53-0400 Body weight 76.2 kg Bola Durand MD Work Phone: [facility] 02-24-2022 14:53-0400 Diastolic blood pressure 84 mm[Hg] Bola Durand MD Work Phone: [facility] 02-24-2022 14:53-0400 Heart rate 72 /min Bola Durand MD Work Phone: [facility] 02-24-2022 14:53-0400 Respiratory rate 14 /min Bola Durand MD Work Phone: [facility] 02-24-2022 14:53-0400 Systolic blood pressure 118 mm[Hg] Bola Durand MD Work Phone: [facility] Encounters Encounter Date Encounter Type Care Provider Facility Start: 03-04-2025 End: 03-04-2025 Chart abstracting Bola Durand MD Work Phone: [facility] [place] Comment on above: Outside Cardiology Start: 03-01-2025 End: 03-01-2025 Patient encounter procedure [facility] Work Phone: Start: 03-01-2025 End: 03-01-[address] Bola Durand MD Work Phone: [facility] Start: 02-18-2025 End: 02-18-2025 Patient encounter procedure Ruby Seaman PA-C Work Phone: [facility] [place] Comment on above: Mild intermittent ex trinsic asthma without complication (HCC) (Primary Dx); Encounter for immunization; Syncope and collapse Start: 02-18-2025 End: 02-18-2025 ambulatory RUBY SEAMAN Facility:[facility] Start: 02-07-2025 Non-patient / Non-visit [facility] Work Phone: Start: 02-07-2025 ambulatory Jailene Harper ty:[facility] Start: 02-06-2025 End: 02-06-2025 Chart abstracting Mignon Lake MA [facility] [place] Comment on above: Results (Outside lab s /) Start: 02-05-2025 ambulatory Aj Francois Facility:[facility] Start: 02-05-2025 Non-patient / Non-visit Dr. Dez MAGALLON -[facility] Start: 02-05-2025 End: 02-05-[address] Bola Durand MD Work Phone: [facility] Work Phone: Start: 02-05-2025 End: 02-05-[address] Shaji Li MD [facility] Work Phone: Start: 02-05-2025 End: 02-05-2025 ambulatory [facility] Facility:[facility] Start: 01-24-2025 End: 01-24-2025 Refill Linda Jung APRN.CNP Work Phone: [facility] Comment on above: Refill Request Start: 01-23-2025 End: 01-24-2025 Get Medical Advice Ruby Seaman PA-C Work Phone: [facility] Comment on above: Medication refill re quest Refill Request Start: 12-18-2024 End: 12-18-2024 Follow-up encounter Ruby Seaman PA-C Work Phone: [facility] Start: 12-17-2024 End: 12-17-2024 ambulatory RUBY SEAMAN Facility:[facility] Start: 12-14-2024 ambulatory [facility] Facility:[facility] Start: 12-14-2024 Non-patient / Non-visit Dr. Shaji barnhart MD -[facility] Start: 12-14-2024 End: 12-14-[address] Shaji Li MD -[facility] Work Phone: Start: 12-13-2024 End: 12-14-2024 ambulatory [facility] Facility:[facility] Start: 12-07-2024 End: 02-06-2025 Follow-up encounter Vijaya España PA-C Work Phone: Neurology Start: 12-07-2024 End: 12-07-2024 ambulatory VIJAYA ESPAÑA Facility:[facility] Start: 11-28-2024 End: 11-28-2024 ambulatory DIALLO ABREU Facility:[facility] Start: 11-28-2024 End: 11-28-2024 Office outpatient visit 25 minutes Diallo Abreu MD Work Phone: [facility] [place] Comment on above: Asthmatic bronchitis without complication, unspecified asthma severity, unspecified whether persistent (HCC) (Primary Dx); Wheezing; History of syncope Start: 11-28-2024 End: 11-28-2024 Telephone encounter Bola Durand MD Work Phone: [facility] [place] Comment on above: Patient Update Start: 11-21-2024 End: 11-21-2024 Chart abstracting Mignon Lake MA [facility] Comment on above: Consult (Outside con sult - Cardiology /) Start: 11-20-2024 End: 11-20-[address] Shaji Li MD -[facility] Work Phone: Start: 11-20-2024 End: 11-20-2024 ambulatory Shaji Li Facility:[facility] Start: 11-19-2024 End: 11-19-2024 ambulatory Bola Durand MD Work Phone: [facility] [place] Start: 11-19-2024 End: 11-19-2024 Follow-up encounter Bola Durand MD Work Phone: [facility] [place] Comment on above: Follow up with Madyson er ENT visit Start: 11-13-2024 End: 11-13-2024 Telephone encounter Gulshan Palmer MD Work Phone: Pain Management Comment on above: Orders (Back brace) Refill Request Start: 11-12-2024 End: 11-12-2024 ambulatory GULSHAN PALMER Facility:[facility] Start: 11-12-2024 End: 11-12-2024 Patient encounter procedure Gulshan Palmer MD Work Phone: Pain Management Comment on above: Myofascial pain synd vikki of lumbar spine (Primary Dx); Chronic midline low back 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; Compression fracture of L4 vertebra, initial encounter ([facility]) Start: 11-08-2024 End: 11-08-2024 Follow-up encounter Ruby Seaman PA-C Work Phone: [facility] Start: 11-06-2024 End: 11-06-2024 E-mail encounter from caregiver [facility] Start: 11-06-2024 End: 11-06-2024 Patient encounter procedure [facility] Comment on above: Instructions & Requi rements for Your Upcoming Appointment Start: 11-05-2024 End: 11-05-2024 ambulatory RUBY SEAMAN Facility:[facility] Start: 11-05-2024 End: 11-05-2024 Subsequent hospital visit by physician Landon [facility] [place] Work Phone: Radiology Comment on above: Bacterial pneumonia [J15.9] Start: 10-31-2024 End: 10-31-2024 Patient encounter procedure Vijaya España PA-C Work Phone: Neurology Comment on above: Loss of consciousnes s (HCC) (Primary Dx); Syncope, unspecified syncope type; Compression fracture of L4 vertebra, initial encounter ([facility]) Start: 10-31-2024 End: 10-31-2024 ambulatory VIJAYA LAFAYETTEELIAZBET Facility:[facility] Start: 10-23-2024 End: 10-23-2024 Follow-up encounter Ruby Seaman PA-C Work Phone: [facility] Start: 10-18-2024 End: 10-24-2024 Telephone encounter Ruby Seaman PA-C Work Phone: [facility] [place] Comment on above: Patient Update Start: 10-18-2024 End: 10-18-2024 Subsequent hospital visit by physician Landon [facility] Work Phone: Radiology Comment on above: Fall, initial encoun ter [W19.XXXA] Start: 10-18-2024 End: 10-18-2024 ambulatory RUBY SEAMAN Facility:[facility] Start: 10-18-2024 End: 10-18-2024 Patient encounter procedure Ruby [facility] Comment on above: Bacterial pneumonia (Primary Dx); Syncope, unspecified syncope type; Hypotension, unspecified hypotension type; Fall, initial encounter; Marijuana use Start: 10-11-2024 End: 10-12-2024 ambulatory [facility] Start: 10-11-2024 End: 10-12-2024 Emergency department patient visit César Waldron Anna Work Phone: [facility] Comment on above: Syncope, unspecified syncope type (Primary Dx); Orthostatic hypotension; Pneumonia of both lower lobes due to infectious organism; Syncope and collapse; Other specified symptoms and signs involving the circulatory and respiratory systems Start: 10-07-2024 End: 10-07-2024 [facility] Facility:[facility] Start: 10-07-2024 End: 10-07-2024 Office outpatient new 30 minutes César Cordoba PA-C Work Phone: [facility] Comment on above: Bronchopneumonia (Pr imary Dx) Start: 10-03-2024 End: 10-03-2024 [facility] Facility:[facility] Start: 10-03-2024 End: 10-03-2024 Office outpatient visit 25 minutes Allan Staples MD Work Phone: [facility] Comment on above: Influenza-like illne ss (Primary Dx); Wheezing Start: 10-03-2024 End: 10-03-2024 E-mail encounter from caregiver Mignon Lake MA [facility] Start: 10-03-2024 End: 10-03-2024 Patient encounter procedure Mignon Lake MA [facility] Comment on above: Appointment Start: 09-16-2024 End: 09-17-2024 Refill Ruby Seaman PA-C Work Phone: [facility] Comment on above: Refill Request Start: 07-25-2024 End: 07-25-2024 ambulatory [facility] Comment on above: Chronic midline low back 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 (Primary Dx) Start: 06-14-2024 End: 06-14-2024 ambulatory Chris Caro [facility] Comment on above: Chronic midline low back 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 (Primary Dx) Start: 06-08-2024 End: 06-08-2024 ambulatory Chris De Leon PT [facility] Comment on above: Chronic midline low back 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 (Primary Dx) Start: 05-29-2024 End: 05-29-2024 ambulatory Chris De Leon PT [facility] Comment on above: Chronic midline low back 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 (Primary Dx) Start: 05-06-2024 End: 05-07-2024 Telephone encounter Bola Durand MD Work Phone: [facility] [place] Comment on above: Results Start: 05-03-2024 End: 05-03-2024 ambulatory BOLA DURAND Facility:[facility] Start: 05-03-2024 End: 05-03-2024 Patient encounter procedure Bola Durand MD Work Phone: [facility] Comment on above: Medicare annual well ness visit, subsequent (Primary Dx); Mixed hyperlipidemia; Anemia of chronic disease; Elevated blood sugar; JUSTO (generalized anxiety disorder); Major depressive disorder with single episode, in remission (HCC); Hyponatremia; Erectile dysfunction, unspecified erectile dysfunction type; Advanced directives, counseling/discussion; Chronic midline low back 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; Medication management; Prostate disorder Start: 05-03-2024 End: 05-03-2024 ambulatory BOLA DURAND Facility:[facility] Start: 04-30-2024 End: 04-30-2024 Refill Bola Durand MD Work Phone: [facility] [place] Comment on above: Refill Request Start: 04-20-2024 End: 04-21-2024 Refill Bola Durand MD Work Phone: [facility] [place] Comment on above: Refill Request Start: 03-27-2024 Refill Ruby patel PA-C Work Phone: [facility] [place] Comment on above: Refill Request Start: 02-16-2024 ambulatory Linda Collins MA [facility] Start: 02-16-2024 Patient encounter procedure Linda Collins MA [facility] Comment on above: Population Health Na vigation Outreach ([place] [facility] CURRENT ROSTER workbench - AWV, HCC gap closure - [facility]) Start: 10-15-2023 End: 10-15-2023 Patient encounter procedure Bola Durand MD Work Phone: [facility] [place] Comment on above: Epididymitis, right (Primary Dx) Start: 10-12-2023 End: 10-12-2023 Subsequent hospital visit by physician [facility] Comment on above: Testicular swelling, right [N50.89] Start: 10-12-2023 End: 10-12-2023 Patient encounter procedure Carloz King DAVID Work Phone: [facility] Comment on above: Epididymo-orchitis ( Primary Dx); Testicular swelling, right Start: 10-12-2023 ambulatory Bola gray MD Work Phone: [facility] [place] Comment on above: Penis/Scrotum Proble m Start: 10-11-2023 ambulatory Ruby patel PA-C Work Phone: [facility] [place] Comment on above: Groin surprise Start: 10-03-2023 End: 10-03-2023 ambulatory Ruby Seaman PA-C Work Phone: [facility] [place] Comment on above: COVID-19 (Primary Dx ) Start: 10-03-2023 End: 10-03-2023 Telemedicine consultation with patient Ruby RIVAS-C Work Phone: [facility] Start: 09-27-2023 Refill Bola gray MD Work Phone: [facility] [place] Comment on above: Refill Request Start: 05-05-2023 Refill Bola gray MD Work Phone: [facility] [place] Comment on above: Refill Request Start: 05-01-2023 Telephone encounter Bola Durand MD Work Phone: [facility] [place] Comment on above: Results Start: 04-27-2023 End: 04-27-2023 Patient encounter procedure Bola Durand MD Work Phone: [facility] [place] Comment on above: Medicare annual well ness visit, subsequent (Primary Dx); Mixed hyperlipidemia; Anemia of chronic disease; Major depressive disorder with single episode, in remission (HCC); JUSTO (generalized anxiety disorder); Chronic pain syndrome; Elevated blood sugar; Advanced directives, counseling/discussion; Fatigue, unspecified type; Prostate disorder; Impacted cerumen of right ear Start: 03-22-2023 Refill Ruby patel PA-C Work Phone: [facility] [place] Comment on above: Refill Request Start: 09-02-2022 Refill Bola gray MD Work Phone: [facility] [place] Comment on above: Refill Request Start: 06-25-2022 End: 06-25-2022 Patient encounter procedure Odalis Venegas PA-C Work Phone: General Surgery Comment on above: Hyperplastic polyp o f sigmoid colon (Primary Dx) Start: 04-30-2022 End: 04-30-2022 Patient encounter procedure Shey Roman MD Work Phone: General Surgery Comment on above: Change in bowel habi t Start: 04-22-2022 End: 04-22-2022 Patient encounter procedure Ruby VUC Work Phone: [facility] [place] Comment on above: Medicare annual well ness visit, subsequent (Primary Dx); Mixed hyperlipidemia; Elevated blood sugar; Anemia of chronic disease; Major depressive disorder with single episode, in remission (HCC); JUSTO (generalized anxiety disorder); Prostate disorder; Erectile dysfunction, unspecified erectile dysfunction type; Chronic pain syndrome; Hyponatremia; Change in bowel habit; Advanced directives, counseling/discussion Start: 02-24-2022 End: 02-24-2022 Patient encounter procedure Bola Durand MD Work Phone: [facility] [place] Comment on above: Erectile dysfunction , unspecified erectile dysfunction type (Primary Dx); Fatigue, unspecified type; Encounter for immunization; Mixed hyperlipidemia; Anemia of chronic disease; Prostate disorder; Elevated blood sugar Start: 03-09-2021 Patient encounter procedure Washington Durand MD Work Phone: [facility] Work Phone: Start: 12-08-2017 End: 12-08-2017 Emergency department patient visit CEM YODER Facility:[facility] Start: 10-23-2017 Ambulatory -MADY Jefferson TAYLERBoby Facility:[facility] Procedures Date Procedure Procedure Detail Performing Clinician Start: 02-18-2025 PFIZER-BIONTECH COVI D-19 VACCINE AGE 12+ YR (COMIRNATY) Ruby Seaman PA-C Work Phone: Start: 12-14-2024 Radionuclide imaging of perfusion of myocardium under exercise stress Dr. Bola Durand MD Work Phone: Start: 10-12-2024 Ecg routine ecg w/le ast 12 lds trcg only w/o i&r Jameson Gill MD Work Phone: Start: 10-12-2024 Assay of troponin quantitative Jameson Gill MD Work Phone: Start: 10-12-2024 Duplex scan extracra nial art compl bi study Jameson Gill MD Work Phone: Start: 10-11-2024 Mri brain brain stem w/o contrast material Jameson Gill MD Work Phone: Start: 10-11-2024 End: 10-11-2024 Assay of ammonia Jameson Gill MD Work Phone: Start: 10-11-2024 Echo transthorc r-t 2d w/wo m-mode rec f-up/lmtd Jameson Gill MD Work Phone: Start: 10-11-2024 Influenza virus A an d B RNA [Identifier] in Unspecified specimen by MARIA VICTORIA with probe detection Dave Sylvester DO Work Phone: Start: 10-11-2024 SARS-CoV-2 (COVID-19 ) RNA [Presence] in Respiratory specimen by MARIA VICTORIA with probe detection Dave Sylvester DO Work Phone: Start: 10-11-2024 Ct angiography chest w/contrast/noncontrast César Waldron Anna DO Work Phone: Start: 10-11-2024 Drug tst prsmv instr mnt chem analyzers pr date César Waldron Anna DO Work Phone: Start: 10-11-2024 EXTRA URINE SENIOR TUBE M isai Waldron Anna DO Work Phone: Start: 10-11-2024 Urinalysis complete W Reflex Culture panel - Urine César Waldron Anna DO Work Phone: Start: 10-11-2024 Urnls dip stick/tabl et rgnt auto w/o microscopy César Waldron Anna DO Work Phone: Start: 10-11-2024 End: 10-11-2024 Ct cervical spine w/o contrast material César Waldron Anna DO Work Phone: Start: 10-11-2024 Ct head/brain w/o co ntrast material César Waldron Anna DO Work Phone: Start: 10-11-2024 End: 10-11-2024 Comprehensive metabolic panel César Waldron Anna DO Work Phone: Start: 10-11-2024 Troponin I.cardiac p nelly - Serum or Plasma by High sensitivity method César Waldron Anna DO Work Phone: Start: 10-11-2024 Radiologic exam ches t single view César Waldron Anna DO Work Phone: Start: 10-11-2024 Ecg routine ecg w/le ast 12 lds trcg only w/o i&r César Waldron Anna DO Work Phone: Start: 10-03-2024 INFLUENZA A&B MOLECU LAR (POC) Allan Staples MD Work Phone: Start: 05-03-2024 Lipid 1996 panel - S flavio or Plasma Bola Durand MD Work Phone: Start: 10-12-2023 Us scrotum & contents J onkellie Jessica APRN.DESK SERGEANT Work Phone: Start: 04-27-2023 Lipid 1996 panel - S flavio or Plasma Bola Durand MD Work Phone: Start: 05-28-2022 Colonoscopy Odalis anderson PA-C Work Phone: Start: 01-22-2013 Colonoscopy Bola patel MD Work Phone: Plan of Treatment Date Care Activity Detail Author Start: 08-18-2032 DTaP/Tdap/Td Vaccine s (2 - Td or Tdap) DTaP/Tdap/Td Vaccines (2 - Td or Tdap) [facility] Start: 08-18-2032 Urine microalbumin profile DTaP,Tdap,Td Vaccine (2 - Td or Tdap) [facility] Start: 05-28-2032 Colonoscopy COLONOSCOPY [facility] Start: 05-28-2032 COLORECTAL CANCER SCREENING COLORECTAL CANCER SCREENING [facility] Start: 05-28-2032 Screening for malign ant neoplasm of colon [facility] Start: 05-03-2029 Lipid panel Lipid Screening [facility] Start: 04-27-2028 Lipid 1996 panel - Serum or Plasma Lipid Screening [facility] Start: 04-27-2028 Lipid panel Lipid Screening [facility] Start: 2028 RSV High Risk: (Elde rly (60+) or Population) (1 - 1-dose 75+ series) RSV High Risk: (Elderly (60+) or Population) (1 - 1-dose 75+ series) [facility] Start: 2028 RSV Vaccine (1 - 1-d ose 75+ series) RSV Vaccine (1 - 1-dose 75+ series) [facility] Start: 10-11-2027 Diabetes Screening Diabetes Screenin g [facility] Start: 05-28-2027 Screening for malign ant neoplasm of colon Sigmoidoscopy [facility] Start: 05-03-2027 Diabetes Screening Diabetes Screenin g [facility] Start: 02-24-2027 LIPID SCREEN LIPID SCREEN [facility] Start: 04-27-2026 DIABETES SCREEN DIABETES SCREEN [facility] Start: 04-27-2026 Diabetes Screening Diabetes Screenin g [facility] Start: 02-18-2026 Annual PCP Team Recruiter Coordinator sigrid Disease Visit Annual PCP Team Chronic Disease Visit [facility] Start: 01-21-2026 LIPID SCREEN LIPID SCREEN [facility] Start: 01-21-2026 PROSTATE CANCER SCREENING DISCUSSION PROSTATE CANCER SCREENING DISCUSSION [facility] Start: 05-07-2025 End: 05-07-2025 Patient encounter procedure [facility] Comment on above: Medicare Wellness Start: 05-03-2025 Covid-19 Vaccine () Covid-19 Vaccine () [facility] Comment on above: Postponed from 04/22 (Currently Scheduled) Start: 05-03-2025 Covid-19 Vaccine () Covid-19 Vaccine () [facility] Comment on above: Postponed from 04/22 (Currently Scheduled) Start: 05-03-2025 RSV Vaccine (1 - 1-d ose 60+ series) RSV Vaccine (1 - 1-dose 60+ series) [facility] Comment on above: Postponed from 03/18 (Insurance Coverage) Start: 05-03-2025 RSV Vaccine (1 - Ris k 60-74 years 1-dose series) RSV Vaccine (1 - Risk 60-74 years 1-dose series) [facility] Comment on above: Postponed from 03/18 (Insurance Coverage) Start: 05-03-2025 Shingrix Vaccine (2 of 2) Shingrix Vaccine (2 of 2) [facility] Comment on above: Postponed from 10/19 (Insurance Coverage) Start: 04-22-2025 Influenza vaccination Influenza Vacc ine (#1) [facility] Start: 02-24-2025 DIABETES SCREEN DIABETES SCREEN [facility] Start: 02-18-2025 Influenza vaccination Influenza Vacc ine (#1) [facility] Comment on above: Postponed from 04/22 (Currently Scheduled) Start: 02-18-2025 End: 02-18-2025 Patient encounter procedure 02/18/2025 10:00 AM EDT Office Visit Family [facility] [address] [place] [id number] Ruby Seaman PA-C [address] [place] [phone] f/u inhaler use Family [facility] Comment on above: f/u inhaler use Start: 12-07-2024 End: 12-07-2024 Patient encounter procedure 12/07/2024 11:45 AM EDT Office Visit Neurology [address] [facility] [place] [address] Dx: Loss of consciousness (HCC) [R40.20] Neurology Comment on above: Dx: Loss of consciou sness (HCC) [R40.20] Start: 11-28-2024 Covid-19 Vaccine () Covid-19 Vaccine () [facility] Start: 11-20-2024 Evaluation of diagnostic study results [facility] Start: 11-12-2024 End: 11-12-2024 Patient encounter procedure 11/12/2024 3:00 PM EDT Office Visit Pain Management [address] [phone] Glushan Palmer MD [address] [place] [address] Chronic midline low back 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 [M54.50, G89.29] Pain Management Comment on above: Chronic midline low back 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 [M54.50, G89.29] Start: 11-05-2024 End: 11-17-2025 XR Chest PA and Lateral [facility] Work Phone: Comment on above: Expected: 11/05/2024 , Expires: 11/17/2025 Start: 11-05-2024 End: 11-05-2024 Patient encounter procedure 11/05/2024 10:30 AM EDT Appointment Radiology [address] [place] [address] Radiology Start: 11-02-2024 End: 11-02-2024 Patient encounter procedure 11/02/2024 8:40 AM EDT Office Visit [facility] [address] [phone] Dick Macias, PA-C [address] [place], [place] [phone] Chronic midline low back 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 [M54.50, G89.29] [facility] Comment on above: Chronic midline low back 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 [M54.50, G89.29] Start: 10-31-2024 End: 10-31-2024 Patient encounter procedure 10/31/2024 12:30 PM EDT Office Visit Neurology [address] [place], [place] [phone] Vijaya España PA-C [address] [place], [place] [phone] Dx: Syncope, unspecified syncope type [R55] Neurology Comment on above: Dx: Syncope, unspeci fied syncope type [R55] Start: 10-04-2024 End: 10-04-2024 Patient encounter procedure 10/04/2024 4:00 PM EST Office Visit Family [facility] [address] [place], [place] [phone] Linda Jung APRN.DESK SERGEANT [address] [place], [place] [phone] chest congestion, wheezing. pt preferred virtual, feels contagious. [facility] Comment on above: chest congestion, wh eezing. pt preferred virtual, feels contagious. Start: 08-22-2024 Advance Directive Discussion Advance Directive Discussion [facility] Start: 08-22-2024 Medicare Advantage Annual Wellness Visit Medicare Advantage Annual Wellness Visit [facility] Start: 08-01-2024 End: 08-01-2024 ambulatory 08/01/2024 10:30 AM EST OT/PT/Speech Visit [facility] [address] [place], [place] [phone] Chris De Leon, PT Chronic midline low back 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 [M54.50, G89.29] [facility] Comment on above: Chronic midline low back 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 [M54.50, G89.29] Start: 07-25-2024 End: 07-25-2024 ambulatory 07/25/2024 10:30 AM EST OT/PT/Speech Visit [facility] [address] [place] [address] Cornelius De Leonn, PT Chronic midline low back 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 [M54.50, G89.29] [facility] Comment on above: Chronic midline low back 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 [M54.50, G89.29] Start: 06-14-2024 End: 06-14-2024 ambulatory 06/14/2024 11:30 AM EDT OT/PT/Speech Visit [facility] [address] [place] [address] Cornelius De Leonn, PT Chronic midline low back 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 [M54.50, G89.29] [facility] Comment on above: Chronic midline low back 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 [M54.50, G89.29] Start: 06-08-2024 End: 06-08-2024 ambulatory 06/08/2024 2:30 PM EDT OT/PT/Speech Visit [facility] [address] [place] [address] Cornelius De Leonn, PT Chronic midline low back 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 [M54.50, G89.29] [facility] Comment on above: Chronic midline low back 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 [M54.50, G89.29] Start: 05-29-2024 End: 05-29-2024 ambulatory 05/29/2024 11:30 AM EDT OT/PT/Speech Visit [facility] [address] [place] [address] Cornelius De Leonn, PT Chronic midline low back 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 [M54.50, G89.29] [facility] Comment on above: Chronic midline low back 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 [M54.50, G89.29] Start: 05-03-2024 End: 08-02-2024 Comprehensive metabolic 2000 panel - Serum or Plasma [facility] Work Phone: Comment on above: Expected: 05/03/2024 , Expires: 08/02/2024 Start: 05-03-2024 End: 08-02-2024 Hemoglobin A1c in Blood [facility] Comment on above: Expected: 05/03/2024 , Expires: 08/02/2024 Start: 05-03-2024 End: 08-02-2024 LIPID PANEL, NONFASTING [facility] Comment on above: Expected: 05/03/2024 , Expires: 08/02/2024 Start: 05-03-2024 End: 08-02-2024 Prostate specific Ag [Mass/volume] in Serum or Plasma [facility] Comment on above: Expected: 05/03/2024 , Expires: 08/02/2024 Start: 05-03-2024 End: 08-02-2024 Thyrotropin [Units/volume] in Serum or Plasma [facility] Comment on above: Expected: 05/03/2024 , Expires: 08/02/2024 Start: 05-03-2024 End: 05-03-2024 Patient encounter procedure 05/03/2024 11:40 AM EDT Office Visit [facility] [address] [place] [address] Bola Durand MD [address] [place], [place] [phone] medicare wellness [facility] Comment on above: medicare wellness Start: 04-30-2024 End: 04-30-2024 Patient encounter procedure 04/30/2024 10:00 AM EDT Office Visit [facility] [address] [place] [address] Bola Durand MD [address] [place] [address] medicare wellness Family [facility] Comment on above: medicare wellness Start: 04-27-2024 COVID-19 VACCINE (5 - Moderna series) COVID-19 VACCINE (5 - Moderna series) [facility] Comment on above: Postponed from 12/22 (Declined at this time) Start: 04-27-2024 SHINGRIX VACCINE (1 of 2) SHINGRIX VACCINE (1 of 2) [facility] Comment on above: Postponed from 03/18 (Insurance Coverage) Start: 04-27-2024 Shingrix Vaccine (2 of 2) Shingrix Vaccine (2 of 2) [facility] Comment on above: Postponed from 10/19 (Insurance Coverage) Start: 04-27-2024 Urine microalbumin profile [facility] Comment on above: Postponed from 03/18 (Insurance Coverage) Start: 04-22-2024 Covid-19 Vaccine ( season) Covid-19 Vaccine () [facility] Start: 04-22-2024 Influenza vaccination Influenza Vacc ine (#1) [facility] Start: 02-19-2024 Influenza vaccination [facility] Comment on above: Postponed from 04/22 (Declined at this time) Start: 11-05-2023 Covid-19 Vaccine () Covid-19 Vaccine () [facility] Start: 08-22-2023 Advance Directive Discussion Advance Directive Discussion [facility] Start: 04-22-2023 Influenza vaccination INFLUENZA (#1) [facility] Start: 01-22-2023 Colonoscopy COLONOSCOPY [facility] Start: 01-22-2023 COLORECTAL CANCER SCREENING COLORECTAL CANCER SCREENING [facility] Start: 10-19-2022 Shingrix Vaccine (2 of 2) Shingrix Vaccine (2 of 2) [facility] Start: 08-22-2022 ADVANCE DIRECTIVE DISCUSSION ADVANCE DIRECTIVE DISCUSSION [facility] Start: 04-22-2022 Influenza vaccination INFLUENZA (#1) [facility] Start: 02-24-2022 End: 04-26-2022 Comprehensive metabolic 2000 panel - Serum or Plasma [facility] Work Phone: Comment on above: Expected: 02/24/2022 , Expires: 04/26/2022 Start: 02-24-2022 End: 04-26-2022 LIPID PANEL, NONFASTING [facility] Work Phone: Comment on above: Expected: 02/24/2022 , Expires: 04/26/2022 Start: 02-24-2022 End: 04-26-2022 Prostate specific Ag [Mass/volume] in Serum or Plasma [facility] Work Phone: Comment on above: Expected: 02/24/2022 , Expires: 04/26/2022 Start: 02-24-2022 End: 04-26-2022 Testosterone [Mass/volume] in Serum or Plasma [facility] Work Phone: Comment on above: Expected: 02/24/2022 , Expires: 04/26/2022 Start: 02-24-2022 End: 04-26-2022 Thyrotropin [Units/volume] in Serum or Plasma [facility] Work Phone: Comment on above: Expected: 02/24/2022 , Expires: 04/26/2022 Start: 02-24-2022 End: 04-26-2022 Thyroxine (T4) free [Mass/volume] in Serum or Plasma [facility] Work Phone: Comment on above: Expected: 02/24/2022 , Expires: 04/26/2022 Start: 02-24-2022 End: 04-26-2022 Urinalysis complete panel - Urine URINALYSIS, WITH MICROSCOPIC Lab Routine Mixed hyperlipidemia Expected: 02/24/2022, Expires: 04/26/2022 [facility] Work Phone: Comment on above: Expected: 02/24/2022 , Expires: 04/26/2022 Start: 10-18-2021 COVID-19 VACCINE (4 - Booster for Moderna series) COVID-19 VACCINE (4 - Booster for Moderna series) [facility] Start: 08-22-2021 ADVANCE DIRECTIVE DISCUSSION ADVANCE DIRECTIVE DISCUSSION [facility] Start: 08-12-2021 COVID-19 VACCINE (4 - Booster for Moderna series) COVID-19 VACCINE (4 - Booster for Moderna series) [facility] Start: 08-12-2021 COVID-19 VACCINE (4 - Moderna series) COVID-19 VACCINE (4 - Moderna series) [facility] Start: 2013 RSV Vaccine (1 - 1-d ose 60+ series) RSV Vaccine (1 - 1-dose 60+ series) [facility] Start: 2003 SHINGRIX VACCINE (1 of 2) SHINGRIX VACCINE (1 of 2) [facility] Start: 1998 COLOGUARD (FIT-DNA) COLOGUARD (FIT-D NA) [facility] Start: [address] COLONOGRAPHY [facility] Start: 1998 FECAL OCCULT BLOOD FECAL OCCULT BLOO D [facility] Start: 1998 Screening for malign ant neoplasm of colon [facility] Start: 1998 SIGMOIDOSCOPY SIGMOIDOSCOPY [facility] Start: 1972 Urine microalbumin profile DTAP,TDAP,TD (1 - Tdap) [facility] Start: 1971 Hepatitis C screening Hepatitis C [facility] Start: 1953 Annual wellness visit Welcome to Medicare Visit [facility] Start: 1955 Lipid panel Lipid Panel [facility] Start: 1955 Screening for malign ant neoplasm of colon [facility] End: 04-30-2023 COLONOSCOPY DIAGNOSTIC COLONOSCOPY DIAGNOSTIC Endoscopy Routine Change in bowel habit 1 Occurrences starting 04/30/2022 until 04/30/2023 [facility] Work Phone: Comment on above: 1 Occurrences starti ng 04/30/2022 until 04/30/2023 ECG 12 lead ECG 12 lead ECG STAT 10/11/2024 5:20 AM EST [facility] Work Phone: ECG 12 Lead ECG 12 Lead ECG Routine 10/12/2024 1:00 PM EST [facility] Work Phone: Electrocardiogram, 12-lead PRN ACS symptoms Electrocardiogram, 12-lead PRN ACS symptoms ECG Routine As needed until discontinued starting 10/11/2024 [facility] Work Phone: Comment on above: As needed until disc ontinued starting 10/11/2024 End: 10-31-2025 EPIL EEG ROUTINE EPIL EEG ROUTINE NEUROLOGY Routine Loss of consciousness (HCC) 1 Occurrences starting 10/31/2024 until 10/31/2025 [facility] Work Phone: Comment on above: 1 Occurrences starti ng 10/31/2024 until 10/31/2025 End: 10-12-2024 Holter monitor study [facility] Work Phone: Comment on above: Once for 1 Occurrenc es starting 10/12/2024 until 10/12/2024 Patient referral [facility] Work Phone: End: 10-12-2024 Respiratory care eval and treat Respiratory care eval and treat Respiratory Care Routine Once for 1 Occurrences starting 10/12/2024 until 10/12/2024 [facility] Work Phone: Comment on above: Once for 1 Occurrenc es starting 10/12/2024 until 10/12/2024 US.doppler Carotid arteries - bilateral Vascular US Carotid Artery Duplex Bilateral Vascular Ultrasound Routine Syncope and collapse Other specified symptoms and signs involving the circulatory and respiratory systems 10/12/2024 11:00 AM EST [facility] Work Phone: End: 11-17-2025 XR Lumbar spine 3 Views XR LUMBAR GENERAL 3V AP/LAT/L5-S1 Radiology Routine Fall, initial encounter 1 Occurrences starting 10/18/2024 until 11/17/2025 [facility] Work Phone: Comment on above: 1 Occurrences starti ng 10/18/2024 until 11/17/2025 XR Lumbar spine 3 Views XR LUMBA R GENERAL 3V AP/LAT/L5-S1 Radiology Routine Fall, initial encounter 10/18/2024 10:04 AM EST [facility] Immunizations Immunization Date Immunization Notes Care Provider Krysten vickers 02-18-2025 COVID-19 vaccine, ag e 12+ yr (PFIZER-BIONTECH COMIRNAT) Ruby Seaman PA-C Work Phone: [facility] 06-04-2024 zoster vaccine recombinant Ruby Seaman PA-C Work Phone: [facility] 05-30-2024 influenza, high dose seasonal, preservative-free Ruby Seaman PA-C Work Phone: [facility] 05-30-2024 pneumococcal conjuga te (PCV20) vaccine, 20 valent (PREVNAR 20) Ruby Seaman PA-C Work Phone: [facility] 05-30-2024 influenza virus vaccine, unspecified formulation Bola Durand MD Work Phone: [facility] 07-07-2023 influenza virus vaccine, unspecified formulation Ruby Seaman PA-C Work Phone: [facility] 08-24-2022 zoster vaccine recombinant Ruby Seaman PA-C Work Phone: [facility] 08-18-2022 tetanus toxoid, redu jean-paul diphtheria toxoid, and acellular pertussis vaccine, adsorbed Ruby Seaman PA-C Work Phone: [facility] 08-18-2022 influenza virus vaccine, unspecified formulation Bloa Durand MD Work Phone: [facility] 02-24-2022 pneumococcal Conjuga te, unspecified formulation Bola Durand MD Work Phone: [facility] Work Phone: 02-24-2022 pneumococcal (PCV20) vaccine, 20 valent (PREVNAR 20) Bola Durand MD Work Phone: [facility] 11-17-2020 COVID-19 vaccine, fu ll dose (MODERNA) Bola Durand MD Work Phone: [facility] Work Phone: 10-20-2020 COVID-19 vaccine, fu ll dose (MODERNA) Bola Durand MD Work Phone: [facility] Work Phone: Payers Date Payer Category Payer Self-pay 2021 Medicare (Managed Care) 1.2. [id number] 2021 Unknown ANTHEM BLUE CROS S AND BLUE SHIELD ANTHEM MEDIALISEUE O [id number] 2021-[facility] [phone] [address] [place] [address] [id number] 2021 Unknown [id number] 2021 Medicare [id number] 1955 Unknown [id number] Unknown [id number] Unknown [id number] Unknown [id number] Unknown [id number] Unknown [id number] Unknown [id number] Unknown [id number] Unknown [id number] Social History Date Type Detail Facility Start: 11-10-2019 End: 04-22-2022 Tobacco smoking status NHIS Ex-smoker [facility] Start: 11-10-2019 End: 04-22-2022 Tobacco use and exposure Smokeless tobacco non-user [facility] Start: 02-25-2022 End: 02-18-2025 Alcohol intake Lifetime non-drinker (finding) [facility] Start: 01-19-2021 End: 04-21-2022 History SDOH Alcohol Frequency 1 [facility] Start: 01-19-2021 End: 04-21-2022 History SDOH Alcohol Std Drinks 98 [facility] Start: 01-19-2021 End: 04-21-2022 History SDOH Social Connections Phone 3 [facility] Start: 01-19-2021 End: 04-21-2022 History SDOH Social Connections Get Together 2 [facility] Start: 01-19-2021 End: 04-21-2022 History SDOH Physical Activity DPW 4 [facility] Start: 01-19-2021 Education 16 [facility] Start: 1955 Sex Assigned At Male [facility] Start: 02-14-2022 End: 10-11-2024 Exposure to SARS-CoV-2 (event) Not sure [facility] History of tobacco use Current smoker [facility] Start: 04-21-2022 History SDOH Alcohol Std Drinks 0 [facility] Start: 04-21-2022 History SDOH Social Connections Living 8 [facility] Start: 04-21-2022 History SDOH Physical Activity DPW 7 [facility] Start: 04-21-2022 End: 04-26-2023 History of Social function [facility] Start: 04-21-2022 End: 04-26-2023 Social connection and isolation panel [facility] How often do you get together with friends or relatives? Patient refused [facility] Are you now , , , , never or living with a partner? Living with partner [facility] How often to you hav e a drink containing alcohol? Never [facility] Do you feel stress - tense, restless, nervous, or anxious, or unable to sleep at night because your mind is troubled all the time - these days [OSQ] To some extent [facility] (I/We) worried wheth er (my/our) food would run out before (I/we) got money to buy more. Never true [facility] At any time in the p ast 12 months, were you homeless or living in penitentiary [including now]? No [facility] Start: 01-19-2021 Gender identity Identifies as male gender (finding) [facility] Do you belong to any clubs or organizations such as rastafarian groups, unions, fraternal or athletic groups, or school groups? Yes [facility] Are you now , , , , never or living with a partner? [facility] Do you feel stress - tense, restless, nervous, or anxious, or unable to sleep at night because your mind is troubled all the time - these days [OSQ] Only a little [facility] How hard is it for y ou to pay for the very basics like food, housing, medical care, and heating Not very hard [facility] History of tobacco use Cigarette Smoker [facility] Work Phone: Start: 10-11-2024 Alcoholic beverage intake Ex-drinker (finding) [facility] Work Phone: Start: 1955 Sex assigned at Not on file [facility] Work Phone: Start: 11-11-2019 Alcohol Alcohol [facility] Clinical Notes 02-24-2022 to 03-04-2025 Rosio Champagne LPN - 03/04/2025 8:07 AM Ruby Lara PA-C - 02/18/2025 10:10 AM Mignon Moses MA - 02/06/2025 1:57 PM EDTPatient Instructions Note Date & Type Note Facility 03-04-2025 Note HNO ID: [id number] Author: ROSIO CHAMPAGNE LPN Service: ? Author Type: LICENSED NURSE Type: Progress Notes Filed: 03/04/2025 08:07 Note Text: Scan on 03/01/2025 5:11 PM by ProviderOscar PA-C: Consultation - Cardiology [facility] 03-04-2025 History of Present illness Narrative Scan on 03/01/2025 5:11 PM by Oscar Bass PA-C: Consultation - Cardiology documented in this encounter [facility] 02-18-2025 Note HNO ID: [id number] Author: RUBY SEAMAN PA-C Service: ? Author Type: Physician Beam Worker Type: Progress Notes Filed: 02/18/2025 10:41 Note Text: Chief Complaint Patient presents with: Follow Up: Inhaler use HPI Michael Beltran is a 69 year old male who presents here today for Above Complaints.. Asthma: - Noted improvement in symptoms since starting Symbicort and allergy shots. - Decreased use of albuterol inhaler. Syncope: - Recent tilt table test in mid-January at [facility], authorized by cardiology - Describes the test as weird, with a significant response to nitroglycerin administration. - No follow-up with cardiology since the test; next appointment scheduled for the . - Recent stress test reported as well-performed, unable to reach target heart rate. - Experiences occasional paresthesia in hands, believed to be positional. - Avoids hot showers due to discomfort. Past medical history, appointments, medications, allergies reviewed. Previous Medical History PAST MEDICAL HISTORY Diagnosis Date Anemia of chronic disease 01/22/2021 Hg (11.5-12.8) since 2018 Arthritis 01/21/2021 Upper spine. 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, in remission 01/21/2021 Marijuana use 03/09/[address] Jean's office note 02/26/21 Medicare annual wellness visit, subsequent 01/21/2021 Medicare part B: Last done: 01/21/2021 Mixed hyperlipidemia 01/21/2021 Sensorineural hearing loss (SNHL) of left ear 01/21/2021 Previous Surgical History PAST SURGICAL HISTORY Procedure Laterality Date COLONOSCOPY 2013 repeat 10 years COLONOSCOPY 05/28/2022 COLONOSCOPY SCREENING 2004 PAST SURGICAL HISTORY OF 1976 pneumo thorax PAST SURGICAL HISTORY OF 1985 cyst on right side of buttock TONSILLECTOMY AND ADENOIDECTOMY TONSILLECTOMY HX Family History FAMILY HISTORY Problem Relation Age of Onset Multiple Sclerosis Mother Stroke Mother Cancer Father lymphoma Hypertension Father Prostate Cancer Brother Dementia Maternal Grandmother Breast Cancer Paternal Grandmother Stroke Paternal Grandfather Colon Cancer No Family History Ovarian cancer No Family History Diabetes No Family History Hyperlipidemia No Family History Coronary Artery Disease No Family History Kidney Disease No Family History Seizures No Family History Thyroid No Family History Patient Allergies ALLERGIES Allergen Reactions Zythromax [Azithrom* Itching Erythromycin Itching Ether Shortness of Breath Current Medications Current Outpatient Medications on File Prior to Visit Medication Sig albuterol HFA (PROVENTIL HFA, VENTOLIN HFA) 90 mcg/actuation inhaler Inhale 2 puffs as instructed every 4 hours as needed for wheezing/shortness of breath. atorvastatin (LIPITOR) 20 mg tablet Take 1 tablet by mouth once daily. Tadalafil (CIALIS) 20 mg tablet Take 1 tablet by mouth once daily. As needed budesonide-formoterol (SYMBICORT) 160-4.5 mcg/actuation inhaler Inhale 2 puffs as instructed two times a day. venlafaxine ER (EFFEXOR XR) 75 mg 24 hr capsule Take 1 capsule by mouth three times a day. loratadine 10 mg cap Take 10 mg by mouth as needed. No current facility-administered medications on file prior to visit. Social History Social History Tobacco Use Smoking status: Former Smokeless tobacco: Never Vaping Use Vaping status: Never Used Substance Use Topics Alcohol use: Never Drug use: Not Currently Review of Symptoms REVIEW OF SYSTEMS SEE HPI EXAM: BP 108/68 (BP Site: Left Arm, BP Position: Sitting, BP Cuff Size: Regular Adult) Pulse 74 Temp 36.4 ?C (97.5 ?F) Resp 16 Wt 73 kg (161 lb) SpO2 98% BMI 23.74 kg/m? General Appearance: Well appearing, alert, in no acute distress, well-hydrated, well nourished.. Health Maintenance List Advance Directive Discussion due on 08/22/2024 Medicare Advantage Annual Wellness Visit due on 08/22/2024 RSV Vaccine(1 - Risk 60-74 years 1-dose series) due on 05/03/2025 Diabetes Screening due on 10/11/2027 Lipid Screening due on 05/03/2029 Colorectal Cancer Screening due on 05/28/2032 DTaP,Tdap,Td Vaccine(2 - Td or Tdap) due on 08/18/2032 Abdominal Aortic Aneurysm Screening Completed Influenza Vaccine Completed Shingrix Vaccine Completed Covid-19 Vaccine Completed Pneumococcal Vaccine: 50+ Completed Hepatitis C Screening Discontinued Data reviewed PFT 12/17/24 Cough in 1st second despite repeated efforts; Patiet with cough throughout testing session. IMPRESSION: Spirometry reveals a reduced FEV1/FVC with normal FEV1 and FVC values. This could reflect a normal presentation or could indicate mild obstruction. Clinical correlation recommended. (more content not included)... [facility] 02-18-2025 History of Present illness Narrative Chief Complaint Patient presents with: Follow Up: Inhaler use HPI Michael Beltran is a 69 year old male who presents here today for Above Complaints.. Asthma: - Noted improvement in symptoms since starting Symbicort and allergy shots. - Decreased use of albuterol inhaler. Syncope: - Recent tilt table test in mid-January at [facility], authorized by cardiology - Describes the test as weird, with a significant response to nitroglycerin administration. - No follow-up with cardiology since the test; next appointment scheduled for the . - Recent stress test reported as well-performed, unable to reach target heart rate. - Experiences occasional paresthesia in hands, believed to be positional. - Avoids hot showers due to discomfort. Past medical history, appointments, medications, allergies reviewed. Previous Medical History PAST MEDICAL HISTORY Diagnosis Date Anemia of chronic disease 01/22/2021 Hg (11.5-12.8) since 2018 Arthritis 01/21/2021 Upper spine. 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, in remission 01/21/2021 Marijuana use 03/09/[address] Jean's office note 02/26/21 Medicare annual wellness visit, subsequent 01/21/2021 Medicare part B: Last done: 01/21/2021 Mixed hyperlipidemia 01/21/2021 Sensorineural hearing loss (SNHL) of left ear 01/21/2021 Previous Surgical History PAST SURGICAL HISTORY Procedure Laterality Date COLONOSCOPY 2013 repeat 10 years COLONOSCOPY 05/28/2022 COLONOSCOPY SCREENING 2004 PAST SURGICAL HISTORY OF 1976 pneumo thorax PAST SURGICAL HISTORY OF 1985 cyst on right side of buttock TONSILLECTOMY & ADENOIDECTOMY <AGE 10 1959 TONSILLECTOMY HX Family History FAMILY HISTORY Problem Relation Age of Onset Multiple Sclerosis Mother Stroke Mother Cancer Father lymphoma Hypertension Father Prostate Cancer Brother Dementia Maternal Grandmother Breast Cancer Paternal Grandmother Stroke Paternal Grandfather Colon Cancer No Family History Ovarian cancer No Family History Diabetes No Family History Hyperlipidemia No Family History Coronary Artery Disease No Family History Kidney Disease No Family History Seizures No Family History Thyroid No Family History Patient Allergies ALLERGIES Allergen Reactions Zythromax [Azithrom* Itching Erythromycin Itching Ether Shortness of Breath Current Medications Current Outpatient Medications on File Prior to Visit Medication Sig albuterol HFA (PROVENTIL HFA, VENTOLIN HFA) 90 mcg/actuation inhaler Inhale 2 puffs as instructed every 4 hours as needed for wheezing/shortness of breath. atorvastatin (LIPITOR) 20 mg tablet Take 1 tablet by mouth once daily. Tadalafil (CIALIS) 20 mg tablet Take 1 tablet by mouth once daily. As needed budesonide-formoterol (SYMBICORT) 160-4.5 mcg/actuation inhaler Inhale 2 puffs as instructed two times a day. venlafaxine ER (EFFEXOR XR) 75 mg 24 hr capsule Take 1 capsule by mouth three times a day. loratadine 10 mg cap Take 10 mg by mouth as needed. No current facility-administered medications on file prior to visit. Social History Social History Tobacco Use Smoking status: Former Smokeless tobacco: Never Vaping Use Vaping status: Never Used Substance Use Topics Alcohol use: Never Drug use: Not Currently Review of Symptoms REVIEW OF SYSTEMS SEE HPI EXAM: BP 108/68 (BP Site: Left Arm, BP Position: Sitting, BP Cuff Size: Regular Adult) Pulse 74 Temp 36.4 C (97.5 F) Resp 16 Wt 73 kg (161 lb) SpO2 98% BMI 23.74 kg/m General Appearance: Well appearing, alert, in no acute distress, well-hydrated, well nourished.. Health Maintenance List Advance Directive Discussion due on 08/22/2024 Medicare Advantage Annual Wellness Visit due on 08/22/2024 RSV Vaccine(1 - Risk 60-74 years 1-dose series) due on 05/03/2025 Diabetes Screening due on 10/11/2027 Lipid Screening due on 05/03/2029 Colorectal Cancer Screening due on 05/28/2032 DTaP,Tdap,Td Vaccine(2 - Td or Tdap) due on 08/18/2032 Abdominal Aortic Aneurysm Screening Completed Influenza Vaccine Completed Shingrix Vaccine Completed Covid-19 Vaccine Completed Pneumococcal Vaccine: 50+ Completed Hepatitis C Screening Discontinued Data reviewed PFT 12/17/24 Cough in 1st second despite repeated efforts; Patiet with cough throughout testing session. IMPRESSION: Spirometry reveals a reduced FEV1/FVC with normal FEV1 and FVC values. This could reflect a normal presentation or could indicate mild obstruction. Clinical correlation recommended. Negative bronchodilator response. Assessment and Plan 1. Mild intermittent extrinsic asthma without complication (HCC) (J45.20) - Symptoms improved with current use of Symbicort and reduced need for Albuterol. - Discussed possibility of allergy-induced asthma/copd - Continue current inhaler regimen. 2. Encounter for immunization (Z23) - Administered COVID-19 vaccine. 3. Syncope and collapse (R55) - Recent tilt table test showed heart rate increase to 205 bpm and blood pressure drop to 83/64 mmHg. - Discussed potential diagnosis of POTS; follow-up with cardiology scheduled for the . - Advised on potential management strategies including fluid and salt intake, compression socks, and possible medication. Ruby Seaman PA-C Recording using [employer] software for draft documentation of the visit was discussed with the patient/authorized employee relations representative; all questions welcomed and answered. Patient/authorized employee relations representative agreed to proceed documented in this encounter [facility] 02-06-2025 Note HNO ID: [id number] Author: MIGNON LAKE MA Service: ? Author Type: Design Engineer Type: Progress Notes Filed: 02/06/2025 13:58 Note Text: Scan on 02/05/2025 10:39 AM by Oscar Bass PA-C: Chemistry Scan on 02/05/2025 11:11 AM by Oscar Bass PA-C: Chemistry Scan on 02/05/2025 5:15 PM by Oscar Bass PA-C: Miscellaneous Procedures [place] MA; [facility] 02-06-2025 History of Present illness Narrative Scan on 02/05/2025 10:39 AM by Oscar Bass PA-C: Chemistry Scan on 02/05/2025 11:11 AM by Oscar Bass PA-C: Chemistry Scan on 02/05/2025 5:15 PM by Oscar Bass PA-C: Miscellaneous Procedures [place] MA; documented in this encounter [facility] 02-05-2025 Procedure note [facility] 01-24-2025 Telephone encounter Note Prescription Refill Information The patient has been identified by name and date of : Yes Caregiver verified no other encounters exist for this prescription request: Yes Caregiver confirmed with patient/requestor that no other refills are due, in the near future, with this provider at this time: Yes The last office visit in the department: 12/13/24 Does the patient have a future office visit with this provider/department: Yes Requested Prescriptions Pending Prescriptions Disp Refills Tadalafil (CIALIS) 20 mg tablet 30 tablet 2 Sig: Take 1 tablet by mouth once daily. As needed Rosio Champagne LPN January 24, 2025 2:51 PM [facility] 01-24-2025 Miscellaneous Notes Prescription Refill Information The patient has been identified by name and date of : Yes Caregiver verified no other encounters exist for this prescription request: Yes Caregiver confirmed with patient/requestor that no other refills are due, in the near future, with this provider at this time: Yes The last office visit in the department: 12/13/24 Does the patient have a future office visit with this provider/department: Yes Requested Prescriptions Pending Prescriptions Disp Refills Tadalafil (CIALIS) 20 mg tablet 30 tablet 2 Sig: Take 1 tablet by mouth once daily. As needed Rosio Champagne LPN January 24, 2025 2:51 PM documented in this encounter [facility] 01-24-2025 Telephone encounter Note Prescription Refill Information The patient has been identified by name and date of : Yes Caregiver verified no other encounters exist for this prescription request: Yes Caregiver confirmed with patient/requestor that no other refills are due, in the near future, with this provider at this time: Yes The last office visit in the department: 12/13/24 Does the patient have a future office visit with this provider/department: Yes Requested Prescriptions Pending Prescriptions Disp Refills atorvastatin (LIPITOR) 20 mg tablet 90 tablet 1 Sig: Take 1 tablet by mouth once daily. Rosio Champagne LPN January 24, 2025 12:14 PM [facility] 01-24-2025 Miscellaneous Notes Prescription Refill Information The patient has been identified by name and date of : Yes Caregiver verified no other encounters exist for this prescription request: Yes Caregiver confirmed with patient/requestor that no other refills are due, in the near future, with this provider at this time: Yes The last office visit in the department: 12/13/24 Does the patient have a future office visit with this provider/department: Yes Requested Prescriptions Pending Prescriptions Disp Refills atorvastatin (LIPITOR) 20 mg tablet 90 tablet 1 Sig: Take 1 tablet by mouth once daily. Rosio Champagne LPN January 24, 2025 12:14 PM documented in this encounter [facility] 01-24-2025 Telephone encounter Note Patient has been identified by name and date of : Yes Patient phones for refill(s): Requested Prescriptions Pending Prescriptions Disp Refills albuterol HFA (PROVENTIL HFA, VENTOLIN HFA) 90 mcg/actuation inhaler 8 g 0 Sig: Inhale 2 puffs as instructed every 4 hours as needed for wheezing/shortness of breath. Date of last office visit in primary care: 11/28/2024 Date of next office visit in primary care: 05/07/2025 Please advise. Thank you. Bita Jain LPN. [facility] 01-24-2025 Miscellaneous Notes Patient has been identified by name and date of : Yes Patient phones for refill(s): Requested Prescriptions Pending Prescriptions Disp Refills albuterol HFA (PROVENTIL HFA, VENTOLIN HFA) 90 mcg/actuation inhaler 8 g 0 Sig: Inhale 2 puffs as instructed every 4 hours as needed for wheezing/shortness of breath. Date of last office visit in primary care: 11/28/2024 Date of next office visit in primary care: 05/07/2025 Please advise. Thank you. Bita Jain LPN. documented in this encounter [facility] 01-24-2025 Telephone encounter Note Pt advises via [facility] that he does have another inhaler and to cancel this refill request. Rosio Champagne LPN [facility] 01-24-2025 Miscellaneous Notes Pt advises via [facility] that he does have another inhaler and to cancel this refill request. Rosio Champagne LPN documented in this encounter [facility] 12-18-2024 Telephone encounter Note Pt notified of results and instructions, pt verbalizes understanding. Appointment scheduled at this time. Rosio Champagne LPN [facility] 12-18-2024 Miscellaneous Notes Pt notified of results and instructions, pt verbalizes understanding. Appointment scheduled at this time. Rosio Champagne LPN Let patient know his PFT shows possible mild COPD. But I see that he used his inhaler shortly before the test which could have skewed the results. Have him try the inhaler I sent in for 1-2 months and then schedule in office follow up to discuss. Also continue with ENT/allergy for their treatment plan. documented in this encounter [facility] 12-18-2024 Telephone encounter Note Let patient know his PFT shows possible mild COPD. But I see that he used his inhaler shortly before the test which could have skewed the results. Have him try the inhaler I sent in for 1-2 months and then schedule in office follow up to discuss. Also continue with ENT/allergy for their treatment plan. [facility] 12-14-2024 Note HNO ID: [id number] Author: PATRICIA KEARNS MA Service: ? Author Type: Design Engineer Type: Progress Notes Filed: 12/16/2024 16:07 Note Text: Pt had Stress Test completed at [facility]. Scan on 12/14/2024 10:27 AM by Provider, KULWINDER Moore: Stress Test Patricia Kearns MA [facility] 12-13-2024 Note HNO ID: [id number] Author: RUBY SEAMAN PA-C Service: ? Author Type: Physician Beam Worker Type: Progress Notes Filed: 12/13/2024 13:13 Note Text: Chief Complaint Patient presents with: Cough: Returned after finishing prednisone HPI Michael Beltran is a 69 year old male who presents here today for Above Complaints.. Cough and Dyspnea: - Persistent cough and dyspnea following completion of prednisone course prescribed by Dr. Blair on 11/28. - Symptoms initially improved with prednisone but recurred a few days after completion. - Cough described as incessant, with occasional expectoration of dark sputum. - Dyspnea is intermittent, not consistently worse at night or with activity. - Increased use of albuterol inhaler with partial relief. - Recent chest X-ray on 11/05 showed old scarring, similar to previous findings. - Scheduled for a stress test tomorrow; previously postponed due to asthma. - ENT evaluation by Dr. Ching in early November diagnosed environmental allergies, including house dust, grasses, and cat saliva. - Awaiting allergy shots; no current antihistamine use. - Former smoker, quit in October 2007. Past medical history, appointments, medications, allergies reviewed. Previous Medical History PAST MEDICAL HISTORY Diagnosis Date Anemia of chronic disease 01/22/2021 Hg (11.5-12.8) since 2018 Arthritis 01/21/2021 Upper spine. 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, in remission 01/21/2021 Marijuana use 03/09/[address] Jean's office note 02/26/21 Medicare annual wellness visit, subsequent 01/21/2021 Medicare part B: Last done: 01/21/2021 Mixed hyperlipidemia 01/21/2021 Sensorineural hearing loss (SNHL) of left ear 01/21/2021 Previous Surgical History PAST SURGICAL HISTORY Procedure Laterality Date COLONOSCOPY 2012 repeat 10 years COLONOSCOPY 05/28/2022 COLONOSCOPY SCREENING 2004 PAST SURGICAL HISTORY OF 1976 pneumo thorax PAST SURGICAL HISTORY OF 1985 cyst on right side of buttock TONSILLECTOMY AND ADENOIDECTOMY TONSILLECTOMY HX Family History FAMILY HISTORY Problem Relation Age of Onset Multiple Sclerosis Mother Stroke Mother Cancer Father lymphoma Hypertension Father Prostate Cancer Brother Dementia Maternal Grandmother Breast Cancer Paternal Grandmother Stroke Paternal Grandfather Colon Cancer No Family History Ovarian cancer No Family History Diabetes No Family History Hyperlipidemia No Family History Coronary Artery Disease No Family History Kidney Disease No Family History Seizures No Family History Thyroid No Family History Patient Allergies ALLERGIES Allergen Reactions Zythromax [Azithrom* Itching Erythromycin Itching Ether Shortness of Breath Current Medications Current Outpatient Medications on File Prior to Visit Medication Sig albuterol HFA (PROVENTIL HFA, VENTOLIN HFA) 90 mcg/actuation inhaler Inhale 2 puffs as instructed every 4 hours as needed for wheezing/shortness of breath. atorvastatin (LIPITOR) 20 mg tablet Take 1 tablet by mouth once daily. Tadalafil (CIALIS) 20 mg tablet Take 1 tablet by mouth once daily. As needed venlafaxine ER (EFFEXOR XR) 75 mg 24 hr capsule Take 1 capsule by mouth three times a day. loratadine 10 mg cap Take 10 mg by mouth as needed. No current facility-administered medications on file prior to visit. Social History Social History Tobacco Use Smoking status: Former Smokeless tobacco: Never Vaping Use Vaping status: Never Used Substance Use Topics Alcohol use: Never Drug use: Not Currently Review of Symptoms REVIEW OF SYSTEMS SEE HPI EXAM: BP 118/66 (BP Site: Left Arm, BP Position: Sitting, BP Cuff Size: Regular Adult) Pulse 82 Temp 36.2 ?C (97.2 ?F) Resp 18 Wt 73.9 kg (163 lb) SpO2 97% BMI 23.73 kg/m? General Appearance: Well appearing, alert, in no acute distress, well-hydrated, well nourished.. Lungs: Lungs clear to auscultation. No wheezing, rhonchi, rales.. Heart: RRR without murmur, gallop, or rubs. No ectopy. Extremities: No deformities, edema, skin discoloration, clubbing or cyanosis. Good capillary refill. . Health Maintenance List Advance Directive Discussion due on 08/22/2024 Covid-19 Vaccine( season) due on 11/28/2024 RSV Vaccine(1 - Risk 60-74 years 1-dose series) due on 05/03/2025 Diabetes Screening due on 10/11/2027 Lipid Screening due on 05/03/2029 Colorectal Cancer Screening due on 05/28/2032 DTaP,Tdap,Td Vaccine(2 - Td or Tdap) due on 08/18/2032 Abdominal Aortic Aneurysm Screening Completed Influenza Vaccine Completed Shingrix Vaccine Completed Pneumococcal Vaccine: 50+ Completed Hepatitis C Screening Discontinued Data revie (more content not included)... [facility] 11-28-2024 Instructions Diallo Abreu MD - 11/28/2024 3:54 PM EDT We discussed your shortness of breath, wheezing, and cough: - I diagnosed you with asthmatic bronchitis, which is likely causing your symptoms of wheezing, coughing, and difficulty breathing. This is due to residual inflammation and irritation in your airways following your recent pneumonia. - I prescribed a course of prednisone to reduce inflammation in your airways. You will take: - 4 tablets daily for 2 days, - 3 tablets daily for 2 days, - 2 tablets daily for 2 days, - 1 tablet daily for 2 days. - Please take the prednisone in the morning to minimize side effects such as restlessness. - I sent a refill for your inhaler to your preferred pharmacy ([facility] in [place]). Use it as directed to help manage your breathing symptoms. - If your symptoms worsen or do not improve after completing the prednisone course, please contact our office. We discussed your upcoming stress test: - I recommend postponing your stress test scheduled for Tuesday morning until your breathing improves. Completing the test while you are short of breath may limit the results and reduce its effectiveness. Please reschedule the test once your breathing has stabilized. Please monitor your symptoms closely and let us know if you experience any new or worsening issues, such as chest pain, severe shortness of breath, or other concerning symptoms. documented in this encounter [facility] 11-28-2024 Note HNO ID: [id number] Author: DIALLO ABREU MD Service: ? Author Type: Physician Type: Progress Notes Filed: 11/28/2024 16:02 Note Text: This note was created using [employer]. Subjective Michael Beltran is a 69 year old male here with his . PCP Bola Durand MD Patient presents with: Cough The patient consented to the use of [employer] software for draft documentation of the visit consistent with [facility]?s Notice of Privacy Practices. Mayur is a 69-year-old male, with a history of childhood asthma, presenting with dyspnea and cough. Mayru reports a recurrence of dyspnea and a deep, rattling cough following a bout of bronchial pneumonia in September. He was treated with antibiotics and a 5-day course of prednisone at that time, and was prescribed an inhaler, which he has been using since. Approximately 2 weeks after being declared free of pneumonia, he began experiencing a heavy sensation in his chest, dyspnea, and a deep, rattling cough, particularly when lying down at night. The cough is not always productive, and he finds it very hard to breathe, even with the use of his inhaler. He describes the difficulty in breathing as similar to his childhood asthma, though he has not had asthma in recent years. He also reports intermittent wheezing. Mayur notes that his dyspnea is worse at night, often waking him up and making it difficult to sleep. Last night, he was unable to sleep until around 0400 due to dyspnea. He finds some relief when sitting up. He experiences dyspnea even while sitting and reports a sensation of chest tightness, though not cardiac in nature. He denies fever, chills, sweats, weight changes, leg or ankle swelling, or gastrointestinal symptoms beyond his normal baseline. Mayur has a history of smoking, having quit in 2007 after many years. He also has a history of a pneumothorax on the left side in the 1970s. He is scheduled for a stress test on Tuesday to investigate episodes of syncope, which he attributes to drops in blood pressure occurring every 5-10 years. He mentions that he had a syncope episode in September. Review of Systems Constitutional: (-) fever, (-) chills, (-) sweats, (-) weight gain Ears/Nose/Mouth/Throat: (-) ear pain, (-) sore throat, (-) congestion Cardiovascular: (-) chest pain, (+) chest tightness Respiratory: (+) shortness of breath, (+) cough, (+) wheezing Gastrointestinal: (-) nausea, (-) vomiting Psychiatric: (+) sleep disturbance ACTIVE PROBLEM LIST Arthritis Mixed Hyperlipidemia Major Depressive Disorder With Single Episode, in Remission Justo (Generalized Anxiety Disorder) Ex-Smoker Medicare Annual Wellness Visit, Subsequent Sensorineural Hearing Loss (Snhl) of Left Ear Chronic Pain Syndrome Prostate Disorder Advanced Directives, Counseling/Discussion Anemia of Chronic Disease Marijuana Use Elevated Blood Sugar Erectile Dysfunction Hyponatremia Chronic Midline Low Back Pain Without Sciatica Medication Management Social History Tobacco Use Smoking status: Former Smokeless tobacco: Never Vaping Use Vaping status: Never Used Substance Use Topics Alcohol use: Never Drug use: Not Currently Current Outpatient Medications Medication Sig atorvastatin (LIPITOR) 20 mg tablet Take 1 tablet by mouth once daily. baclofen 5 mg tablet Take 1 tablet by mouth once daily as needed. albuterol HFA (PROVENTIL HFA, VENTOLIN HFA) 90 mcg/actuation inhaler Inhale 2 Puffs as instructed every 4 hours as needed for wheezing/shortness of breath. Tadalafil (CIALIS) 20 mg tablet Take 1 tablet by mouth once daily. As needed venlafaxine ER (EFFEXOR XR) 75 mg 24 hr capsule Take 1 capsule by mouth three times a day. loratadine 10 mg cap Take 10 mg by mouth as needed. No current facility-administered medications for this visit. Objective BP 110/66 (BP Site: Left Arm, BP Position: Sitting, BP Cuff Size: Large Adult) Pulse 88 Temp 37.3 ?C (99.1 ?F) (Temporal) Resp 20 Wt 74.3 kg (163 lb 12.8 oz) BMI 23.84 kg/m? Physical Exam Constitutional: General: He is not in acute distress. Appearance: He is not ill-appearing or diaphoretic. HENT: Nose: No congestion or rhinorrhea. Mouth/Throat: Mouth: Mucous membranes are moist. Pharynx: Oropharynx is clear. Neck: Vascular: No JVD. Cardiovascular: Rate and Rhythm: Normal rate and regular rhythm. Pulses: Normal pulses. Heart sounds: No murmur heard. No gallop. Pulmonary: Effort: No respiratory distress. Breath sounds: Wheezing and rhonchi present. Abdominal: General: There is no distension. Tenderness: There is no abdominal tenderness. Musculoskeletal: Right lower leg: No edema. Left lower leg: No edema. Lymphadenopathy: Cervical: No cervical adenopathy. Skin: General: Skin is warm and dry. Neurological: Mental Status: He is alert. 11/07/2024 5:12 PM - Radiology, [facility] In Impression IMPRESSION: No acute radi (more content not included)... [facility] 11-28-2024 History of Present illness Narrative This note was created using [employer]. Subjective Michael Beltran is a 69 year old male here with his . PCP Bola Durand MD Patient presents with: Cough The patient consented to the use of [employer] software for draft documentation of the visit consistent with [facility] s Notice of Privacy Practices. Mayur is a 69-year-old male, with a history of childhood asthma, presenting with dyspnea and cough. Mayur reports a recurrence of dyspnea and a deep, rattling cough following a bout of bronchial pneumonia in September. He was treated with antibiotics and a 5-day course of prednisone at that time, and was prescribed an inhaler, which he has been using since. Approximately 2 weeks after being declared free of pneumonia, he began experiencing a heavy sensation in his chest, dyspnea, and a deep, rattling cough, particularly when lying down at night. The cough is not always productive, and he finds it very hard to breathe, even with the use of his inhaler. He describes the difficulty in breathing as similar to his childhood asthma, though he has not had asthma in recent years. He also reports intermittent wheezing. Mayur notes that his dyspnea is worse at night, often waking him up and making it difficult to sleep. Last night, he was unable to sleep until around 0400 due to dyspnea. He finds some relief when sitting up. He experiences dyspnea even while sitting and reports a sensation of chest tightness, though not cardiac in nature. He denies fever, chills, sweats, weight changes, leg or ankle swelling, or gastrointestinal symptoms beyond his normal baseline. Mayur has a history of smoking, having quit in 2007 after many years. He also has a history of a pneumothorax on the left side in the 1970s. He is scheduled for a stress test on Tuesday to investigate episodes of syncope, which he attributes to drops in blood pressure occurring every 5-10 years. He mentions that he had a syncope episode in September. Review of Systems Constitutional: (-) fever, (-) chills, (-) sweats, (-) weight gain Ears/Nose/Mouth/Throat: (-) ear pain, (-) sore throat, (-) congestion Cardiovascular: (-) chest pain, (+) chest tightness Respiratory: (+) shortness of breath, (+) cough, (+) wheezing Gastrointestinal: (-) nausea, (-) vomiting Psychiatric: (+) sleep disturbance ACTIVE PROBLEM LIST Arthritis Mixed Hyperlipidemia Major Depressive Disorder With Single Episode, in Remission Justo (Generalized Anxiety Disorder) Ex-Smoker Medicare Annual Wellness Visit, Subsequent Sensorineural Hearing Loss (Snhl) of Left Ear Chronic Pain Syndrome Prostate Disorder Advanced Directives, Counseling/Discussion Anemia of Chronic Disease Marijuana Use Elevated Blood Sugar Erectile Dysfunction Hyponatremia Chronic Midline Low Back Pain Without Sciatica Medication Management Social History Tobacco Use Smoking status: Former Smokeless tobacco: Never Vaping Use Vaping status: Never Used Substance Use Topics Alcohol use: Never Drug use: Not Currently Current Outpatient Medications Medication Sig atorvastatin (LIPITOR) 20 mg tablet Take 1 tablet by mouth once daily. baclofen 5 mg tablet Take 1 tablet by mouth once daily as needed. albuterol HFA (PROVENTIL HFA, VENTOLIN HFA) 90 mcg/actuation inhaler Inhale 2 Puffs as instructed every 4 hours as needed for wheezing/shortness of breath. Tadalafil (CIALIS) 20 mg tablet Take 1 tablet by mouth once daily. As needed venlafaxine ER (EFFEXOR XR) 75 mg 24 hr capsule Take 1 capsule by mouth three times a day. loratadine 10 mg cap Take 10 mg by mouth as needed. No current facility-administered medications for this visit. Objective BP 110/66 (BP Site: Left Arm, BP Position: Sitting, BP Cuff Size: Large Adult) Pulse 88 Temp 37.3 C (99.1 F) (Temporal) Resp 20 Wt 74.3 kg (163 lb 12.8 oz) BMI 23.84 kg/m Physical Exam Constitutional: General: He is not in acute distress. Appearance: He is not ill-appearing or diaphoretic. HENT: Nose: No congestion or rhinorrhea. Mouth/Throat: Mouth: Mucous membranes are moist. Pharynx: Oropharynx is clear. Neck: Vascular: No JVD. Cardiovascular: Rate and Rhythm: Normal rate and regular rhythm. Pulses: Normal pulses. Heart sounds: No murmur heard. No gallop. Pulmonary: Effort: No respiratory distress. Breath sounds: Wheezing and rhonchi present. Abdominal: General: There is no distension. Tenderness: There is no abdominal tenderness. Musculoskeletal: Right lower leg: No edema. Left lower leg: No edema. Lymphadenopathy: Cervical: No cervical adenopathy. Skin: General: Skin is warm and dry. Neurological: Mental Status: He is alert. 11/07/2024 5:12 PM - Radiology, [place] In Impression IMPRESSION: No acute radiographic abnormality. Evidence of old-granulomatous disease and mild scarring in the lung apices similar to previous Assessment and Plan 1. Asthmatic bronchitis without complication, unspecified asthma severity, unspecified whether persistent (HCC) - ICD9: 493.90, ICD10: J45.909 (primary diagnosis) - ALBUTEROL SULFATE HFA 90 MCG/ACTUATION AEROSOL INHALER - PREDNISONE 10 MG TABLET Shared medical decision making was done. Discussed medication dosage, usage, goals of therapy, and side effects. See printed instructions or information. 2. Wheezing - ICD9: 786.07, ICD10: R06.2 - ALBUTEROL SULFATE HFA 90 MCG/ACTUATION AEROSOL INHALER - PREDNISONE 10 MG TABLET 3. History of syncope - ICD9: V15.89, ICD10: Z87.898 - I recommend he reschedule stress test until his breathing is better. Diallo Abreu MD documented in this encounter [facility] 11-28-2024 Telephone encounter Note Patient calling with nonproductive cough > 1 week. Has coughing spasms at times. States he feels he has mild air restriction during inspiration and would like an assessment. Reports he has a history of bronchopneumonia this past September. Reports history of asthma as well. Denies chest pain, severe SOB, fever, lightheadedness or dizziness, wheezing or headache. Appt scheduled for available provider this afternoon, Dr. Abreu at 3:20 pm. Rhiannon Thompson RN [facility] 11-28-2024 Miscellaneous Notes Patient calling with nonproductive cough > 1 week. Has coughing spasms at times. States he feels he has mild air restriction during inspiration and would like an assessment. Reports he has a history of bronchopneumonia this past September. Reports history of asthma as well. Denies chest pain, severe SOB, fever, lightheadedness or dizziness, wheezing or headache. Appt scheduled for available provider this afternoon, Dr. Abreu at 3:20 pm. Rhiannon Thompson RN documented in this encounter [facility] 11-21-2024 Note HNO ID: [id number] Author: MIGNON LAKE MA Service: ? Author Type: Design Engineer Type: Progress Notes Filed: 11/21/2024 10:43 Note Text: Scan on 11/20/2024 12:13 PM by Provider, External, PA-C: Consultation - Cardiology [place] MA [facility] 11-21-2024 History of Present illness Narrative Scan on 11/20/2024 12:13 PM by Provider, KULWINDER Moore: Consultation - Cardiology [place] MA documented in this encounter [facility] 11-20-2024 Evaluation note Diagnosis Onset Date Resolution Carotid artery disease chronic Ap ril 2024 11:06am Dyslipidemia chronic November 20, 11:06am Subclavian artery stenosis chronic November 20, 2024 11:06am Syncope and collapse chronic Apri l 2024 11:06am [facility] Work Phone: 1(779) 555-365504-01-2025 Evaluation note* Diagnosis Onset Date Resolution Status Admit Date Carotid artery disease chronic Ap ril 2024 11:06am Dyslipidemia chronic November 20 11:06am Subclavian artery stenosis chronic November 20, 2024 11:06am Syncope and collapse chronic Apri l 2024 11:06am Carotid artery disease chronic Ju 2024 11:13am Dyslipidemia chronic March 01 11:13am Subclavian artery stenosis chronic March 01, 2025 11:13am Syncope and collapse chronic March 01, 2025 11:13am [facility] Work Phone: 1(910) 955-697503-25-2025 Telephone encounter Note* Telephone Encounter - Bola Durand MD - 11/13/2024 12:33 PM EDT The following approved medication requests have been transmitted electronically. Requested Prescriptions Signed Prescriptions Disp Refills atorvastatin (LIPITOR) 20 mg tablet 90 tablet 1 Sig: Take 1 tablet by mouth once daily. Authorizing Provider: BOLA DURAND MD [facility]03-25-2025 Miscellaneous Notes* Telephone Encounter - Bola Durand MD - 11/13/2024 12:33 PM EDT The following approved medication requests have been transmitted electronically. Requested Prescriptions Signed Prescriptions Disp Refills atorvastatin (LIPITOR) 20 mg tablet 90 tablet 1 Sig: Take 1 tablet by mouth once daily. Authorizing Provider: BOLA DURAND MD * Telephone Encounter - Rosio Champagne LPN - 11/13/2024 11:58 AM EDT Prescription Refill Information The patient has been identified by name and date of : Yes Caregiver verified no other encounters exist for this prescription request: Yes Caregiver confirmed with patient/requestor that no other refills are due, in the near future, with this provider at this time: Yes The last office visit in the department: 10/18/24 Does the patient have a future office visit with this provider/department: Yes Requested Prescriptions Pending Prescriptions Disp Refills atorvastatin (LIPITOR) 20 mg tablet 90 tablet 1 Sig: Take 1 tablet by mouth once daily. Rosio Champagne LPN November 13, 2024 11:58 AM [facility] Telephone encounter Note * Telephone Encounter - Rosio Champagne LPN - 11/13/2024 11:58 AM EDT Prescription Refill Information The patient has been identified by name and date of : Yes Caregiver verified no other encounters exist for this prescription request: Yes Caregiver confirmed with patient/requestor that no other refills are due, in the near future, with this provider at this time: Yes The last office visit in the department: 10/18/24 Does the patient have a future office visit with this provider/department: Yes Requested Prescriptions Pending Prescriptions Disp Refills atorvastatin (LIPITOR) 20 mg tablet 90 tablet 1 Sig: Take 1 tablet by mouth once daily. Rosio Champagne LPN November 13, 2024 11:58 AM [facility]03-25-2025 Telephone encounter Note* Telephone Encounter - Yogi Ramon MA - 11/13/2024 8:57 AM EDT Back brace order form has been emailed to Niall with [facility]. [facility]03-25-2025 Miscellaneous Notes* Telephone Encounter - Yogi Ramon MA - 11/13/2024 8:57 AM EDT Back brace order form has been emailed to Niall with [facility]. [facility]25 NoteHNO ID: [id number] Author: GULSHAN PALMER MD Service: ? Author Type: Physician Type: Progress Notes Filed: 11/12/2024 15:35 Note Text: [facility] Date: November 12, 2024 - 2:58 PM Michael Beltran is seen in consultation requested by Ruby Seaman for an opinion regarding back pain. My final recommendations will be communicated back to the requesting physician by way of shared medical record or via US mail. Chief Complaint: low back pain SUBJECTIVE: Michael Beltran, is a 69 year old male who presents with lower back pain. The pain started 2 months ago, after fallen in the bathroom after blacking out. The pain onset was acute. The patient states that the current pain is persistent and stable. His pain is located in the bilateral and middle lumbar region and does not radiate.. // The pain is described as aching, dull, tenderness. The pain intensity is rated 2. The pain is exacerbated by lying down and relieved by medication. Symptoms interfere with sleeping and daily activities. 100% pain in spine vs 0% (radiating) pain in the extremity. Litigation: No. Worker's Compensation: No. Prior pain treatment has included: Medication(s): Ibuprofen/Tylenol (Dual Action) with minimal relief. Physical therapy: 05/29/24-07/25/24 at [facility] with relief. ALLERGIES Allergen Reactions Zythromax [Azithrom* Itching Erythromycin Itching Ether Shortness of Breath Current Medications: Pain medications reviewed and reconciled in the medication list: Yes. Current Outpatient Medications Medication Sig baclofen 5 mg tablet Take 1 tablet by mouth once daily as needed. albuterol HFA (PROVENTIL HFA, VENTOLIN HFA) 90 mcg/actuation inhaler Inhale 2 Puffs as instructed every 4 hours as needed for wheezing/shortness of breath. Tadalafil (CIALIS) 20 mg tablet Take 1 tablet by mouth once daily. As needed venlafaxine ER (EFFEXOR XR) 75 mg 24 hr capsule Take 1 capsule by mouth three times a day. atorvastatin (LIPITOR) 20 mg tablet Take 1 tablet by mouth once daily. loratadine 10 mg cap Take 10 mg by mouth as needed. No current facility-administered medications for this visit. PAST MEDICAL HISTORY Diagnosis Date Anemia of chronic disease 01/22/2021 Hg (11.5-12.8) since 2018 Arthritis 01/21/2021 Upper spine. 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, in remission (HCC) 01/21/2021 Marijuana use 03/09/[address] Jean's office note 02/26/21 Medicare annual wellness visit, subsequent 01/21/2021 Medicare part B: Last done: 01/21/2021 Mixed hyperlipidemia 01/21/2021 Sensorineural hearing loss (SNHL) of left ear 01/21/2021 PAST SURGICAL HISTORY Procedure Laterality Date COLONOSCOPY 2013 repeat 10 years COLONOSCOPY 05/28/2022 COLONOSCOPY SCREENING 2004 PAST SURGICAL HISTORY OF 1976 pneumo thorax PAST SURGICAL HISTORY OF 1985 cyst on right side of buttock TONSILLECTOMY AND ADENOIDECTOMY TONSILLECTOMY HX FAMILY HISTORY Problem Relation Age of Onset Multiple Sclerosis Mother Stroke Mother Cancer Father lymphoma Hypertension Father Prostate Cancer Brother Dementia Maternal Grandmother Breast Cancer Paternal Grandmother Stroke Paternal Grandfather Colon Cancer No Family History Ovarian cancer No Family History Diabetes No Family History Hyperlipidemia No Family History Coronary Artery Disease No Family History Kidney Disease No Family History Seizures No Family History Thyroid No Family History Social History: Alcohol Use: Never Tobacco Use: Quit Drug Use: Not Currently Employer And Job Title: None on file Years Of Education Completed: Not specified Marital Status: REVIEW OF SYSTEMS: Constitutional: (-) Fever (-) Night Sweats (-) Weight Gain (-) Weight Loss (+) Fatigue Cardiovascular: (-) Chest Pain (-) Palpitations (-) Lightheadedness (-) Swelling of Ankles (-) Hx Heart Surgery Respiratory: (-) Shortness of Breath (-) Cough (-) Wheezing (+) Snoring Gastrointestinal: (-) Incontinence (-) Abdominal Pain (-) Diarrhea (-) Constipation (-) Nausea/Vomiting (-) Heart Burn Endocrine: (-) Thyroid Disorder (-) Diabetes Hematologic: (-) Prolonged Bleeding (+) Easy Bruising Genitourinary: (-) Incontinence (+) Frequency (-) Urinary Urgency Skin: (-) Rashes (-) Itching (-) Other Lesions Neurologic: (-) Headache (-) Double Vision (-) Confusion (-) Paralysis (+) Vertigo (+) Syncope Psychiatric: (+) Depression (+) Anxiety OARRS Report reviewed: Yes Narcotic Agreement reviewed and signed?: N/A Baseline Urine Toxicology obtained: N/A Urine Panel: No results found for: UQCANN, UQBNZL, UVW1XEQ, UQAMPH, UQMAMP, UQB (more content not included)...[facility]03-24-2025 History of Present illness Narrative* Gulshan Palmer MD - 11/12/2024 2:58 PM EDT [facility] Date: November 12, 2024 - 2:58 PM Michael Beltran is seen in consultation requested by Ruby Seaman for an opinion regarding backpain. My final recommendations will be communicated back to the requesting physician by way of shared medical record or via US mail. Chief Complaint: low back pain SUBJECTIVE: Michael Beltran, is a 69 year old male who presents with lower back pain. The pain started 2 monthsago, after fallen in the bathroom after blacking out. The pain onset was acute. The patient states that the current pain is persistent and stable. His pain is located in the bilateral and middle lumbar region and does not radiate.. // The pain is described as aching, dull, tenderness. The pain intensity is rated 2. The pain is exacerbated by lying down and relieved by medication. Symptoms interfere with sleeping and daily activities. 100% pain in spine vs 0% (radiating) pain in the extremity. Litigation: No. Worker's Compensation: No. Prior pain treatment has included: Medication(s): Ibuprofen/Tylenol (Dual Action) with minimal relief. Physical therapy: 05/29/24-07/25/24 at [facility] [place] with relief. ALLERGIES Allergen Reactions Zythromax [Azithrom* Itching Erythromycin Itching Ether Shortness of Breath Current Medications: Pain medications reviewed and reconciled in the medication list: Yes. Current Outpatient Medications Medication Sig baclofen 5 mg tablet Take 1 tablet by mouth once daily as needed. albuterol HFA (PROVENTIL HFA, VENTOLIN HFA) 90 mcg/actuation inhaler Inhale 2 Puffs as instructed every 4 hours as needed for wheezing/shortness of breath. Tadalafil (CIALIS) 20 mg tablet Take 1 tablet by mouth once daily. As needed venlafaxine ER (EFFEXOR XR) 75 mg 24 hr capsule Take 1 capsule by mouth three times a day. atorvastatin (LIPITOR) 20 mg tablet Take 1 tablet by mouth once daily. loratadine 10 mg cap Take 10 mg by mouth as needed. No current facility-administered medications for this visit. PAST MEDICAL HISTORY Diagnosis Date Anemia of chronic disease 01/22/2021 Hg (11.5-12.8) since 2018 Arthritis 01/21/2021 Upper spine. 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, in remission (HCC) 01/21/2021 Marijuana use 03/09/[address] Jean's office note 02/26/21 Medicare annual wellness visit, subsequent 01/21/2021 Medicare part B: Last done: 01/21/2021 Mixed hyperlipidemia 01/21/2021 Sensorineural hearing loss (SNHL) of left ear 01/21/2021 PAST SURGICAL HISTORY Procedure Laterality Date COLONOSCOPY 2013 repeat 10 years COLONOSCOPY 05/28/2022 COLONOSCOPY SCREENING 2004 PAST SURGICAL HISTORY OF 1977 pneumo thorax PAST SURGICAL HISTORY OF 1985 cyst on right side of buttock TONSILLECTOMY & ADENOIDECTOMY <AGE 10 1959 TONSILLECTOMY HX FAMILY HISTORY Problem Relation Age of Onset Multiple Sclerosis Mother Stroke Mother Cancer Father lymphoma Hypertension Father Prostate Cancer Brother Dementia Maternal Grandmother Breast Cancer Paternal Grandmother Stroke Paternal Grandfather Colon Cancer No Family History Ovarian cancer No Family History Diabetes No Family History Hyperlipidemia No Family History Coronary Artery Disease No Family History Kidney Disease No Family History Seizures No Family History Thyroid No Family History Social History: Alcohol Use: Never Tobacco Use: Quit Drug Use: Not Currently Employer And Job Title: None on file Years Of Education Completed: Not specified Marital Status: REVIEW OF SYSTEMS: Constitutional: (-) Fever (-) Night Sweats (-) Weight Gain (-) Weight Loss (+) Fatigue Cardiovascular: (-) Chest Pain (-) Palpitations (-) Lightheadedness (-) Swelling of Ankles (-) Hx Heart Surgery Respiratory: (-) Shortness of Breath (-) Cough (-) Wheezing (+) Snoring Gastrointestinal: (-) Incontinence (-) Abdominal Pain (-) Diarrhea (-) Constipation (-) Nausea/Vomiting (-) Heart Burn Endocrine: (-) Thyroid Disorder (-) Diabetes Hematologic: (-) Prolonged Bleeding (+) Easy Bruising Genitourinary: (-) Incontinence (+) Frequency (-) Urinary Urgency Skin: (-) Rashes (-) Itching (-) Other Lesions Neurologic: (-) Headache (-) Double Vision (-) Confusion (-) Paralysis (+) Vertigo (+) Syncope Psychiatric: (+) Depression (+) Anxiety OARRS Report reviewed: Yes Narcotic Agreement reviewed and signed?: N/A Baseline Urine Toxicology obtained: N/A Urine Panel: No results found for: UQCANN, UQBNZL, HLM0DPE, UQAMPH, UQMAMP, UQBUPRE, UQNORBUP, UQMTHD, UQEDDP, UQTRAM, UQDTRM, UQFNTL, UQNFTL, UQCODE, UQMORP, UQDCDN, UQHCOD, UQOXYC, UQHMOR, UQOXYM, UQCREA, UQPH, UQSPGR, UQOXID, UQSPQ The pain panel was N/A OBJECTIVE: Performed in conjunction with observation. The patient was alert and oriented x3. The patient was in no acute distress. Lungs: Clear, negative for dyspnea or distress. CVR: Negative for SOB or peripheral edema. Neck: Supple. The range of motion was intact. Negative focal tenderness Back: Range of motion of the trunk was slow but intact. Negative focal tenderness. SLR: Negative Facet Loading: Negative with axial loading and extension. Extremities: no reported edema or erythema. Motor: Negative focal deficits Sensory: Intact to light touch bilateral lower extremities to the level of the ankles Gait: Within normal limits Medical record and diagnostic tests reviewed for today's visit: The [facility] EMR was reviewed during thevisit ASSESSMENT: (M79.18) Myofascial pain syndrome of lumbar spine (primary encounter diagnosis) (M54.50, G89.29) Chronic midline low back 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 (S32.040A) Compression fracture of L4 vertebra, initial encounter ([facility]) Discussion: A discussion was entertained regarding multicomponent pain source. Discussed conservative options and focus on improvement of function and the concerns of ongoing or developing chronic pain. Discussed the rationale behind interventional approach and how it can facilitate improvement of pain but also diagnostic information that procedures provide. oil heaterman use of any opioid pain medication is discouraged in chronic benign pain. PLAN: 1. X-ray was reviewed with the patient. He does have old compression fracture at T12 which appears to be stable. There is a new fracture at L4 at the superior endplate but overall appears to be stable. Recommended conservative course. Recommended back brace with anterior lateral and posterior support from thoracic to sacral level to reduce pain by restricting mobility of the trunk. 2. No interventional procedures indicated 3. A trial of baclofen 5 mg 1 p.o. daily as needed 4. Counseled patient regarding the importance of activity modification and exercise. 5. Follow up: To 3 months or as needed basis The above plan and management options were discussed with patient. The patient is in agreement withthe above and verbalized understanding. I have discussed and confirmed the above treatment plan with the patient and I have reviewed the nurses notes and I am aware of the family/social history. I have confirmed ROS findings. Gulshan Palmer MD 1. This document has been created with the use of voice recognition technology. It may contain inaccuracies: (e.g. misspellings, inaccurate syntax or word sense) that have escaped review. 2. The nurse practitioner, nursing staff and medical assistants are a major part of YOUR TREATMENT TEAM and will be handling your phone calls and inquiries, if any. Unless explicitly told otherwise at the time of your office visit, your study results and ensuing treatment plans will be discussed during your follow- up appointment. If you do not have a follow-up appointment and wish to discuss any issues, please set up an appointment. 3. All of the office notes, study results, and other pertinent documentation generated as part of your evaluation will be available to you and to your Primary Care Physician (PCP). Use of this material to complete such forms will be at the discretion of your PCP/referring physician. November 12, 2024 cc: Ruby Seaman [address] [facility] [id number] Results of consultation to be transmitted via electronic medical record for those providers who practice within [facility], [place] or with access to [employer] via MD Connect, or via letter. [facility] Telephone encounter Note * Telephone Encounter - Rosio Champagne LPN - 11/08/2024 12:09 PM EDT Pt states he hasn't done the testing yet. Will watch for the results.. Rosio Champagne LPN [facility]03-20-2025 Miscellaneous Notes* Telephone Encounter - Rosio Champagne LPN - 11/08/2024 12:09 PM EDT Pt states he hasn't done the testing yet. Will watch for the results.. Rosio Champagne LPN * Telephone Encounter - Ruby Seaman PA-C - 11/08/2024 10:50 AM EDT Noted. Doesn't look like we have received any records from them yet. Ruby Seaman PA-C * Telephone Encounter - Rosio Champagne LPN - 11/08/2024 10:30 AM EDT Pt notified of results with verbalized understanding. Pt wanted to let you know that he did see Dr Tk Adkins at [facility] and that he had ordered further testing for pt to do. Rosio Champagne LPN * Telephone Encounter - Ruby Seaman PA-C - 11/08/2024 8:48 AM EDT Let patient know that his CXR is back to his baseline and is similar to a CXR from 2020. Thanks. Ruby Seaman PA-C documented in this [facility]03-[facility]25 Telephone encounter Note * Telephone Encounter - Ruby Seaman PA-C - 11/08/2024 10:50 AM EDT Noted. Doesn't look like we have received any records from them yet. Ruby Seaman PA-C [facility] Telephone encounter Note* Telephone Encounter - Rosio Champagne LPN - 11/08/2024 10:30 AM EDT Pt notified of results with verbalized understanding. Pt wanted to let you know that he did see Dr Tk Adkins at [facility] and that he had ordered further testing for pt to do. Rosio Champagne LPN [facility]03-20-[facility] Telephone encounter Note* Telephone Encounter - Ruby Seaman PA-C - 11/08/2024 8:48 AM EDT Let patient know that his CXR is back to his baseline and is similar to a CXR from 2020. Thanks. Ruby Seaman PA-C [facility]03-[facility] History of Present illness Narrative* Julissa Benitez RT(R) - 11/05/2024 10:30 AM EDT Radiology Service Progress Note PATIENT NAME: Michael Beltran DATE OF SERVICE: November 05, 2024 TIME: 10:59 AM PATIENT IDENTITY VERIFICATION COMPLETED USING TWO (2) IDENTIFIERS: Name and Date of confirmedby patient verbally. FALL SCREENING: Has the patient had 2 falls in the last year or 1 fall with injury or currently using an Ambulatory Assistive Device (Walker, Cane, Wheelchair, Crutches, etc.)? No PATIENT GENDER DATA: Assigned male at PATIENT RELEVANT IMPLANT DATA REVIEWED: Yes PATIENT PRESENTS WITH AN IMPLANTABLE OR ATTACHED MANAGER TELEMARKETING: No RADIOLOGY DEPARTMENT: General X-ray: Exam(s) Completed: Chest X-Ray PERIPHERAL IV DATA: Not applicable SIGNED BY: RT Td(Lance) November 05, 2024 10:59 AM documented in this encounterSouth[facility]03-17-2025 NoteHNO ID: [id number] Author: JULISSA BENITEZ RT(R) Service: ? Author Type: Vessel Traffic Officer Type: Progress Notes Filed: 11/05/2024 11:05 Note Text: Radiology Service Progress Note PATIENT NAME: Michael Beltran DATE OF SERVICE: November 05, 2024 TIME: 10:59 AM PATIENT IDENTITY VERIFICATION COMPLETED USING TWO (2) IDENTIFIERS: Name and Date of confirmed by patient verbally. FALL SCREENING: Has the patient had 2 falls in the last year or 1 fall with injury or currently using an Ambulatory Assistive Device (Walker, Cane, Wheelchair, Crutches, etc.)? No PATIENT GENDER DATA: Assigned male at PATIENT RELEVANT IMPLANT DATA REVIEWED: Yes PATIENT PRESENTS WITH AN IMPLANTABLE OR ATTACHED MANAGER TELEMARKETING: No RADIOLOGY DEPARTMENT: General X-ray: Exam(s) Completed: Chest X-Ray PERIPHERAL IV DATA: Not applicable SIGNED BY: RT Td(R) November 05, 2024 10:59 [facility]03-12-2025 Instructions* Patient Instructions* Vijaya España PA-C - 10/31/2024 12:59 PM EDT EEG to rule out seizure activity Follow up with cardiology Follow up with spine as planned in a few days Follow up as needed Stay hydrated documented in this encounterSouth[facility]03-12-2025 NoteHNO ID: [id number] Author: VIJAYA ESPAÑA PA-C Service: ? Author Type: Physician Beam Worker Type: Progress Notes Filed: 10/31/2024 13:35 Note Text: [facility] Name: Michael Beltran Age: [age] year old Gender: male Primary Care Provider: Bola Durand MD Consult requested for syncope by Ruby Seaman. Recommendations will be communicated via shared medical record or US mail. Chief Complaint:New Patient (Syncope episodes,) 10/31/2024 - General NeurologyVijaya PA-C ASSESSMENT ASSESSMENT/PLAN: 1. Loss of consciousness (HCC) - ICD9: 780.09, ICD10: R40.20 (primary diagnosis) 2. Syncope, unspecified syncope type - ICD9: 780.2, ICD10: R55 Patient denies multiple episodes of syncope in the last 15 years. Most recently was about 3 weeks ago when he was sick with pneumonia. States he went up to use the restroom and was found on the bathroom floor by his . estimates that he was out for 30 minutes, no seizure-like activity. Was admitted and found to also be dehydrated, orthostatics were positive per patient report in the hospital. Orthostatics in the office today were negative. Reports that this is about the fifth flareup of syncope has had in his life over the last 15 years, typically they occur when he is either ill or poorly hydrated or if he had a bowel movement. No diagnoses regarding this before. Has been admitted to the hospital with normal workup in the past. Notes there was only 1 time where it had not occurred when he was standing up and that was shortly after he contracted COVID in 2019. In that 1 day he had a total of 8 episodes of syncope. MRI of the brain obtained recently in the hospital was negative for any acute abnormality. Notes he does not get much of a warning before the episodes but notes that she can tell what is going to happen because he has a very blank stare. She is able to get to him and usually lowered him to the ground when it happens. However, patient denying any warning. No tongue biting or tonic-clonic activity, no incontinence but notes he is very fatigued for hours after he wakes up from 1 of these episodes. No recent EEG, does not believe he is ever had 1. Due to multiple episodes of loss of conscious we will order EEG to ensure no epileptiform changes however my suspicion for seizure is very low at this time. High suspicion for vasovagal syncope or dehydration. Orthostatics again were negative in the office today but reported to be positive in the hospital by patient. Encouraged him to continue with follow-up with cardiology and increase hydration. No signs of neuropathy on exam. Will have him follow-up as needed. Of note, notes that his memory has not completely returned to normal since being home. Is scheduled for repeat chest x-ray due to pneumonia for next Tuesday. Notes that periods he will have episodes of confusion but then returns to baseline. No loss of consciousness since has been home, no other episodes of altered mental status. Will continue to monitor, recent B12 was negative with no significant signs of atrophy on MRI of the brain per report. Discussed should this persist or get worse to reach out and schedule follow-up. Encouraged conservative therapy in the meantime. 3. Compression fracture of L4 vertebra, initial encounter ([facility]) - ICD9: 805.4, ICD10: S32.040A Patient was found to have a lumbar compression fracture thought to be secondary to his most recent fall in September. Has appointment with spine scheduled, does have some decrease sensory exam findings on the right lower extremity. Denies any significant weakness, falls bowel or bladder incontinence. Encouraged follow-up with spine as planned in a few days. Patient agreeable to treatment plan of care at this time, all questions were answered. Patient to follow-up as needed. Vijaya España PA-C Encounter Diagnosis ICD-10-CM 1. Syncope, unspecified syncope type R55 No follow-ups on file. Chart, labs,and relevant images reviewed. HPI: PT seen at on 10/11/24 for fall/syncope. With unwitnessed fall in restroom. heard him and called 911. Pt. Is very poor historian, unsure of baseline. Hx of B12 deficiency, MRI emeka normal. T12 abnormality on CT, chronic? Given event monitor and cards FU. Was found to have pneumonia as well. This is a 69 year old male presenting with concerns of syncope. Notes this is not necessarily a new issue but is very infrequent. Estimates that has had 5 total episodes of syncope in his life starting around 2010. This was when he was in the bathroom, had a bowel movement and was found on the ground by his . In 2019 shortly after lina COVID he was sitting at his desk when he suddenly woke up on the ground. Tried to get up but was very unsteady, had multiple additional episodes of syncope during that day, a total estimated by his . 1 resulting (more content not included)...[facility] 10-31-2024 History of Present illness Narrative* Vijaya España PA-C - 10/31/2024 12:19 PM EDT Images from the original note were not included. [facility] Name: Michael Beltran Age: [age] year old Gender: male Primary Care Provider: Bola Durand MD Consult requested for syncope by Ruby Seaman. Recommendations will be communicated via shared medical record or US mail. Chief Complaint:New Patient (Syncope episodes,) 10/31/2024 - General Neurology, iVjaya España PA-C ASSESSMENT ASSESSMENT/PLAN: 1. Loss of consciousness (HCC) - ICD9: 780.09, ICD10: R40.20 (primary diagnosis) 2. Syncope, unspecified syncope type - ICD9: 780.2, ICD10: R55 Patient denies multiple episodes of syncope in the last 15 years. Most recently was about 3 weeks ago when he was sick with pneumonia. States he went up to use the restroom and was found on the bathroom floor by his . estimates that he was out for 30 minutes, no seizure-like activity. Was admitted and found to also be dehydrated, orthostatics were positive per patient report in the hospital. Orthostatics in the office today were negative. Reports that this is about the fifth flareup ofsyncope has had in his life over the last 15 years, typically they occur when he is either ill or poorly hydrated or if he had a bowel movement. No diagnoses regarding this before. Has been admitted to the hospital with normal workup in the past. Notes there was only 1 time where it had not occurred when he was standing up and that was shortly after he contracted COVID in 2019. In that 1 day he had a total of 8 episodes of syncope. MRI of the brain obtained recently in the hospital was negativefor any acute abnormality. Notes he does not get much of a warning before the episodes but notes that she can tell what is going to happen because he has a very blank stare. She is able to get to him and usually lowered him to the ground when it happens. However, patient denying any warning. No tongue biting or tonic-clonic activity, no incontinence but notes he is very fatigued for hours after he wakes up from 1 of these episodes. No recent EEG, does not believe he is ever had 1. Due to multiple episodes of loss of conscious we will order EEG to ensure no epileptiform changes however mysuspicion for seizure is very low at this time. High suspicion for vasovagal syncope or dehydration. Orthostatics again were negative in the office today but reported to be positive in the hospital by patient. Encouraged him to continue with follow-up with cardiology and increase hydration. No signs of neuropathy on exam. Will have him follow-up as needed. Of note, notes that his memory has not completely returned to normal since being home. Is scheduled for repeat chest x-ray due to pneumonia for next Tuesday. Notes that periods he will have episodes of confusion but then returns to baseline. No loss of consciousness since has been home, no other episodes of altered mental status. Will continue to monitor, recent B12 was negative with no significant signs of atrophy on MRI of the brain per report. Discussed should this persist or get worse to reach out and schedule follow-up. Encouraged conservative therapy in the meantime. 3. Compression fracture of L4 vertebra, initial encounter ([facility]) - ICD9: 805.4, ICD10: S32.040A Patient was found to have a lumbar compression fracture thought to be secondary to his most recent fall in September. Has appointment with spine scheduled, does have some decrease sensory exam findings on the right lower extremity. Denies any significant weakness, falls bowel or bladder incontinence. Encouraged follow-up with spine as planned in a few days. Patient agreeable to treatment plan of care at this time, all questions were answered. Patient to follow-up as needed. Vijaya España PA-C Encounter Diagnosis ICD-10-CM 1. Syncope, unspecified syncope type R55 No follow-ups on file. Chart, labs,and relevant images reviewed. HPI: PT seen at on 10/11/24 for fall/syncope. With unwitnessed fall in restroom. heard him and called 911. Pt. Is very poor historian, unsure of baseline. Hx of B12 deficiency, MRI emeka normal.T12 abnormality on CT, chronic? Given event monitor and cards FU. Was found to have pneumonia as well. This is a 69 year old male presenting with concerns of syncope. Notes this is not necessarily a newissue but is very infrequent. Estimates that has had 5 total episodes of syncope in his life starting around 2010. This was when he was in the bathroom, had a bowel movement and was found on the ground by his . In 2019 shortly after lina COVID he was sitting at his desk when he suddenly woke up on the ground. Tried to get up but was very unsteady, had multiple additional episodes of syncope during that day, a total estimated by his . 1 resulting in a thoracic fracture, did followwith spine at that time. He was admitted at the hospital overnight and symptoms improved. However with this last episode, notes that he was unconscious for very long time which was atypical. Patient states he went up to go to the bathroom in the middle of the night and the next thinghe knew he was in a hospital bed. notes that he found him on the bathroom floor and she calledEMS, estimates he was out for a total of 30 minutes. By the time he got to the hospital and was sitting in the emergency room she found him awake and talking. States he was very confused for about anhour afterwards, had very poor short-term memory and had difficulty holding a conversation. However, this improved after about an hour. MRI of the brain was negative in the hospital. Did not obtain EEG. Other than the 1 episode noted above where he was sitting every other episode of syncope he has been standing up or after a bowel movement. Has appointment with cardiology scheduled in November. Was found to have a lumbar fracture secondary to his most recent fall a few weeks ago and has appointment with spine scheduled. No significant weakness, bowel or bladder incontinence, falls or saddle anest hesia. With any of these episodes he has not had any tongue biting, incontinence or tonic-clonic activity. Typically is very fatigued afterwards, does not have much of a warning before. notes that she can typically tell when 1 is going to happen and she states he appears very blank on his faceand she wants to catch him before he falls to the ground. She is usually able to catch him and lowered him down. Patient notes that he usually drinks plenty of water but not every episode noted abovewhere he has had episodes of syncope have been days of poor water intake. Notes his most recent episode he had only had tea and coffee during the day and was also sick with pneumonia. Notes he is never had an episode happen when he was well-hydrated or of normal health. Patient denies any presyncope or significant lightheadedness. Has been fine since pes been discharged, with no reoccurrence of syncope or lightheadedness. No history of heart issues or disease. Of note, during their most recent hospital stay he did have orthostatics done and they stated that his blood pressures dropped to 50 systolic. Review of Systems ACTIVE PROBLEM LIST Arthritis Mixed Hyperlipidemia Major Depressive Disorder With Single Episode, in Remission (Hcc) Justo (Generalized Anxiety Disorder) Ex-Smoker Medicare Annual Wellness Visit, Subsequent Sensorineural Hearing Loss (Snhl) of Left Ear Chronic Pain Syndrome Prostate Disorder Advanced Directives, Counseling/Discussion Anemia of Chronic Disease Marijuana Use Elevated Blood Sugar Erectile Dysfunction Hyponatremia Chronic Midline Low Back Pain Without Sciatica Medication Management PAST MEDICAL HISTORY Diagnosis Date Anemia of chronic disease 01/22/2021 Hg (11.5-12.8) since 2018 Arthritis 01/21/2021 Upper spine. 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, in remission (HCC) 01/21/2021 Marijuana use 03/09/[address] Jean's office note 02/26/21 Medicare annual wellness visit, subsequent 01/21/2021 Medicare part B: Last done: 01/21/2021 Mixed hyperlipidemia 01/21/2021 Sensorineural hearing loss (SNHL) of left ear 01/21/2021 Medications: Reviewed albuterol HFA (PROVENTIL HFA, VENTOLIN HFA) 90 mcg/actuation inhaler Inhale 2 Puffs as instructed every 4 hours as needed for wheezing/shortness of breath. Tadalafil (CIALIS) 20 mg tablet Take 1 tablet by mouth once daily. As needed venlafaxine ER (EFFEXOR XR) 75 mg 24 hr capsule Take 1 capsule by mouth three times a day. atorvastatin (LIPITOR) 20 mg tablet Take 1 tablet by mouth once daily. loratadine 10 mg cap Take 10 mg by mouth as needed. ALLERGIES Allergen Reactions Erythromycin Itching Ether Shortness of Breath FAMILY HISTORY Problem Relation Age of Onset Multiple Sclerosis Mother Stroke Mother Cancer Father lymphoma Hypertension Father Prostate Cancer Brother Dementia Maternal Grandmother Breast Cancer Paternal Grandmother Stroke Paternal Grandfather Colon Cancer No Family History Ovarian cancer No Family History Diabetes No Family History Hyperlipidemia No Family History Coronary Artery Disease No Family History Kidney Disease No Family History Seizures No Family History Thyroid No Family History PAST SURGICAL HISTORY Procedure Laterality Date COLONOSCOPY 2013 repeat 10 years COLONOSCOPY 05/28/2022 COLONOSCOPY SCREENING 2004 PAST SURGICAL HISTORY OF 1976 pneumo thorax PAST SURGICAL HISTORY OF 1986 cyst on right side of buttock TONSILLECTOMY & ADENOIDECTOMY <AGE 10 1959 TONSILLECTOMY HX SOCIAL HISTORY No social history on file. Tobacco Use: Medium Risk (10/18/2024) Patient History Smoking Tobacco Use: Former Smokeless Tobacco Use: Never Passive Exposure: Not on file PHYSICAL EXAM 10/31/24 1223 10/31/24 1230 10/31/24 1232 Orthostatic BP: 135/78 131/79 135/80 BP Site: Right Arm Right Arm BP Position: Sitting Supine Standing Orthostatic Pulse: 70 68 82 SpO2: 99% Weight: 74.7 kg (164 lb 9.6 oz) Neurological Exam Cognitive and Language: Alert and answered questions appropriately. Language was fluent. Followed simple and complex commands. Cranial Nerves: Visual martinez were full tested binocularly to finger counting in all 4 quadrants with no visual extinction. Pupils were equal and both reactive to light. Extraocular movements were full with no diplopia or nystagmus. Facial sensation was normal to light touch in V1 to V3. Facial strength was symmetric. Normal hearing grossly bilaterally. Palatal raise was symmetric. Shoulder shrug was symmetric. Tongue protrusion was symmetric with no fasciculations. Right Left Shoulder Abduction: 5 5 Elbow Extension 5 5 Elbow Flexion 5 5 Wrist Extension 5 5 Finger Extension 5 5 Finger Abduction 5 5 Right Left Hip Flexion 5 5 Knee Extension 5 5 Knee Flexion 5 5 Dorsiflexion 5 5 Plantar Flexion 5 5 Rest tremor: absent. But does have postural tremor to the bilateral hands, worse on the left upper extremity. Tone: Normal in all four limbs, no cogwheel rigidity Reflexes: Right Left Brachioradialis 2 2 Biceps 2 2 Triceps 2 2 Patella 2 2 Ankle 2 2 Sensory: Absent sensation to vibration at the right great toe, decreased throughout the lower extremity on the right side. Otherwise normal sensory exam. Negative extinction to double simultaneous stimulation Coordination: Normal finger to nose and heel to palmer testing bilaterally. Negative romberg. Normal gait. Negative retropulsion Labs: Lab Results Component Value Date WBC 5.93 05/03/2024 HCT 36.3 (L) 05/03/2024 MCV 91.2 05/03/2024 PLT 229 05/03/2024 Lab Results Component Value Date HBA1C 5.3 05/03/2024 HBA1C 5.4 04/27/2023 HBA1C 5.4 02/24/2022 Total Cholesterol, Nonfasting Date Value Ref Range Status 05/03/2024 170 <200 mg/dL Final Comment: <200 mg/dL, Desirable 200-239 mg/dL, Borderline high >239 mg/dL, High HDL Cholesterol, Nonfasting Date Value Ref Range Status 05/03/2024 72 >39 mg/dL Final Comment: 40-59 mg/dL, Acceptable >59 mg/dL, High: Negative risk factor for coronary heart disease <40 mg/dL, Low: Positive risk factor for coronary heart disease LDL Cholesterol, Nonfasting Date Value Ref Range Status 05/03/2024 83 <100 mg/dL Final Comment: <100 mg/dL, Optimal 100-129 mg/dL, Near optimal/above optimal 130-159 mg/dL, Borderline high 160-189 mg/dL, High >189 mg/dL, Very high Secondary prevention optimal LDL Cholesterol levels are recommended to be < 70 mg/dL Triglycerides, Nonfasting Date Value Ref Range Status 05/03/2024 76 <150 mg/dL Final Comment: <150 mg/dL, Normal 150-199 mg/dL, Borderline high 200-499 mg/dL, High >499 mg/dL, Very high Radiology: MRI brain 10/11/24 Impression No evidence of acute infarct, intracranial mass effect or midline shift. Mild diffuse cerebral volume loss with mild nonspecific white matter changes, likely reflecting sequela of chronic small vessel ischemic change. Diffuse maxillary and ethmoidal sinus inflammatory changes with proteinaceous secretions and mucosal thickening. Correlate for acute versus chronic sinusitis. MRI Head/Brain - Last 2 Impressions MRI BRAIN WO IVCON Exam End: 10/11/2024 8:55 PM (Final result) Impression: No evidence of acute infarct, intracranial mass effect or midline shift. Mild diffuse cerebral volume loss with mild nonspecific white matter changes, likely reflecting sequela of chronic small vessel ischemic... and MRI Spine - Last 2 Impressions No resulted procedures found. This note was dictated using [employer] speech recognition software and may contain some errors that were a result of the program not accurately transcribing what was dictated, despite efforts to make corrections. Note that unless urgent, test and MRI results will be discussed at next follow- up visit. PROMIS (Patient-Reported Outcomes Measurement Information System) is a set of person-centered measures that evaluates and monitors physical, social, and emotional health. It can be used with the general population and with individuals living with chronic conditions. PROMIS 10: PHYSICAL AND MENTAL HEALTH: 04/29/2024 PHQ-9 PHQ-2 Score 1 PHQ-9 Score 3 Medical Decision Making: Medical Decision Making Level: 1 - N/A I spent a total of 60 minutes on the date of the service which included preparing to see the patient, [id number] patient care, completing clinical documentation, obtaining and/or reviewing separately obtained history, performing a medically appropriate examination, counseling and educating the pat ient/family/caregiver, and ordering medications, tests, or procedures. [facility] Telephone encounter Note * Telephone Encounter - Mahendra Peter LPN - 10/24/2024 9:56 AM EST Referral faxed to [facility]. Mahendra Peter LPN [facility]03-05-2025 Miscellaneous Notes* Telephone Encounter - Mahendra Peter LPN - 10/24/2024 9:56 AM EST Referral faxed to [facility]. Mahendra Peter LPN * Telephone Encounter - Ruby Seaman PA-C - 10/24/2024 9:43 AM EST Noted. Consult to ENT placed. * Telephone Encounter - Rosio Champagne LPN - 10/24/2024 6:59 AM EST Please see pt's response below. Referral, demographics, ov note, copy of insurance card has been faxed to [facility] per pt's request. Rosio Champagne LPN * Telephone Encounter - Rosio Champagne LPN - 10/23/2024 3:10 PM EST Spoke with pt and reviewed all results and instructions from Ruby. Pt and pt's verbalize understanding. Pt is going to call back to schedule appointment with epic specialist d/t they were getting ready to eat so he will call back in the morning. Pt advises that his fracture of T12 occurredon 11/10/1999 and was caused by a fainting episode. Pt advises that his back pain was constant for 3yrs and is now just a mild annoyance but he does feel it. Not sure if you still want MRI done sincereferral to epic specialist. Pt would like to see [facility]. Pt aware info will be sent to them and they will contact him for appointment. Pt was also given their phone number. Pt advises th at he has been having sinus issues lately and would like to see [facility]. Advised him office would fax referral to them and their office would contact him to schedule. Also gave him their phone number just in case. Will fax referral to [facility] in the am tomorrow. Rosio Champagne LPN * Telephone Encounter - Ruby Seaman PA-C - 10/23/2024 2:14 PM EST See previous note. Then also relay to him that his lumbar xray is showing significant arthritis and another compression fracture of L4. I am placing consult to spine medicine. Ruby Seaman PA-C. * Telephone Encounter - Rosio Champagne LPN - 10/18/2024 1:13 PM EST Left message for pt to contact office. Rosio Champagne LPN * Telephone Encounter - Ruby Seaman PA-C - 10/18/2024 12:50 PM EST Let patient and know that I reviewed hospital course. We will get repeat CXR in 3 weeks. Order placed. Keep appointment with neuro and cardio. He had positive orthostatics in the hospital and if he continues to have low bp there are medications that cardiology will sometime use to prevent bp from getting too low. The brain showed some white matter changes. So we will just have neuro double check that no furthertesting is needed. They also suggested ent due to evidence of sinus inflammation. If he has chronic sinus trouble, I would agree with having him see ent. If not, we can hold off on this. Looking at his chart, cardiology wasn't scheduled. I'm assuming they are booking out. If willing totravel, can try to get [facility] is local option. His ct of spine showed the T12 fracture. Does he know when this occurred? I feel like mentioned this in passing during today's visit but sounded like it happened a while ago? We could consider MRI spine and epic specialist consult if having continued back pain. Thanks. Ruby Seaman PA-C documented in this [facility] Telephone encounter Note * Telephone Encounter - Ruby Seaman PA-C - 10/24/2024 9:43 AM EST Noted. Consult to ENT placed. [facility]03-[facility] Telephone encounter Note* Telephone Encounter - Rosio Champagne LPN - 10/24/2024 6:59 AM EST Please see pt's response below. Referral, demographics, ov note, copy of insurance card has been faxed to [facility] per pt's request. Rosio Champagne LPN [facility]03-04-[facility] Telephone encounter Note* Telephone Encounter - Rosio Champagne LPN - 10/23/2024 3:10 PM EST Spoke with pt and reviewed all results and instructions from Ruby. Pt and pt's verbalize understanding. Pt is going to call back to schedule appointment with epic specialist d/t they were getting ready to eat so he will call back in the morning. Pt advises that his fracture of T12 occurredon 11/10/1999 and was caused by a fainting episode. Pt advises that his back pain was constant for 3yrs and is now just a mild annoyance but he does feel it. Not sure if you still want MRI done sincereferral to epic specialist. Pt would like to see [facility]. Pt aware info will be sent to them and they will contact him for appointment. Pt was also given their phone number. Pt advises th at he has been having sinus issues lately and would like to see [facility]. Advised him office would fax referral to them and their office would contact him to schedule. Also gave him their phone number just in case. Will fax referral to [facility] in the am tomorrow. Rosio Champagne LPN [facility]03-04[facility] Telephone encounter Note* Telephone Encounter - Ruby Seaman PA-C - 10/23/2024 2:14 PM EST See previous note. Then also relay to him that his lumbar xray is showing significant arthritis and another compression fracture of L4. I am placing consult to spine medicine. Ruby Seaman PA-C. [facility]02-[facility] Telephone encounter Note* Telephone Encounter - Rosio Champagne LPN - 10/18/2024 1:13 PM EST Left message for pt to contact office. Rosio Champagne LPN [facility]02-27-[facility] Telephone encounter Note* Telephone Encounter - Ruby Seaman PA-C - 10/18/2024 12:50 PM EST Let patient and know that I reviewed hospital course. We will get repeat CXR in 3 weeks. Order placed. Keep appointment with neuro and cardio. He had positive orthostatics in the hospital and if he continues to have low bp there are medications that cardiology will sometime use to prevent bp from getting too low. The brain showed some white matter changes. So we will just have neuro double check that no furthertesting is needed. They also suggested ent due to evidence of sinus inflammation. If he has chronic sinus trouble, I would agree with having him see ent. If not, we can hold off on this. Looking at his chart, cardiology wasn't scheduled. I'm assuming they are booking out. If willing totravel, can try to get [facility] is local option. His ct of spine showed the T12 fracture. Does he know when this occurred? I feel like mentioned this in passing during today's visit but sounded like it happened a while ago? We could consider MRI spine and epic specialist consult if having continued back pain. Thanks. Ruby Seaman PA-C [facility]25 NoteHNO ID: [id number] Author: RUBY SEAMAN PA-C Service: ? Author Type: Physician Beam Worker Type: Progress Notes Filed: 10/18/2024 13:01 Note Text: Addendum after review of hospital summary: Hospital suspected vasovagal syncopal episode. Orthostatics were positive. Patient not on BP lowering medication. He tested positive for cannabis. They recommended follow up with ENT, neuro and cardiology. MRI brain shows cerebral volume loss with mild nonspecific white matter changes. As well as sinus changes possible for sinusitis. CTA neg for PE but infiltrates noted. CT spine showed t-spine compression deformity but otherwise okay. -consider MRI. Flu covid were both negative. Echo Wnl. I will recommend keeping cardio and neuro consults in place. Will get a cxr in 3 weeks. Will have patient notified about the t12 compression fracture and consider further work up with MRI and epic specialist if back pain continues. [facility] History of Present illness Narrative* Ruby Seaman PA-C - 10/18/2024 12:42 PM EST Addendum after review of hospital summary: Hospital suspected vasovagal syncopal episode. Orthostatics were positive. Patient not on BP lowering medication. He tested positive for cannabis. They recommended follow up with ENT, neuro and cardiology. MRI brain shows cerebral volume loss with mild nonspecific white matter changes. As well as sinus changes possible for sinusitis. CTA neg for PE but infiltrates noted. CT spine showed t-spine compression deformity but otherwise okay. -consider MRI. Flu covid were both negative. Echo Wnl. I will recommend keeping cardio and neuro consults in place. Will get a cxr in 3 weeks. Will have patient notified about the t12 compression fracture and consider further work up with MRIand epic specialist if back pain continues. Ruby Seaman PA-C * Ruby Seaman PA-C - 10/18/2024 9:15 AM EST Chief Complaint Patient presents with: Hospital F/U HPI Michael Beltran is a 69 year old male who presents here today for recheck. Patient is scheduled for follow up on his pneumonia dx by ER, however patient actually was in hospital due to syncopal episode. Patient reports he admitted to on 10/11/2024. Discharged on 10/12/24. Hospital discharge summary unavailable at time of visit. Per patient and , they were told he should follow up with neurology due to his syncopal episodes. He also had low bp while in ER. He has a holter monitor on currently. Will turn it in tomorrow. Looks like hospital did a Echo and carotid US as well. Patient states he has had syncopal episodes the past. Sometimes will have lightheadedness with standing. But not always. More so recently. States his recent syncopal episode happened after he stood up from going to the bathroom. This has happened in the past. Reports he had another workup at [facility] in 2019 for this same thing. Never saw board worker outside of hospital setting for further workup on his symptoms. Has had back pain since his syncope fall. More left sided. No n/t in leg. No radiating pain. Past medical history, appointments, medications, allergies reviewed. Previous Medical History PAST MEDICAL HISTORY Diagnosis Date Anemia of chronic disease 01/22/2021 Hg (11.5-12.8) since 2018 Arthritis 01/21/2021 Upper spine. 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, in remission (HCC) 01/21/2021 Marijuana use 03/09/[address] Jean's office note 02/26/21 Medicare annual wellness visit, subsequent 01/21/2021 Medicare part B: Last done: 01/21/2021 Mixed hyperlipidemia 01/21/2021 Sensorineural hearing loss (SNHL) of left ear 01/21/2021 Previous Surgical History PAST SURGICAL HISTORY Procedure Laterality Date COLONOSCOPY 2012 repeat 10 years COLONOSCOPY 05/28/2022 COLONOSCOPY SCREENING 2004 PAST SURGICAL HISTORY OF 1976 pneumo thorax PAST SURGICAL HISTORY OF 1985 cyst on right side of buttock TONSILLECTOMY & ADENOIDECTOMY <AGE 10 1959 TONSILLECTOMY HX Family History FAMILY HISTORY Problem Relation Age of Onset Multiple Sclerosis Mother Stroke Mother Cancer Father lymphoma Hypertension Father Prostate Cancer Brother Dementia Maternal Grandmother Breast Cancer Paternal Grandmother Stroke Paternal Grandfather Colon Cancer No Family History Ovarian cancer No Family History Diabetes No Family History Hyperlipidemia No Family History Coronary Artery Disease No Family History Kidney Disease No Family History Seizures No Family History Thyroid No Family History Patient Allergies ALLERGIES Allergen Reactions Erythromycin Itching Ether Shortness of Breath Current Medications Current Outpatient Medications on File Prior to Visit Medication Sig albuterol HFA (PROVENTIL HFA, VENTOLIN HFA) 90 mcg/actuation inhaler Inhale 2 Puffs as instructed every 4 hours as needed for wheezing/shortness of breath. Tadalafil (CIALIS) 20 mg tablet Take 1 tablet by mouth once daily. As needed venlafaxine ER (EFFEXOR XR) 75 mg 24 hr capsule Take 1 capsule by mouth three times a day. atorvastatin (LIPITOR) 20 mg tablet Take 1 tablet by mouth once daily. loratadine 10 mg cap Take 10 mg by mouth as needed. No current facility-administered medications on file prior to visit. Social History Social History Tobacco Use Smoking status: Former Smokeless tobacco: Never Vaping Use Vaping status: Never Used Substance Use Topics Alcohol use: Never Drug use: Not Currently Review of Symptoms REVIEW OF SYSTEMS See hpi EXAM: BP 96/86 (BP Site: Left Arm, BP Position: Sitting, BP Cuff Size: Regular Adult) Pulse 67 Temp 36.3 C (97.3 F) Resp 16 Wt 75.3 kg (166 lb) SpO2 100% BMI 24.16 kg/m General Appearance: Well appearing, alert, in no acute distress, well-hydrated, well nourished.. Neck: Supple, no adenopathy; thyroid symmetric, normal size, no bruits. Lungs: Lungs clear to auscultation. No wheezing, rhonchi, rales.. Heart: RRR without murmur, gallop, or rubs. No ectopy. Musculoskeletal: +pain to palp of left lower back. Non pain to palp of spine. NVI. Peripheral Pulses: Normal. Health Maintenance List Advance Directive Discussion due on 08/22/2024 Covid-19 Vaccine( season) due on 11/28/2024 Diabetes Screening due on 10/11/2027 RSV Vaccine(1 - 1-dose 75+ series) due on 2028 Lipid Screening due on 05/03/2029 Colorectal Cancer Screening due on 05/28/2032 DTaP,Tdap,Td Vaccine(2 - Td or Tdap) due on 08/18/2032 Abdominal Aortic Aneurysm Screening Completed Influenza Vaccine Completed Shingrix Vaccine Completed Pneumococcal Vaccine: 50+ Completed Hepatitis C Screening Discontinued Data reviewed ASSESSMENT/PLAN: 1. Bacterial pneumonia - ICD9: 482.9, ICD10: J15.9 (primary diagnosis) Clinically improving. Will attempt to get more detailed hospital summary to review and will call patient with further instructions. 2. Syncope, unspecified syncope type - ICD9: 780.2, ICD10: R55 Will get records to see the workup that was completed at hospital. Set up with cardiology/neurology - CONSULT TO CARDIOLOGY - CONSULT TO NEUROLOGY 3. Hypotension, unspecified hypotension type - ICD9: 458.9, ICD10: I95.9 Set up with cardio - CONSULT TO CARDIOLOGY 4. Fall, initial encounter - ICD9: E888.9, ICD10: W19.XXXA Check xray. - XR LUMBAR GENERAL 3V AP/LAT/L5-S1 Ruby Seaman PA-C I spent a total of 45 minutes on the date of the service which included preparing to see the patient, [id number] patient care, completing clinical documentation, obtaining and/or reviewing separately obtained history, performing a medically appropriate examination, counseling and educating the pat ient/family/caregiver, ordering medications, tests, or procedures, and communicating results to thepatient/family/caregiver. documented in this [facility]25 History of Present illness Narrative* Rehana Merino RT(R) - 10/18/2024 9:50 AM EST Radiology Service Progress Note PATIENT NAME: Michael Beltran DATE OF SERVICE: October 18, 2024 TIME: 9:56 AM PATIENT IDENTITY VERIFICATION COMPLETED USING TWO (2) IDENTIFIERS: Name and Date of confirmedby patient verbally. FALL SCREENING: Has the patient had 2 falls in the last year or 1 fall with injury or currently using an Ambulatory Assistive Device (Walker, Cane, Wheelchair, Crutches, etc.)? No PATIENT GENDER DATA: Assigned male at PATIENT RELEVANT IMPLANT DATA REVIEWED: Not Applicable PATIENT PRESENTS WITH AN IMPLANTABLE OR ATTACHED MANAGER TELEMARKETING: No RADIOLOGY DEPARTMENT: General X-ray: Exam(s) Completed: Spine X-Ray(s): Lumbar AP / LAT / L5-S1 PERIPHERAL IV DATA: Not applicable SIGNED BY: RT Eligio(R) October 18, 2024 9:56 AM documented in this encounterSouth[facility]02-27-2025 NoteHNO ID: [id number] Author: REHANA MERINO RT(Lance) Service: Radiology Author Type: Technologist Type: Progress Notes Filed: 10/18/2024 10:04 Note Text: Radiology Service Progress Note PATIENT NAME: Michael Beltran DATE OF SERVICE: October 18, 2024 TIME: 9:56 AM PATIENT IDENTITY VERIFICATION COMPLETED USING TWO (2) IDENTIFIERS: Name and Date of confirmed by patient verbally. FALL SCREENING: Has the patient had 2 falls in the last year or 1 fall with injury or currently using an Ambulatory Assistive Device (Walker, Cane, Wheelchair, Crutches, etc.)? No PATIENT GENDER DATA: Assigned male at PATIENT RELEVANT IMPLANT DATA REVIEWED: Not Applicable PATIENT PRESENTS WITH AN IMPLANTABLE OR ATTACHED MANAGER TELEMARKETING: No RADIOLOGY DEPARTMENT: General X-ray: Exam(s) Completed: Spine X-Ray(s): Lumbar AP / LAT / L5-S1 PERIPHERAL IV DATA: Not applicable SIGNED BY: RT Eligio(R) October 18, 2024 9:56 [facility]02-27-2025 NoteHNO ID: [id number] Author: RUBY SEAMAN PA-C Service: ? Author Type: Physician Beam Worker Type: Progress Notes Filed: 10/18/2024 13:05 Note Text: Chief Complaint Patient presents with: Hospital F/U HPI Michael Beltran is a 69 year old male who presents here today for recheck. Patient is scheduled for follow up on his pneumonia dx by ER, however patient actually was in hospital due to syncopal episode. Patient reports he admitted to on 10/11/2024. Discharged on 10/12/24. Hospital discharge summary unavailable at time of visit. Per patient and , they were told he should follow up with neurology due to his syncopal episodes. He also had low bp while in ER. He has a holter monitor on currently. Will turn it in tomorrow. Looks like hospital did a Echo and carotid US as well. Patient states he has had syncopal episodes the past. Sometimes will have lightheadedness with standing. But not always. More so recently. States his recent syncopal episode happened after he stood up from going to the bathroom. This has happened in the past. Reports he had another workup at [facility] in 2019 for this same thing. Never saw board worker outside of hospital setting for further workup on his symptoms. Has had back pain since his syncope fall. More left sided. No n/t in leg. No radiating pain. Past medical history, appointments, medications, allergies reviewed. Previous Medical History PAST MEDICAL HISTORY Diagnosis Date Anemia of chronic disease 01/22/2021 Hg (11.5-12.8) since 2018 Arthritis 01/21/2021 Upper spine. 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, in remission (HCC) 01/21/2021 Marijuana use 03/09/[address] Jean's office note 02/26/21 Medicare annual wellness visit, subsequent 01/21/2021 Medicare part B: Last done: 01/21/2021 Mixed hyperlipidemia 01/21/2021 Sensorineural hearing loss (SNHL) of left ear 01/21/2021 Previous Surgical History PAST SURGICAL HISTORY Procedure Laterality Date COLONOSCOPY 2013 repeat 10 years COLONOSCOPY 05/28/2022 COLONOSCOPY SCREENING 2004 PAST SURGICAL HISTORY OF 1977 pneumo thorax PAST SURGICAL HISTORY OF 1985 cyst on right side of buttock TONSILLECTOMY AND ADENOIDECTOMY TONSILLECTOMY HX Family History FAMILY HISTORY Problem Relation Age of Onset Multiple Sclerosis Mother Stroke Mother Cancer Father lymphoma Hypertension Father Prostate Cancer Brother Dementia Maternal Grandmother Breast Cancer Paternal Grandmother Stroke Paternal Grandfather Colon Cancer No Family History Ovarian cancer No Family History Diabetes No Family History Hyperlipidemia No Family History Coronary Artery Disease No Family History Kidney Disease No Family History Seizures No Family History Thyroid No Family History Patient Allergies ALLERGIES Allergen Reactions Erythromycin Itching Ether Shortness of Breath Current Medications Current Outpatient Medications on File Prior to Visit Medication Sig albuterol HFA (PROVENTIL HFA, VENTOLIN HFA) 90 mcg/actuation inhaler Inhale 2 Puffs as instructed every 4 hours as needed for wheezing/shortness of breath. Tadalafil (CIALIS) 20 mg tablet Take 1 tablet by mouth once daily. As needed venlafaxine ER (EFFEXOR XR) 75 mg 24 hr capsule Take 1 capsule by mouth three times a day. atorvastatin (LIPITOR) 20 mg tablet Take 1 tablet by mouth once daily. loratadine 10 mg cap Take 10 mg by mouth as needed. No current facility-administered medications on file prior to visit. Social History Social History Tobacco Use Smoking status: Former Smokeless tobacco: Never Vaping Use Vaping status: Never Used Substance Use Topics Alcohol use: Never Drug use: Not Currently Review of Symptoms REVIEW OF SYSTEMS See hpi EXAM: BP 96/86 (BP Site: Left Arm, BP Position: Sitting, BP Cuff Size: Regular Adult) Pulse 67 Temp 36.3 ?C (97.3 ?F) Resp 16 Wt 75.3 kg (166 lb) SpO2 100% BMI 24.16 kg/m? General Appearance: Well appearing, alert, in no acute distress, well-hydrated, well nourished.. Neck: Supple, no adenopathy; thyroid symmetric, normal size, no bruits. Lungs: Lungs clear to auscultation. No wheezing, rhonchi, rales.. Heart: RRR without murmur, gallop, or rubs. No ectopy. Musculoskeletal: +pain to palp of left lower back. Non pain to palp of spine. NVI. Peripheral Pulses: Normal. Health Maintenance List Advance Directive Discussion due on 08/22/2024 Covid-19 Vaccine( season) due on 11/28/2024 Diabetes Screening due on 10/11/2027 RSV Vaccine(1 - 1-dose 75+ series) due on 2028 Lipid Screening due on 05/03/2029 Colorectal Cancer Screening due on 05/28/2032 DTaP,Tdap,Td Vaccine(2 - Td or Tdap (more content not included)...[facility] [facility] Nurse Note* Keke Buitrago RN - 10/12/2024 3:56 PM EST Discharge Note: 10/12/2024 1550 Discharged via wheelchair to private car accompanied by PCT, personal belongings taken with pt, no distress noted, no complaints voiced. Wing RN [facility]02-21-2025 Nurse Note* Keke Buitrago RN - 10/12/2024 3:56 PM EST Discharge Note: 10/12/2024 1550 Discharged via wheelchair to private car accompanied by PCT, personal belongings taken with pt, no distress noted, no complaints voiced. Wing RN * Keke Buitrago RN - 10/12/2024 3:26 PM EST Discharge Note: 10/12/2024 1521 AVS and pt responsibilities reviewed with pt, pt , and copy given. Syncope, pneumonia, education reviewed with pt, pt , and information sheets given. Pt and verbalizes understanding of instructions received, verbalizes understanding of when to seek medical attention, denies any home going or personal care needs. Denies further questions or concerns. Reviewed follow up appts with pt, pt , and verbalizes understanding. Wing RN documented in this [facility] Work Phone: 1(238) 930-191202-21-2025 History of Present illness Narrative* Lisa Mayberry PharmD - 10/12/2024 3:31 PM EST Medication Education Medication education for Mayur Beltran was provided to the patient and family for the following medication(s): No new medications Medication education provided by a Pharmacist: Potential duration of therapy Identified potential barriers to education: None Method(s) of Education: Verbal Written materials provided and reviewed An opportunity to ask questions and receive answers was provided. Assessment of understanding the patient and family: 2= meets goals/outcomes Additional Notes (if applicable): Reinforced that patient is to continue his doxycyline for his pneumonia Reviewed reason for stopping patient vitamin B12: patient's B12 level from today (10/12/24) was high Lisa Mayberry PharmD * Ritu Huber, PT - 10/12/2024 1:46 PM EST Physical Therapy Therapy Communication Note Patient Name: Mayur Beltran Department: [facility] Room: [address] [place] [address] Today's Date: 10/12/2024 Discipline: Physical Therapy Missed Visit Reason: Missed Visit Reason: Other (Comment) (PT order received, chart reviewed. Spokewith bedside nurse who states patient is doing well with mobility and up in room with stand by only. PT interviewed patient who states he gets around fine and only concern is when he passes out. States he got compression stockings a few years ago and has some. PT recommended 20-30mmHg graduated compression stockings. PT also recommend doing LE exercises prior to standing up to help support his blood pressure. Patient and spouse verbalized understanding. Patient feels he will be safe to return home. Patient is a [facility] with nursing. No skilled PT needs at this time. Missed Time: Attempt Comment: * Dominique Hawkins RN - 10/12/2024 11:45 AM EST 10/12/24 1145 Discharge Planning Living Arrangements Spouse/significant other Support Systems Family members;Children Assistance Needed assist x1 Type of Residence Private residence Who is requesting discharge planning? Provider Home or Post Acute Services None Expected Discharge Disposition Home Does the patient need discharge transport arranged? No Financial Resource Strain How hard is it for you to pay for the very basics like food, housing, medical care, and heating? Not hard Housing Stability In the last 12 months, was there a time when you were not able to pay the mortgage or rent on time?N In the past 12 months, how many times have you moved where you were living? 0 At any time in the past 12 months, were you homeless or living in a penitentiary (including now)? N Transportation Needs In the past 12 months, has lack of transportation kept you from medical appointments or from getting medications? no In the past 12 months, has lack of transportation kept you from meetings, work, or from getting things needed for daily living? No Stroke Family Assessment Stroke Family Assessment Needed No Intensity of Service Intensity of Service 0-30 min Met with pt at the bedside and verified address, phone number and emergency contact information. PCP is Kizzy and preferred pharmacy is [facility], denies issues obtaining or affording medications and takes as ordered. Pt is normally independent, lives at home at with his and feels safe. Plansto return home no new needs. [facility] is today. Care Transitions to follow. Dominique Hawkins BSN/RN-TCC [facility] Work Phone: 1(130) 365-667202-21-2025 Nurse Note* Keke Buitrago RN - 10/12/2024 3:26 PM EST Discharge Note: 10/12/2024 1521 AVS and pt responsibilities reviewed with pt, pt , and copy given. Syncope, pneumonia, education reviewed with pt, pt , and information sheets given. Pt and verbalizes understanding of instructions received, verbalizes understanding of when to seek medical attention, denies any home going or personal care needs. Denies further questions or concerns. Reviewed follow up appts with pt, pt , and verbalizes understanding. Wing CASTELLANOS [facility] Work Phone: 1(370) 441-718402-21-2025 Hospital course Narrative* Jameson Gill MD - 10/12/2024 2:13 PM EST Discharge Diagnosis Syncope and collapse Issues Requiring Follow-Up PCP Discharge Meds Medication List CONTINUE taking these medications albuterol 90 mcg/actuation aerosol powdr breath activated inhaler atorvastatin 20 mg tablet; Commonly known as: Lipitor benzonatate 100 mg capsule; Commonly known as: Tessalon CYANOCOBALAMIN (VITAMIN B-12) ORAL doxycycline 100 mg tablet; Commonly known as: Vibra-Tabs FISH OIL ORAL ibuprofen 200 mg tablet multivitamin tablet OSTEO BI-FLEX ORAL predniSONE 20 mg tablet; Commonly known as: Deltasone tadalafil 20 mg tablet; Commonly known as: Cialis venlafaxine XR 75 mg 24 hr capsule; Commonly known as: Effexor-XR Test Results Pending At Discharge Pending Labs No current pending labs. Hospital Course 69-year-old male with history of Hyperlipidemia Depression B12 deficiency Possible asthma Presenting with Syncope likely vasovagal Orthostatic positive Recent pneumonia on doxycycline Hyponatremia Anemia Cannabinoid positive on U tox Generalized weakness deconditioning Hospital course Patient hydrated well Feeling better medically and symptom ramirez No focal weakness or dizziness or lightheadedness Patient on venlafaxine for depression To watch polypharmacy and sedatives effect Recommend to follow ENT, neurology and cardiology outpatient Outpatient physical therapy and vestibular reconditioning Recommend compression stockings, midodrine in future Supportive care and neb treatments Sodium levels overall stable, asymptomatic and can monitor outpatient for further workup and management MRI brain did not show acute process CTA chest did not show any PE Hemodynamically stable CT further spine age-indeterminate T12 compression deformity, will need to follow-up CT this does not seem to be new finding CT C-spine no acute process. Counseling on all of the above Continue home medicines and recheck pressure periodically at home Follow PCP outpatient Flu and COVID-19 negative Troponin unremarkable, EKG nonischemic, asymptomatic No chest pain or shortness of breath Ammonia level low CK fine Folate level fine so far Echo with EF 65% B12 elevated on workup and held B12 supplement Follow gastroenterology outpatient, no active bleeding and lab stable overall Patient to continue doxycycline for recent pneumonia Lovenox given for DVT prophylaxis On statins for hyperlipidemia On prednisone for bronchitis to complete Event monitor on discharge, cardiology signed off, no further acute inpatient workup warranted at this time Pertinent Physical Exam At Time of Discharge Physical Exam General Appearance: AAO x 1 Skin: skin color pink, warm, and dry; no suspicious rashes or lesions Eyes : PERRL, EOM's intact ENT: mucous membranes pink and moist Neck: normocephalic Respiratory: lungs clear to auscultation anteriorly; no wheezing, rhonchi, or crackles. Heart: regular rate and rhythm Abdomen: Nondistended, positive bowel sounds x4, soft, nontender Extremities: no edema Peripheral pulses: normal x4 extremities Neuro: alert, coherent and conversant, no focal motor deficits Time to dc > 35 minutes Jameson Gill MD [facility] Work Phone: 1([phone]) 842-356202-21-2025 Consult note* Ozzy Nova MD - 10/12/2024 12:29 PM ESTAssociated Order(s): Inpatient consult to Cardiology Inpatient consult to Cardiology Consult performed by: Ozzy Nova MD Consult ordered by: Jameson Gill MD Reason for consult: syncope History Of Present Illness: Mr. Mayur Beltran is a 69 y.o. former smoker male being consulted by the Cardiology team for recurrent syncope. Patient with prior medical history significant for hyperlipidemia, depression, B12 insufficiency, anemia, asthma. He presented to ED [facility] on 10/11/2024 complaining of syncope. He reports multiple episodes of syncope, orthostatic associate, however not associated with chest pain or shortness of breath. He is on psych medications per his for depression. He denies chest pain,shortness of breath, palpitations, leg edema, lightheadedness, headaches, fever, chills, orthopnea or paroxysmal nocturnal dyspnea. Flu and COVID-19 test negative. CTA chest no PE. Bibasilar infiltrates with bronchial wall thickening. Bronchopneumonia not excluded but on treatment for it. Tox positive for cannabinoids. EKG shows normal sinus rhythm with no signs of acute ischemic changes. Trop 3.Patient has been admitted for clinical compensation. Last Recorded Vitals: Vitals: 10/12/24 0000 10/12/24 0400 10/12/24 0738 10/12/24 0924 BP: 127/75 144/72 149/89 BP Location: Left arm Right arm Right arm Patient Position: Lying Lying Lying Pulse: 85 73 76 Resp: 18 20 18 Temp: 37.3 C (99.1 F) 36.3 C (97.3 F) 36 C (96.8 F) TempSrc: Temporal Temporal Temporal SpO2: 96% 93% 93% 97% Weight: Height: Last Labs: CBC - 10/11/2024: 6:03 AM 9.2 12.2 241 36.4 CMP - 10/11/2024: 6:03 AM 8.0 5.9 25 --- 0.3 _ 3.6 25 56 PTT - No results in last year. _ _ _ Troponin I, High Sensitivity Date/Time Value Ref Range Status 10/12/2024 11:39 AM 3 0 - 20 ng/L Final 10/11/2024 04:24 PM 3 0 - 20 ng/L Final 10/11/2024 06:59 AM 3 0 - 20 ng/L Final BNP Date/Time Value Ref Range Status 10/11/2024 06:03 AM 83 0 - 99 pg/mL Final Hemoglobin A1C Date/Time Value Ref Range Status 05/03/2024 01:04 PM 5.3 4.3 - 5.6 % Final Comment: [place] [employer] guidelines indicate that patients with HgbA1c in the range 5.7-6.4% are at increased risk for development of diabetes, and intervention by lifestyle modification may be beneficial. HgbA1c greater or equal to 6.5% is considered diagnostic of diabetes. 04/27/2023 11:13 AM 5.4 4.3 - 5.6 % Final Comment: [place] [employer] guidelines indicate that patients with HgbA1c in the range 5.7-6.4% are at increased risk for development of diabetes, and intervention by lifestyle modification may be beneficial. HgbA1c greater or equal to 6.5% is considered diagnostic of diabetes. Last I/O: I/O last 3 completed shifts: In: 2993.3 (38.7 mL/kg) [P.O.:490; I.V.:1328.3 (17.2 mL/kg); IV Piggyback:1175] Out: 479 (6.2 mL/kg) [Urine:479 (0.2 mL/kg/hr)] Weight: 77.4 kg Past Cardiology Tests (Last 3 Years): EKG: ECG 12 lead 10/11/2024 (Preliminary) Echo: Transthoracic Echo (TTE) Limited 10/11/2024 Ejection Fractions: EF Date/Time Value Ref Range Status 10/11/2024 04:13 PM 65 % Cath: No results found for this or any previous visit from the past 1095 days. Stress Test: No results found for this or any previous visit from the past 1095 days. Cardiac Imaging: No results found for this or any previous visit from the past 1095 days. Past Medical History: He has a past medical history of Depression. Past Surgical History: He has no past surgical history on file. Social History: He reports that he has quit smoking. His smoking use included cigarettes. He does not have any smokeless tobacco history on file. He reports that he does not currently use alcohol. He reports that hedoes not currently use drugs. Family History: No family history on file. Allergies: Erythromycin and Ether Inpatient Medications: Scheduled medications Medication Dose Route Frequency atorvastatin 20 mg oral Daily doxycycline 100 mg oral q12h ROSA enoxaparin 40 mg subcutaneous Daily perflutren lipid microspheres 0.5-10 mL of dilution intravenous Once in imaging perflutren protein A microsphere 0.5 mL intravenous Once in imaging predniSONE 20 mg oral BID sulfur hexafluoride microsphr 2 mL intravenous Once in imaging venlafaxine XR 150 mg oral Nightly venlafaxine XR 75 mg oral Daily PRN medications Medication acetaminophen benzonatate ipratropium-albuteroL Continuous Medications Medication Dose Last Rate sodium chloride 0.9% 100 mL/hr 100 mL/hr (10/12/24 1011) Outpatient Medications: Current Outpatient Medications Medication Instructions albuterol 90 mcg/actuation aerosol powdr breath activated inhaler 2 puffs, Every 4 hours PRN atorvastatin (LIPITOR) 20 mg, Daily benzonatate (TESSALON) 100 mg, Every 8 hours PRN cyanocobalamin (Vitamin B-12) 250 mcg tablet Daily docosahexaenoic acid/epa (FISH OIL ORAL) Every morning doxycycline (VIBRA-TABS) 100 mg, 2 times daily glucosamine/chondr bassett A sod (OSTEO BI-FLEX ORAL) 1 capsule, Every morning ibuprofen 400 mg, oral, Every 6 hours PRN multivitamin tablet 1 tablet, Every morning predniSONE (DELTASONE) 20 mg, 2 times daily tadalafil (CIALIS) 10 mg, Every evening venlafaxine XR (Effexor-XR) 75 mg 24 hr capsule 2 times daily Physical Exam: General: alert and in no acute distress HEENT: NC/AT; EOMI; PERRLA, external ear is normal Neck: supple; trachea midline; no masses; no JVD Chest: clear breath sounds bilaterally; no wheezing Cardio: regular rhythm, S1S2 normal, no murmurs Abdomen: Soft, non-tender, non-distension, no organomegaly Extremities: no clubbing/cyanosis/edema Assessment/Plan Mr. Mayur Beltran is a 69 y.o. former smoker male being consulted by the Cardiology team for recurrent syncope. Patient with prior medical history significant for hyperlipidemia, depression, B12 insufficiency, anemia, asthma. He presented to ED [facility] on 10/11/2024 complaining of syncope. He reports multiple episodes of syncope, orthostatic associate, however not associated with chest pain or shortness of breath. He is on psych medications per his for depression. He denies chest pain,shortness of breath, palpitations, leg edema, lightheadedness, headaches, fever, chills, orthopnea or paroxysmal nocturnal dyspnea. Flu and COVID-19 test negative. CTA chest no PE. Bibasilar infiltrates with bronchial wall thickening. Bronchopneumonia not excluded but on treatment for it. Tox positive for cannabinoids. EKG shows normal sinus rhythm with no signs of acute ischemic changes. Trop 3.Patient has been admitted for clinical compensation. Assessment # Syncope - He reports multiple episodes of syncope, orthostatic associate, however not associated with chestpain or shortness of breath. He is on psych medications per his for depression. H - EKG shows normal sinus rhythm with no signs of acute ischemic changes. - Echocardiogram (10/11/2024) showed normal LVEF 65% with no wall motion abnormalities. - Tox positive for cannabinoids. - Would suggest hydration, electrolyte repletion. - Would suggest 7-day holter monitor upon discharge. - Follow up in Cardiology clinic. # Pneumonia - Would suggest to keep broad spectrum antibiotics. - NC oxygen PRN. - Would suggest to titrate hydration according to clinical status. # Hyperlipidemia - Controlled by PCP. - Keep home medication with Atorvastatin 20mg daily. - Counseled on healthy diet and regular exercise. Thank you for allowing me to participate in the care of this patient. Please reach me out if you have any questions or if you need any clarifications regarding the patient's care. Peripheral IV 10/11/24 20 G Distal;Left;Upper;Anterior Arm (Active) Site Assessment Clean;Dry;Intact 10/12/24 1121 Dressing Type Transparent 10/12/24 1121 Line Status Saline locked 10/12/24 1121 Dressing Status Dry;Clean 10/12/24 1121 Number of days: 1 Code Status: Full Code Ozzy Nova MD Cardiology [facility] Work Phone: 1(335) 629-571002-21-2025 Consult note* Ozzy Nova MD - 10/12/2024 12:29 PM ESTAssociated Order(s): Inpatient consult to Cardiology Inpatient consult to Cardiology Consult performed by: Ozzy Nova MD Consult ordered by: Jameson Gill MD Reason for consult: syncope History Of Present Illness: Mr. Mayur Beltran is a 69 y.o. former smoker male being consulted by the Cardiology team for recurrent syncope. Patient with prior medical history significant for hyperlipidemia, depression, B12 insufficiency, anemia, asthma. He presented to ED [facility] on 10/11/2024 complaining of syncope. He reports multiple episodes of syncope, orthostatic associate, however not associated with chest pain or shortness of breath. He is on psych medications per his for depression. He denies chest pain,shortness of breath, palpitations, leg edema, lightheadedness, headaches, fever, chills, orthopnea or paroxysmal nocturnal dyspnea. Flu and COVID-19 test negative. CTA chest no PE. Bibasilar infiltrates with bronchial wall thickening. Bronchopneumonia not excluded but on treatment for it. Tox positive for cannabinoids. EKG shows normal sinus rhythm with no signs of acute ischemic changes. Trop 3.Patient has been admitted for clinical compensation. Last Recorded Vitals: Vitals: 10/12/24 0000 10/12/24 0400 10/12/24 0738 10/12/24 0924 BP: 127/75 144/72 149/89 BP Location: Left arm Right arm Right arm Patient Position: Lying Lying Lying Pulse: 85 73 76 Resp: 18 20 18 Temp: 37.3 C (99.1 F) 36.3 C (97.3 F) 36 C (96.8 F) TempSrc: Temporal Temporal Temporal SpO2: 96% 93% 93% 97% Weight: Height: Last Labs: CBC - 10/11/2024: 6:03 AM 9.2 12.2 241 36.4 CMP - 10/11/2024: 6:03 AM 8.0 5.9 25 --- 0.3 _ 3.6 25 56 PTT - No results in last year. _ _ _ Troponin I, High Sensitivity Date/Time Value Ref Range Status 10/12/2024 11:39 AM 3 0 - 20 ng/L Final 10/11/2024 04:24 PM 3 0 - 20 ng/L Final 10/11/2024 06:59 AM 3 0 - 20 ng/L Final BNP Date/Time Value Ref Range Status 10/11/2024 06:03 AM 83 0 - 99 pg/mL Final Hemoglobin A1C Date/Time Value Ref Range Status 05/03/2024 01:04 PM 5.3 4.3 - 5.6 % Final Comment: [place] [employer] guidelines indicate that patients with HgbA1c in the range 5.7-6.4% are at increased risk for development of diabetes, and intervention by lifestyle modification may be beneficial. HgbA1c greater or equal to 6.5% is considered diagnostic of diabetes. 04/27/2023 11:13 AM 5.4 4.3 - 5.6 % Final Comment: [place] [employer] guidelines indicate that patients with HgbA1c in the range 5.7-6.4% are at increased risk for development of diabetes, and intervention by lifestyle modification may be beneficial. HgbA1c greater or equal to 6.5% is considered diagnostic of diabetes. Last I/O: I/O last 3 completed shifts: In: 2993.3 (38.7 mL/kg) [P.O.:490; I.V.:1328.3 (17.2 mL/kg); IV Piggyback:1175] Out: 479 (6.2 mL/kg) [Urine:479 (0.2 mL/kg/hr)] Weight: 77.4 kg Past Cardiology Tests (Last 3 Years): EKG: ECG 12 lead 10/11/2024 (Preliminary) Echo: Transthoracic Echo (TTE) Limited 10/11/2024 Ejection Fractions: EF Date/Time Value Ref Range Status 10/11/2024 04:13 PM 65 % Cath: No results found for this or any previous visit from the past 1095 days. Stress Test: No results found for this or any previous visit from the past 1095 days. Cardiac Imaging: No results found for this or any previous visit from the past 1095 days. Past Medical History: He has a past medical history of Depression. Past Surgical History: He has no past surgical history on file. Social History: He reports that he has quit smoking. His smoking use included cigarettes. He does not have any smokeless tobacco history on file. He reports that he does not currently use alcohol. He reports that hedoes not currently use drugs. Family History: No family history on file. Allergies: Erythromycin and Ether Inpatient Medications: Scheduled medications Medication Dose Route Frequency atorvastatin 20 mg oral Daily doxycycline 100 mg oral q12h ROSA enoxaparin 40 mg subcutaneous Daily perflutren lipid microspheres 0.5-10 mL of dilution intravenous Once in imaging perflutren protein A microsphere 0.5 mL intravenous Once in imaging predniSONE 20 mg oral BID sulfur hexafluoride microsphr 2 mL intravenous Once in imaging venlafaxine XR 150 mg oral Nightly venlafaxine XR 75 mg oral Daily PRN medications Medication acetaminophen benzonatate ipratropium-albuteroL Continuous Medications Medication Dose Last Rate sodium chloride 0.9% 100 mL/hr 100 mL/hr (10/12/24 1011) Outpatient Medications: Current Outpatient Medications Medication Instructions albuterol 90 mcg/actuation aerosol powdr breath activated inhaler 2 puffs, Every 4 hours PRN atorvastatin (LIPITOR) 20 mg, Daily benzonatate (TESSALON) 100 mg, Every 8 hours PRN cyanocobalamin (Vitamin B-12) 250 mcg tablet Daily docosahexaenoic acid/epa (FISH OIL ORAL) Every morning doxycycline (VIBRA-TABS) 100 mg, 2 times daily glucosamine/chondr abssett A sod (OSTEO BI-FLEX ORAL) 1 capsule, Every morning ibuprofen 400 mg, oral, Every 6 hours PRN multivitamin tablet 1 tablet, Every morning predniSONE (DELTASONE) 20 mg, 2 times daily tadalafil (CIALIS) 10 mg, Every evening venlafaxine XR (Effexor-XR) 75 mg 24 hr capsule 2 times daily Physical Exam: General: alert and in no acute distress HEENT: NC/AT; EOMI; PERRLA, external ear is normal Neck: supple; trachea midline; no masses; no JVD Chest: clear breath sounds bilaterally; no wheezing Cardio: regular rhythm, S1S2 normal, no murmurs Abdomen: Soft, non-tender, non-distension, no organomegaly Extremities: no clubbing/cyanosis/edema Assessment/Plan Mr. Mayur Beltran is a 69 y.o. former smoker male being consulted by the Cardiology team for recurrent syncope. Patient with prior medical history significant for hyperlipidemia, depression, B12 insufficiency, anemia, asthma. He presented to ED [facility] on 10/11/2024 complaining of syncope. He reports multiple episodes of syncope, orthostatic associate, however not associated with chest pain or shortness of breath. He is on psych medications per his for depression. He denies chest pain,shortness of breath, palpitations, leg edema, lightheadedness, headaches, fever, chills, orthopnea or paroxysmal nocturnal dyspnea. Flu and COVID-19 test negative. CTA chest no PE. Bibasilar infiltrates with bronchial wall thickening. Bronchopneumonia not excluded but on treatment for it. Tox positive for cannabinoids. EKG shows normal sinus rhythm with no signs of acute ischemic changes. Trop 3.Patient has been admitted for clinical compensation. Assessment # Syncope - He reports multiple episodes of syncope, orthostatic associate, however not associated with chestpain or shortness of breath. He is on psych medications per his for depression. H - EKG shows normal sinus rhythm with no signs of acute ischemic changes. - Echocardiogram (10/11/2024) showed normal LVEF 65% with no wall motion abnormalities. - Tox positive for cannabinoids. - Would suggest hydration, electrolyte repletion. - Would suggest 7-day holter monitor upon discharge. - Follow up in Cardiology clinic. # Pneumonia - Would suggest to keep broad spectrum antibiotics. - NC oxygen PRN. - Would suggest to titrate hydration according to clinical status. # Hyperlipidemia - Controlled by PCP. - Keep home medication with Atorvastatin 20mg daily. - Counseled on healthy diet and regular exercise. Thank you for allowing me to participate in the care of this patient. Please reach me out if you have any questions or if you need any clarifications regarding the patient's care. Peripheral IV 10/11/24 20 G Distal;Left;Upper;Anterior Arm (Active) Site Assessment Clean;Dry;Intact 10/12/24 1121 Dressing Type Transparent 10/12/24 1121 Line Status Saline locked 10/12/24 1121 Dressing Status Dry;Clean 10/12/24 1121 Number of days: 1 Code Status: Full Code Ozzy Nova MD Cardiology documented in this [facility] Work Phone: [phone]) 703-866702-21-2025 Plan of care note* Care Plan - Casi Castro RN - 10/12/2024 5:53 AM EST The patient's goals for the shift include The clinical goals for the shift include free from falls Over the shift, the patient did not make progress toward the following goals. Barriers to progression include . Recommendations to address these barriers include . Problem: Pain - Adult Goal: Verbalizes/displays adequate comfort level or baseline comfort level Outcome: Progressing Flowsheets (Taken 10/12/2024 0550) Verbalizes/displays adequate comfort level or baseline comfort level: Encourage patient to monitor pain and request assistance Assess pain using appropriate pain scale Problem: Safety - Adult Goal: Free from fall injury Outcome: Progressing Problem: Discharge Planning Goal: Discharge to home or other facility with appropriate resources Outcome: Progressing Problem: Chronic Conditions and Co-morbidities Goal: Patient's chronic conditions and co-morbidity symptoms are monitored and maintained or improved Outcome: Progressing Flowsheets (Taken 10/12/2024 0550) Care Plan - Patient's Chronic Conditions and Co-Morbidity Symptoms are Monitored and Maintained or Improved: Monitor and assess patient's chronic conditions and comorbid symptoms for stability, deterioration, or improvement Problem: Nutrition Goal: Nutrient intake appropriate for maintaining nutritional needs Outcome: Progressing Problem: Skin Goal: Promote/optimize nutrition Outcome: Progressing Flowsheets (Taken 10/12/2024 0550) Promote/optimize nutrition: Monitor/record intake including meals Discuss with provider if NPO > 2 days [facility]02-21-2025 Miscellaneous Notes* Care Plan - Casi Castro RN - 10/12/2024 5:53 AM EST The patient's goals for the shift include The clinical goals for the shift include free from falls Over the shift, the patient did not make progress toward the following goals. Barriers to progression include . Recommendations to address these barriers include . Problem: Pain - Adult Goal: Verbalizes/displays adequate comfort level or baseline comfort level Outcome: Progressing Flowsheets (Taken 10/12/2024 0550) Verbalizes/displays adequate comfort level or baseline comfort level: Encourage patient to monitor pain and request assistance Assess pain using appropriate pain scale Problem: Safety - Adult Goal: Free from fall injury Outcome: Progressing Problem: Discharge Planning Goal: Discharge to home or other facility with appropriate resources Outcome: Progressing Problem: Chronic Conditions and Co-morbidities Goal: Patient's chronic conditions and co-morbidity symptoms are monitored and maintained or improved Outcome: Progressing Flowsheets (Taken 10/12/2024 0550) Care Plan - Patient's Chronic Conditions and Co-Morbidity Symptoms are Monitored and Maintained or Improved: Monitor and assess patient's chronic conditions and comorbid symptoms for stability, deterioration, or improvement Problem: Nutrition Goal: Nutrient intake appropriate for maintaining nutritional needs Outcome: Progressing Problem: Skin Goal: Promote/optimize nutrition Outcome: Progressing Flowsheets (Taken 10/12/2024 0550) Promote/optimize nutrition: Monitor/record intake including meals Discuss with provider if NPO > 2 days * Significant Event - Myrna Spence RN - 10/11/2024 4:16 PM EST 10ml of saline given for bubble study per release and technical records clerk instruction * Care Plan - Coco Nicole RN - 10/11/2024 3:26 PM EST The clinical goals for the shift include no falls. [facility]: [phone]) 740-859502-20-2025 continuum of care manager Note* Significant Event - Myrna Spence RN - 10/11/2024 4:16 PM EST 10ml of saline given for bubble study per release and technical records clerk instruction [facility]02-20-2025 History and physical note* Jameson Gill MD - 10/11/2024 3:32 PM EST History Of Present Illness Mayur Beltran is a 69 y.o. male presenting with syncopal episode last night. Patient had previous episodes of syncope also. Denies any chest pain or shortness of breath or palpitations or lightheadedness or nausea vomiting diarrhea or fever chills. He is on treatment with doxycycline for recent pneum onia, Orthostatic positive. His mentation is still not at baseline per . He is on psych meds for depression. No headache or focal weakness. No neck pain. Low back pain flank pain hematuria still.No hemoptysis or wheeze or cough or fever chills. No alarming weight loss or appetite change. No bleeding. No joint pains or skin rash. Denies having a heart attack or stroke in the past. No loss of consciousness or head trauma as such. EKG sinus rhythm. His flu and COVID-19 test negative. Denies any URI times at present. CTA chest no PE. Bibasilar infiltrates with bronchial wall thickening. Bronchopneumonia not excluded but on treatment for it. There is a indeterminate age T12 compression fracture. CT thorax spine showing moderate to severe indeterminate age T12 compression deformity with slight retropulsion. No bowel bladder incontinence or lower extremity weakness or numbness paralysis or paresthesias or tingling. No saddle anesthesia. CT head negative for acute process. CT C-spine no cervical spine fracture dislocation or malalignment. Tox positive for cannabinoids. He has anemia but no bleeding. Hyponatremia on lab workup. No other complaints. Past Medical History Past Medical History: Diagnosis Date Depression Hyperlipidemia Depression B12 deficiency Possible asthma Surgical History History reviewed. No pertinent surgical history. Social History He reports that he has quit smoking. His smoking use included cigarettes. He does not have any smokeless tobacco history on file. He reports that he does not currently use alcohol. He reports that hedoes not currently use drugs. Family History No family history on file. Allergies Erythromycin and Ether Review of Systems All other 12 point review of systems negative except HPI Physical Exam General Appearance: AAO x 1 Skin: skin color pink, warm, and dry; no suspicious rashes or lesions Eyes : PERRL, EOM's intact ENT: mucous membranes pink and moist Neck: normocephalic Respiratory: lungs clear to auscultation anteriorly; no wheezing, rhonchi, or crackles. Heart: regular rate and rhythm Abdomen: Nondistended, positive bowel sounds x4, soft, nontender Extremities: no edema Peripheral pulses: normal x4 extremities Neuro: alert, coherent and conversant, no focal motor deficits Last Recorded Vitals Blood pressure 82/55, pulse 72, temperature 36.4 C (97.6 F), temperature source Temporal, resp. rate 17, height 1.753 m (5' 9), weight 77.4 kg (170 lb 10.2 oz), SpO2 95%. Relevant Results Scheduled medications atorvastatin, 20 mg, oral, Daily doxycycline, 100 mg, oral, q12h ROSA enoxaparin, 40 mg, subcutaneous, Daily perflutren lipid microspheres, 0.5-10 mL of dilution, intravenous, Once in imaging perflutren protein A microsphere, 0.5 mL, intravenous, Once in imaging predniSONE, 20 mg, oral, BID sulfur hexafluoride microsphr, 2 mL, intravenous, Once in imaging venlafaxine XR, 150 mg, oral, Nightly [START ON 10/12/2024] venlafaxine XR, 75 mg, oral, Daily Continuous medications sodium chloride 0.9%, 100 mL/hr, Last Rate: 100 mL/hr (10/11/24 1822) PRN medications PRN medications: benzonatate Results for orders placed or performed during the hospital encounter of 10/11/24 (from the past 24 hours) ECG 12 lead Result Value Ref Range Ventricular Rate 61 BPM Atrial Rate 61 BPM AL Interval 164 ms QRS Duration 98 ms QT Interval 430 ms QTC Calculation(Bazett) 432 ms P [place] 73 degrees R [place] 31 degrees T [place] 41 degrees QRS Count 10 beats Q Onset 221 ms P Onset 139 ms P Offset 202 ms T Offset 436 ms QTC Fredericia 432 ms CBC and Auto Differential Result Value Ref Range WBC 9.2 4.4 - 11.3 x10*3/uL nRBC 0.0 0.0 - 0.0 /100 WBCs RBC 4.08 (L) 4.50 - 5.90 x10*6/uL Hemoglobin 12.2 (L) 13.5 - 17.5 g/dL Hematocrit 36.4 (L) 41.0 - 52.0 % MCV 89 80 - 100 fL MCH 29.9 26.0 - 34.0 pg MCHC 33.5 32.0 - 36.0 g/dL RDW 13.5 11.5 - 14.5 % Platelets 241 150 - 450 x10*3/uL Neutrophils % 55.0 40.0 - 80.0 % Immature Granulocytes %, Automated 1.1 (H) 0.0 - 0.9 % Lymphocytes % 29.9 13.0 - 44.0 % Monocytes % 12.2 2.0 - 10.0 % Eosinophils % 1.3 0.0 - 6.0 % Basophils % 0.5 0.0 - 2.0 % Neutrophils Absolute 5.03 1.60 - 5.50 x10*3/uL Immature Granulocytes Absolute, Automated 0.10 0.00 - 0.50 x10*3/uL Lymphocytes Absolute 2.74 0.80 - 3.00 x10*3/uL Monocytes Absolute 1.12 (H) 0.05 - 0.80 x10*3/uL Eosinophils Absolute 0.12 0.00 - 0.40 x10*3/uL Basophils Absolute 0.05 0.00 - 0.10 x10*3/uL Comprehensive metabolic panel Result Value Ref Range Glucose 92 74 - 99 mg/dL Sodium 128 (L) 136 - 145 mmol/L Potassium 3.5 3.5 - 5.3 mmol/L Chloride 95 (L) 98 - 107 mmol/L Bicarbonate 26 21 - 32 mmol/L Anion Gap 11 mmol/L Urea Nitrogen 17 6 - 23 mg/dL Creatinine 0.99 0.50 - 1.30 mg/dL eGFR 81 >60 mL/min/1.73m*2 Calcium 8.0 (L) 8.6 - 10.3 mg/dL Albumin 3.6 3.4 - 5.0 g/dL Alkaline Phosphatase 56 33 - 136 U/L Total Protein 5.9 (L) 6.4 - 8.2 g/dL AST 25 9 - 39 U/L Bilirubin, Total 0.3 0.0 - 1.2 mg/dL ALT 25 10 - 52 U/L Magnesium Result Value Ref Range Magnesium 1.63 1.60 - 2.40 mg/dL D-Dimer, VTE Exclusion Result Value Ref Range D-Dimer, Quantitative VTE Exclusion 2,473 (H) <=500 ng/mL FEU Troponin I, High Sensitivity, Initial Result Value Ref Range Troponin I, High Sensitivity 4 0 - 20 ng/L Urinalysis with Reflex Culture and Microscopic Result Value Ref Range Color, Urine Light-Yellow Light-Yellow, Yellow, Dark-Yellow Appearance, Urine Clear Clear Specific [place], Urine 1.017 1.005 - 1.035 pH, Urine 7.0 5.0, 5.5, 6.0, 6.5, 7.0, 7.5, 8.0 Protein, Urine NEGATIVE NEGATIVE, 10 (TRACE), 20 (TRACE) mg/dL Glucose, Urine Normal Normal mg/dL Blood, Urine NEGATIVE NEGATIVE mg/dL Ketones, Urine NEGATIVE NEGATIVE mg/dL Bilirubin, Urine NEGATIVE NEGATIVE mg/dL Urobilinogen, Urine Normal Normal mg/dL Nitrite, Urine NEGATIVE NEGATIVE Leukocyte Esterase, Urine NEGATIVE NEGATIVE Extra Urine Senior Tube Result Value Ref Range Extra Tube Hold for add-ons. Drug Screen, Urine Result Value Ref Range Amphetamine Screen, Urine Presumptive Negative Presumptive Negative Barbiturate Screen, Urine Presumptive Negative Presumptive Negative Benzodiazepines Screen, Urine Presumptive Negative Presumptive Negative Cannabinoid Screen, Urine Presumptive Positive (A) Presumptive Negative Cocaine Metabolite Screen, Urine Presumptive Negative Presumptive Negative Fentanyl Screen, Urine Presumptive Negative Presumptive Negative Opiate Screen, Urine Presumptive Negative Presumptive Negative Oxycodone Screen, Urine Presumptive Negative Presumptive Negative PCP Screen, Urine Presumptive Negative Presumptive Negative Methadone Screen, Urine Presumptive Negative Presumptive Negative Troponin, High Sensitivity, 1 Hour Result Value Ref Range Troponin I, High Sensitivity 3 0 - 20 ng/L Sars-CoV-2 PCR Result Value Ref Range Coronavirus 2019, PCR Not Detected Not Detected Influenza A, and B PCR Result Value Ref Range Flu A Result Not Detected Not Detected Flu B Result Not Detected Not Detected Troponin I, High Sensitivity Result Value Ref Range Troponin I, High Sensitivity 3 0 - 20 ng/L Creatine Kinase Result Value Ref Range Creatine Kinase 120 0 - 325 U/L TSH Result Value Ref Range Thyroid Stimulating Hormone 2.98 0.44 - 3.98 mIU/L Ammonia Result Value Ref Range Ammonia 13 (L) 16 - 53 umol/L CT angio chest for pulmonary embolism Result Date: 10/11/2024 Interpreted By: Gracie Tomlin, STUDY: CT ANGIO CHEST FOR PULMONARY EMBOLISM; 10/11/2024 8:02 am INDICATION: Signs/Symptoms:PE. COMPARISON: None. ACCESSION NUMBER(S): [id number] ORDERING CLINICIAN: CÉSAR ANNA TECHNIQUE: CT of the chest was performed. Sagittal and coronal reconstructions were generated. 70 ML Omnipaque 350 intravenous contrast given for the examination. Multiplanar reconstructionsof the pulmonary vessels were created on an independent workstation and provided for review. FINDINGS: CHEST WALL AND LOWER NECK: Slightly heterogenous thyroid. No significant axillary adenopathy. MEDIASTINUM AND ARISTEO: No significant mediastinal or hilar adenopathy. Coarse presumed carmen calcifications in the right hilum. Probable small hiatal hernia. HEART AND VESSELS: No pulmonary artery filling defect to suggest PE. The heart is normal in size. No significant pericardial effusion. Multifocalatherosclerotic calcifications including the coronary arteries. LUNGS, PLEURA, LARGE AIRWAYS: Partially calcified biapical pleural-parenchymal presumed scarring. Subcentimeter cystic structure in theleft lower quadrant. Bibasilar dependent and reticular opacities. Bibasilar bronchial wall thickening. No significant pleural effusion. The central airways are patent. UPPER ABDOMEN: Calcified hepatosplenic granulomas. Mild relatively symmetric perinephric fat stranding in the included areas. BONES: T12 compression fracture with slight dispersion and retropulsion more fully evaluated on same daythoracic spine CT No evidence of PE. Bibasilar infiltrates or atelectasis with bronchial wall thickening. Bronchopneumonia not excluded. Clinical correlation recommended. Sequela of remote granulomatous infection. Small hiatal hernia. Indeterminate age T12 compression fracture. MACRO: None. Signed by: Gracie Tomlin 10/11/2024 8:27 AM Dictation workstation: [id number] CT thoracic spine wo IV contrast Result Date: 10/11/2024 Interpreted By: Gracie Tomlin, STUDY: CT THORACIC SPINE WO IV CONTRAST; 10/11/2024 6:07 am INDICATION: Signs/Symptoms:fall. COMPARISON: None. ACCESSION NUMBER(S): [id number] ORDERING CLINICIAN: CHRISTINA TECHNIQUE: Axial CT images of the thoracic spine are obtained. Axial, coronal and sagittal reconstructions are submitted for review. FINDINGS: Alignment: No significant spondylolisthesis. Mild kyphosis. Vertebrae/Intervertebral Discs: Diffuse osteopenia. Moderate to severe central T12 compression deformity with slight dispersion including 4 mm of retropulsion. Remaining thoracic vertebral heights are preserved. Multilevel intervertebral disc space narrowing and endplate spurring. Paraspinous Soft Tissues: Partially calcified pulmonary biapical presumed scarring. Coarse presumed carmen calcifications in the right hilum. Multifocal atherosclerotic calcifications. Moderate to severe indeterminate age T12 compression deformity with slight retropulsion. Consider further evaluation with MRI as clinically warranted. Paraspinal/soft tissue findings as above. MACRO:None Signed by: Gracie Tomlin 10/11/2024 8:22 AM Dictation workstation: [id number] ECG 12 lead Result Date: 10/11/2024 Normal sinus rhythm Normal ECG When compared with ECG of 11-OCT-2024 04:16, (unconfirmed) ST elevation now present in Lateral leads CT head wo IV contrast Result Date: 10/11/2024 Interpreted By: Stanton Kerns, STUDY: CT HEAD WO IV CONTRAST; CT CERVICAL SPINE WO IV CONTRAST; ; 10/11/2024 6:05 am INDICATION: Signs/Symptoms:fall. COMPARISON: None. ACCESSION NUMBER(S): [id number]; [id number] ORDERING CLINICIAN: CÉSAR ANNA TECHNIQUE: Noncontrast CT exams of the head and cervical spine with multiplanar reformations. FINDINGS: BRAIN PARENCHYMA: Moderate volume loss. There isperiventricular and subcortical white matter hypoattenuation, most in keeping with chronic microvascular ischemic change. Senior-white matter interfaces are preserved. No mass, mass effect or midline shift. HEMORRHAGE: No acute intracranial hemorrhage. VENTRICLES and EXTRA-AXIAL SPACES: Normal size. E XTRACRANIAL SOFT TISSUES: Within normal limits. PARANASAL SINUSES/MASTOIDS: Ossification of the left maxillary sinus. Air-fluid level in the right maxillary sinus. Moderate mucosal thickening in the ethmoid air cells, right frontal sinus and sphenoid sinuses. Mastoids are clear. CALVARIUM: No depressed skull fracture. No destructive osseous lesion. OTHER FINDINGS: None. CERVICAL SPINE: ALIGNMENT:Grade 1 degenerative anterolisthesis at C3-C4 at C4-C5. Alignment is otherwise maintained. VERTEBRAE: No acute fracture. Vertebral stature is maintained. Severe discogenic degeneration lower cervicallevels. Moderate hypertrophic facet osteoarthropathy. SPINAL CANAL: No critical spinal canal stenosis. PREVERTEBRAL SOFT TISSUES: No prevertebral soft tissue swelling. LUNG APICES: Interstitial thickening in the apical lungs suggests acute pulmonary interstitial edema/CHF. OTHER FINDINGS: None. No evidence of acute intracranial abnormality No acute cervical spine fracture or malalignment. Interstitial thickening in the apical lungs suggests acute pulmonary interstitial edema/CHF. MACRO: None Signed by: Stanton Kerns 10/11/2024 6:44 AM Dictation workstation: [id number] CT cervical spine wo IV contrast Result Date: 10/11/2024 Interpreted By: Stanton Kerns, STUDY: CT HEAD WO IV CONTRAST; CT CERVICAL SPINE WO IV CONTRAST; ; 10/11/2024 6:05 am INDICATION: Signs/Symptoms:fall. COMPARISON: None. ACCESSION NUMBER(S): [id number]; [id number] ORDERING CLINICIAN: CÉSAR ANNA TECHNIQUE: Noncontrast CT exams of the head and cervical spine with multiplanar reformations. FINDINGS: BRAIN PARENCHYMA: Moderate volume loss. There isperiventricular and subcortical white matter hypoattenuation, most in keeping with chronic microvascular ischemic change. Senior-white matter interfaces are preserved. No mass, mass effect or midline shift. HEMORRHAGE: No acute intracranial hemorrhage. VENTRICLES and EXTRA-AXIAL SPACES: Normal size. E XTRACRANIAL SOFT TISSUES: Within normal limits. PARANASAL SINUSES/MASTOIDS: Ossification of the left maxillary sinus. Air-fluid level in the right maxillary sinus. Moderate mucosal thickening in the ethmoid air cells, right frontal sinus and sphenoid sinuses. Mastoids are clear. CALVARIUM: No depressed skull fracture. No destructive osseous lesion. OTHER FINDINGS: None. CERVICAL SPINE: ALIGNMENT:Grade 1 degenerative anterolisthesis at C3-C4 at C4-C5. Alignment is otherwise maintained. VERTEBRAE: No acute fracture. Vertebral stature is maintained. Severe discogenic degeneration lower cervicallevels. Moderate hypertrophic facet osteoarthropathy. SPINAL CANAL: No critical spinal canal stenosis. PREVERTEBRAL SOFT TISSUES: No prevertebral soft tissue swelling. LUNG APICES: Interstitial thickening in the apical lungs suggests acute pulmonary interstitial edema/CHF. OTHER FINDINGS: None. No evidence of acute intracranial abnormality No acute cervical spine fracture or malalignment. Interstitial thickening in the apical lungs suggests acute pulmonary interstitial edema/CHF. MACRO: None Signed by: Stanton Kerns 10/11/2024 6:44 AM Dictation workstation: [id number] XR chest 1 view Result Date: 10/11/2024 Interpreted By: Stanton Kerns, STUDY: XR CHEST 1 VIEW; 10/11/2024 5:38 am INDICATION: Signs/Symptoms:fall. COMPARISON: None. ACCESSION NUMBER(S): [id number] ORDERING CLINICIAN: CÉSAR ANNA FINDINGS:AP radiograph of the chest was provided. CARDIOMEDIASTINAL SILHOUETTE: Cardiomediastinal silhouetteis normal in size and configuration. LUNGS: Pulmonary vascular congestion with interstitial prominence and peribronchial cuffing with Jazlyn B-lines suggests acute pulmonary interstitial edema/CHF. No focal consolidation or sizable pleural effusion. No pneumothorax. ABDOMEN: No remarkable upper abdominal findings. BONES: No acute osseous changes. 1. Pulmonary vascular congestion with interstitial prominence and peribronchial cuffing with KerleyB-lines suggests acute pulmonary interstitial edema/CHF. No focal consolidation or sizable pleural effusion. No pneumothorax. MACRO: None Signed by: Stanton Kerns 10/11/2024 6:39 AM Dictation workstation: [id number] Assessment/Plan Assessment & Plan Syncope and collapse 69-year-old male with history of Hyperlipidemia Depression B12 deficiency Possible asthma Presenting with Syncope likely vasovagal Orthostatic positive Recent pneumonia on doxycycline Hyponatremia Anemia Cannabinoid positive on U tox Generalized weakness deconditioning Plan Monitor on telemetry Fall, aspiration, seizure precautions Neurochecks Continue doxycycline from home Supportive care and neb treatments if required Lovenox for DVT prophylaxis On statins for hyperlipidemia Cough medicines if required MRI brain, echocardiogram, carotid study Patient on prednisone for bronchitis symptoms perhaps Continue venlafaxine for depression Will check BNP No PE on CTA chest No acute process on CTA chest Check reversible causes of delirium encephalopathy Urinalysis fine B12 folate level, TSH, CK For sedatives and polypharmacy Stool FOBT, iron panel, serum ferritin Hydrate well, if sodium trends continue to drop then fluid restriction and check serum studies for serum modality and also urine osmolarity with sodium Compression stockings, patient has chronic hypotension per the family, consider midodrine if no response symptomatic management education counseling (This note was generated with voice recognition software and may contain errors including spelling,grammar, syntax and misrecognition of what was dictated, that are not fully corrected) Jameson Gill MD [facility] Work Phone: 1(138) 248-524202-20-2025 History and physical note* Jameson Gill MD - 10/11/2024 3:32 PM EST History Of Present Illness Mayur Beltran is a 69 y.o. male presenting with syncopal episode last night. Patient had previous episodes of syncope also. Denies any chest pain or shortness of breath or palpitations or lightheadedness or nausea vomiting diarrhea or fever chills. He is on treatment with doxycycline for recent pneum onia, Orthostatic positive. His mentation is still not at baseline per . He is on psych meds for depression. No headache or focal weakness. No neck pain. Low back pain flank pain hematuria still.No hemoptysis or wheeze or cough or fever chills. No alarming weight loss or appetite change. No bleeding. No joint pains or skin rash. Denies having a heart attack or stroke in the past. No loss of consciousness or head trauma as such. EKG sinus rhythm. His flu and COVID-19 test negative. Denies any URI times at present. CTA chest no PE. Bibasilar infiltrates with bronchial wall thickening. Bronchopneumonia not excluded but on treatment for it. There is a indeterminate age T12 compression fracture[address] thorax spine showing moderate to severe indeterminate age T12 compression deformity with slight retropulsion. No bowel bladder incontinence or lower extremity weakness or numbness paralysis or paresthesias or tingling. No saddle anesthesia. CT head negative for acute process. CT C-spine no cervical spine fracture dislocation or malalignment. Tox positive for cannabinoids. He has anemia but no bleeding. Hyponatremia on lab workup. No other complaints. Past Medical History Past Medical History: Diagnosis Date Depression Hyperlipidemia Depression B12 deficiency Possible asthma Surgical History History reviewed. No pertinent surgical history. Social History He reports that he has quit smoking. His smoking use included cigarettes. He does not have any smokeless tobacco history on file. He reports that he does not currently use alcohol. He reports that hedoes not currently use drugs. Family History No family history on file. Allergies Erythromycin and Ether Review of Systems All other 12 point review of systems negative except HPI Physical Exam General Appearance: AAO x 1 Skin: skin color pink, warm, and dry; no suspicious rashes or lesions Eyes : PERRL, EOM's intact ENT: mucous membranes pink and moist Neck: normocephalic Respiratory: lungs clear to auscultation anteriorly; no wheezing, rhonchi, or crackles. Heart: regular rate and rhythm Abdomen: Nondistended, positive bowel sounds x4, soft, nontender Extremities: no edema Peripheral pulses: normal x4 extremities Neuro: alert, coherent and conversant, no focal motor deficits Last Recorded Vitals Blood pressure 82/55, pulse 72, temperature 36.4 C (97.6 F), temperature source Temporal, resp. rate 17, height 1.753 m (5' 9), weight 77.4 kg (170 lb 10.2 oz), SpO2 95%. Relevant Results Scheduled medications atorvastatin, 20 mg, oral, Daily doxycycline, 100 mg, oral, q12h ROSA enoxaparin, 40 mg, subcutaneous, Daily perflutren lipid microspheres, 0.5-10 mL of dilution, intravenous, Once in imaging perflutren protein A microsphere, 0.5 mL, intravenous, Once in imaging predniSONE, 20 mg, oral, BID sulfur hexafluoride microsphr, 2 mL, intravenous, Once in imaging venlafaxine XR, 150 mg, oral, Nightly [START ON 10/12/2024] venlafaxine XR, 75 mg, oral, Daily Continuous medications sodium chloride 0.9%, 100 mL/hr, Last Rate: 100 mL/hr (10/11/24 1822) PRN medications PRN medications: benzonatate Results for orders placed or performed during the hospital encounter of 10/11/24 (from the past 24 hours) ECG 12 lead Result Value Ref Range Ventricular Rate 61 BPM Atrial Rate 61 BPM AL Interval 164 ms QRS Duration 98 ms QT Interval 430 ms QTC Calculation(Bazett) 432 ms P [place] 73 degrees R [place] 31 degrees T [place] 41 degrees QRS Count 10 beats Q Onset 221 ms P Onset 139 ms P Offset 202 ms T Offset 436 ms QTC Fredericia 432 ms CBC and Auto Differential Result Value Ref Range WBC 9.2 4.4 - 11.3 x10*3/uL nRBC 0.0 0.0 - 0.0 /100 WBCs RBC 4.08 (L) 4.50 - 5.90 x10*6/uL Hemoglobin 12.2 (L) 13.5 - 17.5 g/dL Hematocrit 36.4 (L) 41.0 - 52.0 % MCV 89 80 - 100 fL MCH 29.9 26.0 - 34.0 pg MCHC 33.5 32.0 - 36.0 g/dL RDW 13.5 11.5 - 14.5 % Platelets 241 150 - 450 x10*3/uL Neutrophils % 55.0 40.0 - 80.0 % Immature Granulocytes %, Automated 1.1 (H) 0.0 - 0.9 % Lymphocytes % 29.9 13.0 - 44.0 % Monocytes % 12.2 2.0 - 10.0 % Eosinophils % 1.3 0.0 - 6.0 % Basophils % 0.5 0.0 - 2.0 % Neutrophils Absolute 5.03 1.60 - 5.50 x10*3/uL Immature Granulocytes Absolute, Automated 0.10 0.00 - 0.50 x10*3/uL Lymphocytes Absolute 2.74 0.80 - 3.00 x10*3/uL Monocytes Absolute 1.12 (H) 0.05 - 0.80 x10*3/uL Eosinophils Absolute 0.12 0.00 - 0.40 x10*3/uL Basophils Absolute 0.05 0.00 - 0.10 x10*3/uL Comprehensive metabolic panel Result Value Ref Range Glucose 92 74 - 99 mg/dL Sodium 128 (L) 136 - 145 mmol/L Potassium 3.5 3.5 - 5.3 mmol/L Chloride 95 (L) 98 - 107 mmol/L Bicarbonate 26 21 - 32 mmol/L Anion Gap 11 mmol/L Urea Nitrogen 17 6 - 23 mg/dL Creatinine 0.99 0.50 - 1.30 mg/dL eGFR 81 >60 mL/min/1.73m*2 Calcium 8.0 (L) 8.6 - 10.3 mg/dL Albumin 3.6 3.4 - 5.0 g/dL Alkaline Phosphatase 56 33 - 136 U/L Total Protein 5.9 (L) 6.4 - 8.2 g/dL AST 25 9 - 39 U/L Bilirubin, Total 0.3 0.0 - 1.2 mg/dL ALT 25 10 - 52 U/L Magnesium Result Value Ref Range Magnesium 1.63 1.60 - 2.40 mg/dL D-Dimer, VTE Exclusion Result Value Ref Range D-Dimer, Quantitative VTE Exclusion 2,473 (H) <=500 ng/mL FEU Troponin I, High Sensitivity, Initial Result Value Ref Range Troponin I, High Sensitivity 4 0 - 20 ng/L Urinalysis with Reflex Culture and Microscopic Result Value Ref Range Color, Urine Light-Yellow Light-Yellow, Yellow, Dark-Yellow Appearance, Urine Clear Clear Specific [place], Urine 1.017 1.005 - 1.035 pH, Urine 7.0 5.0, 5.5, 6.0, 6.5, 7.0, 7.5, 8.0 Protein, Urine NEGATIVE NEGATIVE, 10 (TRACE), 20 (TRACE) mg/dL Glucose, Urine Normal Normal mg/dL Blood, Urine NEGATIVE NEGATIVE mg/dL Ketones, Urine NEGATIVE NEGATIVE mg/dL Bilirubin, Urine NEGATIVE NEGATIVE mg/dL Urobilinogen, Urine Normal Normal mg/dL Nitrite, Urine NEGATIVE NEGATIVE Leukocyte Esterase, Urine NEGATIVE NEGATIVE Extra Urine Senior Tube Result Value Ref Range Extra Tube Hold for add-ons. Drug Screen, Urine Result Value Ref Range Amphetamine Screen, Urine Presumptive Negative Presumptive Negative Barbiturate Screen, Urine Presumptive Negative Presumptive Negative Benzodiazepines Screen, Urine Presumptive Negative Presumptive Negative Cannabinoid Screen, Urine Presumptive Positive (A) Presumptive Negative Cocaine Metabolite Screen, Urine Presumptive Negative Presumptive Negative Fentanyl Screen, Urine Presumptive Negative Presumptive Negative Opiate Screen, Urine Presumptive Negative Presumptive Negative Oxycodone Screen, Urine Presumptive Negative Presumptive Negative PCP Screen, Urine Presumptive Negative Presumptive Negative Methadone Screen, Urine Presumptive Negative Presumptive Negative Troponin, High Sensitivity, 1 Hour Result Value Ref Range Troponin I, High Sensitivity 3 0 - 20 ng/L Sars-CoV-2 PCR Result Value Ref Range Coronavirus 2019, PCR Not Detected Not Detected Influenza A, and B PCR Result Value Ref Range Flu A Result Not Detected Not Detected Flu B Result Not Detected Not Detected Troponin I, High Sensitivity Result Value Ref Range Troponin I, High Sensitivity 3 0 - 20 ng/L Creatine Kinase Result Value Ref Range Creatine Kinase 120 0 - 325 U/L TSH Result Value Ref Range Thyroid Stimulating Hormone 2.98 0.44 - 3.98 mIU/L Ammonia Result Value Ref Range Ammonia 13 (L) 16 - 53 umol/L CT angio chest for pulmonary embolism Result Date: 10/11/2024 Interpreted By: Gracie Tomlin, STUDY: CT ANGIO CHEST FOR PULMONARY EMBOLISM; 10/11/2024 8:02 am INDICATION: Signs/Symptoms:PE. COMPARISON: None. ACCESSION NUMBER(S): [id number] ORDERING CLINICIAN: CÉSAR ANNA TECHNIQUE: CT of the chest was performed. Sagittal and coronal reconstructions were generated. 70 ML Omnipaque 350 intravenous contrast given for the examination. Multiplanar reconstructionsof the pulmonary vessels were created on an independent workstation and provided for review. FINDINGS: CHEST WALL AND LOWER NECK: Slightly heterogenous thyroid. No significant axillary adenopathy. MEDIASTINUM AND ARISTEO: No significant mediastinal or hilar adenopathy. Coarse presumed carmen calcifications in the right hilum. Probable small hiatal hernia. HEART AND VESSELS: No pulmonary artery filling defect to suggest PE. The heart is normal in size. No significant pericardial effusion. Multifocalatherosclerotic calcifications including the coronary arteries. LUNGS, PLEURA, LARGE AIRWAYS: Partially calcified biapical pleural-parenchymal presumed scarring. Subcentimeter cystic structure in theleft lower quadrant. Bibasilar dependent and reticular opacities. Bibasilar bronchial wall thickening. No significant pleural effusion. The central airways are patent. UPPER ABDOMEN: Calcified hepatosplenic granulomas. Mild relatively symmetric perinephric fat stranding in the included areas. BONES: T12 compression fracture with slight dispersion and retropulsion more fully evaluated on same daythoracic spine CT No evidence of PE. Bibasilar infiltrates or atelectasis with bronchial wall thickening. Bronchopneumonia not excluded. Clinical correlation recommended. Sequela of remote granulomatous infection. Small hiatal hernia. Indeterminate age T12 compression fracture. MACRO: None. Signed by: Gracie Tomlin 10/11/2024 8:27 AM Dictation workstation: [id number] CT thoracic spine wo IV contrast Result Date: 10/11/2024 Interpreted By: Gracie Tomlin, STUDY: CT THORACIC SPINE WO IV CONTRAST; 10/11/2024 6:07 am INDICATION: Signs/Symptoms:fall. COMPARISON: None. ACCESSION NUMBER(S): [id number] ORDERING CLINICIAN: CHRISTINA TECHNIQUE: Axial CT images of the thoracic spine are obtained. Axial, coronal and sagittal reconstructions are submitted for review. FINDINGS: Alignment: No significant spondylolisthesis. Mild kyphosis. Vertebrae/Intervertebral Discs: Diffuse osteopenia. Moderate to severe central T12 compression deformity with slight dispersion including 4 mm of retropulsion. Remaining thoracic vertebral heights are preserved. Multilevel intervertebral disc space narrowing and endplate spurring. Paraspinous Soft Tissues: Partially calcified pulmonary biapical presumed scarring. Coarse presumed carmen calcifications in the right hilum. Multifocal atherosclerotic calcifications. Moderate to severe indeterminate age T12 compression deformity with slight retropulsion. Consider further evaluation with MRI as clinically warranted. Paraspinal/soft tissue findings as above. MACRO:None Signed by: Gracie Tomlin 10/11/2024 8:22 AM Dictation workstation: [id number] ECG 12 lead Result Date: 10/11/2024 Normal sinus rhythm Normal ECG When compared with ECG of 11-OCT-2024 04:16, (unconfirmed) ST elevation now present in Lateral leads CT head wo IV contrast Result Date: 10/11/2024 Interpreted By: Stanton Kerns, STUDY: CT HEAD WO IV CONTRAST; CT CERVICAL SPINE WO IV CONTRAST; ; 10/11/2024 6:05 am INDICATION: Signs/Symptoms:fall. COMPARISON: None. ACCESSION NUMBER(S): [id number]; [id number] ORDERING CLINICIAN: CÉSAR ANNA TECHNIQUE: Noncontrast CT exams of the head and cervical spine with multiplanar reformations. FINDINGS: BRAIN PARENCHYMA: Moderate volume loss. There isperiventricular and subcortical white matter hypoattenuation, most in keeping with chronic microvascular ischemic change. Senior-white matter interfaces are preserved. No mass, mass effect or midline shift. HEMORRHAGE: No acute intracranial hemorrhage. VENTRICLES and EXTRA-AXIAL SPACES: Normal size. E XTRACRANIAL SOFT TISSUES: Within normal limits. PARANASAL SINUSES/MASTOIDS: Ossification of the left maxillary sinus. Air-fluid level in the right maxillary sinus. Moderate mucosal thickening in the ethmoid air cells, right frontal sinus and sphenoid sinuses. Mastoids are clear. CALVARIUM: No depressed skull fracture. No destructive osseous lesion. OTHER FINDINGS: None. CERVICAL SPINE: ALIGNMENT:Grade 1 degenerative anterolisthesis at C3-C4 at C4-C5. Alignment is otherwise maintained. VERTEBRAE: No acute fracture. Vertebral stature is maintained. Severe discogenic degeneration lower cervicallevels. Moderate hypertrophic facet osteoarthropathy. SPINAL CANAL: No critical spinal canal stenosis. PREVERTEBRAL SOFT TISSUES: No prevertebral soft tissue swelling. LUNG APICES: Interstitial thickening in the apical lungs suggests acute pulmonary interstitial edema/CHF. OTHER FINDINGS: None. No evidence of acute intracranial abnormality No acute cervical spine fracture or malalignment. Interstitial thickening in the apical lungs suggests acute pulmonary interstitial edema/CHF. MACRO: None Signed by: Stanton Kerns 10/11/2024 6:44 AM Dictation workstation: [id number] CT cervical spine wo IV contrast Result Date: 10/11/2024 Interpreted By: Stanton Kerns, STUDY: CT HEAD WO IV CONTRAST; CT CERVICAL SPINE WO IV CONTRAST; ; 10/11/2024 6:05 am INDICATION: Signs/Symptoms:fall. COMPARISON: None. ACCESSION NUMBER(S): [id number]; [id number] ORDERING CLINICIAN: CÉSAR ANNA TECHNIQUE: Noncontrast CT exams of the head and cervical spine with multiplanar reformations. FINDINGS: BRAIN PARENCHYMA: Moderate volume loss. There isperiventricular and subcortical white matter hypoattenuation, most in keeping with chronic microvascular ischemic change. Senior-white matter interfaces are preserved. No mass, mass effect or midline shift. HEMORRHAGE: No acute intracranial hemorrhage. VENTRICLES and EXTRA-AXIAL SPACES: Normal size. E XTRACRANIAL SOFT TISSUES: Within normal limits. PARANASAL SINUSES/MASTOIDS: Ossification of the left maxillary sinus. Air-fluid level in the right maxillary sinus. Moderate mucosal thickening in the ethmoid air cells, right frontal sinus and sphenoid sinuses. Mastoids are clear. CALVARIUM: No depressed skull fracture. No destructive osseous lesion. OTHER FINDINGS: None. CERVICAL SPINE: ALIGNMENT:Grade 1 degenerative anterolisthesis at C3-C4 at C4-C5. Alignment is otherwise maintained. VERTEBRAE: No acute fracture. Vertebral stature is maintained. Severe discogenic degeneration lower cervicallevels. Moderate hypertrophic facet osteoarthropathy. SPINAL CANAL: No critical spinal canal stenosis. PREVERTEBRAL SOFT TISSUES: No prevertebral soft tissue swelling. LUNG APICES: Interstitial thickening in the apical lungs suggests acute pulmonary interstitial edema/CHF. OTHER FINDINGS: None. No evidence of acute intracranial abnormality No acute cervical spine fracture or malalignment. Interstitial thickening in the apical lungs suggests acute pulmonary interstitial edema/CHF. MACRO: None Signed by: Stanton Kerns 10/11/2024 6:44 AM Dictation workstation: [id number] XR chest 1 view Result Date: 10/11/2024 Interpreted By: Stanton Kerns, STUDY: XR CHEST 1 VIEW; 10/11/2024 5:38 am INDICATION: Signs/Symptoms:fall. COMPARISON: None. ACCESSION NUMBER(S): [id number] ORDERING CLINICIAN: CÉSAR ANNA FINDINGS:AP radiograph of the chest was provided. CARDIOMEDIASTINAL SILHOUETTE: Cardiomediastinal silhouetteis normal in size and configuration. LUNGS: Pulmonary vascular congestion with interstitial prominence and peribronchial cuffing with Jazlyn B-lines suggests acute pulmonary interstitial edema/CHF. No focal consolidation or sizable pleural effusion. No pneumothorax. ABDOMEN: No remarkable upper abdominal findings. BONES: No acute osseous changes. 1. Pulmonary vascular congestion with interstitial prominence and peribronchial cuffing with KerleyB-lines suggests acute pulmonary interstitial edema/CHF. No focal consolidation or sizable pleural effusion. No pneumothorax. MACRO: None Signed by: Stanton Kerns 10/11/2024 6:39 AM Dictation workstation: [id number] Assessment/Plan Assessment & Plan Syncope and collapse 69-year-old male with history of Hyperlipidemia Depression B12 deficiency Possible asthma Presenting with Syncope likely vasovagal Orthostatic positive Recent pneumonia on doxycycline Hyponatremia Anemia Cannabinoid positive on U tox Generalized weakness deconditioning Plan Monitor on telemetry Fall, aspiration, seizure precautions Neurochecks Continue doxycycline from home Supportive care and neb treatments if required Lovenox for DVT prophylaxis On statins for hyperlipidemia Cough medicines if required MRI brain, echocardiogram, carotid study Patient on prednisone for bronchitis symptoms perhaps Continue venlafaxine for depression Will check BNP No PE on CTA chest No acute process on CTA chest Check reversible causes of delirium encephalopathy Urinalysis fine B12 folate level, TSH, CK For sedatives and polypharmacy Stool FOBT, iron panel, serum ferritin Hydrate well, if sodium trends continue to drop then fluid restriction and check serum studies for serum modality and also urine osmolarity with sodium Compression stockings, patient has chronic hypotension per the family, consider midodrine if no response symptomatic management education counseling (This note was generated with voice recognition software and may contain errors including spelling,grammar, syntax and misrecognition of what was dictated, that are not fully corrected) Jameson Gill MD [facility] Phone: [phone]) 890-484902-20-2025 Plan of care note* Care Plan - Coco Nicole RN - 10/11/2024 3:26 PM EST The clinical goals for the shift include no falls. [facility] Work Phone: [phone]) 130-334502-16-2025 NoteHNO ID: [id number] Author: CÉSAR CORDOBA PA-C Service: ? Author Type: Physician Beam Worker Type: Progress Notes Filed: 10/07/2024 11:58 Note Text: This note was created using [employer]. Subjective Michael Beltran is a 69 year old male. Patient is a 69-year-old male who complains of worsening loose, productive cough that he has been experiencing for the past 1 week. Patient also reports ongoing fever. Patient was seen and evaluated at this facility on 03 October 2024 at which time he was diagnosed with a viral illness. Influenza test on that date was negative. Patient reports mild congestion and denies sinus pressure, ear pain or sore throat. Patient does have a history of asthma and states that he does have a current albuterol MDI that he is using as directed. Patient states that his cough is becoming increasingly coarse and productive over the past 2 days and he has noted an increasing wheezing cough. Patient's states that his pulse oximeter saturation at home was noted to be 90 to 91% on room air. Patient has no history of COPD and does not smoke. Review of Systems Respiratory: Positive for cough, shortness of breath and wheezing. All other systems reviewed and are negative. Objective BP 124/72 Pulse 102 Temp 37.4 ?C (99.3 ?F) Resp 18 Wt 74.6 kg (164 lb 7.4 oz) SpO2 94% BMI 23.94 kg/m? Physical Exam Vitals and nursing note reviewed. Constitutional: Appearance: Normal appearance. He is normal weight. HENT: Head: Normocephalic and atraumatic. Right Ear: Tympanic membrane, ear canal and external ear normal. Left Ear: Tympanic membrane, ear canal and external ear normal. Nose: Nose normal. Mouth/Throat: Mouth: Mucous membranes are moist. Pharynx: Oropharynx is clear. Eyes: Extraocular Movements: Extraocular movements intact. Conjunctiva/sclera: Conjunctivae normal. Pupils: Pupils are equal, round, and reactive to light. Cardiovascular: Rate and Rhythm: Normal rate and regular rhythm. Pulses: Normal pulses. Heart sounds: Normal heart sounds. Pulmonary: Effort: Pulmonary effort is normal. Breath sounds: Wheezing and rhonchi present. Comments: Respiratory effort is relaxed and pulse oximeter saturation is 94% on room air. Patient is conversing in complete sentences. Musculoskeletal: Cervical back: Normal range of motion and neck supple. Skin: General: Skin is warm and dry. Capillary Refill: Capillary refill takes less than 2 seconds. Neurological: General: No focal deficit present. Mental Status: He is alert and oriented to person, place, and time. Psychiatric: Mood and Affect: Mood normal. Behavior: Behavior normal. Thought Content: Thought content normal. Judgment: Judgment normal. Assessment and Plan Physical exam findings as noted above. Patient was provided with prescriptions for doxycycline 100 mg, prednisone 20 mg and Tessalon 100 mg. Patient was very clearly instructed to report to an emergency department if he notes any worsening symptoms or if his pulse oximeter saturation is noted to be less than 91%. Patient and his verbalize good understanding of the above instructions. CLINICAL IMPRESSION: Bronchopneumonia ASSESSMENT/PLAN: 1. Bronchopneumonia - ICD9: 485, ICD10: J18.0 - BENZONATATE 100 MG CAPSULE - PREDNISONE 20 MG TABLET - DOXYCYCLINE HYCLATE 100 MG TABLET [facility]02-16-2025 History of Present illness Narrative* César Cordoba PA-C - 10/07/2024 11:46 AM EST This note was created using NoteWriter. Subjective Michael Beltran is a 69 year old male. Patient is a 69-year-old male who complains of worsening loose, productive cough that he has been experiencing for the past 1 week. Patient also reports ongoing fever. Patient was seen and evaluated at this facility on 03 October 2024 at which time he was diagnosed with a viral illness. Influenza test on that date was negative. Patient reports mild congestion and denies sinus pressure, ear pain or sore throat. Patient does have a history of asthma and states that he does have a current albuterol MDI that he is using as directed. Patient states that his cough is becoming increasingly coarse and productive over the past 2 days and he has noted an increasing wheezing cough. Patient's states that his pulse oximeter saturation at home was noted to be 90 to 91% on room air. Patient has nohistory of COPD and does not smoke. Review of Systems Respiratory: Positive for cough, shortness of breath and wheezing. All other systems reviewed and are negative. Objective BP 124/72 Pulse 102 Temp 37.4 C (99.3 F) Resp 18 Wt 74.6 kg (164 lb 7.4 oz) SpO2 94% BMI 23.94 kg/m Physical Exam Vitals and nursing note reviewed. Constitutional: Appearance: Normal appearance. He is normal weight. HENT: Head: Normocephalic and atraumatic. Right Ear: Tympanic membrane, ear canal and external ear normal. Left Ear: Tympanic membrane, ear canal and external ear normal. Nose: Nose normal. Mouth/Throat: Mouth: Mucous membranes are moist. Pharynx: Oropharynx is clear. Eyes: Extraocular Movements: Extraocular movements intact. Conjunctiva/sclera: Conjunctivae normal. Pupils: Pupils are equal, round, and reactive to light. Cardiovascular: Rate and Rhythm: Normal rate and regular rhythm. Pulses: Normal pulses. Heart sounds: Normal heart sounds. Pulmonary: Effort: Pulmonary effort is normal. Breath sounds: Wheezing and rhonchi present. Comments: Respiratory effort is relaxed and pulse oximeter saturation is 94% on room air. Patient is conversing in complete sentences. Musculoskeletal: Cervical back: Normal range of motion and neck supple. Skin: General: Skin is warm and dry. Capillary Refill: Capillary refill takes less than 2 seconds. Neurological: General: No focal deficit present. Mental Status: He is alert and oriented to person, place, and time. Psychiatric: Mood and Affect: Mood normal. Behavior: Behavior normal. Thought Content: Thought content normal. Judgment: Judgment normal. Assessment and Plan Physical exam findings as noted above. Patient was provided with prescriptions for doxycycline 100 mg, prednisone 20 mg and Tessalon 100 mg. Patient was very clearly instructed to report to an emergency department if he notes any worsening symptoms or if his pulse oximeter saturation is noted to beless than 91%. Patient and his verbalize good understanding of the above instructions. CLINICAL IMPRESSION: Bronchopneumonia ASSESSMENT/PLAN: 1. Bronchopneumonia - ICD9: 485, ICD10: J18.0 - BENZONATATE 100 MG CAPSULE - PREDNISONE 20 MG TABLET - DOXYCYCLINE HYCLATE 100 MG TABLET César Cordoba PA-C [facility] NoteHNO ID: [id number] Author: ALLAN STAPLES MD Service: ? Author Type: Physician Type: Progress Notes Filed: 10/03/2024 19:34 Note Text: Patient presents with: Cough: Fever, chest congestion, SOB x last night HPI: Feeling sick since last night. He was exposed to a sick grandchild this weekend. Positive symptoms: Cough, Shortness of breath, Wheezing, Fever, Nasal Congestion, Rhinorrhea, Body Aches, Malaise, Fatigue, Headache, Negative symptoms: Sore throat, Vomiting, Diarrhea, OTC: cough medicine PHx of pneumonia. Noticed geese and an [place] on the [place] he lives [place] and wonders about bird flu. MEDICATIONS: Current Outpatient Medications Medication Sig Tadalafil (CIALIS) 20 mg tablet Take 1 tablet by mouth once daily. As needed venlafaxine ER (EFFEXOR XR) 75 mg 24 hr capsule Take 1 capsule by mouth three times a day. atorvastatin (LIPITOR) 20 mg tablet Take 1 tablet by mouth once daily. loratadine 10 mg cap Take 10 mg by mouth as needed. No current facility-administered medications for this visit. ALLERGIES: ALLERGIES Allergen Reactions Erythromycin Itching Ether Shortness of Breath VITALS: BP 118/77 Pulse 93 Temp 37.4 ?C (99.3 ?F) Resp 18 Wt 76.5 kg (168 lb 10.4 oz) SpO2 96% BMI 24.55 kg/m? PHYSICAL EXAM: GEN: mildly ill appearing HEENT: PERRL, EOMI, conjunctiva clear Ears: canals clear. TMs without erythema, bulge, or effusion Sinuses: non-tender frontal sinus, non-tender maxillary sinuses Throat: moist mucous membranes, no erythema, no exudate Neck: supple, no thyromegaly, no lymphadenopathy HEART: regular rate, regular rhythm, no murmurs LUNGS: clear to auscultation, no wheezes or crackles, no increased WOB; wheezy cough ASSESSMENT/PLAN: 1. Influenza-like illness - ICD9: 487.1, ICD10: J11.1 (primary diagnosis) 2. Wheezing - ICD9: 786.07, ICD10: R06.2 - INFLUENZA AANDB MOLECULAR (POC) - negative - suspect viral URI, differential includes COVID-19. He declines further viral testing. - Discussed supportive care treatment with rest, cold medicine, and analgesia. - Red flags to seek further treatment include chest pain, shortness of breath, and lethargy; in the ER if severe. - ALBUTEROL SULFATE HFA 90 MCG/ACTUATION AEROSOL INHALER - has used remotely and feels it might help currently. Allan Staples, [facility]02-12-2025 History of Present illness Narrative* Allan Staples MD - 10/03/2024 6:55 PM EST Patient presents with: Cough: Fever, chest congestion, SOB x last night HPI: Feeling sick since last night. He was exposed to a sick grandchild this weekend. Positive symptoms: Cough, Shortness of breath, Wheezing, Fever, Nasal Congestion, Rhinorrhea, Body Aches, Malaise, Fatigue, Headache, Negative symptoms: Sore throat, Vomiting, Diarrhea, OTC: cough medicine PHx of pneumonia. Noticed geese and an [place] on the [place] he lives [place] and wonders about bird flu. MEDICATIONS: Current Outpatient Medications Medication Sig Tadalafil (CIALIS) 20 mg tablet Take 1 tablet by mouth once daily. As needed venlafaxine ER (EFFEXOR XR) 75 mg 24 hr capsule Take 1 capsule by mouth three times a day. atorvastatin (LIPITOR) 20 mg tablet Take 1 tablet by mouth once daily. loratadine 10 mg cap Take 10 mg by mouth as needed. No current facility-administered medications for this visit. ALLERGIES: ALLERGIES Allergen Reactions Erythromycin Itching Ether Shortness of Breath VITALS: BP 118/77 Pulse 93 Temp 37.4 C (99.3 F) Resp 18 Wt 76.5 kg (168 lb 10.4 oz) SpO2 96% BMI 24.55 kg/m PHYSICAL EXAM: GEN: mildly ill appearing HEENT: PERRL, EOMI, conjunctiva clear Ears: canals clear. TMs without erythema, bulge, or effusion Sinuses: non-tender frontal sinus, non-tender maxillary sinuses Throat: moist mucous membranes, no erythema, no exudate Neck: supple, no thyromegaly, no lymphadenopathy HEART: regular rate, regular rhythm, no murmurs LUNGS: clear to auscultation, no wheezes or crackles, no increased WOB; wheezy cough ASSESSMENT/PLAN: 1. Influenza-like illness - ICD9: 487.1, ICD10: J11.1 (primary diagnosis) 2. Wheezing - ICD9: 786.07, ICD10: R06.2 - INFLUENZA A&B MOLECULAR (POC) - negative - suspect viral URI, differential includes COVID-19. He declines further viral testing. - Discussed supportive care treatment with rest, cold medicine, and analgesia. - Red flags to seek further treatment include chest pain, shortness of breath, and lethargy; in theER if severe. - ALBUTEROL SULFATE HFA 90 MCG/ACTUATION AEROSOL INHALER - has used remotely and feels it might help currently. Allan Staples MD [facility] Telephone encounter Note * Telephone Encounter - Rosio Champagne LPN - 09/17/2024 7:42 AM EST Prescription Refill Information The patient has been identified by name and date of : Yes Caregiver verified no other encounters exist for this prescription request: Yes Caregiver confirmed with patient/requestor that no other refills are due, in the near future, with this provider at this time: Yes The last office visit in the department: 05/03/24 Does the patient have a future office visit with this provider/department: Yes Requested Prescriptions Pending Prescriptions Disp Refills Tadalafil (CIALIS) 20 mg tablet 30 tablet 2 Sig: Take 1 tablet by mouth once daily. As needed Rosio Champagne LPN September 17, 2024 7:42 AM [facility]01-27-[facility] Miscellaneous Notes* Telephone Encounter - Rosio Champagne LPN - 09/17/2024 7:42 AM EST Prescription Refill Information The patient has been identified by name and date of : Yes Caregiver verified no other encounters exist for this prescription request: Yes Caregiver confirmed with patient/requestor that no other refills are due, in the near future, with this provider at this time: Yes The last office visit in the department: 05/03/24 Does the patient have a future office visit with this provider/department: Yes Requested Prescriptions Pending Prescriptions Disp Refills Tadalafil (CIALIS) 20 mg tablet 30 tablet 2 Sig: Take 1 tablet by mouth once daily. As needed Rosio Champagne LPN September 17, 2024 7:42 AM documented in this [facility]-2024 NoteHNO ID: [id number] Author: CHRIS DE LEON PT Service: ? Author Type: Physical Therapist Type: Progress Notes Filed: 07/25/2024 11:18 Note Text: Episode Visit Count: 4 Therapist That Will Accept/Oversee The Plan Of Care: Chris De Leon Start of Care Date: 05/29/24 Onset Date: 05/29/21 Plan of Care Certification Date: 05/29/24 Next Certification Due Date: 08/29/24 REHABILITATION AND SPORTS THERAPY PHYSICAL THERAPY DISCONTINUANCE OF CARE PLAN OF CARE UPDATE: Assessment: Michael Beltran is discontinued from Physical Therapy services due to goal achievement and maximal benefit.. Patient was seen for 4 visits from Start of Care Date: 05/29/24 to 07/25/2024 and treatment included: Therapeutic exercise and Self-alf management. Goals updated on 07/25/2024. Goals for Episode of Care: established 05/29/24 Independent in home exercises. Met Patient will decrease pain rating by 2 points to meet minimal clinical important difference for numeric pain rating scale. Met Restore pain-free lumbar ROM to WNL to allow for decreased pain and improved functional mobility. Met Maintain proper sitting posture throughout session. Met Patient will increase strength of trunk/core to 5/5 to allow for improve ability to complete ADLs. Met SUBJECTIVE: patient doing very well today, states he has no pain and has seen a signficant reduction in intensity and frequency of pain. Feels he is self managing very well and feels confident making today his last visit. He is much more self aware of posture and body mechanics, and feels he has been able to impliment changes into his home tasks that have helped. Pain: Pain Pain Level: 0 Pain Location: Low Back/Lumbar Spine - Left PROMIS Scales 07/25/2024 05/27/2024 Higher is Better Phys Func - Score 52 (within normal limits) 44 (mild dysfunction) Phys Func - Percentile 58 27 Self-Eff Symptom - Score 49 (Average) 49 (Average) Self-Eff Symptom - Percentile 46 46 T-scores: mean of general population = 50. 5 points is clinically meaningfully difference Percentiles provide an indication of how the patient's score ranks in relation to the general population. Higher percentile rankings indicate better function/quality of life. 50th percentile is the average of the general population and indicates half of respondents had a worse score. OBJECTIVE MEASURES WITH LEVEL OF FUNCTION: Spine Observations R Thoracic Spine Palpation Tenderness: No tenderness noted L Thoracic Spine Palpation Tenderness: No tenderness noted Lumbar Spine AROM Lumbar Flexion: Normal Lumbar Extension: Normal Lumbar R Side-Bend: Normal Lumbar L Side-Bend: Normal Lumbar R Rotation: Normal Lumbar L Rotation: Normal LE Strength Trunk Strength: 5/5 R LE Strength: 5/5 L LE Strength: 5/5 TREATMENT: Therapeutic Exercise: 1: Hooklying TA bracing x10, 3-5 sec holds 3: Deadbugs legs only 3x10/side 4: Hooklying GTB TA bracing plus BKFO x10/side 5: GTB pallof press 3x10/side 6: Objective measures obtained Skilled Intervention: Patient was educated in proper exercise technique and purpose for exercises. Skilled judgment was used in selection of appropriate interventions. Correct performance of therapeutic exercises was facilitated with verbal, visual, and tactile cuing. Billing Therapeutic Exercise Treatment Minutes: 25 Skilled Treatment Time Minutes (timed and untimed codes): 25 Total Session Time (minutes): 25 Session Start Time : 1035 Session Stop Time : 1100 Chris De Leon [facility]12-04-2024 History of Present illness Narrative* Chris De Leon, PT - 07/25/2024 11:06 AM EST Images from the original note were not included. Episode Visit Count: 4 Therapist That Will Accept/Oversee The Plan Of Care: Chris De Leon Start of Care Date: 05/29/24 Onset Date: 05/29/21 Plan of Care Certification Date: 05/29/24 Next Certification Due Date: 08/29/24 REHABILITATION AND SPORTS THERAPY PHYSICAL THERAPY DISCONTINUANCE OF CARE PLAN OF CARE UPDATE: Assessment: Michael Beltran is discontinued from Physical Therapy services due to goal achievement and maximal benefit.. Patient was seen for 4 visits from Start of Care Date: 05/29/24 to 07/25/2024 and treatment included: Therapeutic exercise and Self-alf management. Goals updated on 07/25/2024. Goals for Episode of Care: established 05/29/24 Independent in home exercises. Met Patient will decrease pain rating by 2 points to meet minimal clinical important difference for numeric pain rating scale. Met Restore pain-free lumbar ROM to WNL to allow for decreased pain and improved functional mobility. Met Maintain proper sitting posture throughout session. Met Patient will increase strength of trunk/core to 5/5 to allow for improve ability to complete ADLs. Met SUBJECTIVE: patient doing very well today, states he has no pain and has seen a signficant reduction in intensity and frequency of pain. Feels he is self managing very well and feels confident makingtoday his last visit. He is much more self aware of posture and body mechanics, and feels he has been able to impliment changes into his home tasks that have helped. Pain: Pain Pain Level: 0 Pain Location: Low Back/Lumbar Spine - Left PROMIS Scales 07/25/2024 05/27/2024 Higher is Better Phys Func - Score 52 (within normal limits) 44 (mild dysfunction) Phys Func - Percentile 58 27 Self-Eff Symptom - Score 49 (Average) 49 (Average) Self-Eff Symptom - Percentile 46 46 T-scores: mean of general population = 50. 5 points is clinically meaningfully difference Percentiles provide an indication of how the patient's score ranks in relation to the general population. Higher percentile rankings indicate better function/quality of life. 50th percentile is the average of the general population and indicates half of respondents had a worse score. OBJECTIVE MEASURES WITH LEVEL OF FUNCTION: Spine Observations R Thoracic Spine Palpation Tenderness: No tenderness noted L Thoracic Spine Palpation Tenderness: No tenderness noted Lumbar Spine AROM Lumbar Flexion: Normal Lumbar Extension: Normal Lumbar R Side-Bend: Normal Lumbar L Side-Bend: Normal Lumbar R Rotation: Normal Lumbar L Rotation: Normal LE Strength Trunk Strength: 5/5 R LE Strength: 5/5 L LE Strength: 5/5 TREATMENT: Therapeutic Exercise: 1: Hooklying TA bracing x10, 3-5 sec holds 3: Deadbugs legs only 3x10/side 4: Hooklying GTB TA bracing plus BKFO x10/side 5: GTB pallof press 3x10/side 6: Objective measures obtained Skilled Intervention: Patient was educated in proper exercise technique and purpose for exercises. Skilled judgment was used in selection of appropriate interventions. Correct performance of therapeutic exercises was facilitated with verbal, visual, and tactile cuing. Billing Therapeutic Exercise Treatment Minutes: 25 Skilled Treatment Time Minutes (timed and untimed codes): 25 Total Session Time (minutes): 25 Session Start Time : 1035 Session Stop Time : 1100 Chris De Leon PT * Chris De Leon PT - 07/25/2024 10:43 AM EST Program_ID:[id number] Access Code: [email or web address] URL: [email or web address] Date: 07-25-2024 Prepared By: Chris De Leon Program Notes Exercises - Cat Cow - 1 x daily - 7 x weekly - 3 sets - 10 reps - Squatting Anti-Rotation Press - 1 x daily - 7 x weekly - 3 sets - 10 reps - Supine Transversus Abdominis Bracing - Hands on Stomach - 1 x daily - 7 x weekly - 3 sets - 10 reps - Supine Bug with Leg Extension - 1 x daily - 7 x weekly - 3 sets - 10 reps - Hooklying Single Leg Bent Knee Fallouts with Resistance - 1 x daily - 7 x weekly - 3 sets - 10 reps Patient Education - Lifting Techniques documented in this [facility]10-[facility]-2024 NoteHNO ID: [id number] Author: CHRIS DE LEON PT Service: ? Author Type: Physical Therapist Type: Progress Notes Filed: 06/15/2024 08:40 Note Text: Episode Visit Count: 3 Therapist That Will Accept/Oversee The Plan Of Care: Chris De Leon Start of Care Date: 05/29/24 Onset Date: 05/29/21 Plan of Care Certification Date: 05/29/24 Next Certification Due Date: 08/29/24 REHABILITATION AND SPORTS THERAPY PHYSICAL THERAPY TREATMENT NOTE ASSESSMENT: Michael Beltran tolerated the session with fatigue and decreased symptoms. He demonstrated improvements in back pain. The patient will continue to benefit from ongoing skilled physical therapy to progress toward set goals. PLAN FOR NEXT VISIT: Stir the pot SUBJECTIVE: Patient continues to feel better. Back pain intensity and frequency are both coming down Pain: Pain Pain Level: 2 Pain Location: Low Back/Lumbar Spine - Left Description: Dull, Sore Frequency: Continuous OBJECTIVE MEASURES WITH LEVEL OF FUNCTION: TREATMENT: Therapeutic Exercise: 1: Hooklying TA bracing x10, 3-5 sec holds 2: Hooklying TA bracing plus hip hikes x10 3: *Deadbugs legs only 3x10/side 4: Hooklying TA bracing plus BKFO x10/side 5: Hooklying GTB TA bracing plus BKFO x10/side 6: GTB pallof press 3x10/side 7: *Neutral spine cuing for lifting/squatting x20 (cuing for proper form and also discussed disc mechanics) Skilled Intervention: Patient was educated in proper exercise technique and purpose for exercises. Skilled judgment was used in selection of appropriate interventions. Provided written instruction for home exercise program to facilitate proper performance and compliance. Correct performance of therapeutic exercises was facilitated with verbal, visual, and tactile cuing. Billing Therapeutic Exercise Treatment Minutes: 40 Skilled Treatment Time Minutes (timed and untimed codes): 40 Total Session Time (minutes): 40 Session Start Time : 1135 Session Stop Time : 1215 Chris De Leon [facility]10-25-2024 History of Present illness Narrative* Chris De Leon PT - 06/15/2024 8:37 AM EDT Episode Visit Count: 3 Therapist That Will Accept/Oversee The Plan Of Care: Chris De Leon Start of Care Date: 05/29/24 Onset Date: 05/29/21 Plan of Care Certification Date: 05/29/24 Next Certification Due Date: 08/29/24 REHABILITATION AND SPORTS THERAPY PHYSICAL THERAPY TREATMENT NOTE ASSESSMENT: Michael Beltran tolerated the session with fatigue and decreased symptoms. He demonstrated improvements in back pain. The patient will continue to benefit from ongoing skilled physical therapy to progress toward set goals. PLAN FOR NEXT VISIT: Stir the pot SUBJECTIVE: Patient continues to feel better. Back pain intensity and frequency are both coming down Pain: Pain Pain Level: 2 Pain Location: Low Back/Lumbar Spine - Left Description: Dull, Sore Frequency: Continuous OBJECTIVE MEASURES WITH LEVEL OF FUNCTION: TREATMENT: Therapeutic Exercise: 1: Hooklying TA bracing x10, 3-5 sec holds 2: Hooklying TA bracing plus hip hikes x10 3: *Deadbugs legs only 3x10/side 4: Hooklying TA bracing plus BKFO x10/side 5: Hooklying GTB TA bracing plus BKFO x10/side 6: GTB pallof press 3x10/side 7: *Neutral spine cuing for lifting/squatting x20 (cuing for proper form and also discussed disc mechanics) Skilled Intervention: Patient was educated in proper exercise technique and purpose for exercises. Skilled judgment was used in selection of appropriate interventions. Provided written instruction for home exercise program to facilitate proper performance and compliance. Correct performance of therapeutic exercises was facilitated with verbal, visual, and tactile cuing. Billing Therapeutic Exercise Treatment Minutes: 40 Skilled Treatment Time Minutes (timed and untimed codes): 40 Total Session Time (minutes): 40 Session Start Time : 1135 Session Stop Time : 1215 Chris De Leon PT * Chris De Loen PT - 06/14/2024 12:06 PM EDT Program_ID:[id number] Access Code: [email or web address] URL: [email or web address] Date: 06-14-2024 Prepared By: Chris De Leon Program Notes Exercises - Cat Cow - 1 x daily - 7 x weekly - 3 sets - 10 reps - Squatting Anti-Rotation Press - 1 x daily - 7 x weekly - 3 sets - 10 reps - Supine Transversus Abdominis Bracing - Hands on Stomach - 1 x daily - 7 x weekly - 3 sets - 10 reps - Supine Bug with Leg Extension - 1 x daily - 7 x weekly - 3 sets - 10 reps - Hooklying Single Leg Bent Knee Fallouts with Resistance - 1 x daily - 7 x weekly - 3 sets - 10 reps Patient Education - Lifting Techniques documented in this [facility]10-18-2024 NoteHNO ID: [id number] Author: CHRIS DE LEON PT Service: ? Author Type: Physical Therapist Type: Progress Notes Filed: 06/08/2024 15:21 Note Text: Episode Visit Count: 2 Therapist That Will Accept/Oversee The Plan Of Care: Chris De Leon Start of Care Date: 05/29/24 Onset Date: 05/29/21 Plan of Care Certification Date: 05/29/24 Next Certification Due Date: 08/29/24 REHABILITATION AND SPORTS THERAPY PHYSICAL THERAPY TREATMENT NOTE ASSESSMENT: Michael Beltran tolerated the session with no issues. He demonstrated improvements in core stabilization exercise tolerance. The patient will continue to benefit from ongoing skilled physical therapy to progress toward set goals. PLAN FOR NEXT VISIT: May incorporate lifting technique into exercises SUBJECTIVE: Patient notes exercises felt appropriate, the pallof press is a challenge Pain: Pain Pain Level: 5 Pain Location: Low Back/Lumbar Spine - Left Description: Aching, Sore, Sharp Frequency: Continuous OBJECTIVE MEASURES WITH LEVEL OF FUNCTION: Form observed throughout session TREATMENT: Therapeutic Exercise: 1: Hooklying TA bracing 3x10, 3-5 sec holds 2: Hooklying TA bracing plus hip hikes 3x10 3: Hooklying TA bracing plus BKFO 3x10/side 4: Cat and cow 3x10 in tolerable range 5: GTB pallof press 3x10/side Skilled Intervention: Patient was educated in proper exercise technique and purpose for exercises. Skilled judgment was used in selection of appropriate interventions. Provided written instruction for home exercise program to facilitate proper performance and compliance. Correct performance of therapeutic exercises was facilitated with verbal and visual cuing. Self-Mcfp Management: 1: Reviewed lifting mechanics with patient stressing neutral spine and provided handout for HEP Skilled Intervention: Skilled judgment in the selection of proper modification for activity of daily living/home management based on clinical presentation, deficits, and needs. Reviewed patient specific diagnosis in relation to activities of daily living/home management. Activity progression based on professional judgement. Billing Therapeutic Exercise Treatment Minutes: 23 Self-Care/Home Management Treatment Minutes: 5 Skilled Treatment Time Minutes (timed and untimed codes): 28 Total Session Time (minutes): 28 Session Start Time : 1435 Session Stop Time : 1503 Chris De Leon, [facility]10-18-2024 History of Present illness Narrative* Chris De Leon, PT - 06/08/2024 3:14 PM EDT Episode Visit Count: 2 Therapist That Will Accept/Oversee The Plan Of Care: Chirs De Leon Start of Care Date: 05/29/24 Onset Date: 05/29/21 Plan of Care Certification Date: 05/29/24 Next Certification Due Date: 08/29/24 REHABILITATION AND SPORTS THERAPY PHYSICAL THERAPY TREATMENT NOTE ASSESSMENT: Michael Beltran tolerated the session with no issues. He demonstrated improvements in core stabilization exercise tolerance. The patient will continue to benefit from ongoing skilled physical therapy to progress toward set goals. PLAN FOR NEXT VISIT: May incorporate lifting technique into exercises SUBJECTIVE: Patient notes exercises felt appropriate, the pallof press is a challenge Pain: Pain Pain Level: 5 Pain Location: Low Back/Lumbar Spine - Left Description: Aching, Sore, Sharp Frequency: Continuous OBJECTIVE MEASURES WITH LEVEL OF FUNCTION: Form observed throughout session TREATMENT: Therapeutic Exercise: 1: Hooklying TA bracing 3x10, 3-5 sec holds 2: Hooklying TA bracing plus hip hikes 3x10 3: Hooklying TA bracing plus BKFO 3x10/side 4: Cat and cow 3x10 in tolerable range 5: GTB pallof press 3x10/side Skilled Intervention: Patient was educated in proper exercise technique and purpose for exercises. Skilled judgment was used in selection of appropriate interventions. Provided written instruction for home exercise program to facilitate proper performance and compliance. Correct performance of therapeutic exercises was facilitated with verbal and visual cuing. Self-M[facility] Management: 1: Reviewed lifting mechanics with patient stressing neutral spine and provided handout for HEP Skilled Intervention: Skilled judgment in the selection of proper modification for activity of daily living/home management based on clinical presentation, deficits, and needs. Reviewed patient specific diagnosis in relation to activities of daily living/home management. Activity progression based on professional judgement. Billing Therapeutic Exercise Treatment Minutes: 23 Self-Care/Home Management Treatment Minutes: 5 Skilled Treatment Time Minutes (timed and untimed codes): 28 Total Session Time (minutes): 28 Session Start Time : 1435 Session Stop Time : 1503 Chris De Leon PT * Chris De Leon PT - 06/08/2024 2:59 PM EDT Program_ID:[id number] Access Code: [email or web address] URL: [email or web address] Date: 06-08-2024 Prepared By: Chris De Leon Program Notes Exercises - Cat Cow - 1 x daily - 7 x weekly - 3 sets - 10 reps - Squatting Anti-Rotation Press - 1 x daily - 7 x weekly - 3 sets - 10 reps - Supine Transversus Abdominis Bracing - Hands on Stomach - 1 x daily - 7 x weekly - 3 sets - 10 reps - Supine March with Alternating Leg Lifts - 1 x daily - 7 x weekly - 3 sets - 10 reps - Bent Knee Fallouts with Alternating Legs - 1 x daily - 7 x weekly - 3 sets - 10 reps Patient Education - Lifting Techniques documented in this [facility]South[facility]10-[facility]-2024 NoteHNO ID: [id number] Author: CHRIS DE LEON PT Service: ? Author Type: Physical Therapist Type: Progress Notes Filed: 05/29/2024 15:48 Note Text: Episode Visit Count: 1 Therapist That Will Accept/Oversee The Plan Of Care: Chris De Leon Start of Care Date: 05/29/24 Onset Date: 05/29/21 Plan of Care Certification Date: 05/29/24 Next Certification Due Date: 08/29/24 Patient Identified by Name and Date of : Yes REHABILITATION AND SPORTS THERAPY PHYSICAL THERAPY EVALUATION PLAN OF CARE: Assessment: Michael Beltran presents with chief complaint of chronic back pain that interferes with bending, heavy exertion, lifting, physical activities, recreational activities . The patient presents with impairments in ADL's, overall function, range of motion, strength, symptom management, and tissue tenderness. PROMIS? (Patient-Reported Outcomes Measurement Information System) scores were reviewed and identified as within normal limits. Prognosis for therapy is Good due to: current objective clinical presentation, good overall health status, acuteness of condition, positive past response to therapy, within-session changes, good support system/ coping skills . The patient will benefit from skilled therapy services to meet the goals established for this plan of care as noted below. Classification Pain Mechanism Classification: Nociceptive Low Back Pain Classification: Movement Control Goals for Episode of Care: established 05/29/24 Independent in home exercises. Patient will decrease pain rating by 2 points to meet minimal clinical important difference for numeric pain rating scale. Restore pain-free lumbar ROM to WNL to allow for decreased pain and improved functional mobility Maintain proper sitting posture throughout session Patient will increase strength of trunk/core to 5/5 to allow for improve ability to complete ADLs. Time Frame for Goals and Treatment : 07/29/24 Planned Interventions, Frequency, and Duration: Current Frequency: 1x/week Duration: 8 weeks Total Number of Visits Planned: 8 Planned Treatment Interventions: Therapeutic exercise (94375), Neuromuscular re-education (67717), Manual therapy (39322), Therapeutic activities (42380), Self-alf management (53277), Patient/Family/Caregiver Education, Body Mechanics Training PLAN FOR NEXT VISIT: Neutral spine strengthening, manual to thoracic paraspinals. May be a needling candidate Patient demonstrates good understanding of plan of care and treatment. The above goals and plan of care were discussed and agreed upon by patient/family. SUBJECTIVE: LBP for years after a fall and a fracture to T12. Patient notes prolonged bending really flares it up. Lifting also adds to it. Ibuprofen helps but only takes the edge off. Patient performs intense meditation and he tries to maintain perfect posture. Sometimes this will help alleviate it. Functional Limitations: bending, heavy exertion, lifting, physical activities, recreational activities Intake Information: Prescription present Pain: Pain Pain Level: 6 Pain Location: Back Description: Aching, Sore, Sharp Frequency: Continuous Post Treatment Pain Post Treatment Pain Level: No Change PROMIS Scales 05/27/2024 Higher is Better Phys Func - Score 44 (mild dysfunction) Phys Func - Percentile 27 Self-Eff Symptom - Score 49 (Average) Self-Eff Symptom - Percentile 46 T-scores: mean of general population = 50. 5 points is clinically meaningfully difference Percentiles provide an indication of how the patient's score ranks in relation to the general population. Higher percentile rankings indicate better function/quality of life. 50th percentile is the average of the general population and indicates half of respondents had a worse score. OBJECTIVE MEASURES WITH LEVEL OF FUNCTION: Spine Observations R Thoracic Spine Palpation Tenderness: Paraspinals L Thoracic Spine Palpation Tenderness: Paraspinals Lumbar Spine AROM Lumbar Flexion: Normal Lumbar Extension: Moderate limitation, End range pain Lumbar R Side-Bend: End range pain Lumbar L Side-Bend: End range pain Lumbar R Rotation: Normal Lumbar L Rotation: Normal LE Strength Trunk Strength: 4-/5 R LE Strength: 4+/5 L LE Strength: 4+/5 Special Tests - Hip and Spine Hip and Spine Special Tests: SLR Test, Slump Test, Prone Instability Test, Extension with Rotation Test SLR Test: Right Negative, Left Negative Slump Test: Right Negative, Left Negative Prone Instability Test: Negative Extension with Rotation Test: Left Negative, Right Negative Education: Education Learning/educational needs: Home exercise program, Plan of Care, Changes in Plan of Care, Posture, Body Mechanics TREATMENT: PT Treatment Interventions: Therapeutic Exercise, Self-Mcfp Management Evaluation Therapeutic Exercise: 1: *Cat and cow 3x10 in tolerable range (patient educated to not push into or (more content not included)...[facility]10-08-2024 History of Present illness Narrative* Chris De Leon, PT - 05/29/2024 3:44 PM EDT Images from the original note were not included. Episode Visit Count: 1 Therapist That Will Accept/Oversee The Plan Of Care: Chris De Leon Start of Care Date: 05/29/24 Onset Date: 05/29/21 Plan of Care Certification Date: 05/29/24 Next Certification Due Date: 08/29/24 Patient Identified by Name and Date of : Yes REHABILITATION AND SPORTS THERAPY PHYSICAL THERAPY EVALUATION PLAN OF CARE: Assessment: Michael Beltran presents with chief complaint of chronic back pain that interferes withbending, heavy exertion, lifting, physical activities, recreational activities . The patient presents with impairments in ADL's, overall function, range of motion, strength, symptom management, and tissue tenderness. PROMIS (Patient-Reported Outcomes Measurement Information System) scores were reviewed and identified as within normal limits. Prognosis for therapy is Good due to: current objectiveclinical presentation, good overall health status, acuteness of condition, positive past response to therapy, within-session changes, good support system/ coping skills . The patient will benefit from skilled therapy services to meet the goals established for this plan of care as noted below. Classification Pain Mechanism Classification: Nociceptive Low Back Pain Classification: Movement Control Goals for Episode of Care: established 05/29/24 Independent in home exercises. Patient will decrease pain rating by 2 points to meet minimal clinical important difference for numeric pain rating scale. Restore pain-free lumbar ROM to WNL to allow for decreased pain and improved functional mobility Maintain proper sitting posture throughout session Patient will increase strength of trunk/core to 5/5 to allow for improve ability to complete ADLs. Time Frame for Goals and Treatment : 07/29/24 Planned Interventions, Frequency, and Duration: Current Frequency: 1x/week Duration: 8 weeks Total Number of Visits Planned: 8 Planned Treatment Interventions: Therapeutic exercise (47083), Neuromuscular re- education (48558), Manual therapy (96091), Therapeutic activities (86342), Self- alf management (81475), Patient/Family/Caregiver Education, Body Mechanics Training PLAN FOR NEXT VISIT: Neutral spine strengthening, manual to thoracic paraspinals. May be a needlingcandidate Patient demonstrates good understanding of plan of care and treatment. The above goals and plan of care were discussed and agreed upon by patient/family. SUBJECTIVE: LBP for years after a fall and a fracture to T12. Patient notes prolonged bending really flares it up. Lifting also adds to it. Ibuprofen helps but only takes the edge off. Patient performs intense meditation and he tries to maintain perfect posture. Sometimes this will help alleviate it. Functional Limitations: bending, heavy exertion, lifting, physical activities, recreational activities Intake Information: Prescription present Pain: Pain Pain Level: 6 Pain Location: Back Description: Aching, Sore, Sharp Frequency: Continuous Post Treatment Pain Post Treatment Pain Level: No Change PROMIS Scales 05/27/2024 Higher is Better Phys Func - Score 44 (mild dysfunction) Phys Func - Percentile 27 Self-Eff Symptom - Score 49 (Average) Self-Eff Symptom - Percentile 46 T-scores: mean of general population = 50. 5 points is clinically meaningfully difference Percentiles provide an indication of how the patient's score ranks in relation to the general population. Higher percentile rankings indicate better function/quality of life. 50th percentile is the average of the general population and indicates half of respondents had a worse score. OBJECTIVE MEASURES WITH LEVEL OF FUNCTION: Spine Observations R Thoracic Spine Palpation Tenderness: Paraspinals L Thoracic Spine Palpation Tenderness: Paraspinals Lumbar Spine AROM Lumbar Flexion: Normal Lumbar Extension: Moderate limitation, End range pain Lumbar R Side-Bend: End range pain Lumbar L Side-Bend: End range pain Lumbar R Rotation: Normal Lumbar L Rotation: Normal LE Strength Trunk Strength: 4-/5 R LE Strength: 4+/5 L LE Strength: 4+/5 Special Tests - Hip and Spine Hip and Spine Special Tests: SLR Test, Slump Test, Prone Instability Test, Extension with Rotation Test SLR Test: Right Negative, Left Negative Slump Test: Right Negative, Left Negative Prone Instability Test: Negative Extension with Rotation Test: Left Negative, Right Negative Education: Education Learning/educational needs: Home exercise program, Plan of Care, Changes in Plan of Care, Posture, Body Mechanics TREATMENT: PT Treatment Interventions: Therapeutic Exercise, Self-Mcfp Management Evaluation Therapeutic Exercise: 1: *Cat and cow 3x10 in tolerable range (patient educated to not push into or through pain) 2: *GTB pallof press 3x10/side 3: *Hooklying TA bracing 3x10, 3-5 sec holds Skilled Intervention: Patient was educated in proper exercise technique and purpose for exercises. Skilled judgment was used in selection of appropriate interventions. Provided written instruction for home exercise program to facilitate proper performance and compliance. Correct performance of therapeutic exercises was facilitated with verbal, visual, and tactile cuing. Self-Mcfp Management: 1: Discussed exam findings and related to plan of care and options for treatment answering all patient questions 2: Discussed spine anatomy and implications of PMH on clinical decision making and treatment options Skilled Intervention: Skilled judgment in the selection of proper modification for activity of daily living/home management based on clinical presentation, deficits, and needs. Reviewed patient specific diagnosis in relation to activities of daily living/home management. Activity progression based on professional judgement. Billing * Evaluation Low Complexity: 1 Unit Therapeutic Exercise Treatment Minutes: 15 Self-Care/Home Management Treatment Minutes: 10 Skilled Treatment Time Minutes (timed and untimed codes): 41 Total Session Time (minutes): 41 Session Start Time : 1139 Session Stop Time : 1220 Chris De Leon PT * Chris De Leon PT - 05/29/2024 12:16 PM EDT Program_ID:[id number] Access Code: [email or web address] URL: [email or web address] Date: 05-29-2024 Prepared By: Chris De Leon Program Notes Exercises - Cat Cow - 1 x daily - 7 x weekly - 3 sets - 10 reps - Supine Transversus Abdominis Bracing - Hands on Stomach - 1 x daily - 7 x weekly - 3 sets - 10 reps - Squatting Anti-Rotation Press - 1 x daily - 7 x weekly - 3 sets - 10 reps [facility] Tele[facility] encounter Note * Telephone Encounter - Radhika Neff RN - 05/07/2024 10:11 AM EDT Patient notified of results and provider's instructions. Patient verbalizes understanding. Radhika Neff RN [facility] Miscellaneous Notes* Telephone Encounter - Radhika Neff RN - 05/07/2024 10:11 AM EDT Patient notified of results and provider's instructions. Patient verbalizes understanding. Radhika Neff RN * Telephone Encounter - Mignon Lake MA - 05/07/2024 10:08 AM EDT Left message for patient to contact office. Mignon [place] MA * Telephone Encounter - Bola Duradn MD - 05/06/2024 12:22 PM EDT Let patient know his chronic anemia is stable. His sodium is stable. The rest of his labs were all ok. documented [facility] Telephone encounter Note * Telephone Encounter - Mignon Lake MA - 05/07/2024 10:08 AM EDT Left message for patient to contact office. Mignon Lake MA [facility] Telephone encounter Note* Telephone Encounter - Bola Durand MD - 05/06/2024 12:22 PM EDT Let patient know his chronic anemia is stable. His sodium is stable. The rest of his labs were all ok. [facility] Instructions* Patient Instructions* Bola Durand MD - 05/03/2024 12:29 PM EDT Consider getting the shingrix vaccine for the prevention of shingles from a local pharmacy long with the RSV vaccine. Screening schedule The following prevention plan is recommended: RSV Vaccine(1 - 1-dose 60+ series) Never done Shingrix Vaccine(2 of 2) due on 10/19/2022 Advance Directive Discussion due on 08/22/2023 Covid-19 Vaccine(2022- season) due on 04/22/2024 Influenza Vaccine(1) due on 04/22/2024 WHAT YOU CAN DO TO PREVENT FALLS Many falls can be prevented. By making some changes, you can lower your chances of falling. Four things YOU can do to prevent falls for you* and your caregiver 1. Begin a regular exercise program Exercise is one of the most important ways to lower your chances of falling. It makes you stronger and helps you feel better. Exercises that improve balance and coordination (like Jah Chi) are the most helpful. Lack of exercise leads to weakness and increases your chances of falling. Ask your doctor or health care provider about the best type of exercise program for you. 2. Have your health care provider review your medicines Have your doctor or pharmacist review all the medicines you take, even [id number] medicines. As you get older, the way medicines work in your body can change. Some medicines, or combinations of medicines, can make you sleepy or dizzy andcan cause you to fall. 3. Have your vision checked Have your eyes checked by an eye doctor at least once a year. You may be wearing the wrong glasses or have a condition like glaucoma or cataracts that limits your vision. Poor vision can increase your chances of falling. 4. Make your home safer About half of all falls happen at home. To make your home safer: Remove things you can trip over (like papers, books, clothes, and shoes) from stairs and places where you walk. Remove small throw rugs or use double-sided tape to keep the rugs from slipping. Keep items you use often in cabinets you can reach easily without using a step stool. Have grab bars put in next to your toilet and in the tub or shower. Use non-slip mats in the bathtub and on shower floors. Improve the lighting in your home. As you get older, you need brighter lights to see well. Hang light-weight curtains or shades to reduce glare. Have handrails and lights put in on all staircases. Wear shoes both inside and outside the house. Avoid going barefoot or wearing slippers. For more information, contact: Centers for Disease Control and Prevention www.cdc.gov/injury * This information may not apply if you have certain medical conditions. documented in this [facility] History of Present illness Narrative* Bola Durand MD - 05/03/2024 11:40 AM EDT Images from the original note were not included. Michael Beltran is a 69 year old male here for a Medicare wellness visit. Medicare Health Risk Assessment General Health Excellent Exercise: Minutes/Day 50 min Exercise: Days/Week 7 days Alcohol: Daily Use Never Alcohol: Drinks/Day Patient does not drink Alcohol: 6 or more drinks Never Feel off balance No Concerns: Teeth/Dentures No Concerns: Sexual function No Troubled by feelings None of the above Frequency: Eating healthy diet More than half the days ADLs requiring help None of the above Safety precautions in home/vehicle Yes Smoke, vape, chews tobacco No Difficulty hearing Yes Difficulty seeing No Current Providers Specialists: I have reviewed specialist-related care of the patient in the medical record. Current care team: Patient Care Team: Bola Durand MD as PCP - General (Family Medicine) Medical/Family history review Reviewed and updated problem list, medical/surgical/family/social history, medications, and allergies. Opioid use review Opioid Medications (last 90 days) No data to display Anxiety/Depression screening PHQ-9 Score: 3 (Minimal Depression) JUSTO-7 Score: 1 (Minimal Anxiety) Recommendation: no further intervention at this time Cognitive screening Mini Cog Score: 5 Cognitive screening reviewed and No further action needed (score 3-5). Functional Observation Was the patient's Timed Up & Go test unsteady or ? 12 seconds? No Advance Care Planning Patient did not wish or was not able to name a surrogate decision maker or provide an advance care plan Measurements BP 138/75 Pulse 71 Ht 176.5 cm (5' 9.5) Wt 74.4 kg (164 lb) BMI 23.87 kg/m Vision Screening: Follows with optometry/ophthalmology Assessment/Plan Medicare annual wellness visit, subsequent (Z00.00) - Counseled on healthy diet and regular exercise - Fall avoidance information provided - Personalized prevention plan provided See Below Chief Complaint Patient presents with: Medicare Wellness Exam HPI Michael Beltran is a 69 year old male who presents here today for Chronic Medical Conditions. and Medicare Annual Visit. Patient with hx of Elevated blood glucose, hyperlipidemia, chronic pain, Lumbar DDD, Depression/anxiety, anemia, and those as below. Patient has been doing well other then his low back has been bothering him a bit and would like to get some PHYSICAL THERAPY. No other new issues or concerns. Past medical history, appointments, medications, allergies reviewed. Previous Medical History PAST MEDICAL HISTORY 01/22/2021: Anemia of chronic disease Comment: Hg (11.5-12.8) since 2018 01/21/2021: Arthritis Comment: Upper spine. No date: Asthma 02/24/2022: Elevated blood sugar 02/24/2022: Erectile dysfunction 01/21/2021: Ex-smoker Comment: Started at age 14 up to 1.5 PPD and quit at age 52 01/21/2021: JUSTO (generalized anxiety disorder) 04/22/2022: Hyponatremia Comment: chronic 01/21/2021: Major depressive disorder with single episode, in remission (HCC) 03/09/2021: Marijuana use Comment: Per Dr Jean's office note 02/26/21 01/21/2021: Medicare annual wellness visit, subsequent Comment: Medicare part B: Last done: 01/21/2021 01/21/2021: Mixed hyperlipidemia 01/21/2021: Sensorineural hearing loss (SNHL) of left ear Previous Surgical History PAST SURGICAL HISTORY 2013: COLONOSCOPY Comment: repeat 10 years 05/28/2022: COLONOSCOPY 2004: COLONOSCOPY SCREENING 1976: PAST SURGICAL HISTORY OF Comment: pneumo thorax 1986: PAST SURGICAL HISTORY OF Comment: cyst on right side of buttock 1959: TONSILLECTOMY & ADENOIDECTOMY <AGE 10 No date: TONSILLECTOMY HX Family History FAMILY HISTORY Problem Relation Age of Onset Multiple Sclerosis Mother Stroke Mother Cancer Father lymphoma Hypertension Father Prostate Cancer Brother Dementia Maternal Grandmother Breast Cancer Paternal Grandmother Stroke Paternal Grandfather Colon Cancer No Family History Ovarian cancer No Family History Diabetes No Family History Hyperlipidemia No Family History Coronary Artery Disease No Family History Kidney Disease No Family History Seizures No Family History Thyroid No Family History Patient Allergies ALLERGIES Allergen Reactions Erythromycin Itching Ether Shortness of Breath Current Medications Current Outpatient Medications on File Prior to Visit Medication Sig venlafaxine ER (EFFEXOR XR) 75 mg 24 hr capsule Take 1 capsule by mouth three times a day. atorvastatin (LIPITOR) 20 mg tablet Take 1 tablet by mouth once daily. Tadalafil (CIALIS) 20 mg tablet Take 1 tablet by mouth once daily. As needed loratadine 10 mg cap Take 10 mg by mouth as needed. No current facility-administered medications on file prior to visit. Social History Social History Tobacco Use Smoking status: Former Smokeless tobacco: Never Vaping Use Vaping status: Never Used Substance Use Topics Alcohol use: Never Drug use: Not Currently Review of Symptoms REVIEW OF SYSTEMS GENERAL: No weight loss, malaise or fevers HEENT: Negative for frequent or significant headaches, No changes in hearing or vision, no nose bleeds. Some sinus congestion at times. NECK: Negative for lumps, goiter, pain and significant neck swelling RESPIRATORY: Negative for cough, hemoptysis, wheezing, COPD, dyspnea or shortness of breath CARDIOVASCULAR: Negative for chest pain, leg swelling, hypertension, CHF or palpitations GI: No nausea, vomiting, or significant diarrhea, No heartburn or reflux symptoms, and no blood : No history of dysuria, frequency or blood MUSCULOSKELETAL: lower back has been bothering him more. No radicular leg pain. SKIN: Negative for lesions, rash, and itching PSYCH: Negative for sleep disturbance, mood disorder and recent psychosocial stressors HEMATOLOGY/LYMPHOLOGY: Negative for prolonged bleeding, bruising easily or swollen nodes ENDOCRINE: Negative for cold or heat intolerance, polyuria, polydipsia and goiter NEURO: No history of headaches, syncope, paralysis, seizures or tremors EXAM: BP 138/75 Pulse 71 Ht 176.5 cm (5' 9.5) Wt 74.4 kg (164 lb) BMI 23.87 kg/m Last 5 Encounter Wt Readings: Date: Wt: 05/03/2024 74.4 kg (164 lb) 10/15/2023 73 kg (161 lb) 10/12/2023 75.2 kg (165 lb 12.8 oz) 07/26/2023 73.2 kg (161 lb 6.4 oz) 04/27/2023 73.5 kg (162 lb) General Appearance: Well appearing, alert, in no acute distress, well-hydrated, well nourished.. Skin: Skin color, texture, turgor normal, no suspicious rashes or lesions. Head: Normocephalic, no masses, lesions, tenderness or abnormalities. Eyes: Anicteric sclera. Pupils are equally round and reactive to light. Extraocular movements are intact. . Ears: External ears, TM's normal, canals clear. Nose/Sinuses: Nares normal, septum midline, mucosa normal, no drainage or sinus tenderness. Oropharynx: Lips, mucosa, and tongue normal, teeth and gums normal, oropharynx normal. Neck: Supple, no adenopathy; thyroid symmetric, normal size, no bruits. Lungs: Lungs clear to auscultation. No wheezing, rhonchi, rales.. Heart: RRR without murmur, gallop, or rubs. No ectopy. Abdomen: Normal abdominal exam, Abdomen soft, non-tender. Bowel sounds normal. No masses, organomegaly. Extremities: No deformities, edema, skin discoloration, clubbing or cyanosis. Good capillary refill. . Musculoskeletal: Muscular strength intact, No joint swelling, deformity, or tenderness. Peripheral Pulses: Normal. Neurologic: Gait normal. Reflexes normal and symmetric. Sensation to light touch nd crainal nerves 2-12 intact.. Genitalia: Normal, Penis normal. No urethral discharge. Scrotum normal to palpation. No hernia.. Rectal: Normal exam. Prostate slightly enlarged with smooth firm capsule. Health Maintenance List RSV Vaccine(1 - 1-dose 60+ series) Never done Shingrix Vaccine(2 of 2) due on 10/19/2022 Advance Directive Discussion due on 08/22/2023 Covid-19 Vaccine( - 2022- season) due on 04/22/2024 Influenza Vaccine(1) due on 04/22/2024 Diabetes Screening due on 04/27/2026 Lipid Screening due on 04/27/2028 Colorectal Cancer Screening due on 05/28/2032 DTaP,Tdap,Td Vaccine(2 - Td or Tdap) due on 08/18/2032 Abdominal Aortic Aneurysm Screening Completed Pneumococcal Vaccine: 65+ Completed Hepatitis C Screening Discontinued Data reviewed A/P ASSESSMENT/PLAN: 1. Medicare annual wellness visit, subsequent - ICD9: V70.0, ICD10: Z00.00 (primary diagnosis) - Counseled on healthy diet and regular exercise - Follow up for annual exam in one year - Advised on COVID. Flu, RSV and Shingrix. 2. Mixed hyperlipidemia - ICD9: 272.2, ICD10: E78.2 - Control undetermined, due for labs - Continue current medications - Counseled on healthy diet and regular exercise - COMPREHENSIVE METABOLIC PANEL - URINALYSIS, WITH MICROSCOPIC - LIPID PANEL, NONFASTING 3. Anemia of chronic disease - ICD9: 285.29, ICD10: D63.8 Check - COMPLETE BLOOD COUNT AND DIFFERENTIAL 4. Elevated blood sugar - ICD9: 790.29, ICD10: R73.9 Check - HEMOGLOBIN A1C 5. JUSTO (generalized anxiety disorder) - ICD9: 300.02, ICD10: F41.1 - cont effexor Check - THYROID STIMULATING HORMONE - COMPLETE BLOOD COUNT AND DIFFERENTIAL 6. Major depressive disorder with single episode, in remission (HCC) - ICD9: 296.25, ICD10: F32.5 - as per #5 7. Hyponatremia - ICD9: 276.1, ICD10: E87.1 Check - COMPREHENSIVE METABOLIC PANEL 8. Erectile dysfunction, unspecified erectile dysfunction type - ICD9: 607.84, ICD10: N52.9 - cont cialis. 9. Advanced directives, counseling/discussion - ICD9: V65.49, ICD10: Z71.89 - packets provided. 10. Chronic midline low back 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 - ICD9: 724.2, 338.29, ICD10: M54.50, G89.29 - CONSULT TO PHYSICAL THERAPY 11. Medication management - ICD9: V58.69, ICD10: Z79.899 Check - THYROID STIMULATING HORMONE - COMPLETE BLOOD COUNT AND DIFFERENTIAL 12. Prostate disorder - ICD9: 602.9, ICD10: N42.9 Check - PROSTATE-SPECIFIC ANTIGEN DIAGNOSTIC F/u in a year or sooner if issues. I spent a total of 40 minutes on the date of the service which included preparing to see the patient, [id number] patient care, completing clinical documentation, performing a medically appropriate examination, counseling and educating the patient/family/caregiver and ordering medications, tests, or procedures. Bola Durand MD The sensitive examination was discussed with the Patient or Patient's Authorized Truck Safety Inspector. Asapplicable, any other physician, advance practice provider, medical student, or other health professional student that will be observing or involved in the sensitive examination for educational or training purposes was discussed with the Patient or Authorized Truck Safety Inspector. The Patient or Authorized Truck Safety Inspector has agreed to proceed with the sensitive examination. (Sensitive examination includes inspection and/or palpation of the breasts, pelvis, prostate and anorectal regions) documented in this [facility]24 NoteHNO ID: [id number] Author: BOLA DURAND MD Service: ? Author Type: Physician Type: Progress Notes Filed: 05/03/2024 13:46 Note Text: Michael Beltran is a 69 year old male here for a Medicare wellness visit. Medicare Health Risk Assessment General Health Excellent Exercise: Minutes/Day 50 min Exercise: Days/Week 7 days Alcohol: Daily Use Never Alcohol: Drinks/Day Patient does not drink Alcohol: 6 or more drinks Never Feel off balance No Concerns: Teeth/Dentures No Concerns: Sexual function No Troubled by feelings None of the above Frequency: Eating healthy diet More than half the days ADLs requiring help None of the above Safety precautions in home/vehicle Yes Smoke, vape, chews tobacco No Difficulty hearing Yes Difficulty seeing No Current Providers Specialists: I have reviewed specialist-related care of the patient in the medical record. Current care team: Patient Care Team: Bola Durand MD as PCP - General (Family Medicine) Medical/Family history review Reviewed and updated problem list, medical/surgical/family/social history, medications, and allergies. Opioid use review Opioid Medications (last 90 days) No data to display Anxiety/Depression screening PHQ-9 Score: 3 (Minimal Depression) JUSTO-7 Score: 1 (Minimal Anxiety) Recommendation: no further intervention at this time Cognitive screening Mini Cog Score: 5 Cognitive screening reviewed and No further action needed (score 3-5). Functional Observation Was the patient's Timed Up AND Go test unsteady or ? 12 seconds? No Advance Care Planning Patient did not wish or was not able to name a surrogate decision maker or provide an advance care plan Measurements BP 138/75 Pulse 71 Ht 176.5 cm (5' 9.5) Wt 74.4 kg (164 lb) BMI 23.87 kg/m? Vision Screening: Follows with optometry/ophthalmology Assessment/Plan Medicare annual wellness visit, subsequent (Z00.00) - Counseled on healthy diet and regular exercise - Fall avoidance information provided - Personalized prevention plan provided See Below Chief Complaint Patient presents with: Medicare Wellness Exam HPI Michael Beltran is a 69 year old male who presents here today for Chronic Medical Conditions. and Medicare Annual Visit. Patient with hx of Elevated blood glucose, hyperlipidemia, chronic pain, Lumbar DDD, Depression/anxiety, anemia, and those as below. Patient has been doing well other then his low back has been bothering him a bit and would like to get some PHYSICAL THERAPY. No other new issues or concerns. Past medical history, appointments, medications, allergies reviewed. Previous Medical History PAST MEDICAL HISTORY 01/22/2021: Anemia of chronic disease Comment: Hg (11.5-12.8) since 2018 01/21/2021: Arthritis Comment: Upper spine. No date: Asthma 02/24/2022: Elevated blood sugar 02/24/2022: Erectile dysfunction 01/21/2021: Ex-smoker Comment: Started at age 14 up to 1.5 PPD and quit at age 52 01/21/2021: JUSTO (generalized anxiety disorder) 04/22/2022: Hyponatremia Comment: chronic 01/21/2021: Major depressive disorder with single episode, in remission (HCC) 03/09/2021: Marijuana use Comment: Per Dr Jean's office note 02/26/21 01/21/2021: Medicare annual wellness visit, subsequent Comment: Medicare part B: Last done: 01/21/2021 01/21/2021: Mixed hyperlipidemia 01/21/2021: Sensorineural hearing loss (SNHL) of left ear Previous Surgical History PAST SURGICAL HISTORY 2013: COLONOSCOPY Comment: repeat 10 years 05/28/2022: COLONOSCOPY 2004: COLONOSCOPY SCREENING 1976: PAST SURGICAL HISTORY OF Comment: pneumo thorax 1985: PAST SURGICAL HISTORY OF Comment: cyst on right side of buttock 195: TONSILLECTOMY AND ADENOIDECTOMY No date: TONSILLECTOMY HX Family History FAMILY HISTORY Problem Relation Age of Onset Multiple Sclerosis Mother Stroke Mother Cancer Father lymphoma Hypertension Father Prostate Cancer Brother Dementia Maternal Grandmother Breast Cancer Paternal Grandmother Stroke Paternal Grandfather Colon Cancer No Family History Ovarian cancer No Family History Diabetes No Family History Hyperlipidemia No Family History Coronary Artery Disease No Family History Kidney Disease No Family History Seizures No Family History Thyroid No Family History Patient Allergies ALLERGIES Allergen Reactions Erythromycin Itching Ether Shortness of Breath Current Medications Current Outpatient Medications on File Prior to Visit Medication Sig venlafaxine ER (EFFEXOR XR) 75 mg 24 hr capsule Take 1 capsule by mouth three times a day. atorvastatin (LIPITOR) 20 mg tablet Take 1 tablet by mouth once daily. Tadalafil (CIALIS) 20 mg tablet Take 1 tablet by mouth once daily. As needed loratadine 10 mg cap Take 10 mg by mouth as needed. No current facility-administered medications on file prior to visit. Social History Social History Tobacco Use (more content not included)...[facility]09-09-2024 Telephone encounter Note* Telephone Encounter - Bola Durand MD - 04/30/2024 2:05 PM EDT The following approved medication requests have been transmitted electronically. Requested Prescriptions Signed Prescriptions Disp Refills venlafaxine ER (EFFEXOR XR) 75 mg 24 hr capsule 270 capsule 3 Sig: Take 1 capsule by mouth three times a day. Authorizing Provider: BOLA DURAND MD [facility]09-09-2024 Miscellaneous Notes* Telephone Encounter - Bola Duradn MD - 04/30/2024 2:05 PM EDT The following approved medication requests have been transmitted electronically. Requested Prescriptions Signed Prescriptions Disp Refills venlafaxine ER (EFFEXOR XR) 75 mg 24 hr capsule 270 capsule 3 Sig: Take 1 capsule by mouth three times a day. Authorizing Provider: BOLA DURAND MD * Telephone Encounter - Josephine Duran LPN - 04/30/2024 12:18 PM EDT Prescription Refill Information The patient has been identified by name and date of : Yes Caregiver verified no other encounters exist for this prescription request: Yes Caregiver confirmed with patient/requestor that no other refills are due, in the near future, with this provider at this time: Yes The last office visit in the department: 04/27/2023 Does the patient have a future office visit with this provider/department: Yes Requested Prescriptions Pending Prescriptions Disp Refills venlafaxine ER (EFFEXOR XR) 75 mg 24 hr capsule 270 capsule 3 Sig: Take 1 capsule by mouth three times a day. Josephine Duran LPN April 30, 2024 12:18 PM documented [facility] Telephone encounter Note * Telephone Encounter - Josephine Duran LPN - 04/30/2024 12:18 PM EDT Prescription Refill Information The patient has been identified by name and date of : Yes Caregiver verified no other encounters exist for this prescription request: Yes Caregiver confirmed with patient/requestor that no other refills are due, in the near future, with this provider at this time: Yes The last office visit in the department: 04/27/2023 Does the patient have a future office visit with this provider/department: Yes Requested Prescriptions Pending Prescriptions Disp Refills venlafaxine ER (EFFEXOR XR) 75 mg 24 hr capsule 270 capsule 3 Sig: Take 1 capsule by mouth three times a day. Josephine Duran LPN April 30, 2024 12:18 PM [facility]08-31-2024 Telephone encounter Note* Telephone Encounter - Bola Durand MD - 04/21/2024 7:26 PM EDT The following approved medication requests have been transmitted electronically. Requested Prescriptions Signed Prescriptions Disp Refills atorvastatin (LIPITOR) 20 mg tablet 90 tablet 1 Sig: Take 1 tablet by mouth once daily. Authorizing Provider: BOLA DURAND MD [facility]08-31-2024 Miscellaneous Notes* Telephone Encounter - Bola Durand MD - 04/21/2024 7:26 PM EDT The following approved medication requests have been transmitted electronically. Requested Prescriptions Signed Prescriptions Disp Refills atorvastatin (LIPITOR) 20 mg tablet 90 tablet 1 Sig: Take 1 tablet by mouth once daily. Authorizing Provider: BOLA DURAND MD * Telephone Encounter - Mahendra Peter LPN - 04/20/2024 4:03 PM EDT Prescription Refill Information The patient has been identified by name and date of : Yes Caregiver verified no other encounters exist for this prescription request: Yes Caregiver confirmed with patient/requestor that no other refills are due, in the near future, with this provider at this time: Yes The last office visit in the department: 10/15/03 Does the patient have a future office visit with this provider/department: Yes, 04/30/24 Requested Prescriptions Pending Prescriptions Disp Refills atorvastatin (LIPITOR) 20 mg tablet 90 tablet 3 Sig: Take 1 tablet by mouth once daily. Mahendra Petre LPN April 20, 2024 4:03 PM documented in this encounter[facility]-2024 Telephone encounter Note * Telephone Encounter - Mahendra Peter LPN - 04/20/2024 4:03 PM EDT Prescription Refill Information The patient has been identified by name and date of : Yes Caregiver verified no other encounters exist for this prescription request: Yes Caregiver confirmed with patient/requestor that no other refills are due, in the near future, with this provider at this time: Yes The last office visit in the department: 10/15/03 Does the patient have a future office visit with this provider/department: Yes, 04/30/24 Requested Prescriptions Pending Prescriptions Disp Refills atorvastatin (LIPITOR) 20 mg tablet 90 tablet 3 Sig: Take 1 tablet by mouth once daily. Mahendra Peter LPN April 20, 2024 4:03 PM [facility]08-07-2024 Telephone encounter Note* Telephone Encounter - Rosio Champagne LPN - 03/28/2024 7:03 AM EDT Prescription Refill Information The patient has been identified by name and date of : Yes Caregiver verified no other encounters exist for this prescription request: Yes Caregiver confirmed with patient/requestor that no other refills are due, in the near future, with this provider at this time: Yes The last office visit in the department: 10/15/23 Does the patient have a future office visit with this provider/department: Yes Requested Prescriptions Pending Prescriptions Disp Refills Tadalafil (CIALIS) 20 mg tablet 30 tablet 2 Sig: Take 1 tablet by mouth once daily. As needed Rosio Champagne LPN March 28, 2024 7:03 AM [facility]08-07-2024 Miscellaneous Notes* Telephone Encounter - Rosio Champagne LPN - 03/28/2024 7:03 AM EDT Prescription Refill Information The patient has been identified by name and date of : Yes Caregiver verified no other encounters exist for this prescription request: Yes Caregiver confirmed with patient/requestor that no other refills are due, in the near future, with this provider at this time: Yes The last office visit in the department: 10/15/23 Does the patient have a future office visit with this provider/department: Yes Requested Prescriptions Pending Prescriptions Disp Refills Tadalafil (CIALIS) 20 mg tablet 30 tablet 2 Sig: Take 1 tablet by mouth once daily. 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 Updated notes for AWV to please address due care gaps and HCC gap closure. Reason for Outreach Care Gap/HCC or Scheduling Wellness Visits Care Gaps due: Medicare Annual Wellness Visit Patient Contacted: Unable or unnecessary to reach patient: HCC related Patient already scheduled Updated appointment notes Navigation Signature: Linda Collins MA February 16, 2024 8:36 AM documented in this encounterSouth[facility]02-24-2024 History of Present illness Narrative* Bola Durand MD - 10/15/2023 10:40 AM EST Chief Complaint Patient presents with: Follow Up HPI Michael Beltran is a 68 year old male who presents here today for follow up from Urgent Care. Patient with hx of Elevated blood glucose, hyperlipidemia, chronic pain, Lumbar DDD, Depression/anxiety, anemia, and those as below. Patient was seen in Urgent care on 10/12/2023 for right groin pain and right testicular swelling. Was placed on Levaquin once a day for just 10 days. He thinks there is less redness, still having discomfort and not sure if improved much yet. No penile discharge. Past medical history, appointments, medications, allergies reviewed. Previous Medical History PAST MEDICAL HISTORY Diagnosis Date Anemia of chronic disease 01/22/2021 Hg (11.5-12.8) since 2018 Arthritis 01/21/2021 Upper spine. 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, in remission (HCC) 01/21/2021 Marijuana use 03/09/[address] Jean's office note 02/26/21 Medicare annual wellness visit, subsequent 01/21/2021 Medicare part B: Last done: 01/21/2021 Mixed hyperlipidemia 01/21/2021 Sensorineural hearing loss (SNHL) of left ear 01/21/2021 Previous Surgical History PAST SURGICAL HISTORY Procedure Laterality Date COLONOSCOPY 2013 repeat 10 years COLONOSCOPY 05/28/2022 COLONOSCOPY SCREENING 2004 PAST SURGICAL HISTORY OF 1976 pneumo thorax PAST SURGICAL HISTORY OF 1986 cyst on right side of buttock TONSILLECTOMY & ADENOIDECTOMY <AGE 10 1959 TONSILLECTOMY HX Family History FAMILY HISTORY Problem Relation Age of Onset Multiple Sclerosis Mother Stroke Mother Cancer Father lymphoma Hypertension Father Prostate Cancer Brother Dementia Maternal Grandmother Breast Cancer Paternal Grandmother Stroke Paternal Grandfather Colon Cancer No Family History Ovarian cancer No Family History Diabetes No Family History Hyperlipidemia No Family History Coronary Artery Disease No Family History Kidney Disease No Family History Seizures No Family History Thyroid No Family History Patient Allergies ALLERGIES Allergen Reactions Erythromycin Itching Ether Shortness of Breath Current Medications Current Outpatient Medications on File Prior to Visit Medication Sig levoFLOXacin (LEVAQUIN) 500 mg tablet Take 1 tablet by mouth once daily for 10 days. Tadalafil (CIALIS) 20 mg tablet Take 1 tablet by mouth once daily. As needed loratadine 10 mg cap Take 10 mg by mouth as needed. venlafaxine ER (EFFEXOR XR) 75 mg 24 hr capsule Take 1 capsule by mouth three times daily. atorvastatin (LIPITOR) 20 mg tablet Take 1 tablet by mouth once daily. No current facility-administered medications on file prior to visit. Social History Social History Tobacco Use Smoking status: Former Smokeless tobacco: Never Vaping Use Vaping Use: Never used Substance Use Topics Alcohol use: Never Drug use: Not Currently Review of Symptoms REVIEW OF SYSTEMS See HPI EXAM: BP 126/80 (BP Site: Right Arm, BP Position: Sitting, BP Cuff Size: Regular Adult) Pulse 68 Resp16 Wt 73 kg (161 lb) BMI 23.43 kg/m General Appearance: Well appearing, alert, in no acute distress, well-hydrated, well nourished.. Genitalia: there is mild scrotal erythema on the right. I do not appreciate any swelling. The righttesticle is tender but patient says that is less. Still with more discomfort over the right epididymis. Health Maintenance List RSV Vaccine(1 - 1-dose 60+ series) Never done Advance Directive Discussion due on 08/22/2023 Shingrix Vaccine(2 of 2) due on 04/27/2024 Diabetes Screening due on 04/27/2026 Lipid Screening due on 04/27/2028 Colorectal Cancer Screening due on 05/28/2032 DTaP,Tdap,Td Vaccine(2 - Td or Tdap) due on 08/18/2032 Abdominal Aortic Aneurysm Screening Completed Influenza Vaccine Completed Covid-19 Vaccine Completed Pneumococcal Vaccine: 65+ Completed Hepatitis C Screening Discontinued Data reviewed A/P ASSESSMENT/PLAN: 1. Epididymitis, right - ICD9: 604.90, ICD10: N45.1 - patient to continue the Levaquin 500 mg a day but will extend it out for a total of 14 days. F/u if not resolving. Requested Prescriptions Signed Prescriptions Disp Refills levoFLOXacin (LEVAQUIN) 500 mg tablet 4 tablet 0 Sig: Take 1 tablet by mouth once daily for 4 days. Bola Durand MD documented in this encounterSouth[facility]02-22-2024 Miscellaneous Notes* Telephone Encounter - Rosio Champagne LPN - 10/13/2023 10:49 AM EST Pt was seen in [facility] 10/12/23. Rosio Champagne LPN * Telephone Encounter - Rosio Champagne LPN - 10/12/2023 10:56 AM EST Attempted to contact pt d/t he has not read msg yet. Left a vm for pt to read msg to to call office and ask to speak with a Triage Nurse who can give him Dr Durand's message. Rosio Champagne LPN documented in this encounterSouthwest General Health Center02-21-2024 NoteHNO ID: [id number] Author: JOSE LYNNE, TECHNOLOGIST Service: ? Author Type: Technologist Type: Progress Notes Filed: 10/12/2023 17:33 Note Text: Radiology Service Progress Note PATIENT NAME: Michale Beltran DATE OF SERVICE: October 12, 2023 TIME: 5:33 PM PATIENT IDENTITY VERIFICATION COMPLETED USING TWO (2) IDENTIFIERS: Name and Date of confirmed by patient verbally. FALL SCREENING: Has the patient had 2 falls in the last year or 1 fall with injury or currently using an Ambulatory Assistive Device (Walker, Cane, Wheelchair, Crutches, etc.)? No PATIENT GENDER DATA: Male PATIENT RELEVANT IMPLANT DATA REVIEWED: Yes PATIENT PRESENTS WITH AN IMPLANTABLE OR ATTACHED MANAGER TELEMARKETING: No RADIOLOGY DEPARTMENT: Ultrasound PERIPHERAL IV DATA: Not applicable SIGNED BY: TECHNOLOGIST Mahin October 12, 2023 5:33 [facility]02-21-2024 History of Present illness Narrative* Jose Lynne TECHNOLOGIST - 10/12/2023 5:00 PM EST Radiology Service Progress Note PATIENT NAME: Michael Beltran DATE OF SERVICE: October 12, 2023 TIME: 5:33 PM PATIENT IDENTITY VERIFICATION COMPLETED USING TWO (2) IDENTIFIERS: Name and Date of confirmedby patient verbally. FALL SCREENING: Has the patient had 2 falls in the last year or 1 fall with injury or currently using an Ambulatory Assistive Device (Walker, Cane, Wheelchair, Crutches, etc.)? No PATIENT GENDER DATA: Male PATIENT RELEVANT IMPLANT DATA REVIEWED: Yes PATIENT PRESENTS WITH AN IMPLANTABLE OR ATTACHED MANAGER TELEMARKETING: No RADIOLOGY DEPARTMENT: Ultrasound PERIPHERAL IV DATA: Not applicable SIGNED BY: TECHNOLOGIST Mahin October 12, 2023 5:33 PM documented in this encounterSouthwest General [facility] Center02-21-2024 History of Present illness Narrative* Carloz Jessica APRN.DESK SERGEANT - 10/12/2023 3:35 PM EST Images from the original note were not included. Subjective HPI HPI Michael Beltran is a 68 year old male who presents today for CC of testicular pain/right, redness, swelling. This started 1 day ago. Has tried nothing for relief. Symptoms are worsened by nothing. Never had this happen before. Denies rash. Denies urinary urgency, burning, frequency. .Patient presents with: right groin pain: Right groin pain and right testicular swelling x 1 day PAST MEDICAL HISTORY Diagnosis Date Anemia of chronic disease 01/22/2021 Hg (11.5-12.8) since 2018 Arthritis 01/21/2021 Upper spine. 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, in remission (HCC) 01/21/2021 Marijuana use 03/09/[address] Jean's office note 02/26/21 Medicare annual wellness visit, subsequent 01/21/2021 Medicare part B: Last done: 01/21/2021 Mixed hyperlipidemia 01/21/2021 Sensorineural hearing loss (SNHL) of left ear 01/21/2021 PAST SURGICAL HISTORY Procedure Laterality Date COLONOSCOPY 2013 repeat 10 years COLONOSCOPY 05/28/2022 COLONOSCOPY SCREENING 2004 PAST SURGICAL HISTORY OF 1976 pneumo thorax PAST SURGICAL HISTORY OF 1985 cyst on right side of buttock TONSILLECTOMY & ADENOIDECTOMY <AGE 10 1959 TONSILLECTOMY HX ALLERGIES Erythromycin and Ether MEDICATIONS Tadalafil (CIALIS) 20 mg tablet Take 1 tablet by mouth once daily. As needed loratadine 10 mg cap Take 10 mg by mouth as needed. venlafaxine ER (EFFEXOR XR) 75 mg 24 hr capsule Take 1 capsule by mouth three times daily. atorvastatin (LIPITOR) 20 mg tablet Take 1 tablet by mouth once daily. FAMILY HISTORY Problem Relation Age of Onset Multiple Sclerosis Mother Stroke Mother Cancer Father lymphoma Hypertension Father Prostate Cancer Brother Dementia Maternal Grandmother Breast Cancer Paternal Grandmother Stroke Paternal Grandfather Colon Cancer No Family History Ovarian cancer No Family History Diabetes No Family History Hyperlipidemia No Family History Coronary Artery Disease No Family History Kidney Disease No Family History Seizures No Family History Thyroid No Family History Social History Tobacco Use Smoking status: Former Smokeless tobacco: Never Vaping Use Vaping Use: Never used Substance Use Topics Alcohol use: Never Drug use: Not Currently ROS Objective Blood pressure 142/78, pulse 81, temperature 36.8 C (98.3 F), temperature source Tympanic, resp. rate 16, weight 75.2 kg (165 lb 12.8 oz), SpO2 99%. Component Latest Ref Rng & Units 04/27/2023 Protein, Total 6.3 - 8.0 g/dL 6.6 Albumin 3.9 - 4.9 g/dL 4.4 Calcium 8.5 - 10.2 mg/dL 9.4 Bilirubin, Total 0.2 - 1.3 mg/dL 0.4 Alkaline Phosphatase 38 - 113 U/L 74 AST 14 - 40 U/L 25 ALT 10 - 54 U/L 16 Glucose 74 - 99 mg/dL 69 (L) BUN 9 - 24 mg/dL 7 (L) Creatinine 0.73 - 1.22 mg/dL 0.88 Sodium 136 - 144 mmol/L 135 (L) Potassium 3.7 - 5.1 mmol/L 4.5 Chloride 97 - 105 mmol/L 99 CO2 22 - 30 mmol/L 26 Anion Gap 9 - 18 mmol/L 10 eGFR >=60 mL/min/1.73m 93 Physical Exam Constitutional: General: He is not in acute distress. Appearance: Normal appearance. He is not toxic-appearing or diaphoretic. HENT: Head: Normocephalic and atraumatic. Cardiovascular: Rate and Rhythm: Normal rate and regular rhythm. Heart sounds: Normal heart sounds. Pulmonary: Effort: Pulmonary effort is normal. No accessory muscle usage or respiratory distress. Breath sounds: Normal breath sounds. Abdominal: General: Bowel sounds are normal. Palpations: Abdomen is soft. Tenderness: There is no abdominal tenderness. Genitourinary: Testes: Right: Tenderness and swelling present. Skin: General: Skin is warm and dry. Neurological: Mental Status: He is alert and oriented to person, place, and time. ASSESSMENT/PLAN: 1. Epididymo-orchitis - ICD9: 604.90, ICD10: N45.3 (primary diagnosis) Called results Will treat with levofloxacin, discussed red box warning Will schedule recheck Tuesday Worsening s/s go to Er. - LEVOFLOXACIN 500 MG TABLET 2. Testicular swelling, right - ICD9: 608.86, ICD10: N50.89 - US SCROTUM AND CONTENTS IMPRESSION: 1. Findings consistent with right epididymoorchitis and small simple reactive hydrocele; congestive appearance of the testicle and hyperemic mildly enlarged epididymis 2. Left varicocele Dictated by : MD Carloz SOLIS APRN.DESK SERGEANT documented in this encounterSouthwest [facility] Center02-21-2024 Miscellaneous Notes* Telephone Encounter - Veronica Painter RN - 10/12/2023 11:14 AM EST Patient reports right scrotal pain-comes and goes since yesterday. Worse yesterday- today still hasmild pain, yesterday was red and swollen. Reviewed protocol and recommends see provider in 24 hours. No openings in pcp office. Pt agreeable to EC for evaluation. Reason for Disposition [1] Pain comes and goes (intermittent) AND [2] present > 24 hours Answer Assessment - Initial Assessment Questions 1. LOCATION and RADIATION: Yesterday had right scrotal pain, reddness, and swelling. Today improved- reddness and swelling are gone, but still right scrotum is sensitive. 2. QUALITY: Scrotum is sensitive with the act of sitting down. Once sitting does not notice it. 3. SEVERITY: Today mild 4. ONSET: Yesterday 5. PATTERN: Comes and goes depending on position. 6. SCROTAL APPEARANCE: Today scrotum looks normal- no reddness and doesn't think it's swollen. 7. HERNIA: No 8. OTHER SYMPTOMS: No fever. No vomiting. A little issue passing urine but this is not new- going on for a couple years- urinating just takes a while. Protocols used: Scrotum [id number] documented in this encounterSouthwest [facility] Center02-12-2024 History of Present illness Narrative* Ruby Seaman PA-C - 10/03/2023 12:58 PM EST DISTANCE HEALTH VISIT MyChart Zoom Video Visit was used for evaluation of this patient. Patient consents to visit. Patient's location: [place] I have communicated my name and active licensure. The patient's identity and physical location wereverified at the time of this visit. Either the patient or their legal employee relations representative has been informed of the risks and benefits of -- and alternatives to -- treatment through a remote evaluation andconsents to proceed with the evaluation remotely. Chief Complaint No chief complaint on file. HPI Michael Beltran is a 68 year old male who presents here today via virtual for Above Complaints.. Patient started with sore throat on 09/24 and worsened. On Tuesday he tested positive for covid with home test. He had slight cough but that resolved. Was having significant amount of sinus drainage. Today is first day that he feels like things are improving. No fevers. Past medical history, appointments, medications, allergies reviewed. Previous Medical History PAST MEDICAL HISTORY Diagnosis Date Anemia of chronic disease 01/22/2021 Hg (11.5-12.8) since 2018 Arthritis 01/21/2021 Upper spine. 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, in remission (HCC) 01/21/2021 Marijuana use 03/09/[address] Jean's office note 02/26/21 Medicare annual wellness visit, subsequent 01/21/2021 Medicare part B: Last done: 01/21/2021 Mixed hyperlipidemia 01/21/2021 Sensorineural hearing loss (SNHL) of left ear 01/21/2021 Previous Surgical History PAST SURGICAL HISTORY Procedure Laterality Date COLONOSCOPY 2013 repeat 10 years COLONOSCOPY 05/28/2022 COLONOSCOPY SCREENING 2004 PAST SURGICAL HISTORY OF 1976 pneumo thorax PAST SURGICAL HISTORY OF 1985 cyst on right side of buttock TONSILLECTOMY & ADENOIDECTOMY <AGE 10 1959 TONSILLECTOMY HX Family History FAMILY HISTORY Problem Relation Age of Onset Multiple Sclerosis Mother Stroke Mother Cancer Father lymphoma Hypertension Father Prostate Cancer Brother Dementia Maternal Grandmother Breast Cancer Paternal Grandmother Stroke Paternal Grandfather Colon Cancer No Family History Ovarian cancer No Family History Diabetes No Family History Hyperlipidemia No Family History Coronary Artery Disease No Family History Kidney Disease No Family History Seizures No Family History Thyroid No Family History Patient Allergies ALLERGIES Allergen Reactions Erythromycin Itching Ether Shortness of Breath Current Medications Current Outpatient Medications on File Prior to Visit Medication Sig Tadalafil (CIALIS) 20 mg tablet Take 1 tablet by mouth once daily. As needed loratadine 10 mg cap Take 10 mg by mouth as needed. venlafaxine ER (EFFEXOR XR) 75 mg 24 hr capsule Take 1 capsule by mouth three times daily. atorvastatin (LIPITOR) 20 mg tablet Take 1 tablet by mouth once daily. No current facility-administered medications on file prior to visit. Social History Social History Tobacco Use Smoking status: Former Smokeless tobacco: Never Vaping Use Vaping Use: Never used Substance Use Topics Alcohol use: Never Drug use: Not Currently Review of Symptoms REVIEW OF SYSTEMS See hpi EXAM: There were no vitals taken for this visit. Any vital signs collected today were done so using patient's home equipment, otherwise no vital signs due to distant health visit. PHYSICAL EXAMINATION: VIDEO EXAM: (if done, performed via video enabled technology) GENERAL: alert and appropriate, in no distress, well-hydrated, well nourished, and happy, smiling, interactive HEAD: normocephalic, no abnormality or lesion noted EYES: no injection and visual acuity is grossly normal NECK: full ROM, no cervical LNs noted RESPIRATORY: breathing non-labored CHEST: equal chest rise with normal respiratory effort Health Maintenance List RSV Vaccine(1 - 1-dose 60+ series) Never done Advance Directive Discussion due on 08/22/2023 Shingrix Vaccine(2 of 2) due on 04/27/2024 Diabetes Screening due on 04/27/2026 Lipid Screening due on 04/27/2028 Colorectal Cancer Screening due on 05/28/2032 DTaP,Tdap,Td Vaccine(2 - Td or Tdap) due on 08/18/2032 Abdominal Aortic Aneurysm Screening Completed Influenza Vaccine Completed Covid-19 Vaccine Completed Pneumococcal Vaccine: 65+ Completed Hepatitis C Screening Discontinued Data reviewed ASSESSMENT/PLAN: 1. COVID-19 - ICD9: 079.89, ICD10: U07.1 Reassurance given. Continue symptom management Follow up if symptoms worsen. Discussed possible red flags and when to seek medical attention. Ruby Seaman PA-C documented [facility]-2024 Miscellaneous Notes* Telephone Encounter - Josephine Duran LPN - 09/27/2023 11:26 AM EST Patient has been identified by name and date of : Yes, Patient phones for refill(s): Requested Prescriptions Pending Prescriptions Disp Refills Tadalafil (CIALIS) 20 mg tablet 30 tablet 2 Sig: Take 1 tablet by mouth once daily. As needed Date of last office visit in primary care: 07/26/2023 Date of next office visit in primary care: 04/30/2024 Please advise. Thank you. Josephine Duran LPN. documented in this encounterSouth[facility]09-14-2023 Miscellaneous Notes* Telephone Encounter - Rosio Champagne LPN - 05/05/2023 12:15 PM EDT Rx refilled 04/27/23 x 6 months. Pt notified via my chart. Rosio Champagne LPN documented in this encounterSouth[facility]09-12-2023 Miscellaneous Notes* Telephone Encounter - Patricia Kearns Ma - 05/03/2023 8:32 AM EDT Pt notified of results via [employer]. Patricia Kearns Ma * Telephone Encounter - Mignon Lake MA - 05/02/2023 8:51 AM EDT Left message for patient to contact office. Mignon Lake MA * Telephone Encounter - Bola Durand MD - 05/01/2023 9:54 PM EDT Let patient know UA, Prostate lab, blood count, lipid panel, thyroid lab, blood sugar lab, electrolytes, liver and kidney functions were all ok. documented in this encounterSouth[facility] Center09-06-2023 Instructions* Patient Instructions* Bola Durand MD - 04/27/2023 10:32 AM EDT Consider getting the shingrix vaccine for the prevention of shingles from a local pharmacy. Consider getting Tdap for tetanus update at the local health dept. Also get the seasonal flu and COVID vaccines. documented in this encounterSouth[facility]09-06-2023 History of Present illness Narrative* Bola Durand MD - 04/27/2023 10:00 AM EDT Medicare Yearly Visit Medical B eligibilty date unable to find Date of last exam 04/22/2022 PAST MEDICAL HISTORY PAST MEDICAL HISTORY Diagnosis Date Anemia of chronic disease 01/22/2021 Hg (11.5-12.8) since 2018 Arthritis 01/21/2021 Upper spine. Ex-smoker 01/21/2021 Started at age 14 up to 1.5 PPD and quit at age 52 JUSTO (generalized anxiety disorder) 01/21/2021 Major depressive disorder with single episode, in remission (HCC) 01/21/2021 Marijuana use 03/09/[address] Jean's office note 02/26/21 Medicare annual wellness visit, subsequent 01/21/2021 Medicare part B: Last done: 01/21/2021 Mixed hyperlipidemia 01/21/2021 Sensorineural hearing loss (SNHL) of left ear 01/21/2021 PAST SURGICAL HISTORY PAST SURGICAL HISTORY Procedure Laterality Date COLONOSCOPY 2013 repeat 10 years TONSILLECTOMY & ADENOIDECTOMY <AGE [age] ALLERGIES: Erythromycin and Ether Medications reviewed: Yes FAMILY HISTORY FAMILY HISTORY Problem Relation Age of Onset Multiple Sclerosis Mother Stroke Mother Cancer Father lymphoma Hypertension Father Prostate Cancer Brother Dementia Maternal Grandmother Breast Cancer Paternal Grandmother Stroke Paternal Grandfather Colon Cancer No Family History Ovarian cancer No Family History Diabetes No Family History Hyperlipidemia No Family History Coronary Artery Disease No Family History Kidney Disease No Family History Seizures No Family History Thyroid No Family History SOCIAL HISTORY: SOCIAL HISTORY Social History Tobacco Use Smoking status: Former Smokeless tobacco: Never Substance Use Topics Alcohol use: Never Drug use: Yes Types: Marijuana Michael likes to exercise by biking, walking, kayaking. He watches his diet for sodium, low fat andlow cholesterol some of the time. List of current specialists seen: none End of Live Planning discussed including patients advanced directive wishes: Yes I am willing to follow Michael's advanced directives. Patient diagnosed with depression and doing well with current Tx. Functional Ability/Safety Screen 1. Was the patient's timed Up and Go test unsteady or longer than 30 seconds? No 2. Does the patient need help with the phone, transportation, shopping,preparing meals, housework, laundry, medications or managing money? No 3. Does your home have rugs in the hallway, lack of grab bars in the bathroom, lack of handrails onthe stairs or have poor lighting? No Hearing Evaluation: hard of hearing PHYSICAL EXAM BP 104/64 (BP Site: Left Arm, BP Position: Sitting, BP Cuff Size: Regular Adult) Pulse 84 Resp 16 Ht 176.5 cm (5' 9.5) Wt 73.5 kg (162 lb) BMI 23.58 kg/m Alert and oriented X 3: YES Body mass index is 23.58 kg/m . Visual acuity: sees opto ASSESSMENT/PLAN: 68 year old male The following prevention plan was discussed during the office visit and provided to the patient: See below Ruby Seaman PA-C Chief Complaint Patient presents with: Medicare Wellness Exam Chief Complaint Patient presents with: Medicare Wellness Exam HPI Michael Beltran is a 68 year old male who presents here today for Chronic Medical Conditions. and Medicare Annual Visit. Office visit - medicare wellness 04/27/2023 Patient is here today for his medicare wellness exam. Only concern today patient has noticed increased fatigue over the last few months. Doesn't know if it is related to his depression medication. Patient with hx of Elevated blood glucose, hyperlipidemia, chronic pain, Lumbar DDD, Depression/anxiety, anemia, and those as below. At his last visit was maybe interested in seeing pain specialist. Decided not to follow with Dr. Tyler as he felt they weren't a good match. Not currently seeing pain management. Patient has been taking atorvastatin to help control hyperlipidemia which is currently in good control. Also encouraged following a low carbohydrate, healthy oil intake diet. Has in the past had elevated blood sugar - Recent a1c normal Anemia of chronic disease - Recent CBC wnl Major depressive disorder with single episode, in remission - taking effexor and has been stable. JUSTO (generalized anxiety disorder) - stable Prostate disorder Erectile dysfunction, unspecified erectile dysfunction type -taking cialis as needed - stable Chronic pain syndrome -Patient will consider if he wants consult to [facility] pain med Hyponatremia - Chronic-stable Change in bowel habit - patient was referred to Dr Roman General Surgery in May 2022 and had colonoscopy completed. Patient was found to have a small sigmoid colon polyp which was removed. Recommended fiber supplement to help regulate stools and follow up in 10 years for colonoscopy. Past medical history, appointments, medications, allergies reviewed. Previous Medical History PAST MEDICAL HISTORY Diagnosis Date Anemia of chronic disease 01/22/2021 Hg (11.5-12.8) since 2018 Arthritis 01/21/2021 Upper spine. Asthma Ex-smoker 01/21/2021 Started at age 14 up to 1.5 PPD and quit at age 52 JUSTO (generalized anxiety disorder) 01/21/2021 Major depressive disorder with single episode, in remission (HCC) 01/21/2021 Marijuana use 03/09/[address] Jean's office note 02/26/21 Medicare annual wellness visit, subsequent 01/21/2021 Medicare part B: Last done: 01/21/2021 Mixed hyperlipidemia 01/21/2021 Sensorineural hearing loss (SNHL) of left ear 01/21/2021 Previous Surgical History PAST SURGICAL HISTORY Procedure Laterality Date COLONOSCOPY 2013 repeat 10 years COLONOSCOPY 05/28/2022 COLONOSCOPY SCREENING 2004 PAST SURGICAL HISTORY OF 1976 pneumo thorax PAST SURGICAL HISTORY OF 1985 cyst on right side of buttock TONSILLECTOMY & ADENOIDECTOMY <AGE 10 1959 TONSILLECTOMY HX Family History FAMILY HISTORY Problem Relation Age of Onset Multiple Sclerosis Mother Stroke Mother Cancer Father lymphoma Hypertension Father Prostate Cancer Brother Dementia Maternal Grandmother Breast Cancer Paternal Grandmother Stroke Paternal Grandfather Colon Cancer No Family History Ovarian cancer No Family History Diabetes No Family History Hyperlipidemia No Family History Coronary Artery Disease No Family History Kidney Disease No Family History Seizures No Family History Thyroid No Family History Patient Allergies ALLERGIES Allergen Reactions Erythromycin Itching Ether Shortness of Breath Current Medications Current Outpatient Medications on File Prior to Visit Medication Sig Tadalafil (CIALIS) 20 mg tab(s) Take 1 tablet by mouth once daily. As needed venlafaxine ER (EFFEXOR XR) 75 mg 24 hr capsule Take 1 capsule by mouth three times daily. atorvastatin (LIPITOR) 20 mg tablet Take 1 tablet by mouth once daily. No current facility-administered medications on file prior to visit. Social History Social History Tobacco Use Smoking status: Former Smokeless tobacco: Never Vaping Use Vaping Use: Never used Substance Use Topics Alcohol use: Never Drug use: Not Currently Review of Symptoms REVIEW OF SYSTEMS GENERAL: No significant weight loss, malaise or fevers HEENT: Negative for frequent or significant headaches, No changes in hearing or vision, no nose bleeds or other nasal problems NECK: Negative for lumps, goiter, pain and significant neck swelling RESPIRATORY: Negative for cough, hemoptysis, wheezing, COPD, dyspnea or shortness of breath CARDIOVASCULAR: Negative for chest pain, leg swelling, hypertension, CHF or palpitations GI: No nausea, vomiting, or diarrhea, No heartburn or reflux symptoms, and no blood : No history of dysuria, frequency or blood MUSCULOSKELETAL: Negative for joint pain or swelling, back pain or muscle pain SKIN: Negative for lesions, rash, and itching PSYCH: has been stable on current Tx. HEMATOLOGY/LYMPHOLOGY: Negative for prolonged bleeding, bruising easily or swollen nodes ENDOCRINE: Negative for cold or heat intolerance, polyuria, polydipsia and goiter NEURO: No history of headaches, syncope, paralysis, seizures or tremors EXAM: BP 104/64 (BP Site: Left Arm, BP Position: Sitting, BP Cuff Size: Regular Adult) Pulse 84 Resp 16 Ht 176.5 cm (5' 9.5) Wt 73.5 kg (162 lb) BMI 23.58 kg/m Last 5 Encounter Wt Readings: Date: Wt: 04/27/2023 73.5 kg (162 lb) 06/25/2022 78.5 kg (173 lb) 04/30/2022 76.7 kg (169 lb) 04/22/2022 77.1 kg (170 lb) 02/24/2022 76.2 kg (168 lb) General Appearance: Well appearing, alert, in no acute distress, well-hydrated, well nourished.. Skin: Skin color, texture, turgor normal, no suspicious rashes or lesions. Head: Normocephalic, no masses, lesions, tenderness or abnormalities. Eyes: Anicteric sclera. Pupils are equally round and reactive to light. Extraocular movements are intact. . Ears: External ears normal, canal clear on left and blocked on the right. After wax removal (see below) both TM's normal. . Nose/Sinuses: Nares normal, septum midline, mucosa normal, no drainage or sinus tenderness. Oropharynx: Lips, mucosa, and tongue normal, teeth and gums normal, oropharynx normal. Neck: Supple, no adenopathy; thyroid symmetric, normal size, no bruits. Lungs: Lungs clear to auscultation. No wheezing, rhonchi, rales.. Heart: RRR without murmur, gallop, or rubs. No ectopy. Abdomen: Normal abdominal exam, Abdomen soft, non-tender. Bowel sounds normal. No masses, organomegaly. Extremities: No deformities, edema, skin discoloration, clubbing or cyanosis. Good capillary refill. . Musculoskeletal: Spine range of motion normal. Muscular strength intact, No joint swelling, deformity, or tenderness. Peripheral Pulses: Normal. Neurologic: Gait normal. Reflexes normal and symmetric. Sensation to light touch and crainal nerves2-12 intact.. Genitalia: Normal, Penis normal. No urethral discharge. Scrotum normal to palpation. No hernia.. Rectal: Normal exam. Prostate slightly enlarged with smooth firm capsule. Health Maintenance List DTAP,TDAP,TD(1 - Tdap) Never done SHINGRIX VACCINE(1 of 2) Never done COVID-19 VACCINE(4 - Moderna series) due on 08/12/2021 ADVANCE DIRECTIVE DISCUSSION due on 08/22/2022 INFLUENZA(1) due on 04/22/2023 DIABETES SCREEN due on 02/24/2025 LIPID SCREEN due on 02/24/2027 COLORECTAL CANCER SCREENING due on 05/28/2032 ABDOMINAL AORTIC ANEURYSM SCREENING Completed PNEUMOCOCCAL: 65+ Completed HEPATITIS C SCREENING Discontinued Data reviewed A/P ASSESSMENT/PLAN: 1. Medicare annual wellness visit, subsequent - ICD9: V70.0, ICD10: Z00.00 (primary diagnosis) - Counseled on healthy diet and regular exercise - Follow up for annual exam in one year - encouraged getting updated on shingrix, Flu, Tdap and COVID vaccines. 2. Mixed hyperlipidemia - ICD9: 272.2, ICD10: E78.2 - await labs. - Continue current medications - Counseled on healthy diet and regular exercise. Check - COMP METABOLIC PANEL - URINALYSIS, WITH MICROSCOPIC - LIPID PANEL, NONFASTING 3. Anemia of chronic disease - ICD9: 285.29, ICD10: D63.8 Check - CBC + DIFF 4. Major depressive disorder with single episode, in remission (HCC) - ICD9: 296.25, ICD10: F32.5 - stable with current Tx. 5. JUSTO (generalized anxiety disorder) - ICD9: 300.02, ICD10: F41.1 - a sper #5 6. Chronic pain syndrome - ICD9: 338.4, ICD10: G89.4 - patient will consider if wants referred to [facility] pain management 7. Elevated blood sugar - ICD9: 790.29, ICD10: R73.9 Check - HGB A1C 8. Advanced directives, counseling/discussion - ICD9: V65.49, ICD10: Z71.89 - packets provided. 9. Fatigue, unspecified type - ICD9: 780.79, ICD10: R53.83 check - TSH BLD - CBC + DIFF - Also advised trying to take the Effexor all at night. 10. Prostate disorder - ICD9: 602.9, ICD10: N42.9 Check - PSA/PROSTSPECAG DIAG 11. Impacted cerumen of right ear - ICD9: 380.4, ICD10: H61.21 - discussed removal with use of ear pick and verbal consent provided. Wax removed wit use of lighted ear pick by provider. Patient tolerated well. Requested Prescriptions Signed Prescriptions Disp Refills venlafaxine ER (EFFEXOR XR) 75 mg 24 hr capsule 270 capsule 3 Sig: Take 1 capsule by mouth three times daily. atorvastatin (LIPITOR) 20 mg tablet 90 tablet 3 Sig: Take 1 tablet by mouth once daily. F/u in a yr extensive or sooner of issues. I spent a total of 40 minutes on the date of the service which included preparing to see the patient, [id number] patient care, completing clinical documentation, performing a medically appropriate examination, counseling and educating the patient/family/caregiver and ordering medications, tests, or procedures. Bola Durand MD documented in this encounterSouth[facility]08-02-2023 Miscellaneous Notes* Telephone Encounter - Bola Durand MD - 03/23/2023 9:01 AM EDT The following approved medication requests have been transmitted electronically. Requested Prescriptions Signed Prescriptions Disp Refills Tadalafil (CIALIS) 20 mg tab(s) 30 tablet 2 Sig: Take 1 tablet by mouth once daily. As needed Authorizing Provider: BOLA DURAND MD * Telephone Encounter - Mignon Lake MA - 03/23/2023 8:08 AM EDT Patient has been identified by name and date of : Yes Requested Prescriptions Pending Prescriptions Disp Refills Tadalafil (CIALIS) 20 mg tab(s) 30 tablet 2 Sig: Take 1 tablet by mouth once daily. As needed RX INSTRUCTIONS: Patient aware RX will be sent to pharmacy. No need to notify patient. Mignon Lake MA Jostin 04/2022 Nov 04/2023 Last refill; 08/2022 documented in this encounterSouth[facility]01-12-2023 Miscellaneous Notes* Telephone Encounter - Val Smith LPN - 09/02/2022 12:50 PM EST Patient phones requesting refills as follows: Requested Prescriptions Pending Prescriptions Disp Refills Tadalafil (CIALIS) 20 mg tab(s) 30 tablet 2 Sig: Take 1 tablet by mouth once daily. As needed JOSTIN-02/24/22 Labs-02/24/22 NOV-none med filled 02/24/22 Please review and advise. Val Smith LPN documented in this encounterSouth[facility] Center11-04-2022 Instructions* Patient Instructions* Odalis Venegas PA-C - 06/25/2022 1:27 PM EDT The following instructions are important for you related to your office visit today with the [facility]. INSTRUCTIONS FOLLOWING A POLYP FOUND AT COLONOSCOPY You were found to have a hyperplastic colon polyp. I recommend you undergo consider repeat colonoscopy in 10 years. If you note bleeding, change in bowel habits, or other suspicious colon related symptoms before that time, those symptoms should be evaluated as necessary. If you have any difficulties or concerns, you should contact our office immediately. If you note any additional difficulties, questions, or concerns, you should contact our office immediately @ [phone] and ask to be transferred to the General Surgery department. documented in this encounterSouthwest [facility] Center11-04-2022 History of Present illness Narrative* Odalis Venegas PA-C - 06/25/2022 1:17 PM EDT FOLLOW UP VISIT - ENDOSCOPY NAME: Michael [facility] NO.: [id number] DATE OF SERVICE: 06/25/2022 : 1955 REFERRING PHYSICIAN: Bola Durand MD Michael is a patient I am following with Dr. Shey Roman for change in bowel habits. Dr. Roman performed lower endoscopy on 05/28/22. The patient was found to have a small sigmoid colon polyp which was removed. Random biopsies were also taken based on patient's symptoms. Pathology demonstrated: FINAL DIAGNOSIS A. Colon, random, biopsy: - Colonic mucosa with no diagnostic abnormalities. B. Colon, sigmoid polyp, biopsy: - Hyperplastic polyp. - Deeper levels (x3) were examined. C. Colon, rectum, biopsy: - Colonic mucosa with no diagnostic abnormalities. The patient notes no complaints since the procedure. VITALS: Blood pressure 128/66, pulse 83, temperature 36.6 C (97.9 F), weight 78.5 kg (173 lb), [id number] %. General: patient is alert, cooperative, pleasant and in no acute distress On examination, the abdomen is benign. Assessment IMPRESSION: s/p colonoscopy with polypectomy-benign hyperplastic polyp. Normal random biopsies PLAN: The operative findings and pathology report were reviewed with the patient, and the patient has hadthe opportunity to ask questions and have questions answered. If the patient notes any problems or changes in bowel function, the patient should contact me immediately. Otherwise recommend patient consider repeat screening colonoscopy in 10 years. HM updated and recall letter generated. Recommend fiber supplement to help regulate stools Patient verbalized understanding of all above and agreed with the plan Diagnoses: (K63.5) Hyperplastic polyp of sigmoid colon (primary encounter diagnosis) No charge for visit today as patient was previously given results by phone Odalis Venegas PA-C documented in this encounterSouth[facility] Center09-09-2022 History of Present illness Narrative* Shey Roman MD - 04/30/2022 4:07 PM EDT HISTORY AND PHYSICAL Michael Beltran 1955 REFERRING PHYSICIAN: Ruby Seaman PA-C CHIEF COMPLAINT: Consult (Colonoscopy ) HPI: The patient is a 67 year old male referred for endoscopy. Michael notes changes in bowel habits. He notes that he has an urge for bowel movements, usually every two hours. He notes fecal urgency. He feels that he has to go to the bathroom and can't tell which is which. He notes wet loose bowel movements and states that they are messy and sideways He denies blood in his stools. He denies weight loss. He states that this has been going on for about 1-2 years, gradually worsening. He denies abdominal pain He denies rectal pain. He denies any problems with urination. His brother had porstate cancer, no colon cancer known in family He last had a colonoscopy in 2012 and before that in 2004 and was noted to have polyps PAST MEDICAL HISTORY Diagnosis Date Anemia of chronic disease 01/22/2021 Hg (11.5-12.8) since 2018 Arthritis 01/21/2021 Upper spine. Ex-smoker 01/21/2021 Started at age 14 up to 1.5 PPD and quit at age 52 JUSTO (generalized anxiety disorder) 01/21/2021 Major depressive disorder with single episode, in remission (HCC) 01/21/2021 Marijuana use 03/09/[address] Jean's office note 02/26/21 Medicare annual wellness visit, subsequent 01/21/2021 Medicare part B: Last done: 01/21/2021 Mixed hyperlipidemia 01/21/2021 Sensorineural hearing loss (SNHL) of left ear 01/21/2021 PAST SURGICAL HISTORY Procedure Laterality Date COLONOSCOPY 2013 repeat 10 years COLONOSCOPY SCREENING 2004 PAST SURGICAL HISTORY OF 1976 pneumo thorax PAST SURGICAL HISTORY OF 1986 cyst on right side of buttock TONSILLECTOMY & ADENOIDECTOMY <AGE 10 195 Current Outpatient Medications Medication Sig venlafaxine ER (EFFEXOR XR) 75 mg 24 hr capsule Take 1 capsule by mouth three times daily. atorvastatin (LIPITOR) 20 mg tablet Take 1 tablet by mouth once daily. Tadalafil (CIALIS) 20 mg tab(s) Take 1 tablet by mouth once daily. As needed peg 3350-Electrolytes (GOLYTELY) 236-22.74-6.74 -5.86 gram suspension Take 4,000 mL by mouth one time only for 1 dose. Refer to printed prep instructions from your provider. ALLERGIES: Erythromycin and Ether PERSONAL HISTORY: Social History Tobacco Use Smoking status: Former Smokeless tobacco: Never Vaping Use Vaping Use: Never used Substance Use Topics Alcohol use: Never Drug use: Yes Types: Marijuana FAMILY HISTORY Problem Relation Age of Onset Multiple Sclerosis Mother Stroke Mother Cancer Father lymphoma Hypertension Father Prostate Cancer Brother Dementia Maternal Grandmother Breast Cancer Paternal Grandmother Stroke Paternal Grandfather Colon Cancer No Family History Ovarian cancer No Family History Diabetes No Family History Hyperlipidemia No Family History Coronary Artery Disease No Family History Kidney Disease No Family History Seizures No Family History Thyroid No Family History The review of systems data was entered by the nurse and reviewed by ks Nursing Notes: Yuliana Collins LPN 04/30/2022 3:27 PM Signed REVIEW OF SYSTEMS: General: The patient denies fatigue, denies weight loss, denies weight gain, denies feeling hot, and denies feelings of cold. Eyes: The patient denies glaucoma, denies eye injury/surgery, wears glasses or contacts. Ear/Nose/Throat: The patient denies allergies, denies hayfever, denies ear infections, and denies bloody noses. Cardiovascular: The patient denies chest pain, denies heart disease, denies high blood pressure,denies cardiac stent, denies prior heart attack, denies irregular heart beat, denies high cholesterol, denies poor circulation, denies heart failure, other cardiac issues, denies claudication, denies cold feet, denies peripheral arterial stent. Respiratory: The patient denies tuberculosis, denies pneumonia, denies frequent cough, denies pulmonary embolism, denies shortness of breath, and denies coughing up blood. Gastrointestinal: The patient denies difficulty swallowing, denies acid reflux, denies ulcers, denies vomiting, denies jaundice/hepatitis, denies gallbladder problems, denies black or tarry stools, notes hemorrhoids, denies bleeding from rectum, denies diverticulitis, denies constipation, denies diarrhea, denies loss of stool control, and denies hernias. Kidney/Bladder: The patient denies kidney stones, denies urine infections, and denies bloody urine. Skin: The patient denies a history of skin cancer, denies bleeding/changing moles, and denies a history of skin rash. Neurologic: The patient denies a history of epilepsy/convulsions, denies headaches, notes head/spinal injuries, and denies stroke/TIA. Psychiatric: The patient denies psychiatric medications, notes depression, and denies voices, denies substance abuse. Endocrine: The patient denies thyroid disorders, denies diabetes, and denies hormonal problems. Hematologic: The patient denies a history of bruising, denies bleeding, and denies anemia, denies blood clots. Infections: The patient denies a history of measles and mumps, denies rheumatic fever, and denies sexually transmitted diseases. Musculoskeletal: The patient notes back pain/injury, denies back problems, denies sciatica, denies knee/foot trouble, denies arthritis, or denies gout. When was patient's last Mammogram screening? N/A Last Colonoscopy: 2012 Yuliana Collins LPN PHYSICAL EXAMINATION: General: The patient is 67 year old male, well nourished, well hydrated in no acute distress. The patient is oriented to time, place, and person. VITALS: Blood pressure 112/74, pulse 97, temperature 36.7 C (98.1 F), height 177.8 cm (5' 10), weight 76.7 kg (169 lb), SpO2 99 %. Body mass index is 24.25 kg/m . Head: Normal cephalic, atraumatic Eyes: pupils are equally round, sclera are clear/anicteric, wearing glasses Neck is supple with no tracheal deviation Respiratory: Normal respiratory excursion and pattern. Abdominal exam: benign Extremities: no clubbing, cyanosis or edema. Neuro: non focal Psych: normal mood Assessment IMPRESSION: changes in bowel habits PLAN: I have discussed the above with the patient. I have offered colonoscopy , possible biopsies I have explained the procedure to the patient. I have counseled the patient as to the risks of the procedure, including but not limited to: infection, bleeding, injury to any intrabdominal organs such as liver/spleen, perforation of the GI tract,inability to complete the procedure, complications of anesthesia, etc. - the patient understands. The patient was offered a surgery/procedure at a [facility] facility. The provider and patient have discussed in detail the risk of exposure to and/or potential harm posed by the COVID-19 viruswith having a surgery/procedure at this time versus the risk of delaying the surgery/procedure. It is not possible to know either the risk of delaying the surgery or procedure or chance of getting aninfection with perfect accuracy, but a joint decision was made between the patient and the providerto proceed at this time with the scheduled surgery/procedure. I have explained to the patient the difference between IV conscious sedation and MAC anesthesia - and I have offered either, according to the patient's wishes. I have explained that with IV conscioussedation there is no anesthesia provider available and therefore there is a limitation of the amount of IV medications that can be given and that the patient may wake up in the middle of the procedure and/or experience pain/discomfort during the procedure. Further discussion was done and the patient was given the opportunity to ask questions and all questions were answered. The patient chooses IVconscious sedation Patient was counseled that if there are changes in his/her medical condition, to let the office know if surgery should proceed. If there are changes in patient's medical condition from time of this encounter to the day of the procedure that preclude anesthesia, patient may have procedure cancelled for patient's safety. The patient wishes to proceed. I have answered all questions to the patient s satisfaction and the patient has no further questions. Diagnoses: (R19.4) Change in bowel habit I have confirmed and edited as necessary, the PFSH and ROS obtained by others. Consultation requested by Ruby Seaman for an opinion regarding patient's changes in bowel habits. My final recommendations will be communicated back to the requesting physician by way of shared Medical record or letter to requesting physician via US mail. Return to Clinic: The patient will be scheduled for colonoscopy at [facility]. Medical Decision Making: Problems: Low: Stable chronic illness Risk: Low: Low risk from testing/treatment Medical Decision Making Level: 3 - Low Shey Roman MD [facility] Instructions* Patient Instructions* Shey Roman MD - 04/30/2022 3:41 PM EDT Images from the original note were not included. Bowel Preparation Instructions for: Golytely, Nulytely, Trilyte or Colyte (polyethylene glycol 3350and electrolytes) IF YOU DO NOT FOLLOW THESE DIRECTIONS, YOUR COLONOSCOPY WILL BE CANCELLED. Wall Instructions: Your bowel must be empty so that your doctor can clearly view your colon. Follow all of the instructions in this handout EXACTLY as they are written. Do NOT eat any solid food the ENTIRE day before your colonoscopy. Drink only clear liquids. Buy your bowel preparation at least 5 days before your colonoscopy. TRANSPORTATION on the Day of Your Exam A responsible person MUST be present with you at Check In prior to your colonoscopy and REMAIN in the endoscopy area until you are discharged. You are NOT ALLOWED to drive, take a taxi or bus, or leave the Endoscopy Center ALONE. If you do not have a responsible cdl driver (family member or friend) with you to take you home, your exam cannot be done with sedation and will be cancelled. Please bring a list of all of your current medications, including any Over-the Counter medications with you. Medications If you take insulin, diabetic medications or blood thinners such as Coumadin (warfarin), Plavix (clopidogrel), Ticlid (ticlopidine hydrochloride), Agrylin (anagrelide), Xarelto (Rivaroxaban), Pradaxa(Dabigatran), Eliquis (Apixaban), and Effient (Prasugrel). You MUST call the doctors who orders those medicines for instructions on altering the dosage before your colonoscopy. All other medications should be taken the day of the exam with a sip of water including ASPIRIN. Five (5) Days Before Your Colonoscopy Do NOT take medicines that stop diarrhea - such as Imodium, Kaopectate, or Pepto Bismol. Do NOT take fiber supplements - such as Metamucil, Citrucel, or Perdiem. Do NOT take products that contain iron - such as multi-vitamins (the label lists what is in the products). Do NOT take Vitamin E. Buy the prescription bowel preparation solution at your local pharmacy or drugstore pharmacy. 1 07/2019 Bowel Preparation Instructions for: Golytely, Nulytely, Trilyte or Colyte (polyethylene glycol 3350and electrolytes) Three (3) Days Before Your Colonoscopy Do NOT eat high-fiber foods - such as popcorn, beans, seeds (flax, sunflower, quinoa), multigrain bread, nuts, salad/vegetables, or fresh and dried fruit. One (1) Day Before Your Colonoscopy Only drink clear liquids the ENTIRE DAY before your colonoscopy. Do NOT eat any solid foods. Drink at least 8 ounces of clear liquids every hour after waking up. The clear liquids you can drink include: Clear Liquid (NO RED LIQUIDS) DO NOT DRINK Gatorade, Pedialyte or Powerade Clear broth or bouillon Coffee or tea (no milk or non-dairy creamer) Carbonated and non-carbonated soft drinks Irineo-Aid or other fruit flavored drinks Strained fruit juices (no pulp) Jell-O, popsicles, hard candy Water Alcohol Milk or non-dairy creamers Noodles or vegetables in soup Juice with pulp Liquid you cannot see through Do not use tobacco/vaping products The bowel preparation solution will be consumed in two parts. Mix the solution the evening before your colonoscopy and refrigerate before drinking. You may add the flavor pack that came with the bowel preparation. Do NOT add ice, sugar or any other flavorings to the solution. Part 1 At 6:00 PM - Evening before your colonoscopy Drink an 8-oz glass of bowel preparation every 10 minutes for a total of 8 glasses. You may continue to drink clear liquids until midnight. Part 2 On the day of your colonoscopy you may drink clear liquids up to (three) 3 hours before your procedure. 4 1/2 hours before your colonoscopy Drink an 8-oz glass of bowel preparation every 10 minutes for a total of 8 glasses. Fifteen (15) minutes later, drink an 8-oz glass of clear liquids every 15 minutes for a total of 2 glasses. You may continue to drink clear liquids up to (three) 3 hours before your exam. 2 07/2019 documented in this encounterC[place] [id number] Nurse Note* Yuliana Collins, CORE FITTER - 04/30/2022 3:26 PM EDT REVIEW OF SYSTEMS: General: The patient denies fatigue, denies weight loss, denies weight gain, denies feeling hot, and denies feelings of cold. Eyes: The patient denies glaucoma, denies eye injury/surgery, wears glasses or contacts. Ear/Nose/Throat: The patient denies allergies, denies hayfever, denies ear infections, and denies bloody noses. Cardiovascular: The patient denies chest pain, denies heart disease, denies high blood pressure,denies cardiac stent, denies prior heart attack, denies irregular heart beat, denies high cholesterol, denies poor circulation, denies heart failure, other cardiac issues, denies claudication, denies cold feet, denies peripheral arterial stent. Respiratory: The patient denies tuberculosis, denies pneumonia, denies frequent cough, denies pulmonary embolism, denies shortness of breath, and denies coughing up blood. Gastrointestinal: The patient denies difficulty swallowing, denies acid reflux, denies ulcers, denies vomiting, denies jaundice/hepatitis, denies gallbladder problems, denies black or tarry stools, notes hemorrhoids, denies bleeding from rectum, denies diverticulitis, denies constipation, denies diarrhea, denies loss of stool control, and denies hernias. Kidney/Bladder: The patient denies kidney stones, denies urine infections, and denies bloody urine. Skin: The patient denies a history of skin cancer, denies bleeding/changing moles, and denies a history of skin rash. Neurologic: The patient denies a history of epilepsy/convulsions, denies headaches, notes head/spinal injuries, and denies stroke/TIA. Psychiatric: The patient denies psychiatric medications, notes depression, and denies voices, denies substance abuse. Endocrine: The patient denies thyroid disorders, denies diabetes, and denies hormonal problems. Hematologic: The patient denies a history of bruising, denies bleeding, and denies anemia, denies blood clots. Infections: The patient denies a history of measles and mumps, denies rheumatic fever, and denies sexually transmitted diseases. Musculoskeletal: The patient notes back pain/injury, denies back problems, denies sciatica, denies knee/foot trouble, denies arthritis, or denies gout. When was patient's last Mammogram screening? N/A Last Colonoscopy: 2012 Yuliana Collins LPN [facility] History of Present illness Narrative* Ruby Seaman PA-C - 04/22/2022 12:09 PM EDT Medicare Yearly Visit Medical B eligibilty date unable to find Date of last exam 01/21/21 PAST MEDICAL HISTORY Diagnosis Date Anemia of chronic disease 01/22/2021 Hg (11.5-12.8) since 2018 Arthritis 01/21/2021 Upper spine. Ex-smoker 01/21/2021 Started at age 14 up to 1.5 PPD and quit at age 52 JUSTO (generalized anxiety disorder) 01/21/2021 Major depressive disorder with single episode, in remission (HCC) 01/21/2021 Marijuana use 03/09/[address] Jean's office note 02/26/21 Medicare annual wellness visit, subsequent 01/21/2021 Medicare part B: Last done: 01/21/2021 Mixed hyperlipidemia 01/21/2021 Sensorineural hearing loss (SNHL) of left ear 01/21/2021 PAST SURGICAL HISTORY Procedure Laterality Date COLONOSCOPY 2013 repeat 10 years TONSILLECTOMY & ADENOIDECTOMY <AGE 10 1959 ALLERGIES: Erythromycin and Ether Medications reviewed: Yes FAMILY HISTORY Problem Relation Age of Onset Multiple Sclerosis Mother Stroke Mother Cancer Father lymphoma Hypertension Father Prostate Cancer Brother Dementia Maternal Grandmother Breast Cancer Paternal Grandmother Stroke Paternal Grandfather Colon Cancer No Family History Ovarian cancer No Family History Diabetes No Family History Hyperlipidemia No Family History Coronary Artery Disease No Family History Kidney Disease No Family History Seizures No Family History Thyroid No Family History SOCIAL HISTORY: Social History Tobacco Use Smoking status: Former Smokeless tobacco: Never Substance Use Topics Alcohol use: Never Drug use: Yes Types: Marijuana Michael likes to exercise by biking, walking, kayaking. He watches his diet for sodium, low fat andlow cholesterol some of the time. List of current specialists seen: none End of Live Planning discussed including patients advanced directive wishes: Yes I am willing to follow Michael's advanced directives. Depression Screening 01/19/2021 04/22/2022 PHQ-2 Score 2 2 Depression screening tool completed and reviewed. Based on score and interview, patient is already diagnosed with depression. Screening tool discussed with patient, and I recommended continuing current plan of care. PHQ-2 Score: 2 Functional Ability/Safety Screen 1. Was the patient's timed Up and Go test unsteady or longer than 30 seconds? No 2. Does the patient need help with the phone, transportation, shopping,preparing meals, housework, laundry, medications or managing money? No 3. Does your home have rugs in the hallway, lack of grab bars in the bathroom (Y), lack of handrails on the stairs or have poor lighting? No Hearing Evaluation: hard of hearing PHYSICAL EXAM BP 104/78 (BP Site: Left Arm, BP Position: Sitting, BP Cuff Size: Regular Adult) Pulse 72 Temp 36.6 C (97.8 F) Resp 16 Ht 175.5 cm (5' 9.09) Wt 77.1 kg (170 lb) BMI 25.04 kg/m Alert and oriented X 3: YES Body mass index is 25.04 kg/m . Visual acuity: sees opto ASSESSMENT/PLAN: 67 year old male The following prevention plan was discussed during the office visit and provided to the patient: See below Ruby Seaman PA-C Chief Complaint Patient presents with: Medicare Wellness Exam HPI Michael Beltran is a 67 year old male who presents here today for extensive exam. Patient with hx of Elevated blood glucose, hyperlipidemia, chronic pain, Lumbar DDD, Depression/anxiety, anemia, and those as below. He denies specific concerns today. May be interested in seeing pain specialist. Decided not to follow with Dr. Tyler as he felt theyweren't a good match. Past medical history, appointments, medications, allergies reviewed. Previous Medical History PAST MEDICAL HISTORY Diagnosis Date Anemia of chronic disease 01/22/2021 Hg (11.5-12.8) since 2018 Arthritis 01/21/2021 Upper spine. Ex-smoker 01/21/2021 Started at age 14 up to 1.5 PPD and quit at age 52 JUSTO (generalized anxiety disorder) 01/21/2021 Major depressive disorder with single episode, in remission (HCC) 01/21/2021 Marijuana use 03/09/[address] eJan's office note 02/26/21 Medicare annual wellness visit, subsequent 01/21/2021 Medicare part B: Last done: 01/21/2021 Mixed hyperlipidemia 01/21/2021 Sensorineural hearing loss (SNHL) of left ear 01/21/2021 Previous Surgical History PAST SURGICAL HISTORY Procedure Laterality Date COLONOSCOPY 2013 repeat 10 years TONSILLECTOMY & ADENOIDECTOMY <AGE 10 1959 Family History FAMILY HISTORY Problem Relation Age of Onset Multiple Sclerosis Mother Stroke Mother Cancer Father lymphoma Hypertension Father Prostate Cancer Brother Dementia Maternal Grandmother Breast Cancer Paternal Grandmother Stroke Paternal Grandfather Colon Cancer No Family History Ovarian cancer No Family History Diabetes No Family History Hyperlipidemia No Family History Coronary Artery Disease No Family History Kidney Disease No Family History Seizures No Family History Thyroid No Family History Patient Allergies ALLERGIES Allergen Reactions Erythromycin Itching Ether Shortness of Breath Current Medications Current Outpatient Medications on File Prior to Visit Medication Sig Tadalafil (CIALIS) 20 mg tab(s) Take 1 tablet by mouth once daily. As needed venlafaxine ER (EFFEXOR XR) 75 mg 24 hr capsule Take 1 capsule by mouth three times daily. atorvastatin (LIPITOR) 20 mg tablet Take 1 tablet by mouth once daily. No current facility-administered medications on file prior to visit. Social History Social History Tobacco Use Smoking status: Former Smokeless tobacco: Never Substance Use Topics Alcohol use: Never Drug use: Yes Types: Marijuana Review of Symptoms REVIEW OF SYSTEMS GENERAL: No weight loss, malaise or fevers HEENT: No changes in hearing or vision, no nose bleeds or other nasal problems NECK: Negative for lumps, goiter, pain and significant neck swelling RESPIRATORY: Negative for cough, hemoptysis, wheezing, COPD, dyspnea or shortness of breath CARDIOVASCULAR: Negative for chest pain, leg swelling, hypertension, CHF or palpitations GI: Negative for abdominal discomfort, blood in stools or black stools, change in bowel habit, heart burn, nausea, vomiting : No history of dysuria, frequency or incontinence MUSCULOSKELETAL: back pain SKIN: Negative for lesions, rash, and itching PSYCH: Negative for sleep disturbance, mood disorder and recent psychosocial stressors, STABLE HEMATOLOGY/LYMPHOLOGY: Negative for prolonged bleeding, bruising easily or swollen nodes ENDOCRINE: Negative for cold or heat intolerance, polyuria, polydipsia and goiter NEURO: No history of headaches, syncope, paralysis, seizures or tremors EXAM: BP 104/78 (BP Site: Left Arm, BP Position: Sitting, BP Cuff Size: Regular Adult) Pulse 72 Temp 36.6 C (97.8 F) Resp 16 Ht 175.5 cm (5' 9.09) Wt 77.1 kg (170 lb) BMI 25.04 kg/m General Appearance: Well appearing, alert, in no acute distress, well-hydrated, well nourished.. Skin: Skin color, texture, turgor normal, no suspicious rashes or lesions. Head: Normocephalic, no masses, lesions, tenderness or abnormalities. Eyes: Anicteric sclera. Pupils are equally round and reactive to light. Extraocular movements are intact. . Ears: External ears normal, canals clear. Neck: Supple, no adenopathy; thyroid symmetric, normal size, no bruits. Lungs: Lungs clear to auscultation. No wheezing, rhonchi, rales.. Heart: RRR without murmur, gallop, or rubs. No ectopy. Abdomen: Normal abdominal exam, Abdomen soft, non-tender. Bowel sounds normal. No masses, organomegaly. Extremities: No deformities, edema, skin discoloration, clubbing or cyanosis. Good capillary refill. . Peripheral Pulses: Normal. Neurologic: Gait normal. Reflexes normal and symmetric. Sensation grossly intact.. Genitalia: Penis normal. No urethral discharge. Scrotum normal to palpation. No hernia.. Rectal: prostate smooth firm capsule. Slightly enlarged.. Health Maintenance List DTAP,TDAP,TD(1 - Tdap) Never done SHINGRIX VACCINE(1 of 2) Never done ADVANCE DIRECTIVE DISCUSSION Never done COVID-19 VACCINE(4 - Booster for Moderna series) due on 10/18/2021 INFLUENZA(1) due on 04/22/2022 COLORECTAL CANCER SCREENING due on 01/22/2023 DIABETES SCREEN due on 02/24/2025 LIPID SCREEN due on 02/24/2027 ABDOMINAL AORTIC ANEURYSM SCREENING Completed PNEUMOCOCCAL: 65+ Completed HEPATITIS C SCREENING Discontinued Data reviewed Component Latest Ref Rng & Units 02/24/2022 02/26/2022 WBC 3.70 - 11.00 k/uL 7.08 RBC 4.20 - 6.00 m/uL 4.41 Hemoglobin 13.0 - 17.0 g/dL 13.0 Hematocrit 39.0 - 51.0 % 40.3 MCV 80.0 - 100.0 fL 91.4 MCH 26.0 - 34.0 pg 29.5 MCHC 30.5 - 36.0 g/dL 32.3 RDW-CV 11.5 - 15.0 % 13.2 Platelet Count 150 - 400 k/uL 241 MPV 9.0 - 12.7 fL 10.7 Neut% % 43.5 Abs Neut (ANC) 1.45 - 7.50 k/uL 3.08 Lymph% % 33.5 Abs Lymph 1.00 - 4.00 k/uL 2.37 [place]% % 11.3 Abs [place] <0.87 k/uL 0.80 Eosin% % 10.3 Abs Eosin <0.46 k/uL 0.73 (H) Baso% % 1.1 Abs Baso <0.11 k/uL 0.08 Immature Gran % % 0.3 IMMATURE GRANS (ABS) <0.10 k/uL <0.03 NRBC /100 WBC 0.0 Absolute nRBC <0.01 k/uL <0.01 DTYPE Auto Protein, Total 6.3 - 8.0 g/dL 7.1 Albumin 3.9 - 4.9 g/dL 4.7 Calcium 8.5 - 10.2 mg/dL 9.5 Bilirubin, Total 0.2 - 1.3 mg/dL 0.4 Alkaline Phosphatase 38 - 113 U/L 78 AST 14 - 40 U/L 27 ALT 10 - 54 U/L 15 Glucose 74 - 99 mg/dL 82 BUN 9 - 24 mg/dL 7 (L) Creatinine 0.73 - 1.22 mg/dL 0.90 Sodium 136 - 144 mmol/L 131 (L) Potassium 3.7 - 5.1 mmol/L 4.3 Chloride 97 - 105 mmol/L 95 (L) CO2 22 - 30 mmol/L 27 Anion Gap 9 - 18 mmol/L 9 eGFR >=60 mL/min/1.73m 93 Color Yellow Light Yellow Clarity Clear Clear Glucose, Urine Negative Negative Bilirubin, Urine Negative Negative Ketones, Urine Negative Negative Specific [place], Ur 1.005 - 1.030 1.009 Hemoglobin/Blood,Ur Negative Negative pH, Urine 5.0 - 8.0 6.0 Protein, Urine Negative Negative Urobilinogen Negative Negative Nitrites Negative Negative Leukest Negative Negative WBC, Urine 0-5 /HPF 0-5 /HPF RBC, Urine 0-3 /HPF 0-3 /HPF Epithelial Cells /HPF Few Total Cholesterol, Nonfasting <200 mg/dL 184 Triglycerides, Nonfasting <150 mg/dL 96 HDL Cholesterol, Nonfasting >39 mg/dL 67 LDL Cholesterol, Nonfasting <100 mg/dL 98 Non HDL Cholesterol, Nonfasting <130 mg/dL 117 VLDL Cholesterol, Nonfasting <30 mg/dL 19 Total Chol/HDL Ratio, Nonfasting <5.10 mg/dL 2.75 LDL/HDL Ratio, Nonfasting <2.54 mg/dL 1.46 Hemoglobin A1C 4.3 - 5.6 % 5.4 Estimated Average Glucose mg/dL 108 TSH 0.270 - 4.200 mIU/L 3.710 Testosterone 193 - 824 ng/dL 598 Free T4 0.9 - 1.7 ng/dL 1.1 PSA <2.60 ng/mL 0.22 ASSESSMENT/PLAN: 1. Medicare annual wellness visit, subsequent - ICD9: V70.0, ICD10: Z00.00 (primary diagnosis) - Counseled on healthy diet and regular exercise - Follow up for annual exam in one year 2. Mixed hyperlipidemia - ICD9: 272.2, ICD10: E78.2 - good control - Encouraged following a low carbohydrate, healthy oil intake diet. - Continue current therapy. 3. Elevated blood sugar - ICD9: 790.29, ICD10: R73.9 Recent a1c normal 4. Anemia of chronic disease - ICD9: 285.29, ICD10: D63.8 Recent CBC wnl 5. Major depressive disorder with single episode, in remission (HCC) - ICD9: 296.25, ICD10: F32.5 stable 6. JUSTO (generalized anxiety disorder) - ICD9: 300.02, ICD10: F41.1 stable 7. Prostate disorder - ICD9: 602.9, ICD10: N42.9 8. Erectile dysfunction, unspecified erectile dysfunction type - ICD9: 607.84, ICD10: N52.9 stable 9. Chronic pain syndrome - ICD9: 338.4, ICD10: G89.4 Patient will consider if he wants consult to [facility] 10. Hyponatremia - ICD9: 276.1, ICD10: E87.1 Chronic-stable 11. Change in bowel habit - ICD9: 787.99, ICD10: R19.4 Set up with gen surgery - CONSULT TO GENERAL SURGERY 12. Advanced directives, counseling/discussion - ICD9: V65.49, ICD10: Z71.89 Paper given Ruby Seaman PA-C [facility] History of Present illness Narrative* Bola Durand MD - 02/24/2022 2:40 PM EDT Chief Complaint Patient presents with: Fatigue HPI Michael Beltran is a 66 year old male who presents here today for increased fatigue. Also experiencing 4-6 times a night for urinating and not able to get an erection. The fatigue has been going on for 2-4 years and he has never discussed with another provider or hadw/u completed. No FHx of thyroid disease. Thinks his depression has probably been worse for the past year. Has not noted increased anxiety though. Has been having frequency of urination during the day and night for several years (maybe 4). No dysuria, blood or incontinence. Stream strength has been less and harder to start his pee and complete it. Has post void dribbling. Sometimes has urgency. Has been having erectile issues for last 3 yearsbut seems worse and can not get interested. Rarely wakes in the Am with an erection. Has never had testosterone level checked. Past medical history, appointments, medications, allergies reviewed. Previous Medical History PAST MEDICAL HISTORY Diagnosis Date Anemia of chronic disease 01/22/2021 Hg (11.5-12.8) since 2018 Arthritis 01/21/2021 Upper spine. Ex-smoker 01/21/2021 Started at age 14 up to 1.5 PPD and quit at age 52 JUSTO (generalized anxiety disorder) 01/21/2021 Major depressive disorder with single episode, in remission (HCC) 01/21/2021 Marijuana use 03/09/[address] Jean's office note 02/26/21 Medicare annual wellness visit, subsequent 01/21/2021 Medicare part B: Last done: 01/21/2021 Mixed hyperlipidemia 01/21/2021 Sensorineural hearing loss (SNHL) of left ear 01/21/2021 Previous Surgical History PAST SURGICAL HISTORY Procedure Laterality Date COLONOSCOPY 2013 repeat 10 years REMOVE TONSILS/ADENOIDS,<12 Y/O 1959 Family History FAMILY HISTORY Problem Relation Age of Onset Multiple Sclerosis Mother Stroke Mother Cancer Father lymphoma Hypertension Father Prostate Cancer Brother Dementia Maternal Grandmother Breast Cancer Paternal Grandmother Stroke Paternal Grandfather Colon Cancer No Family History Ovarian cancer No Family History Diabetes No Family History Hyperlipidemia No Family History Coronary Artery Disease No Family History Kidney Disease No Family History Seizures No Family History Thyroid No Family History Patient Allergies ALLERGIES Allergen Reactions Erythromycin Itching Ether Shortness of Breath Current Medications Current Outpatient Medications on File Prior to Visit Medication Sig venlafaxine ER (EFFEXOR XR) 75 mg 24 hr capsule Take 1 capsule by mouth three times daily. atorvastatin (LIPITOR) 20 mg tablet Take 1 tablet by mouth once daily. No current facility-administered medications on file prior to visit. Social History Social History Tobacco Use Smoking status: Former Smoker Smokeless tobacco: Never Used Substance Use Topics Alcohol use: Never Drug use: Yes Types: Marijuana Review of Symptoms REVIEW OF SYSTEMS See HPI EXAM: BP 118/84 (BP Site: Left Arm, BP Position: Sitting, BP Cuff Size: Regular Adult) Pulse 72 Resp 14 Ht 174 cm (5' 8.5) Wt 76.2 kg (168 lb) BMI 25.17 kg/m General Appearance: Well appearing, alert, in no acute distress, well-hydrated, well nourished.. Neck: Supple, no adenopathy; thyroid symmetric, normal size, no bruits. Lungs: Lungs clear to auscultation. No wheezing, rhonchi, rales.. Heart: RRR without murmur, gallop, or rubs. No ectopy. Genitalia: Normal, Penis normal. No urethral discharge. Scrotum normal to palpation.. Health Maintenance List DTAP,TDAP,TD(1 - Tdap) Never done SHINGRIX VACCINE(1 of 2) Never done PNEUMOCOCCAL: 65+(1 - PCV) Never done COVID-19 VACCINE(3 - Booster for Moderna series) due on 04/19/2021 ADVANCE DIRECTIVE DISCUSSION Never done INFLUENZA(1) due on 04/22/2022 COLORECTAL CANCER SCREENING due on 01/22/2023 DIABETES SCREEN due on 01/22/2024 LIPID SCREEN due on 01/21/2026 PROSTATE CANCER SCREENING DISCUSSION due on 01/21/2026 ABDOMINAL AORTIC ANEURYSM SCREENING Completed HEPATITIS C SCREENING Discontinued Data reviewed A/P ASSESSMENT/PLAN: 1. Erectile dysfunction, unspecified erectile dysfunction type - ICD9: 607.84, ICD10: N52.9 (primary diagnosis) Check - TESTOSTERONE TOTAL discussed potential causes. - Will try celexa 2. Fatigue, unspecified type - ICD9: 780.79, ICD10: R53.83 Check - TSH BLD - T4 FREE/FREE THYROX - CBC + DIFF 3. Encounter for immunization - ICD9: V03.89, ICD10: Z23 - PNEUMOCOCCAL VACCINE (PREVNAR 20): given Signed Prescriptions Disp Refills Tadalafil (CIALIS) 20 mg tab(s) 30 tablet 2 Sig: Take 1 tablet by mouth once daily. As needed F/u in the next month for extensive and get labs. May need depression medication adjusted. I spent a total of 30 minutes on the date of the service which included preparing to see the patient, [id number] patient care, completing clinical documentation, performing a medically appropriate examination, counseling and educating the patient/family/caregiver and ordering medications, tests, or procedures. Bola Durand MD [facility]* Diagnosis Erectile dysfunction, unspecified erectile dysfunction type- Primary Fatigue, unspecified type Encounter for immunization Need for other specified prophylactic vaccination against single bacterial disease Mixed hyperlipidemia Anemia of chronic disease Anemia of other chronic disease Prostate disorder Unspecified disorder of prostate Elevated blood sugar Other abnormal glucose [facility]* Diagnosis Medicare annual wellness visit, subsequent- Primary Routine general medical examination at a health care facility Mixed hyperlipidemia Elevated blood sugar Other abnormal glucose Anemia of chronic disease Anemia of other chronic disease Major depressive disorder with single episode, in remission (HCC) JUSTO (generalized anxiety disorder) Generalized anxiety disorder Prostate disorder Unspecified disorder of prostate Erectile dysfunction, unspecified erectile dysfunction type Chronic pain syndrome Hyponatremia Hyposmolality and/or hyponatremia Change in bowel habit Advanced directives, counseling/discussion Other specified counseling [facility] Diagnosis Change in bowel habit [facility]* Diagnosis Hyperplastic polyp of sigmoid colon- Primary [facility]* Diagnosis Medicare annual wellness visit, subsequent- Primary Routine general medical examination at a [facility] care facility Mixed hyperlipidemia Anemia of chronic disease Anemia of other chronic disease Major depressive disorder with single episode, in remission (HCC) JUSTO (generalized anxiety disorder) Generalized anxiety disorder Chronic pain syndrome Elevated blood sugar Other abnormal glucose Advanced directives, counseling/discussion Other specified counseling Fatigue, unspecified type Prostate disorder Unspecified disorder of prostate Impacted cerumen of right ear Impacted cerumen [facility]* Diagnosis COVID-19- Primary [facility]* Diagnosis Epididymo-orchitis- Primary Orchitis and epididymitis, unspecified Testicular swelling, right Edema of male genital organs [facility]* Diagnosis Epididymitis, right- Primary Orchitis and epididymitis, unspecified [facility]* Diagnosis Medicare annual wellness visit, subsequent- Primary Routine general medical examination at a [facility] care facility Mixed hyperlipidemia Anemia of chronic disease Anemia of other chronic disease Elevated blood sugar Other abnormal glucose JUSTO (generalized anxiety disorder) Generalized anxiety disorder Major depressive disorder with single episode, in remission (HCC) Hyponatremia Hyposmolality and/or hyponatremia Erectile dysfunction, unspecified erectile dysfunction type Advanced directives, counseling/discussion Other specified counseling Chronic midline low back 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 Medication management Encounter for long-term (current) use of other medications Prostate disorder Unspecified disorder of prostate [facility]* Diagnosis Chronic midline low back 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- Primary [facility]* Diagnosis Chronic midline low back 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- Primary [facility]* Diagnosis Chronic midline low back 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- Primary [facility]* Diagnosis Chronic midline low back 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- Primary [facility]* Diagnosis Influenza-like illness- Primary Influenza with other respiratory manifestations Wheezing [facility]* Diagnosis Bronchopneumonia- Primary Bronchopneumonia, organism unspecified [facility]* Diagnosis Syncope and collapse- Primary Syncope, unspecified syncope type Orthostatic hypotension Pneumonia of both lower lobes due to infectious organism Syncope and collapse Other specified symptoms and signs involving the circulatory and respiratory systems documented in this encounter [facility] Work Phone: Evaluation note* Diagnosis Bacterial pneumonia- Primary Bacterial pneumonia, unspecified Syncope, unspecified syncope type Hypotension, unspecified hypotension type Fall, initial encounter Marijuana use Cannabis abuse, unspecified documented in [facility] encounter [facility]* Diagnosis Fall, initial encounter documented in this encounter [facility]* Diagnosis Bacterial pneumonia- Primary Bacterial pneumonia, unspecified Chronic midline low back 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 Compression fracture of L4 vertebra, initial encounter ([facility]) Chronic sinusitis, unspecified location documented in this encounter [facility] note* Diagnosis Loss of consciousness (HCC)- Primary Other alteration of consciousness Syncope, unspecified syncope type Compression fracture of L4 vertebra, initial encounter ([facility]) documented in this encounter [facility] note* Diagnosis Bacterial pneumonia Bacterial pneumonia, unspecified documented in this encounter [facility] note* Diagnosis Myofascial pain syndrome of lumbar spine- Primary Chronic midline low back 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 Compression fracture of L4 vertebra, initial encounter ([facility]) documented in this encounter [facility] note* Diagnosis Asthmatic bronchitis without complication, unspecified asthma severity, unspecified whether persistent (HCC)- Primary Wheezing History of syncope Other specified personal history presenting hazards to health documented in this encounter [facility] note* Diagnosis Wheezing Asthmatic bronchitis without complication, unspecified asthma severity, unspecified whether persistent ([facility]) documented in this encounter [facility] note* Diagnosis Mild intermittent extrinsic asthma without complication ([facility])- Primary Encounter for immunization Need for other specified prophylactic vaccination against single bacterial disease Syncope and collapse documented in this encounter [facility] Discharge instructions* Attachments The following attachments cannot be sent through Care Everywhere. * Fainting, Adult ED ([place]) [facility] Work [facility]: Reason for referral (narrative)* Outpatient Procedure (Routine) - Authorized Specialty Diagnoses / Procedures Referred By Lei t Referred To Contact [facility] Diagnoses Change in bowel habit Procedures COLONOSCOPY DIAGNOSTIC COLONOSCOPY FLX DX W/COLLJ SPEC WHEN PFRMD Shey Roman MD [address] [place] [address] [facility] [address] [place] [address] Referral ID Status Reason Start Date Expiration Date Visits Requested Visits Authorized [id number] Authorized Auto-Generat ed Referral 04/30/2022 04/30/2023 1 1 [facility] for referral (narrative)* Diagnostic Procedure Only (Urgent) - Closed Specialty Diagnoses / Procedures Referred By Contac t Referred To Contact [facility] Diagnoses Testicular swelling, right Procedures US SCROTUM AND CONTENTS US SCROTUM & CONTENTS Carloz Jessica APRN.DESK SERGEANT [address] [place] [address] [place] [address] Referral ID Status Reason Start Date Expiration Date V isits Requested Visits Authorized [id number] Closed Auto-Generate d Referral 10/12/2023 11/10/2024 1 1 [facility] for referral (narrative)No reason for referral information [facility] Work Phone: Reason for visit Narrative* Diagnostic Procedure Only (Urgent) - Closed Specialty Diagnoses / Procedures Referred By Contac t Referred To Contact [facility] Diagnoses Testicular swelling, right Procedures US SCROTUM AND CONTENTS US SCROTUM & CONTENTS Carloz Jessica APRN.DESK SERGEANT [address] [place] [address] [place] [address] Referral ID Status Reason Start Date Expiration Date V isits Requested Visits Authorized [id number] Closed Auto-Generate d Referral 10/12/2023 11/10/2024 1 1 [facility] for visit Narrative* Diagnostic Procedure Only (Routine) - Closed Specialty Diagnoses / Procedures Referred By Contac t Referred To Contact [facility] Diagnoses Fall, initial encounter Procedures XR LUMBAR GENERAL 3V AP/LAT/L5-S1 RADEX SPINE LUMBOSACRAL 2/3 VIEWS Ruby Seaman PA-C [address] [place] [address] Phone: tel: fax: [place] [address] Referral ID Status Reason Start Date Expiration Date V isits Requested Visits Authorized [id number] Closed Auto-Generate d Referral 10/18/2024 11/17/2025 1 1 [facility] Summary Purpose Family History No Family History Records Found Relationship Condition Age at Onset Recorded Date/T shanita father Hypertension Unknown Malignant neoplasm Unknown brother Malignant neoplasm Unknown grandmother Malignant neoplasm Unknown Dementia Unknown grandfather Cerebrovascular accident (CVA) Unknown mother Cerebrovascular accident (CVA) Unknown Multiple sclerosis Unknown Advance Directives No Advanced Directives Records FoundDocuments on File Type Date 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 Advance Directive(s) 11/11/2019 1:58 PM Advance Directive(s) 11/10/2019 11:11 PM Date Activated Date Inactivated Comments 10/11/2024 10:39 AM Question Answer Comments Plan of Care: Code Status Discussion Not Compl eted Decision Maker: Provider Rationale: Patient condition does not warra nt discussion Reason for Referral Specialty Diagnoses / Procedures Referred By Lei t Referred To Contact [facility] Surgery Diagnoses Change in bowel habit Procedures CONSULT TO GENERAL SURGERY OFFICE/OUTPATIENT NEW HIGH MDM 60-74 MINUTES Ruby Seaman PA-C [address] [place] [address] Referral ID Status Reason Start Date Expiration Date Visits Requested Visits Authorized [id number] Pending Review PCP Requested Referral 04/22/2022 04/22/2023 1 1 Specialty Diagnoses / Procedures Referred By Lei t Referred To Contact [facility] Diagnoses Chronic midline low back 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 Procedures CONSULT TO PHYSICAL THERAPY PHYSICAL THERAPY EVALUATION HIGH COMPLEX 45 MINS Bola Durand MD [address] [place] [address] [facility] [address] [place] [address] Referral ID Status Reason Start Date Expiration Date Visits Requested Visits Authorized [id number] Authorized Auto-Generat ed Referral 08/22/2023 08/21/2024 20 20 Chief Complaint and Reason for Visit Chief Complaint Admit Date SYNCOPE & COLLAPSE (LISA) November 20, 2024 11:06am SYNCOPE, COLLAPSE December 14, 2024 6:0 4am SYNCOPE, COLLAPSE December 14, 2024 10: 19am SYNCOPE AND COLLAPSE/stat labs before [facility] 2024 10:06am SYNCOPE AND COLLAPSE/stat labs before [facility] 2024 4:59pm Amb Documentation February 07, 2025 3:01 pm Reason for Visit Admit Date Carotid artery disease November 20, 2024 1 1:06am Dyslipidemia November 20, 2024 11:0 6am Subclavian artery stenosis November 20 11:06am Syncope and collapse November 20, 2024 11: 06am Chief Complaint Admit Date SYNCOPE & COLLAPSE (SEAMAN) November 20, 2024 11:06am SYNCOPE, COLLAPSE December 14, 2024 6:0 4am SYNCOPE, COLLAPSE December 14, 2024 10: 19am SYNCOPE AND COLLAPSE/stat labs before [facility] 2024 10:06am SYNCOPE AND COLLAPSE/stat labs before [facility] 2024 4:59pm Amb Documentation February 07, 2025 3:01 pm 3 M FU March 01, 2025 11:1 3am Reason for Visit Admit Date Carotid artery disease November 20, 2024 1 1:06am Dyslipidemia November 20, 2024 11:0 6am Subclavian artery stenosis November 20 11:06am Syncope and collapse November 20, 2024 11: 06am Carotid artery disease March 01, 2025 1 1:13am Dyslipidemia March 01, 2025 11:1 3am Subclavian artery stenosis March 01 11:13am Syncope and collapse March 01, 2025 11: 13am Additional Source Comments (unrecognized sect ion and content) No Status Records FoundNo Status Records FoundNo Status Records FoundNo Status Records FoundNo Status Records FoundNo Status Records Found INFORMATION SOURCE (unrecogn ized section and content) DATE CREATED AUTHOR 02/09/2018 [facility] DATE CREATED AUTHOR AUTHOR'S ORGANIZ ATION 10/20/2023 [facility] DATE CREATED AUTHOR AUTHOR'S ORGANIZ ATION 10/15/2024 [facility] DATE CREATED AUTHOR AUTHOR'S ORGANIZ ATION 11/15/2024 [facility] DATE CREATED AUTHOR AUTHOR'S ORGANIZ ATION 03/04/2025 [facility] DATE CREATED AUTHOR AUTHOR'S JANAE WAHL 03/07/2025 [facility] Source Comments (unrecognize d section and content) In the event this informatio n is protected by the Federal Confidentiality of Alcohol and Drug Abuse Patient Records regulations: The Federal rules restrict any use of the information to criminally investigate or prosecute any alcohol or drug abuse patient.[facility] the event this information is protected by the Federal Confidentiality of Alcohol and Drug Abuse Patient Records regulations: The Federal rules restrict any use of the information to criminally investigate or prosecute any alcohol or drug abuse patient.[facility] the event this information is protected by the Federal Confidentiality of Alcohol and Drug Abuse Patient Records regulations: The Federal rules restrict any use of the information to criminally investigate or prosecute any alcohol or drug abuse patient.[facility] the event this information is protected by the Federal Confidentiality of Alcohol and Drug Abuse Patient Records regulations: The Federal rules restrict any use of the information to criminally investigate or prosecute any alcohol or drug abuse patient.[facility] the event this information is protected by the Federal Confidentiality of Alcohol and Drug Abuse Patient Records regulations: The Federal rules restrict any use of the information to criminally investigate or prosecute any alcohol or drug abuse patient.[facility] the event this information is protected by the Federal Confidentiality of Alcohol and Drug Abuse Patient Records regulations: The Federal rules restrict any use of the information to criminally investigate or prosecute any alcohol or drug abuse patient.[facility] Center[facility] the event this information is protected by the Federal Confidentiality of Alcohol and Drug Abuse Patient Records regulations: The Federal rules restrict any use of the information to criminally investigate or prosecute any alcohol or drug abuse patient.[facility] Center[facility] the event this information is protected by the Federal Confidentiality of Alcohol and Drug Abuse Patient Records regulations: The Federal rules restrict any use of the information to criminally investigate or prosecute any alcohol or drug abuse patient.[facility] the event this information is protected by the Federal Confidentiality of Alcohol and Drug Abuse Patient Records regulations: The Federal rules restrict any use of the information to criminally investigate or prosecute any alcohol or drug abuse patient.[facility] Center[facility] the event this information is protected by the Federal Confidentiality of Alcohol and Drug Abuse Patient Records regulations: The Federal rules restrict any use of the information to criminally investigate or prosecute any alcohol or drug abuse patient.[facility] the event this information is protected by the Federal Confidentiality of Alcohol and Drug Abuse Patient Records regulations: The Federal rules restrict any use of the information to criminally investigate or prosecute any alcohol or drug abuse patient.[facility] the event this information is protected by the Federal Confidentiality of Alcohol and Drug Abuse Patient Records regulations: The Federal rules restrict any use of the information to criminally investigate or prosecute any alcohol or drug abuse patient.[facility] Center[facility] the event this information is protected by the Federal Confidentiality of Alcohol and Drug Abuse Patient Records regulations: The Federal rules restrict any use of the information to criminally investigate or prosecute any alcohol or drug abuse patient.[facility] Center[facility] the event this information is protected by the Federal Confidentiality of Alcohol and Drug Abuse Patient Records regulations: The Federal rules restrict any use of the information to criminally investigate or prosecute any alcohol or drug abuse patient.[facility] Center[facility] the event this information is protected by the Federal Confidentiality of Alcohol and Drug Abuse Patient Records regulations: The Federal rules restrict any use of the information to criminally investigate or prosecute any alcohol or drug abuse patient.[facility] the event this information is protected by the Federal Confidentiality of Alcohol and Drug Abuse Patient Records regulations: The Federal rules restrict any use of the information to criminally investigate or prosecute any alcohol or drug abuse patient.[facility] CenterIn the event this information is protected by the Federal Confidentiality of Alcohol and Drug Abuse Patient Records regulations: The Federal rules restrict any use of the information to criminally investigate or prosecute any alcohol or drug abuse patient.[facility] CenterIn the event this information is protected by the Federal Confidentiality of Alcohol and Drug Abuse Patient Records regulations: The Federal rules restrict any use of the information to criminally investigate or prosecute any alcohol or drug abuse patient.[facility] CenterIn the event this information is protected by the Federal Confidentiality of Alcohol and Drug Abuse Patient Records regulations: The Federal rules restrict any use of the information to criminally investigate or prosecute any alcohol or drug abuse patient.[facility] CenterIn the event this information is protected by the Federal Confidentiality of Alcohol and Drug Abuse Patient Records regulations: The Federal rules restrict any use of the information to criminally investigate or prosecute any alcohol or drug abuse patient.[facility] CenterIn the event this information is protected by the Federal Confidentiality of Alcohol and Drug Abuse Patient Records regulations: The Federal rules restrict any use of the information to criminally investigate or prosecute any alcohol or drug abuse patient.[facility] CenterIn the event this information is protected by the Federal Confidentiality of Alcohol and Drug Abuse Patient Records regulations: The Federal rules restrict any use of the information to criminally investigate or prosecute any alcohol or drug abuse patient.[facility] CenterIn the event this information is protected by the Federal Confidentiality of Alcohol and Drug Abuse Patient Records regulations: The Federal rules restrict any use of the information to criminally investigate or prosecute any alcohol or drug abuse patient.[facility] CenterIn the event this information is protected by the Federal Confidentiality of Alcohol and Drug Abuse Patient Records regulations: The Federal rules restrict any use of the information to criminally investigate or prosecute any alcohol or drug abuse patient.[facility] CenterIn the event this information is protected by the Federal Confidentiality of Alcohol and Drug Abuse Patient Records regulations: The Federal rules restrict any use of the information to criminally investigate or prosecute any alcohol or drug abuse patient.[facility] CenterIn the event this information is protected by the Federal Confidentiality of Alcohol and Drug Abuse Patient Records regulations: The Federal rules restrict any use of the information to criminally investigate or prosecute any alcohol or drug abuse patient.[facility] CenterIn the event this information is protected by the Federal Confidentiality of Alcohol and Drug Abuse Patient Records regulations: The Federal rules restrict any use of the information to criminally investigate or prosecute any alcohol or drug abuse patient.[facility] CenterIn the event this information is protected by the Federal Confidentiality of Alcohol and Drug Abuse Patient Records regulations: The Federal rules restrict any use of the information to criminally investigate or prosecute any alcohol or drug abuse patient.[facility] CenterIn the event this information is protected by the Federal Confidentiality of Alcohol and Drug Abuse Patient Records regulations: The Federal rules restrict any use of the information to criminally investigate or prosecute any alcohol or drug abuse patient.[facility] CenterIn the event this information is protected by the Federal Confidentiality of Alcohol and Drug Abuse Patient Records regulations: The Federal rules restrict any use of the information to criminally investigate or prosecute any alcohol or drug abuse patient.[facility] CenterIn the event this information is protected by the Federal Confidentiality of Alcohol and Drug Abuse Patient Records regulations: The Federal rules restrict any use of the information to criminally investigate or prosecute any alcohol or drug abuse patient.[facility] CenterIn the event this information is protected by the Federal Confidentiality of Alcohol and Drug Abuse Patient Records regulations: The Federal rules restrict any use of the information to criminally investigate or prosecute any alcohol or drug abuse patient.[facility] CenterIn the event this information is protected by the Federal Confidentiality of Alcohol and Drug Abuse Patient Records regulations: The Federal rules restrict any use of the information to criminally investigate or prosecute any alcohol or drug abuse patient.[facility] CenterIn the event this information is protected by the Federal Confidentiality of Alcohol and Drug Abuse Patient Records regulations: The Federal rules restrict any use of the information to criminally investigate or prosecute any alcohol or drug abuse patient.[facility] CenterIn the event this information is protected by the Federal Confidentiality of Alcohol and Drug Abuse Patient Records regulations: The Federal rules restrict any use of the information to criminally investigate or prosecute any alcohol or drug abuse patient.[facility] CenterIn the event this information is protected by the Federal Confidentiality of Alcohol and Drug Abuse Patient Records regulations: The Federal rules restrict any use of the information to criminally investigate or prosecute any alcohol or drug abuse patient.[facility] CenterIn the event this information is protected by the Federal Confidentiality of Alcohol and Drug Abuse Patient Records regulations: The Federal rules restrict any use of the information to criminally investigate or prosecute any alcohol or drug abuse patient.[facility] CenterIn the event this information is protected by the Federal Confidentiality of Alcohol and Drug Abuse Patient Records regulations: The Federal rules restrict any use of the information to criminally investigate or prosecute any alcohol or drug abuse patient.[facility] CenterIn the event this information is protected by the Federal Confidentiality of Alcohol and Drug Abuse Patient Records regulations: The Federal rules restrict any use of the information to criminally investigate or prosecute any alcohol or drug abuse patient.[facility] CenterIn the event this information is protected by the Federal Confidentiality of Alcohol and Drug Abuse Patient Records regulations: The Federal rules restrict any use of the information to criminally investigate or prosecute any alcohol or drug abuse patient.[facility] CenterIn the event this information is protected by the Federal Confidentiality of Alcohol and Drug Abuse Patient Records regulations: The Federal rules restrict any use of the information to criminally investigate or prosecute any alcohol or drug abuse patient.[facility] CenterIn the event this information is protected by the Federal Confidentiality of Alcohol and Drug Abuse Patient Records regulations: The Federal rules restrict any use of the information to criminally investigate or prosecute any alcohol or drug abuse patient.[facility] CenterIn the event this information is protected by the Federal Confidentiality of Alcohol and Drug Abuse Patient Records regulations: The Federal rules restrict any use of the information to criminally investigate or prosecute any alcohol or drug abuse patient.[facility] CenterIn the event this information is protected by the Federal Confidentiality of Alcohol and Drug Abuse Patient Records regulations: The Federal rules restrict any use of the information to criminally investigate or prosecute any alcohol or drug abuse patient.[facility] CenterIn the event this information is protected by the Federal Confidentiality of Alcohol and Drug Abuse Patient Records regulations: The Federal rules restrict any use of the information to criminally investigate or prosecute any alcohol or drug abuse patient.[facility] CenterIn the event this information is protected by the Federal Confidentiality of Alcohol and Drug Abuse Patient Records regulations: The Federal rules restrict any use of the information to criminally investigate or prosecute any alcohol or drug abuse patient.[facility] CenterIn the event this information is protected by the Federal Confidentiality of Alcohol and Drug Abuse Patient Records regulations: The Federal rules restrict any use of the information to criminally investigate or prosecute any alcohol or drug abuse patient.[facility] CenterIn the event this information is protected by the Federal Confidentiality of Alcohol and Drug Abuse Patient Records regulations: The Federal rules restrict any use of the information to criminally investigate or prosecute any alcohol or drug abuse patient.[facility] CenterIn the event this information is protected by the Federal Confidentiality of Alcohol and Drug Abuse Patient Records regulations: The Federal rules restrict any use of the information to criminally investigate or prosecute any alcohol or drug abuse patient.[facility] CenterIn the event this information is protected by the Federal Confidentiality of Alcohol and Drug Abuse Patient Records regulations: The Federal rules restrict any use of the information to criminally investigate or prosecute any alcohol or drug abuse patient.[facility] CenterIn the event this information is protected by the Federal Confidentiality of Alcohol and Drug Abuse Patient Records regulations: The Federal rules restrict any use of the information to criminally investigate or prosecute any alcohol or drug abuse patient.[facility] CenterIn the event this information is protected by the Federal Confidentiality of Alcohol and Drug Abuse Patient Records regulations: The Federal rules restrict any use of the information to criminally investigate or prosecute any alcohol or drug abuse patient.[facility] CenterIn the event this information is protected by the Federal Confidentiality of Alcohol and Drug Abuse Patient Records regulations: The Federal rules restrict any use of the information to criminally investigate or prosecute any alcohol or drug abuse patient.[facility] CenterIn the event this information is protected by the Federal Confidentiality of Alcohol and Drug Abuse Patient Records regulations: The Federal rules restrict any use of the information to criminally investigate or prosecute any alcohol or drug abuse patient.[facility] CenterIn the event this information is protected by the Federal Confidentiality of Alcohol and Drug Abuse Patient Records regulations: The Federal rules restrict any use of the information to criminally investigate or prosecute any alcohol or drug abuse patient.[facility] Reason for Visit (unrecogniz ed section and content) Reason Comments Physical Therapy Specialty Diagnoses / Procedures Referred By Lei t Referred To Contact [facility] Diagnoses Chronic midline low back 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 Procedures CONSULT TO PHYSICAL THERAPY PHYSICAL THERAPY EVALUATION HIGH COMPLEX 45 MINS Bola Durand MD [address] [place] [address] [facility] [address] [place] [address] Referral ID Status Reason Start Date Expiration Date Visits Requested Visits Authorized [id number] Authorized Auto-Generat ed Referral 08/22/2023 08/21/2024 20 20 Reason Comments Fatigue Patient indicated th at he has been experiencing increased fatigue. Reason Comments Medicare Wellness Exam Reason Comments Consult Colonoscopy Specialty Diagnoses / Procedures Referred By Lei mello Referred To Contact General Surgery Diagnoses Change in bowel habit Procedures CONSULT TO GENERAL SURGERY OFFICE/OUTPATIENT [facility] MDM 60-74 MINUTES Ruby Seaman PA-C [address] [place] [address] Referral ID Status Reason Start Date Expiration Date Visits Requested Visits Authorized [id number] Pending Review PCP Requested Referral 04/22/2022 04/22/2023 1 1 Reason Comments Follow Up Colonoscopy results Reason Onset Date Comments Refill Request 09/02/2022 Reason Onset Date Comments Refill Request 03/22/2023 Reason Comments Medicare Wellness Exam Reason Comments Results Reason Onset Date Comments Refill Request 05/05/2023 Reason Onset Date Comments Refill Request 09/27/2023 Reason Comments Covid Positive Reason Comments Penis/Scrotum Problem Reason Comments right groin pain Right groin pain and right testicular swelling x 1 day Reason Comments Follow Up Reason Onset Date Comments Population Health Navigation Outreach 02/16/2024 Van [facility] CUR[facility]OST[facility] workbench - AW[facility], [facility] gap closure - Vania PCSA Reason Onset Date Comments Refill Request 03/27/2024 Reason Onset Date Comments Refill Request 04/20/2024 Reason Onset Date Comments Refill Request 04/30/2024 Reason Comments PT Eval Reason Onset Date Comments Refill Request 09/16/2024 Reason Comments Cough Fever, chest congest ion, SOB x last night Reason Comments Nasal Congestion drainage, cough, fev er x 6 days Reason Comments Fall Per EMS pt. With unw itnessed fall in restroom. heard him and called 911. Pt. Is very poor historian, unsure of baseline. Pt. Does not have any complaints at this time. Pt. Does not have any recollection of fall. Pt. Is alert and communicating with staff, but is not oriented. C-Collar in place Specialty Diagnoses / Procedures Referred By Contac t Referred To Contact Diagnoses Orthostatic hypotension Pneumonia of both lower lobes due to infectious organism Syncope, unspecified syncope type Procedures Jameson Harvey MD [address] [place] [address] Phone: tel: fax: [facility] [address] [place] [address] Phone: tel: Referral ID Status Reason Start Date Expiration Date Visits Re quested Visits Authorized [id number] 1 1 Reason Comments Hospital F/U Reason Comments Patient Update Reason Comments New Patient Syncope episodes, Specialty Diagnoses / Procedures Referred By Contac t Referred To Contact Neurology Diagnoses Syncope, unspecified syncope type Procedures CONSULT TO NEUROLOGY OFFICE/OUTPATIENT [facility] 60 MINUTES Ruby Seaman PA-C [address] [place] [address] Phone: tel: fax: Referral ID Status Reason Start Date Expiration Date V isits Requested Visits Authorized [id number] Closed PCP Requested Referral 10/18/2024 10/18/2025 1 1 Reason Comments Back Pain Specialty Diagnoses / Procedures Referred By Lei mello Referred To Contact [facility] Diagnoses Chronic midline low back 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 Compression fracture of L4 vertebra, initial encounter (HCC) Procedures CONSULT TO [facility] OFFICE/OUTPATIENT [facility] 60 MINUTES Ruby Seaman PA-C [address] [place] [address] Phone: tel: fax: Referral ID Status Reason Start Date Expiration Date V isits Requested Visits Authorized [id number] Closed PCP Requested Referral 10/23/2024 10/23/2025 1 1 Reason Comments Orders Back brace Reason Onset Date Comments Refill Request 11/13/2024 Reason Comments Consult Outside consult - Ca rdiology Reason Comments Patient Update Reason Comments Cough Reason Onset Date Comments Refill Request 01/23/2025 Reason Onset Date Comments Refill Request 01/24/2025 Reason Comments Results Outside labs Reason Comments Follow Up Inhaler use Reason Comments Outside Cardiology Care Teams (unrecognized sec tion and content) Face Cleaner Relationship Specialty Start Date End Date Bola Durand MD [address] [place] [address] PCP - General Family Practice 01/21/21 Face Cleaner Relationship Specialty Start Date End Date Bola Durand MD [address] [place] [address] PCP - General Family Practice 01/21/21 Face Cleaner Relationship Specialty Start Date End Date Bola Durand MD [address] [place] [address] PCP - General Family Practice 01/21/21 Face Cleaner Relationship Specialty [place] [address] [place] [address] PCP - General Family Medicine 01/21/21 Face Cleaner Relationship Specialty Start Date End Date Bola Durand MD [address] [place] [address] PCP - General Family Medicine 01/21/21 Face Cleaner Relationship Specialty Start Date End Date Bola Durand MD [address] [place] [address] PCP - General Family Medicine 01/21/21 Face Cleaner Relationship Specialty Start Date End Date Bola Durand MD [address] [place] [address] PCP - General Family Medicine 01/21/21 Face Cleaner Relationship Specialty Start Date End Date Bola Durand MD [address] [place] [address] PCP - General Family Medicine 01/21/21 Face Cleaner Relationship Specialty Start Date End Date Bola Durand MD [address] [place] [address] PCP - General Family Medicine 01/21/21 Face Cleaner Relationship Specialty Start Date End Date Bola Durand MD [address] [place] [address] PCP - General Family Medicine 01/21/21 Face Cleaner Relationship Specialty Start Date End Date Bola uDrand MD [address] [place] [address] PCP - General Family Medicine 01/21/21 Face Cleaner Relationship Specialty Start Date End Date Bola Durand MD [address] [place] [address] PCP - General Family Medicine 01/21/21 Face Cleaner Relationship Specialty Start Date End Date Bola Durand MD [address] [place] [address] PCP - General Family Medicine 01/21/21 Face Cleaner Relationship Specialty Start Date End Date Bola Durand MD [address] [place] [address] PCP - General Family Medicine 01/21/21 Face Cleaner Relationship Specialty Start Date End Date Bola Durand MD [address] [place] [address] PCP - General Family Medicine 01/21/21 Face Cleaner Relationship Specialty Start Date End Date Bola Durand MD [address] [place] [address] PCP - General Family Medicine 01/21/21 Face Cleaner Relationship Specialty Start Date End Date Bola Durand MD [address] [place] [address] PCP - General Family Medicine 01/21/21 Face Cleaner Relationship Specialty Start Date End Date Bola Durand MD [address] [place] [address] PCP - General Family Medicine 01/21/21 Face Cleaner Relationship Specialty Start Date End Date Bola Durand MD [address] [place] [address] PCP - General Family Medicine 01/21/21 Face Cleaner Relationship Specialty Start Date End Date Bola Durand MD [address] [place] [address] PCP - General Family Medicine 01/21/21 Linda Jung APRN.DESK SERGEANT [address] [facility] [place] [address] Life Sciences Director Family Medicine 07/28/24 Ruby Seaman PA-C [address] [place] [address] Life Sciences Director Family Medicine 07/28/24 Face Cleaner Relationship Specialty Start Date End Date Bola Durand MD [address] [place] [address] PCP - General Family Medicine 01/21/21 Linda Jung APRN.DESK SERGEANT [address] [place] [address] Life Sciences Director Family Medicine 07/28/24 Ruby Seaman PA-C [address] [place] [address] Life Sciences Director Family Medicine 07/28/24 Face Cleaner Relationship Specialty Start Date End Date Bola Durand MD [address] [place] [address] PCP - General Family Medicine 01/21/21 Linda Jung, CHRISTINA.DESK SERGEANT [address] [place] [address] Life Sciences Director Family Medicine 07/28/24 Ruby Seaman PA-C [address] [place] [address] Life Sciences Director Family Medicine 07/28/24 Face Cleaner Relationship Specialty Start Date End Date Bola Durand MD [address] [place] [address] PCP - General Family Medicine 01/21/21 Linda Jung APRN.DESK SERGEANT [address] [place] [address] Life Sciences Director Family Medicine 07/28/24 Ruby Seaman PA-C [address] [place] [address] Life Sciences Director Family Medicine 07/28/24 Face Cleaner Relationship Specialty Start Date End Date Bola Durand MD [address] [place] [address] PCP - General Family Medicine 10/11/24 Face Cleaner Relationship Specialty Start Date End Date Bola Durand MD [address] [place] [address] PCP - General Family Medicine 01/21/21 Linda Jung APRN.DESK SERGEANT [address] [place] [address] Life Sciences Director Family Medicine 07/28/24 Ruby Seaman PA-C [address] [place] [address] Life Sciences Director Family Medicine 07/28/24 Face Cleaner Relationship Specialty Start Date End Date Bola Durand MD [address] [place] [address] PCP - General Family Medicine 01/21/21 Linda Jung APRN.DESK SERGEANT [address] [place] [address] Life Sciences Director Family [facility] 07/28/24 Ruby Seaman PA-C [address] [place] [address] [facility] 07/28/24 Face Cleaner Relationship Specialty Start Date End Date Bola Durand MD [address] [place] [address] PCP - General Family Medicine 01/21/21 Linda Jung APRN.DESK SERGEANT [address] [place] [address] [facility] 07/28/24 Ruby Seaman PA-C [address] [place] [address] [facility] 07/28/24 Face Cleaner Relationship Specialty Start Date End Date Bola Durand MD [address] [place] [address] PCP - General Family Medicine 01/21/21 Linda Jung APRN.DESK SERGEANT [address] [place] [address] [facility] Family Medicine 07/28/24 Ruby Seaman PA-C [address] [place] [address] [facility] Medicine 07/28/24 Face Cleaner Relationship Specialty Start Date End Date Bola Durand MD [address] [place] [address] PCP - General Family Medicine 01/21/21 Linda Jung APRN.DESK SERGEANT [address] [place] [address] Life Sciences Director Family Medicine 07/28/24 Ruby Seaman PA-C [address] [place] [address] Life Sciences Director Family Medicine 07/28/24 Face Cleaner Relationship Specialty Start Date End Date Bola Durand MD [address] [place] [address] PCP - General Family Medicine 01/21/21 Linda Jung, CHRISTINA.DESK SERGEANT [address] [place] [address] Life Sciences Director Family Medicine 07/28/24 Ruby Seaman PA-C [address] [place] [address] Life Sciences Director Family Medicine 07/28/24 Face Cleaner Relationship Specialty Start Date End Date Boal Durand MD [address] [place] [address] PCP - General Family Medicine 01/21/21 Linda Jnug, DISTRIBUTION TRANSFORMER ASSEMBLER.DESK SERGEANT [address] [place] [address] Life Sciences Director Family Medicine 07/28/24 Ruby Seaman PA-C [address] [place] [address] Life Sciences Director Family Medicine 07/28/24 Face Cleaner Relationship Specialty Start Date End Date Bola Durand MD [address] [place] [address] PCP - General Family Medicine 01/21/21 Linda Jung APRN.DESK SERGEANT [address] [place] [address] Life Sciences Director Family Medicine 07/28/24 Ruby Seaman PA-C [address] [place] [address] Life Sciences Director Family [facility] 07/28/24 Face Cleaner Relationship Specialty Start Date End Date Bola Durand MD [address] [place] [address] PCP - General Family Medicine 01/21/21 Linda Jung APRN.DESK SERGEANT [address] [place] [address] Life Sciences Director Family Medicine 07/28/24 Ruby Seaman PA-C [address] [place] [address] [facility] 07/28/24 Face Cleaner Relationship Specialty Start Date End Date Bola Durand MD [address] [place] [address] PCP - General Family Medicine 01/21/21 Linda Jung APRN.DESK SERGEANT [address] [place] [address] [facility] Family Medicine 01/21/25 Ruby Seaman PA-C [address] [place] [address] [facility] Family Medicine 01/21/25 Face Cleaner Relationship Specialty Start Date End Date Bola Durand MD [address] [place] [address] PCP - General Family Medicine 01/21/21 Linda Jung, CHRISTINA.DESK SERGEANT [address] [facility] [place] [address] Life Sciences Director Family Medicine 01/21/25 Ruby Seaman PA-C [address] [place] [address] Life Sciences Director Family Medicine 01/21/25 Face Cleaner Relationship Specialty Start Date End Date Bola Durand MD [address] [place] [address] PCP - General Family Medicine 01/21/21 Linda Jung, CHRISTINA.DESK SERGEANT [address] [facility] [place] [address] Life Sciences Director Family Medicine 01/21/25 Ruby Seaman PA-C [address] [place] [address] Life Sciences Director Family Medicine 01/21/25 Face Cleaner Relationship Specialty Start Date End Date Bola Durand MD [address] [place] [address] PCP - General Family Medicine 01/21/21 Linda Jung DISTRIBUTION TRANSFORMER ASSEMBLER.DESK SERGEANT [address] [facility] [place] [address] Life Sciences Director Family Medicine 01/21/25 Ruby Seaman PA-C [address] [facility], [place] [id number] [facility] 01/21/25 Face Cleaner Relationship Specialty Start Date End Date Bola Durand MD [address] [place], [place] [address] PCP - General Family Medicine 01/21/21 Linda Jung APRN.DESK SERGEANT [address] [place] [id number] [facility] 07/28/24 01/06/25 Ruby Seaman PA-C [address] [place], [place] [address] [facility] 07/28/24 01/20/25 Linda Jung APRN.DESK SERGEANT [address] [place] [id number] [facility] 01/21/25 Ruby Seaman PA-C [address] [place], [place] [id number] [facility] 01/21/25 Team Status: Active Member Role Status Dates Dr. Bola Durand MD Primary Care Provider Active Team Status: Inactive Member Role Status Dates Dr. Shaji Li MD Attending Provider Active Start: November 20, 2024 End: November 20, 2024 Dr. Bola Durand MD Primary Care Provider Active Start: November 20, 2024 End: November 20, 2024 Dr. Bola Durand MD Referring Provider Active Start: November 20, 2024 End: November 20, 2024 Team Status: Inactive Member Role Status Dates Dr. Bola Durand MD Primary Care Provider Active Start: December 14, 2024 End: December 14, 2024 Dr. Shaji Li MD Attending Provider Active Start: December 14, 2024 End: December 14, 2024 Dr. Shaji Li MD Referring Provider Active Start: December 14, 2024 End: December 14, 2024 Team Status: Active Member Role Status Dates Dr. Bola Durand MD Primary Care Provider Active Start: December 14, 2024 Dr. Shaji Li MD Attending Provider Active Start: December 14, 2024 Dr. Shaji Li MD Referring Provider Active Start: December 14, 2024 Dr. Shaji Li MD Other Provider Active Star t: December 14, 2024 Team Status: Inactive Member Role Status Dates Dr. Bola Durand MD Primary Care Provider Active Start: February 05, 2025 End: February 05, 2025 Dr. Shaji Li MD Attending Provider Active Start: February 05, 2025 End: February 05, 2025 Dr. Shaji Li MD Referring Provider Active Start: February 05, 2025 End: February 05, 2025 Team Status: Active Member Role Status Dates Dr. Bola Durand MD Primary Care Provider Active Start: February 05, 2025 Dr. Shaji Li MD Referring Provider Active Start: February 05, 2025 Dr. Shaji Li MD Other Provider Active Star t: February 05, 2025 Dr. Aj Francois MD Attending Provider Active S tart: February 05, 2025 Team Status: Active Member Role Status Dates Dr. Bola Durand MD Primary Care Provider Active Start: February 07, 2025 Jailene Fry CIGAR BINDER, CIGAR BINDER-C Attending Provider Active Start: February 07, 2025 Face Cleaner Relationship Specialty Start Date End Date Bola Durand MD [facility] [place], [place] [id number] PCP - General Family Medicine 01/21/21 Linda Jung APRN.CNP [address] [place] [address] [facility] 01/21/25 Ruby Seaman PA-C [address] [place] [address] [facility] 01/21/25 Team Status: Active Member Role/Relationship Status Dates Dr. Bola Durand MD Primary Care Provider Active Team Status: Inactive Member Role/Relationship Status Dates Dr. Shaji Li MD Attending Provider Active Start: November 20, 2024 End: November 20, 2024 Dr. Bola Durand MD Primary Care Provider Active Start: November 20, 2024 End: November 20, 2024 Dr. Bola Durand MD Referring Provider Active Start: November 20, 2024 End: November 20, 2024 Team Status: Inactive Member Role/Relationship Status Dates Dr. Bola Durand MD Primary Care Provider Active Start: December 14, 2024 End: December 14, 2024 Dr. Shaji Li MD Attending Provider Active Start: December 14, 2024 End: December 14, 2024 Dr. Shaji Li MD Referring Provider Active Start: December 14, 2024 End: December 14, 2024 Team Status: Active Member Role/Relationship Status Dates Dr. Bola Durand MD Primary Care Provider Active Start: December 14, 2024 Dr. Shaji Li MD Attending Provider Active Start: December 14, 2024 Dr. Shaji Li MD Referring Provider Active Start: December 14, 2024 Dr. Shaji Li MD Other Provider Active Star t: December 14, 2024 Team Status: Inactive Member Role/Relationship Status Dates Dr. Bola Durand MD Primary Care Provider Active Start: February 05, 2025 End: February 05, 2025 Dr. Shaji Li MD Attending Provider Active Start: February 05, 2025 End: February 05, 2025 Dr. Shaji Li MD Referring Provider Active Start: February 05, 2025 End: February 05, 2025 Team Status: Active Member Role/Relationship Status Dates Dr. Bola Durand MD Primary Care Provider Active Start: February 05, 2025 Dr. Shaji Li MD Referring Provider Active Start: February 05, 2025 Dr. Shaji Li MD Other Provider Active Star t: February 05, 2025 Dr. Aj Francois MD Attending Provider Active S tart: February 05, 2025 Team Status: Active Member Role/Relationship Status Dates Dr. Bola Durand MD Primary Care Provider Active Start: February 07, 2025 Jailene Fry CIGAR BINDER, CIGAR BINDER-C Attending Provider Active Start: February 07, 2025 Team Status: Inactive Member Role/Relationship Status Dates Dr. Bola Durand MD Primary Care Provider Active Start: March 01, 2025 End: March 01, 2025 Dr. Bola Durand MD Referring Provider Active Start: March 01, 2025 End: March 01, 2025 Jailene Fry CIGAR BINDER, CIGAR BINDER-C Attending Provider Active Start: March 01, 2025 End: March 01, 2025 Face Cleaner Relationship Specialty Start Date End Date Bola Durand MD [address] [place], [place] [phone] PCP - General Family Medicine 01/21/21 Linda Jung APRN.CNP [address] [place], [place] [phone] [facility] 01/21/25 Ruby Seaman PA-C [address] [place], [place] [id number] [facility] 01/21/25 Scheduled Active and Recently Administ ered Medications (unrecognized section and content) Medication Order 10/10/2024 10/11/2024 10/12/2024 atorvastatin (Lipitor) tablet 20 mg 20 mg, oral, Daily, First dose on [place] 10/11/24 at 2100 2129 (Given - Provider: Casi Castro RN - Comment: ppt request) 1308 (Given - Provider: Rosemary Das RN - Comment: gave late last night.) azithromycin (Zithromax) 500 mg in dextrose 5% IV 250 mL (COMPLETED) 500 mg, intravenous, at 250 mL/hr, Administer over 60 Minutes, Once, On [place] 10/11/24 at 0900, For 1 dose, Mini-Bag Plus/ADD-[place] bag, Suspected Indication (Select all that apply): Pneumonia, Type of Therapy: Empiric, Indications: Pneumonia 0951 (New Bag - Provider: Elva Pizano RN)1019 (Stopped - Provider: Elva Pizano RN) cefTRIAXone (Rocephin) 2 g in dextrose (iso) IV 50 mL (COMPLETED) 2 g, intravenous, at 100 mL/hr, Administer over 30 Minutes, Once, On [place] 10/11/24 at 0900, For 1 dose, premix bag, Suspected Indication (Select all that apply): Pneumonia, Type of Therapy: Empiric, Indications: Pneumonia 0919 (New Bag - Provider: Elva Pizano RN)0947 (Stopped - Provider: Elva Pizano RN) doxycycline (Vibra-Tabs) tablet 100 mg 100 mg, oral, Every 12 hours scheduled, First dose on [place] 10/11/24 at 2100, Administer with meals to decrease GI upset; take with at least 8 ounces (large glass) of water, do not lie down for 30 minutes after., Suspected Indication (Select all that apply): Pneumonia, Type of Therapy: Empiric, Indications: Pneumonia 2128 (Given - Provider: Casi Castro RN) 0844 (Given - Provider: Rosemary Das RN)2100 (Due) doxycycline (Vibramycin) 100 mg in sodium chloride 0.9% 100 mL IV (COMPLETED) 100 mg, intravenous, at 100 mL/hr, Administer over 60 Minutes, Once, On [place] 10/11/24 at 1015, For 1 dose, Mini-Bag Plus/ADD-[place] bag, Suspected Indication (Select all that apply): Pneumonia, Type of Therapy: Empiric, Indications: Pneumonia 1020 (New Bag - Provider: Elva Pizano RN)1200 (Stopped - Provider: Elva Pizano RN) enoxaparin (Lovenox) syringe 40 mg 40 mg, subcutaneous, Daily, First dose on [place] 10/11/24 at 1600 1643 (Given - Provider: Joaquin Gómez RN) 1643 (Due - Provider: Rosemary Das RN - Comment: given last night) iohexol (OMNIPaque) 350 mg iodine/mL solution 70 mL (COMPLETED) 70 mL, intravenous, Once in imaging, Starting on [place] 10/11/24 at 0804, For 1 dose 0748 (Given - Provider: Aparna Funez) perflutren lipid microspheres (Definity) injection 0.5-10 mL of dilution 0.5-10 mL of dilution, intravenous, Once in imaging, Starting on [place] 10/11/24 at 1542, For 1 dose, CV Medications, Contrast - for use by imaging provider only. Prior to administration, Definity product must be activated. First, bring vial to room temperature. Then, shake vial for 45 seconds. Do not use if the 45 second activation cycle has not been completed. Following activation, the product will appear as a milky white suspension and may be used immediately. If not used within 5 minutes of activation, re-suspend by inverting and shaking the vial for 10 seconds. Discard unused product. Administration: Dilute 1.3 mL of activated DEFINITY with 8.7 mL of normal saline in a 10 mL syringe. Inject 0.5 mL of diluted DEFINITY when notified the images/film are unclear to enhance view of Left Ventricular borders. Repeat 0.5 mL of DEFINITY until clear images are obtained, not to exceed 10 mLs. Once images are obtained or limit of medication is reached, flush line with 10 mL of Normal Saline. perflutren protein A microsphere (Optison) injection 0.5 mL 0.5 mL, intravenous, Once in imaging, Starting on [place] 10/11/24 at 1542, For 1 dose, CV Medications predniSONE (Deltasone) tablet 20 mg 20 mg, oral, 2 times daily, First dose on [place] 10/11/24 at 2100 2130 (Given - Provider: Casi Castro, JASMIN) 0844 (Given - Provider: Rosemary Das, JASMIN)2100 (Due) sodium chloride 0.9 % bolus 1,000 mL (COMPLETED) 1,000 mL, intravenous, at 999 mL/hr, Administer over 1 Hours, Once, On [place] 10/11/24 at 0850, For 1 dose 0852 (New Bag - Provider: Elva Pizano, JASMIN)0947 (Stopped - Provider: Elva Pizano RN) sulfur hexafluoride microsphr (Lumason) injection 24.28 mg 24.28 mg (2 mL), intravenous, Once in imaging, Starting on [place] 10/11/24 at 1542, For 1 dose, CV Medications, Follow administration with 5 mL NaCL 0.9% injection. venlafaxine XR (Effexor-XR) 24 hr capsule 150 mg 150 mg, oral, Nightly, First dose on [place] 10/11/24 at 2100, Capsule may be swallowed whole, or may be opened and its contents sprinkled on applesauce if consumed immediately without chewing. Do not crush or chew. 212 (Given - Provider: Casi Castro RN) 2100 (Due) venlafaxine XR (Effexor-XR) 24 hr capsule 75 mg 75 mg, oral, Daily, First dose on Tue10/12/24 at 0900, Capsule may be swallowed whole, or may be opened and its contents sprinkled on applesauce if consumed immediately without chewing. Do not crush or chew. 0844 (Given - Provid er: Rosemary Das RN) Continuous Medication Order 10/10/2024 10/11/2024 10/12/2024 sodium chloride 0.9% infusion 100 mL/hr, intravenous, Continuous, Starting on [place] 10/11/24 at 1600, For 1 day 1643 (New Bag - Provider: Joaquin Gómez RN)1822 (Rate/Dose Verify - Provider: Joaquin Gómez RN)1900 (Rate/Dose Verify - Provider: Casi Castro RN)2000 (Rate/Dose Verify - Provider: Casi Castro RN)2100 (Rate/Dose Verify - Provider: Casi Castro RN)2200 (Rate/Dose Verify - Provider: Casi Castro RN)2300 (Rate/Dose Verify - Provider: Casi Castro RN) 0000 (Rate/Dose Verify - Provider: Casi Castro RN)0100 (Rate/Dose Verify - Provider: Casi Castro RN)0200 (Rate/Dose Verify - Provider: Casi Castro RN)0300 (Rate/Dose Verify - Provider: Casi Castro RN)0400 (Rate/Dose Verify - Provider: Casi Castro RN)0440 (New Bag - Provider: Casi Castro RN)0500 (Rate/Dose Verify - Provider: Casi Castro RN)0600 (Rate/Dose Verify - Provider: Casi Castro RN)1011 (Rate/Dose Verify - Provider: Rosemary Das RN)1332 (Stopped - Provider: Rosemary Das RN) PRN Medication Order 10/10/2024 10/11/2024 10/12/2024 acetaminophen (Tylenol) tablet 650 mg 650 mg, oral, Every 4 hours PRN, pain mild (1-3), first line, Starting on [place] 10/11/24 at 2144, If ordered PRN for pain, nurse is permitted to administer this medication for higher pain scores based on patient preference? Yes 0648 (Not Given - Pr ovider: Casi Castro RN - Reason: Other - Comment: pt sleeping when brought in medication) benzonatate (Tessalon) capsule 100 mg 100 mg, oral, Every 8 hours PRN, cough, Starting on Shirley 10/11/24 at 1531, Do not crush or chew. ipratropium-albuteroL (Duo-Neb) 0.5-2.5 mg/3 mL nebulizer solution 3 mL 3 mL, nebulization, Every 6 hours PRN, wheezing, Starting on 10/12/24 at 0901 0924 (Given - Provid er: Rhonda Theodore RRT)1400 (Due) Goals (unrecognized section and content) Goals may be documented in a n alternate sectionGoals may be documented in an alternate section FOR RECORDS PERTAINING TO PATIENTS WHO ARE OR HAVE BEEN ENROLLED IN A CHEMICAL DEPENDENCY/SUBSTANCEABUSE PROGRAM, SOME INFORMATION MAY BE OMITTED. This clinical summary was aggregated from multiple sources. Caution should be exercised in using it in the provision of clinical care. This summary normalizes information from multiple sources, and as a consequence, information in this document may materially change the coding, format and clinical context of patient data. In addition, data may be omitted in some cases. CLINICAL DECISIONS SHOULD BE BASED ON THE PRIMARY CLINICAL RECORDS. [employer] provides no warranty or guarantee of the accuracy or completeness of information in this document.
[2025-03-10 16:49] VITALS: BP 138/74; PULSE 79; RESP 16; TEMP 36.7; O2SAT 99
== END 2025-03-10 16:50 | disposition home or self-care (01) ==
PROVIDERS: Emergency Provider Emergency Medicine; PCP Family Medicine; Referring Provider Emergency Medicine; Visit Provider Emergency Medicine
DX: J06.9 Acute upper respiratory infection, unspecified (principal); J44.9 Chronic obstructive pulmonary disease, unspecified; R04.0 Epistaxis; R04.2 Hemoptysis; F41.1 Generalized anxiety disorder; E78.2 Mixed hyperlipidemia; Z79.899 Other long term (current) drug therapy; Z87.891 Personal history of nicotine dependence
CPT/HCPCS: 71046; 99282